=== PATIENT | female | born 1960 | race Caucasian/White ===

== ENCOUNTER 2016-07-22 06:50 | Day surgery (SDC) | payer OTHER ==
[2016-07-21 11:26] VITALS: BMI 29.2
[~2016-07-22 06:50] MED LIST: MOXIFLOXACIN HCL 0.5% DROPS 3 ML BTL OP ONE; TETRACAINE 0.5% OPHTH (PF) DROPS 4 ML BTL OP ONE; TIMOLOL 0.5% OPHTH SOLN (PF) 0.2 ML DROPERETTE OP ONE
[2016-07-22 07:31] VITALS: TEMP 97
[2016-07-22] MEDS: CYCLOPENTOLATE 1% OPHTH SOLN 2 ML BTL OP ONE ×3 (07:31→07:49)
[2016-07-22] MEDS: PHENYLEPHRINE 2.5% OPHTH DRP 2ML OP NR ×3 (07:35→07:52)
[2016-07-22] MEDS ORDERED: LACTATED RINGERS 1,000 ML IV ONE (07:46)
[2016-07-22] MEDS ORDERED: DUOVISC KIT (GREEN BOX) INTRAOCULA ONE (08:24)
[2016-07-22] MEDS ORDERED: BALANCED SALT IRRIG SOLN COMB2 15 ML IRRIG.SOLN IRRIGATION ONE (08:24)
[2016-07-22] MEDS ORDERED: LIDOCAINE 1% (PF) 10MG/ML VIAL MISCELLANE ONE (08:25)
[2016-07-22] MEDS ORDERED: MIDAZOLAM 2 MG/2 ML VIAL ONE (08:29)
[2016-07-22] MEDS ORDERED: fentaNYL (PF) 50 MCG/ML 2 ML AMP ONE (08:29)
[2016-07-22] MEDS ORDERED: TRYPAN BLUE 0.06% SYRINGE 0.5 ML SYRINGE INTRAOCULA ONE (08:44)
[2016-07-22] MEDS ORDERED: EPINEPHrine (PF) 0.3 ML in BALANCED SALT IRRIG SOLN COMB2 500 ML IRRIGATION ONE (08:45)
--- NOTE | 2016-07-22 09:00 | P.OP ---
Date of Procedure: 07/22/16 Preoperative Diagnosis: NS & CS & PSC Postoperative Diagnosis: same Procedure(s) Performed: PIOL, OS Implants: PCB00 19.50 Anesthesia: MAC Surgeon: Olman Acosta Estimated Blood Loss (ml): 0 Pathology: none sent Condition: stable Disposition: same day Indications for Procedure: poor vision Operative Findings: No complications Description of Procedure:
[2016-07-22 09:07] VITALS: RESP 16
[2016-07-22 09:32] VITALS: BP 164/79; PULSE 62
--- NOTE | 2016-07-23 07:11 | OP ---
DATE OF SERVICE: 07/22/2016 SURGEON: PETER IVEY MD TRAFFIC ADMINISTRATOR: PREOPERATIVE DIAGNOSIS: Nuclear sclerosis, cortical sclerosis and posterior subcapsular cataract. POSTOPERATIVE DIAGNOSIS: Nuclear sclerosis, cortical sclerosis and posterior subcapsular cataract. OPERATION: Phacoemulsification of cataract and intraocular lens implant to the left eye. ANESTHESIA: Topical. ESTIMATED BLOOD LOSS: None. SPECIMENS TAKEN: None. COMPLICATIONS: OPERATIVE FINDINGS: NARRATIVE: After obtaining the appropriate consent, the patient was brought to the operating room. There she was placed under cardiac monitoring, prepped and draped in the usual sterile manner. She was approached from her left temporal side and at the 5 o'clock position a 1.1 mm stab blade was used to create a paracentesis port. Through this opening, 1% Xylocaine MPF 50-50 mix with balanced salt solution was injected into the anterior chamber. A small air bubble was then placed into the anterior chamber and trypan blue was instilled over the tissues of the anterior chamber and left in place for approximately one minute. This was then irrigated away with balanced salt solution. The anterior chamber was then stabilized using Amvisc. At the 3 o'clock position a 2.5 mm keratome was used to create a self-sealing corneal flap incision in a Langerman fashion. A cystotome was then introduced to begin a continuous tear capsulorrhexis, which was completed using the Utrata forceps. Hydrodissection and hydrodelineation of the lens was accomplished with balanced salt solution. Phacoemulsification of the lens utilizing phaco chop was accomplished in 4.95 seconds at 10% power. Additional Xylocaine MPF was instilled into the anterior chamber. This was followed by removal of the remaining cortex under irrigation and aspiration as well as careful polishing of the posterior capsule in capsule vacuum mode. Additional Amvisc was then used to stabilize the anterior chamber and the capsular bag and an [employer] PCB00 16.5 diopter posterior chamber intraocular lens was then inserted into the capsular bag without difficulty. Viscoelastic was removed from in and around the intraocular lens as well as the anterior chamber. The eye was then brought to normal intraocular pressure through the paracentesis port with balanced salt solution. Incisions were confirmed watertight. The patient then received 2 drops of 0.5% timolol followed by 2 drops of Vigamox, was then lightly patched and shielded in the usual manner. There were no complications from the procedure. She tolerated the procedure well and was returned to outpatient recovery in good condition.
== END 2016-07-22 09:58 | disposition home or self-care (01) ==
LOC: OR 06:50
PROVIDERS: ATTEND Ophthalmology
DX: H25.13 Age-related nuclear cataract, bilateral (principal); H25.043 Posterior subcapsular polar age-related cataract, bilateral; H26.8 Other specified cataract; H52.223 Regular astigmatism, bilateral; H40.012 Open angle with borderline findings, low risk, left eye; H52.4 Presbyopia; I10 Essential (primary) hypertension; E11.9 Type 2 diabetes mellitus without complications; E07.9 Disorder of thyroid, unspecified; K21.9 Gastro-esophageal reflux disease without esophagitis; Z79.899 Other long term (current) drug therapy; Z88.8 Allergy status to other drugs, medicaments and biological substances
CPT/HCPCS: 66984; C1780; J2250; J0171; J3010; J2001

== ENCOUNTER 2016-07-28 16:25 | Emergency (ER) | payer OTHER ==
[2016-07-28] MEDS ORDERED: SODIUM CHLORIDE 0.9% 1,000 ML IV STA (17:01)
[2016-07-28 17:41] LABS: Anisocytosis Slight; Basophils % (A) 1 %; CH 29.2; CHCM 34.4; Eosinophils % (A) 1 %; HCT 39.4 % (34.0-46.0); HDW 4.25; HGB 13.1 gm/dL (11.4-16.0); Luc # (Auto) 0.08; Luc % (Auto) 2; Lymphocytes # (A) 0.5 k/uL (1.0-4.8); Lymphocytes % (A) 14 %; MCH 28.4 pg (25.0-35.0); MCHC 33.3 g/dL (31.0-37.0); MCV 85.5 fL (80.0-100.0); Mean Platelet Volume 7.5; Monocytes # (A) 0.2 k/uL (0-1.0); Monocytes % (A) 5 %; Neutrophils # (A) 2.9 k/uL (1.3-7.7); Neutrophils % (A) 77 %; Poikilocytosis Moderate; WBC 3.7 k/uL (3.8-10.6); WBC (Perox) 3.64
[2016-07-28 17:42] LABS: Appearance,Urine Clear (Clear); Bilirubin,Urine Negative (Negative); Glucose,Urine (UA) Negative (Negative); INR 1.1 (<1.1); Ketones,Urine Negative (Negative); Leukocyte Esterase,Urine Negative (Negative); Nitrite,Urine Negative (Negative); Protein,Urine Negative (Negative); Prothrombin Time 11.3 sec (9.0-12.0); Specific Gravity,Urine 1.003 (1.001-1.035); UA Billing (MACRO vs. MICRO) CHEM; Urobilinogen,Urine <2.0 mg/dL (<2.0)
--- NOTE | 2016-07-28 17:47 | ED ---
General Adult HPI - General Chief complaint: Recheck/Abnormal Lab/Rx Stated complaint: Weakness Time Seen by Provider: 07/28/16 16:43 Source: patient, RN notes reviewed Mode of arrival: wheelchair Limitations: physical limitation - History of Present Illness Initial comments: Patient is a 56-year-old female presents emergency room for evaluation of low body temperature. Patient states been having low body temperature for the past 2 months. Patient states she'll have episodes where her temperature goes down 94F and she will feel very cold but will sweat profusely. Patient states that she has gone to [facility] ER for this issue and they did not find anything significant and sent her home. Patient states she's been having continuing issues with this. Patient states she called Dr. Gill yesterday and today. Patient states her primary care provider about certain blood work done that she faxed over to us. Patient states that she does have a history of thyroid issues. Patient states she's not sure if this is related to thyroid. Patient states that she went through menopause many years ago. Patient denies any abnormal vaginal bleeding or vaginal discharge. Patient denies headache, dizziness, chest pain, shortness of breath, abdominal pain, nausea, vomiting, diarrhea, constipation. Patient denies pain or burning during urination, trouble urinating or blood in urine. Patient states she is just not feeling herself. Patient states she like to find the cause of her low body temperature. 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 Patient does state she follows up with neurologist. Patient states she has an MRI ordered but has not scheduled the appointment yet. Patient denies any changes in vision, dizziness, headache, ringing in ears. - Related Data Home Medications Medication Instructions Recorded Confirmed Ascorbic Acid [Vitamin C] 500 mg PO DAILY 07/21/16 07/28/16 Atenolol [Tenormin] 100 mg PO HS 07/21/16 07/28/16 Levothyroxine Sodium [Tirosint] 112 mcg PO DAILY 07/21/16 07/28/16 Magnesium Oxide [Mag-Ox] 250 mg PO DAILY 07/21/16 07/28/16 Montelukast [Singulair] 10 mg PO HS 07/21/16 07/28/16 Potassium Bicarbonate/Cit AC 50 meq PO TID 07/21/16 07/28/16 [Klor-Con 25 (Effer. Tab)] SUMAtriptan SUCCINATE [Imitrex] 50 mg PO DAILY PRN 07/21/16 07/28/16 Zolpidem Tartrate [Ambien] 5 mg PO HS 07/21/16 07/28/16 amLODIPine [Norvasc] 5 mg PO DAILY 07/21/16 07/28/16 Albuterol Nebulized [Ventolin 2.5 mg INHALATION RT-DAILY PRN 07/28/16 07/28/16 Nebulized] LORazepam [Ativan] 3 mg PO HS 07/28/16 07/28/16 Potassium Chloride [Klor-Con 20] 20 meq PO BID 07/28/16 07/28/16 Allergies Allergy/AdvReac Type Severity Reaction Status Date / Time hydrocortisone Allergy Nausea & Verified 07/28/16 16:56 Vomiting Iodine and Iodide Containing Allergy "KIDNEY Verified 07/28/16 16:56 Produc PROBLEM" quinine Allergy Nausea & Verified 07/28/16 16:56 Vomiting iodine AdvReac Unknown "KIDNEY Verified 07/28/16 16:56 PROBLEM" Review of Systems ROS Statement: Those systems with pertinent positive or pertinent negative responses have been documented in the HPI. ROS Other: All systems not noted in ROS Statement are negative. 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, TUBULAR RENAL ACIDOSIS,NEUROMUSCULAR DISEASE-MULTI FOCAL MOTOR NEUROPATHY , QUADRIPLEGIC History of Any Multi-Drug Resistant Organisms: None Reported Past Surgical History: Uterine Ablation Additional Past Surgical History / Comment(s): MUSCLE BIOPSY , D&C Past Anesthesia/Blood Transfusion Reactions: Postoperative Nausea & Vomiting ( PONV) Past Psychological History: No Psychological Hx Reported Smoking Status: Never smoker Past Alcohol Use History: None Reported Past Drug Use History: None Reported - Past Family History Mother Family Medical History: No Reported History General Exam - General Exam Comments Initial Comments: Sitting in exam room, no acute distress. Limitations: physical limitation General appearance: alert, in no apparent distress Head exam: Present: atraumatic, normocephalic, normal inspection Eye exam: Present: normal appearance Pupils: Present: normal accommodation ENT exam: Present: normal exam Neck exam: Present: normal inspection, full ROM. Absent: tenderness, lymphadenopathy Respiratory exam: Present: normal lung sounds bilaterally. Absent: respiratory distress Cardiovascular Exam: Present: regular rate, normal rhythm, normal heart sounds Extremities exam: Present: normal inspection Back exam: Present: normal inspection Neurological exam: Present: alert, oriented X3, CN II-XII intact Psychiatric exam: Present: normal affect, normal mood Skin exam: Present: warm, dry, intact Course Vital Signs 07/28/16 07/28/16 16:28 19:21 Temperature 97.8 F 97.3 F L Pulse Rate 63 60 Respiratory 20 17 Rate Blood Pressure 141/71 151/67 O2 Sat by Pulse 98 100 Oximetry EKG Findings - EKG Comments: EKG Findings:: Sinus bradycardia, ventricular rate 54 bpm, NC interval 154 ms, QRS duration 86 seconds, QT/QTc 430/407 ms Medical Decision Making - Medical Decision Making Patient is a 56-year-old female presents emergency room for evaluation of on and off low body temperature. Patient temperature within normal limits here. There was a form faxed from Dr. Gill to order a free T3, free T4, TSH, estradiol, FSH, LH. Labs were taken. Gen. labs were also ordered which were within normal limits. Patient was offered brain CT. Patient refused CT. Patient advised to follow-up with either Dr. Gill or primary care provider. Other labs pending at the moment. Patient states she understands everything that was discussed with her. Return parameters discussed. Case discussed with Dr. Romero. - Lab Data Result diagrams: 07/28/16 17:29 07/28/16 17:29 Lab Results 07/28/16 07/28/16 07/28/16 Range/Units 17:29 17:29 17:29 WBC 3.7 L (3.8-10.6) k/uL RBC 4.60 (3.80-5.40) m/uL Hgb 13.1 (11.4-16.0) gm/dL Hct 39.4 (34.0-46.0) % MCV 85.5 (80.0-100.0) fL MCH 28.4 (25.0-35.0) pg MCHC 33.3 (31.0-37.0) g/dL RDW 19.0 H (11.5-15.5) % Plt Count 142 L (150-450) k/uL Neutrophils % 77 % Lymphocytes % 14 % Monocytes % 5 % Eosinophils % 1 % Basophils % 1 % Neutrophils # 2.9 (1.3-7.7) k/uL Lymphocytes # 0.5 L (1.0-4.8) k/uL Monocytes # 0.2 (0-1.0) k/uL Eosinophils # 0.0 (0-0.7) k/uL Basophils # 0.0 (0-0.2) k/uL Poikilocytosis Moderate Anisocytosis Slight PT (9.0-12.0) sec INR (<1.1) Sodium 139 (137-145) mmol/L Potassium 5.0 (3.5-5.1) mmol/L Chloride 102 (98-107) mmol/L Carbon Dioxide 27 (22-30) mmol/L Anion Gap 10 mmol/L BUN 11 (7-17) mg/dL Creatinine 0.20 L (0.52-1.04) mg/dL Est GFR (MDRD) Af Amer >60 (>60 ml/min/1.73 sqM) Est GFR (MDRD) Non-Af >60 (>60 ml/min/1.73 sqM) Glucose 127 H (74-99) mg/dL POC Glucose (mg/dL) (75-99) mg/dL POC Glu Science Instructor ID Plasma Lactic Acid Kuldeep (0.7-2.0) mmol/L Calcium 9.5 (8.4-10.2) mg/dL Magnesium 1.9 (1.6-2.3) mg/dL Total Bilirubin 0.4 (0.2-1.3) mg/dL AST 41 H (14-36) U/L ALT 51 (9-52) U/L Alkaline Phosphatase 115 (38-126) U/L Troponin I (0.000-0.034) ng/mL Total Protein 8.5 H (6.3-8.2) g/dL Albumin 4.5 (3.5-5.0) g/dL TSH 0.276 L (0.465-4.680) mIU/L Free T4 2.15 (0.78-2.19) ng/dL Free T3 pg/mL 4.0 (2.8-5.3) pg/ml FSH 66.3 mIU/mL Luteinizing Hormone 39.8 mIU/mL Urine Color Light Yellow Urine Appearance Clear (Clear) Urine pH 8.0 (5.0-8.0) Ur Specific [place] 1.003 (1.001-1.035) Urine Protein Negative (Negative) Urine Glucose (UA) Negative (Negative) Urine Ketones Negative (Negative) Urine Blood Negative (Negative) Urine Nitrite Negative (Negative) Urine Bilirubin Negative (Negative) Urine Urobilinogen <2.0 (<2.0) mg/dL Ur Leukocyte Esterase Negative (Negative) Urine Opiates Screen Not Detected (NotDetected) Ur Oxycodone Screen Not Detected (NotDetected) Urine Methadone Screen Not Detected (NotDetected) Ur Propoxyphene Screen Not Detected (NotDetected) Ur Barbiturates Screen Not Detected (NotDetected) U Tricyclic Antidepress Not Detected (NotDetected) Ur Phencyclidine Scrn Not Detected (NotDetected) Ur Amphetamines Screen Not Detected (NotDetected) U Methamphetamines Scrn Not Detected (NotDetected) U Benzodiazepines Scrn Detected H (NotDetected) Urine Cocaine Screen Not Detected (NotDetected) U Marijuana (THC) Screen Not Detected (NotDetected) 07/28/16 07/28/16 07/28/16 Range/Units 17:29 17:29 17:29 WBC (3.8-10.6) k/uL RBC (3.80-5.40) m/uL Hgb (11.4-16.0) gm/dL Hct (34.0-46.0) % MCV (80.0-100.0) fL MCH (25.0-35.0) pg MCHC (31.0-37.0) g/dL RDW (11.5-15.5) % Plt Count (150-450) k/uL Neutrophils % % Lymphocytes % % Monocytes % % Eosinophils % % Basophils % % Neutrophils # (1.3-7.7) k/uL Lymphocytes # (1.0-4.8) k/uL Monocytes # (0-1.0) k/uL Eosinophils # (0-0.7) k/uL Basophils # (0-0.2) k/uL Poikilocytosis Anisocytosis PT 11.3 (9.0-12.0) sec INR 1.1 (<1.1) Sodium (137-145) mmol/L Potassium (3.5-5.1) mmol/L Chloride (98-107) mmol/L Carbon Dioxide (22-30) mmol/L Anion Gap mmol/L BUN (7-17) mg/dL Creatinine (0.52-1.04) mg/dL Est GFR (MDRD) Af Amer (>60 ml/min/1.73 sqM) Est GFR (MDRD) Non-Af (>60 ml/min/1.73 sqM) Glucose (74-99) mg/dL POC Glucose (mg/dL) (75-99) mg/dL POC Glu Science Instructor ID Plasma Lactic Acid Kuldeep 1.3 (0.7-2.0) mmol/L Calcium (8.4-10.2) mg/dL Magnesium (1.6-2.3) mg/dL Total Bilirubin (0.2-1.3) mg/dL AST (14-36) U/L ALT (9-52) U/L Alkaline Phosphatase (38-126) U/L Troponin I <0.012 (0.000-0.034) ng/mL Total Protein (6.3-8.2) g/dL Albumin (3.5-5.0) g/dL TSH (0.465-4.680) mIU/L Free T4 (0.78-2.19) ng/dL Free T3 pg/mL (2.8-5.3) pg/ml FSH mIU/mL Luteinizing Hormone mIU/mL Urine Color Urine Appearance (Clear) Urine pH (5.0-8.0) Ur Specific [place] (1.001-1.035) Urine Protein (Negative) Urine Glucose (UA) (Negative) Urine Ketones (Negative) Urine Blood (Negative) Urine Nitrite (Negative) Urine Bilirubin (Negative) Urine Urobilinogen (<2.0) mg/dL Ur Leukocyte Esterase (Negative) Urine Opiates Screen (NotDetected) Ur Oxycodone Screen (NotDetected) Urine Methadone Screen (NotDetected) Ur Propoxyphene Screen (NotDetected) Ur Barbiturates Screen (NotDetected) U Tricyclic Antidepress (NotDetected) Ur Phencyclidine Scrn (NotDetected) Ur Amphetamines Screen (NotDetected) U Methamphetamines Scrn (NotDetected) U Benzodiazepines Scrn (NotDetected) Urine Cocaine Screen (NotDetected) U Marijuana (THC) Screen (NotDetected) 07/28/16 Range/Units 17:58 WBC (3.8-10.6) k/uL RBC (3.80-5.40) m/uL Hgb (11.4-16.0) gm/dL Hct (34.0-46.0) % MCV (80.0-100.0) fL MCH (25.0-35.0) pg MCHC (31.0-37.0) g/dL RDW (11.5-15.5) % Plt Count (150-450) k/uL Neutrophils % % Lymphocytes % % Monocytes % % Eosinophils % % Basophils % % Neutrophils # (1.3-7.7) k/uL Lymphocytes # (1.0-4.8) k/uL Monocytes # (0-1.0) k/uL Eosinophils # (0-0.7) k/uL Basophils # (0-0.2) k/uL Poikilocytosis Anisocytosis PT (9.0-12.0) sec INR (<1.1) Sodium (137-145) mmol/L Potassium (3.5-5.1) mmol/L Chloride (98-107) mmol/L Carbon Dioxide (22-30) mmol/L Anion Gap mmol/L BUN (7-17) mg/dL Creatinine (0.52-1.04) mg/dL Est GFR (MDRD) Af Amer (>60 ml/min/1.73 sqM) Est GFR (MDRD) Non-Af (>60 ml/min/1.73 sqM) Glucose (74-99) mg/dL POC Glucose (mg/dL) 124 H (75-99) mg/dL POC Glu Science Instructor ID Kevin Edwards Plasma Lactic Acid Kuldeep (0.7-2.0) mmol/L Calcium (8.4-10.2) mg/dL Magnesium (1.6-2.3) mg/dL Total Bilirubin (0.2-1.3) mg/dL AST (14-36) U/L ALT (9-52) U/L Alkaline Phosphatase (38-126) U/L Troponin I (0.000-0.034) ng/mL Total Protein (6.3-8.2) g/dL Albumin (3.5-5.0) g/dL TSH (0.465-4.680) mIU/L Free T4 (0.78-2.19) ng/dL Free T3 pg/mL (2.8-5.3) pg/ml FSH mIU/mL Luteinizing Hormone mIU/mL Urine Color Urine Appearance (Clear) Urine pH (5.0-8.0) Ur Specific [place] (1.001-1.035) Urine Protein (Negative) Urine Glucose (UA) (Negative) Urine Ketones (Negative) Urine Blood (Negative) Urine Nitrite (Negative) Urine Bilirubin (Negative) Urine Urobilinogen (<2.0) mg/dL Ur Leukocyte Esterase (Negative) Urine Opiates Screen (NotDetected) Ur Oxycodone Screen (NotDetected) Urine Methadone Screen (NotDetected) Ur Propoxyphene Screen (NotDetected) Ur Barbiturates Screen (NotDetected) U Tricyclic Antidepress (NotDetected) Ur Phencyclidine Scrn (NotDetected) Ur Amphetamines Screen (NotDetected) U Methamphetamines Scrn (NotDetected) U Benzodiazepines Scrn (NotDetected) Urine Cocaine Screen (NotDetected) U Marijuana (THC) Screen (NotDetected) Disposition Clinical Impression: Malaise, Chills Disposition: HOME SELF-CARE Condition: Good Additional Instructions: Please follow-up with primary care provider and neurologist for further evaluation. If any new symptom arises or symptoms worsen, return to ER as soon as possible. Referrals: Christiano Dooley MD [Primary Care Provider] - 1-2 days Sydni Gill MD [STAFF PHYSICIAN] - 1-2 days Time of Disposition: 19:04
[2016-07-28 17:54] LABS: ALT 51 U/L (9-52); AST 41 U/L (14-36); Alkaline Phosphatase 115 U/L (38-126); Anion Gap 10 mmol/L; Blood Urea Nitrogen 11 mg/dL (7-17); Calcium 9.5 mg/dL (8.4-10.2); Carbon Dioxide 27 mmol/L (22-30); Chloride 102 mmol/L (98-107); Glucose 127 mg/dL (74-99); Magnesium 1.9 mg/dL (1.6-2.3); Non-African American GFR(MDRD) >60 (>60 ml/min/1.73 sqM); Sodium 139 mmol/L (137-145); Total Bilirubin 0.4 mg/dL (0.2-1.3); Total Protein 8.5 g/dL (6.3-8.2)
[2016-07-28 18:07] LABS: Glucose,Whole Blood 124 mg/dL (75-99)
[2016-07-28 18:10] LABS: Follicle Stimulating Hormone 66.3 mIU/mL
[2016-07-28 19:22] VITALS: BP 151/67; PULSE 60; RESP 17; TEMP 97.3
[2016-07-31 13:48] LABS: Estradiol 22 pg/mL
== END 2016-07-28 19:21 | disposition home or self-care (01) ==
LOC: EC 16:25
DX: R53.81 Other malaise (principal); R68.83 Chills (without fever); I10 Essential (primary) hypertension; E07.9 Disorder of thyroid, unspecified; Z79.899 Other long term (current) drug therapy; Z88.8 Allergy status to other drugs, medicaments and biological substances; Z91.048 Other nonmedicinal substance allergy status
CPT/HCPCS: 36415; 80053; 80306; 81003; 82670; 83001; 83002; 83605; 83735; 84439; 84443; 84481; 84484; 85025; 85610; 93005; 96360; 96361; 99285

== ENCOUNTER → 2016-10-19 | Outpatient (CLI) | payer OTHER ==
--- NOTE | 2016-10-19 15:18 | CT ---
EXAMINATION TYPE: CT abdomen pelvis wo con DATE OF EXAM: 10/19/2016 COMPARISON: 01/08/2009 HISTORY: Alternating diarrhea and constipation. CT DLP: 1036.70 mGycm Automated exposure control for dose reduction was used. TECHNIQUE: Helical acquisition of images was performed from the lung bases through the pelvis. FINDINGS: LUNG BASES: No significant abnormality is appreciated. LIVER/GB: No significant abnormality is appreciated. PANCREAS: No significant abnormality is seen. SPLEEN: No significant abnormality is seen. ADRENALS: No significant abnormality is seen. URINARY BLADDER: No significant abnormality is seen. ADENOPATHY: None visualized. OSSEOUS STRUCTURES: Hypertrophic and degenerative change of the spine noted with slight curvature. F acet arthropathy. Arthropathy of the hips noted. BOWEL: No significant abnormality is seen. OTHER: Diffuse muscular atrophy noted. Mediport catheter noted. Soft tissue calcification noted. Athe rosclerotic change of the aorta. No aneurysm. There are multiple tiny calcifications within the mes[place] ka[place] of doubtful significance. IMPRESSION: 1. Multiple nonobstructing renal calculi bilaterally. 2. Nonspecific gas pattern. 3. Gastric wall is thickened but likely related to incomplete distention correlate clinically. 4. Diffuse muscular atrophy.
== END | disposition home or self-care (01) ==
LOC: RADCTMAIN 14:07
PROVIDERS: ATTEND Internal Medicine
DX: N20.0 Calculus of kidney (principal); K31.89 Other diseases of stomach and duodenum
CPT/HCPCS: 74176

== ENCOUNTER 2018-01-04 13:45 | Emergency (ER) | payer OTHER ==
[2018-01-04 13:59] VITALS: TEMP 97.4
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
[2018-01-04 16:44] VITALS: BP 135/74; PULSE 60; RESP 17
== END 2018-01-04 16:44 | disposition home or self-care (01) ==
LOC: EC 13:45
DX: S09.90XA Unspecified injury of head, initial encounter (principal); G12.20 Motor neuron disease, unspecified; I10 Essential (primary) hypertension; Z79.899 Other long term (current) drug therapy; Z88.5 Allergy status to narcotic agent; Z88.8 Allergy status to other drugs, medicaments and biological substances; Z91.048 Other nonmedicinal substance allergy status; W22.8XXA Striking against or struck by other objects, initial encounter; Y92.129 Unspecified place in nursing home as the place of occurrence of the external cause
CPT/HCPCS: 70450; 72125; 99283

== ENCOUNTER 2020-07-04 12:37 | Inpatient (IN) | payer MEDICARE, OTHER ==
--- NOTE | 2020-07-04 13:15 | ED ---
General Adult HPI - General Chief complaint: Skin/Abscess/Foreign Body Stated complaint: R Leg red Time Seen by Provider: 07/04/20 12:53 Source: patient, RN notes reviewed Mode of arrival: ambulatory Limitations: no limitations - History of Present Illness Initial comments: Patient is a pleasant 60-year-old female presenting to the emergency Department with complaints of right leg erythema. Patient was in the hospital last week for it. Patient states symptoms were getting better and was discharged on Keflex. Patient was changed to Levaquin yesterday. Patient has had worsening symptoms over the past 3 days. Redness extends mostly from the ankle to the knee but somewhat above the knee as well. Patient feels somewhat swollen as well. No chest pain or dyspnea. No fevers. - Related Data Home Medications Medication Instructions Recorded Confirmed Ascorbic Acid [Vitamin C] 500 mg PO DAILY 07/21/16 01/12/18 Atenolol [Tenormin] 100 mg PO HS 07/21/16 01/12/18 Magnesium Oxide [Mag-Ox] 250 mg PO DAILY 07/21/16 01/12/18 Montelukast [Singulair] 10 mg PO HS 07/21/16 01/12/18 Potassium Bicarbonate/Cit AC 50 meq PO TID 07/21/16 01/12/18 [Klor-Con 25 (Effer. Tab)] SUMAtriptan SUCCINATE [Imitrex] 50 mg PO DAILY PRN 07/21/16 01/12/18 Zolpidem Tartrate [Ambien] 5 mg PO HS PRN 07/21/16 01/12/18 amLODIPine [Norvasc] 5 mg PO DAILY 07/21/16 01/12/18 Albuterol Nebulized [Ventolin 2.5 mg INHALATION RT-DAILY PRN 07/28/16 01/12/18 Nebulized] LORazepam [Ativan] 3 mg PO HS 07/28/16 01/12/18 Potassium Chloride [Klor-Con 20] 20 meq PO BID 07/28/16 01/12/18 Ferrous Sulfate [Feosol] 325 mg PO DAILY 01/04/18 01/12/18 Levothyroxine Sodium [Tirosint] 100 mcg PO DAILY 01/04/18 01/12/18 Sodium Bicarbonate 325 mg PO BID 01/12/18 01/12/18 Allergies Allergy/AdvReac Type Severity Reaction Status Date / Time hydrocortisone Allergy Nausea & Verified 07/04/20 12:49 Vomiting Iodine and Iodide Containing Allergy "KIDNEY Verified 07/04/20 12:49 Produc PROBLEM" quinine Allergy Nausea & Verified 07/04/20 12:49 Vomiting iodine AdvReac Unknown "KIDNEY Verified 07/04/20 12:49 PROBLEM" Review of Systems ROS Statement: Those systems with pertinent positive or pertinent negative responses have been documented in the HPI. ROS Other: All systems not noted in ROS Statement are negative. 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, TUBULAR RENAL ACIDOSIS,NEUROMUSCULAR DISEASE-MULTI FOCAL MOTOR NEUROPATHY , QUADRIPLEGIC History of Any Multi-Drug Resistant Organisms: None Reported Past Surgical History: Uterine Ablation Additional Past Surgical History / Comment(s): MUSCLE BIOPSY , D&C Past Anesthesia/Blood Transfusion Reactions: Postoperative Nausea & Vomiting (PONV) Past Psychological History: No Psychological Hx Reported Smoking Status: Never smoker Past Alcohol Use History: None Reported Past Drug Use History: None Reported - Past Family History Mother Family Medical History: No Reported History General Exam Limitations: no limitations General appearance: alert, in no apparent distress Head exam: Present: normocephalic Eye exam: Present: normal appearance Neck exam: Present: normal inspection Respiratory exam: Present: normal lung sounds bilaterally Cardiovascular Exam: Present: regular rate, normal rhythm Expanded Peripheral pulses: 2+: Dorsalis Pedis (R) GI/Abdominal exam: Present: soft. Absent: tenderness Extremities exam: Present: other (No significant edema. Erythema right lower leg.) Neurological exam: Present: motor sensory deficit (Quadriplegic, in wheelchair) Psychiatric exam: Present: normal affect, normal mood Skin exam: Present: erythema (Right lower leg from the knee to the ankle. There is some mild erythema above the knee as well to the mid thigh.) Course Vital Signs 07/04/20 12:44 Temperature 96 F L Pulse Rate 65 Respiratory 18 Rate Blood Pressure 123/62 O2 Sat by Pulse 99 Oximetry Medical Decision Making - Medical Decision Making Patient reevaluated and updated. Case was discussed with Dr. Lopez who does recommend admission with IV cefazolin. Patient requests not Dr. Foreman and states she will be looking for new primary care doctor. Case was discussed with Dr. Brownlee, who will admit covering hospital call. - Lab Data Result diagrams: 07/04/20 13:48 07/04/20 13:48 Lab Results 07/04/20 07/04/20 07/04/20 Range/Units 13:48 13:48 13:48 WBC 5.8 (3.8-10.6) k/uL RBC 4.37 (3.80-5.40) m/uL Hgb 13.5 (11.4-16.0) gm/dL Hct 39.4 (34.0-46.0) % MCV 90.1 (80.0-100.0) fL MCH 30.8 (25.0-35.0) pg MCHC 34.2 (31.0-37.0) g/dL RDW 16.5 H (11.5-15.5) % Plt Count 255 (150-450) k/uL MPV 7.3 Neutrophils % 81 % Lymphocytes % 12 % Monocytes % 5 % Eosinophils % 1 % Basophils % 1 % Neutrophils # 4.7 (1.3-7.7) k/uL Lymphocytes # 0.7 L (1.0-4.8) k/uL Monocytes # 0.3 (0-1.0) k/uL Eosinophils # 0.1 (0-0.7) k/uL Basophils # 0.1 (0-0.2) k/uL Poikilocytosis Moderate Anisocytosis Slight Sodium 136 L (137-145) mmol/L Potassium 5.0 (3.5-5.1) mmol/L Chloride 101 (98-107) mmol/L Carbon Dioxide 25 (22-30) mmol/L Anion Gap 10 mmol/L BUN 6 L (7-17) mg/dL Creatinine <0.15 L (0.52-1.04) mg/dL Est GFR (CKD-EPI)AfAm >90 (>60 ml/min/1.73 sqM) Est GFR (CKD-EPI)NonAf >90 (>60 ml/min/1.73 sqM) Glucose 136 H (74-99) mg/dL Plasma Lactic Acid Kuldeep 1.0 (0.7-2.0) mmol/L Calcium 9.8 (8.4-10.2) mg/dL Total Bilirubin 0.6 (0.2-1.3) mg/dL AST 52 H (14-36) U/L ALT 56 H (4-34) U/L Alkaline Phosphatase 180 H (38-126) U/L Total Protein 7.9 (6.3-8.2) g/dL Albumin 4.2 (3.5-5.0) g/dL - Radiology Data Radiology results: report reviewed (Ultrasound negative for DVT. Suboptimal study.), image reviewed Disposition Clinical Impression: Cellulitis of right leg Disposition: ADMITTED IP TO THIS HOSP Is patient prescribed a controlled substance at d/c from ED?: No Referrals: Christiano Dooley MD [Primary Care Provider] - 1-2 days Decision Time: 14:57
[2020-07-04 14:01] LABS: Anisocytosis Slight; Basophils # (A) 0.1 k/uL (0-0.2); Basophils % (A) 1 %; Eosinophils # (A) 0.1 k/uL (0-0.7); Eosinophils % (A) 1 %; HCT 39.4 % (34.0-46.0); HGB 13.5 gm/dL (11.4-16.0); Lymphocytes # (A) 0.7 k/uL (1.0-4.8); Lymphocytes % (A) 12 %; MCH 30.8 pg (25.0-35.0); MCHC 34.2 g/dL (31.0-37.0); MCV 90.1 fL (80.0-100.0); Mean Platelet Volume 7.3; Monocytes # (A) 0.3 k/uL (0-1.0); Monocytes % (A) 5 %; Neutrophils # (A) 4.7 k/uL (1.3-7.7); Neutrophils % (A) 81 %; Platelet Count 255 k/uL (150-450); Poikilocytosis Moderate; RBC 4.37 m/uL (3.80-5.40); RDW 16.5 % (11.5-15.5); WBC 5.8 k/uL (3.8-10.6)
[2020-07-04 14:10] LABS: ALT 56 U/L (4-34); AST 52 U/L (14-36); Albumin 4.2 g/dL (3.5-5.0); Alkaline Phosphatase 180 U/L (38-126); Anion Gap 10 mmol/L; Blood Urea Nitrogen 6 mg/dL (7-17); Calcium 9.8 mg/dL (8.4-10.2); Carbon Dioxide 25 mmol/L (22-30); Chloride 101 mmol/L (98-107); Glucose 136 mg/dL (74-99); Sodium 136 mmol/L (137-145); Total Bilirubin 0.6 mg/dL (0.2-1.3); Total Protein 7.9 g/dL (6.3-8.2)
[2020-07-04 14:18] LABS: African American GFR (CKD) >90 (>60 ml/min/1.73 sqM); Non-African American GFR(CKD) >90 (>60 ml/min/1.73 sqM)
--- NOTE | 2020-07-04 14:26 | US ---
EXAMINATION TYPE: US venous doppler duplex LE RT DATE OF EXAM: 07/04/2020 2:12 PM COMPARISON: NONE CLINICAL HISTORY: erythemia. Lower right leg/calf redness. Patient in motorized wheel chair. SIDE PERFORMED: Right TECHNIQUE: The lower extremity deep venous system is examined utilizing real time linear array sonog shawn with graded compression, doppler sonography and color-flow sonography. VESSELS IMAGED: Common Femoral Vein Deep Femoral Vein Greater Saphenous Vein * Femoral Vein Popliteal Vein Small Saphenous Vein * Proximal Calf Veins (* superficial vessels) CFV, DFV and GSV not visualized due to patient position Right Leg: Negative for DVT in portions seen Grayscale, color doppler, spectral doppler imaging performed of the deep veins of the right lower ext remity. There is normal flow, compressibility, vascular waveforms in the visualized portions. IMPRESSION: Suboptimal study, No ultrasound evidence for acute DVT in the right lower extremity in v essels sampled, portions suboptimally evaluated.
--- NOTE | 2020-07-04 14:56 | XR ---
EXAMINATION TYPE: XR tibia fibula RT DATE OF EXAM: 07/04/2020 CLINICAL HISTORY: Erythema TECHNIQUE: Two views of the right tibia and fibula are obtained. COMPARISON: None. FINDINGS: There is no acute fracture or dislocation seen in the right tibia or fibula. Diffusely dec reased osseous mineralization. No evidence of osseous erosion or periosteal reaction of the tibia or fibula. There is subcutaneous edema diffusely. Scattered soft tissue calcifications. There is irregul arity of the midfoot seen on lateral image #1. IMPRESSION: 1. No acute osseous abnormality of the right tibia or fibula. 2. Irregularity of the midfoot seen on single image may represent degenerative change versus chronic appearing fracture fragment. Recommend correlation with point tenderness of the superior aspect of th e midfoot and follow-up radiographs as clinically indicated.
[2020-07-04] MEDS ORDERED: ACETAMINOPHEN TAB 325 MG TAB PO PRN (14:59)
[2020-07-04] MEDS ORDERED: NALOXONE 0.4 MG/ML 1 ML VIAL IV PRN (14:59)
[2020-07-04] MEDS: SODIUM CHLORIDE 0.9% 1,000 ML IV SCH (17:04)
[2020-07-04] MEDS ORDERED: CLOTRIMAZOLE 1% CREAM 30 GM TUBE TOPICAL PRN (21:22)
[2020-07-04] MEDS ORDERED: HYDROCORTISONE 1% OINT 28.35 GM TUBE TOPICAL PRN (21:22)
[2020-07-04] MEDS ORDERED: GAMUNEX C IV SCH (21:30)
[2020-07-04] MEDS ORDERED: NON FORMULARY DRUG (Vitamin B Complex [Vitamin B Complex] 1 EACH Capsule) PO SCH (22:00)
[2020-07-04] MEDS ORDERED: [UNRECOGNIZED DRUG - OTHER] PO SCH (22:00)
--- NOTE | 2020-07-04 22:49 | P.HPIM ---
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 Currently uses electric scooter presents to ER due to worsening left lower extremity redness and swelling. Patient was recently admitted to the hospital at [facility] and was discharged with oral antibiotic course of Keflex. Patient was changed to Levaquin yesterday. Due to worsening redness and swelling and pain patient presents to ER. Redness extends mainly from the ankle to the below-knee. Otherwise patient denies any fever or chills. No chest pain or shortness of breath. No headache or dizziness or lightheadedness. No cough or sputum production. Laboratory data showed WBC 5.8 hemoglobin 13.5 and platelets 255 lymphocytes 0.7 Sodium 136 potassium 5.0 chloride 101 BUN 16 creatinine 0.15 and lactic acid 1.0 AST 52 ALT is 56 alk phos 180 Coronavirus PCR nondetected Review of Systems Constitutional: Patient denies any fever or chills . No generalized weakness or weight loss. Abdomen: Patient denied nausea vomiting and diarrhea and abdominal pain. Cardiovascular: Patient denies any chest pain or short of breath no palpita tions. Respiratory: patient denied any cough or sputum production. No shortness of breath Neurologic: Patient denied any numbness or tingling headache. Musculoskeletal: Patient denies any complaints of joint swelling or deformity. Right leg redness and swelling. Skin: as above Psychiatric: Negative Endocrine: No heat or cold intolerance. No recent weight gain. Genitourinary: No dysuria or hematuria. 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, TUBULAR RENAL ACIDOSIS,NEUROMUSCULAR DISEASE-MULTI FOCAL MOTOR NEUROPATHY , QUADRIPLEGIC History of Any Multi-Drug Resistant Organisms: None Reported Past Surgical History: Uterine Ablation Additional Past Surgical History / Comment(s): MUSCLE BIOPSY , D&C Past Anesthesia/Blood Transfusion Reactions: Postoperative Nausea & Vomiting (PONV) Past Psychological History: No Psychological Hx Reported Smoking Status: Never smoker Past Alcohol Use History: None Reported Past Drug Use History: None Reported - Past Family History Mother Family Medical History: No Reported History Medications and Allergies Home Medications Medication Instructions Recorded Confirmed Type Atenolol [Tenormin] 100 mg PO DAILY 07/21/16 07/04/20 History Montelukast [Singulair] 10 mg PO HS 07/21/16 07/04/20 History Potassium Bicarbonate/Cit AC 50 meq PO TID 07/21/16 07/04/20 History [Klor-Con 25 (Effer. Tab)] amLODIPine [Norvasc] 5 mg PO DAILY 07/21/16 07/04/20 History LORazepam [Ativan] 2 mg PO TID 07/28/16 07/04/20 History Potassium Chloride [Klor-Con 20] 20 meq PO BID 07/28/16 07/04/20 History Ferrous Sulfate [Feosol] 325 mg PO DAILY 01/04/18 07/04/20 History Levothyroxine Sodium [Tirosint] 100 mcg PO SUMOTUWETHFR 01/04/18 07/04/20 History Cephalexin [Keflex] 500 mg PO Q6H 07/04/20 07/04/20 History Cranberry 25,000mg 25,000 mg PO DAILY 07/04/20 07/04/20 History Ergocalciferol [Vitamin D2 (1250 1,250 mcg PO FR 07/04/20 07/04/20 History Mcg = 50143 Iu)] Gamunex-C(Unknown Dose) 1 dose IV Q30D 07/04/20 07/04/20 History Hydrocortisone Oint 1 applic TOPICAL BID PRN 07/04/20 07/04/20 History [Hydrocortisone 2.5% Oint] Ketoconazole 2% Cream [Nizoral 2%] 1 applic TOPICAL BID PRN 07/04/20 07/04/20 History Levothyroxine Sodium [Tirosint] 112 mcg PO SA 07/04/20 07/04/20 History SILVER sulfADIAZINE Cream 1 applic TOPICAL DAILY 07/04/20 07/04/20 History [Silvadene 1% Cream] Sodium Bicarbonate Tab 650 mg PO BID 07/04/20 07/04/20 History Vitamin A Acetate [Vitamin A] 10,000 unit SL DAILY 07/04/20 07/04/20 History Vitamin B Complex 1 cap PO TID 07/04/20 07/04/20 History Zinc 50 mg PO DAILY 07/04/20 07/04/20 History calcitrioL [Calcitriol] 0.25 mcg PO MO 07/04/20 07/04/20 History Allergies Allergy/AdvReac Type Severity Reaction Status Date / Time hydrocortisone Allergy Nausea & Verified 07/04/20 15:18 Vomiting Iodine and Iodide Containing Allergy "KIDNEY Verified 07/04/20 15:18 Produc PROBLEM" quinine Allergy Nausea & Verified 07/04/20 15:18 Vomiting iodine AdvReac Unknown "KIDNEY Verified 07/04/20 15:18 PROBLEM" Physical Exam Vitals: Vital Signs Temp Pulse Pulse Resp BP BP Pulse Ox 07/04/20 20:32 97.5 F L 65 14 151/63 100 07/04/20 18:51 55 L 18 140/50 100 07/04/20 16:18 58 L 18 132/72 100 07/04/20 12:44 96 F L 65 18 123/62 99 Intake and Output 07/04/20 07/04/20 07/04/20 06:59 14:59 22:59 Other: Weight 77.111 kg 77.111 kg PHYSICAL EXAMINATION: Patient is lying in the bed comfortably, no acute distress, awake alert and oriented.. HEENT: Normocephalic. Neck is supple. Pupils reactive. Nostrils clear. Oral cavity is moist. Ears reveal no drainage. Neck reveals no JVD, carotid bruits, or thyromegaly. CHEST EXAMINATION: Trachea is central. Symmetrical expansion. Lung brooks clear to auscultation and percussion. CARDIAC: Normal S1, S2 with no gallops. No murmurs ABDOMEN: Soft. Bowel sounds normal. No organomegaly. No abdominal bruits. Extremities: Right lower extremity redness extending from ankle up to the knee with swelling and redness and mild tenderness.. No clubbing or cyanosis Neurologically awake, alert, oriented x3 . Patient is quadriplegic. Skin: No rash or skin lesions. Psychiatric: Coperative. Nonsuicidal Musculoskeletal: No joint swelling or deformity. Normal range of motion. Results CBC & Chem 7: 07/04/20 13:48 07/04/20 13:48 Labs: Abnormal Lab Results - Last 24 Hours (Table) 07/04/20 07/04/20 Range/Units 13:48 13:48 RDW 16.5 H (11.5-15.5) % Lymphocytes # 0.7 L (1.0-4.8) k/uL Sodium 136 L (137-145) mmol/L BUN 6 L (7-17) mg/dL Creatinine <0.15 L (0.52-1.04) mg/dL Glucose 136 H (74-99) mg/dL AST 52 H (14-36) U/L ALT 56 H (4-34) U/L Alkaline Phosphatase 180 H (38-126) U/L Thrombosis Risk Factor Assmnt - DVT/VTE Prophylaxis DVT/VTE Prophylaxis: Pharmacologic Prophylaxis ordered - Choose All That Apply Any of the Below Risk Factors Present?: Yes Each Factor Represents 1 point: Medical pt on bed rest Other Risk Factors: Yes Each Risk Factor Represents 2 Points: Age 61-74 years, Patient confined to bed Other congenital or acquired thrombophilia - If yes, enter type in comment: No Thrombosis Risk Factor Assessment Total Risk Factor Score: 5 Thrombosis Risk Factor Assessment Level: High Risk Assessment and Plan Assessment: Right lower extremity cellulitis failed outpatient antibiotic therapy. 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 DVT prophylaxis with heparin subcu Plan: Patient will be continued antibiotics in the form of cefazolin and follow-up blood cultures. Continue with home medications. ID will be consulted and further recommendations based on the clinical course. Continue with pain management.
[2020-07-04] MEDS: LORazepam 1 MG TAB PO SCH (23:22)
[2020-07-05] MEDS: HEPARIN SODIUM,PORCINE/PF 5,000 UNIT/0.5 ML SYRINGE SQ SCH ×3 (01:19→15:23)
[2020-07-05] MEDS ORDERED: LEVOTHYROXINE 100 MCG TAB PO SCH (06:30)
[2020-07-05] MEDS: LORazepam 1 MG TAB PO SCH ×2 (08:17→15:23)
[2020-07-05 08:48] VITALS: BP 156/82; PULSE 80; RESP 18; TEMP 98.3
[2020-07-05] MEDS ORDERED: CRANBERRY 25000 MG PO SCH (09:00)
[2020-07-05] MEDS ORDERED: FERROUS SULFATE 325 MG TAB PO SCH (09:00)
[2020-07-05] MEDS ORDERED: atenoloL 50 MG TAB PO SCH (09:00)
[2020-07-05] MEDS ORDERED: ZINC SULFATE 220 MG CAP PO SCH (09:00)
[2020-07-05] MEDS ORDERED: POTASSIUM CHLORIDE ER 20 MEQ TAB.ER PO SCH (09:00)
[2020-07-05] MEDS ORDERED: SODIUM BICARBONATE TAB 650 MG TAB PO SCH (09:00)
[2020-07-05] MEDS ORDERED: VITAMIN A 10,000 UNIT CAPSULE PO SCH (09:00)
[2020-07-05] MEDS ORDERED: ERGOCALCIFEROL 1,250 MCG (50,000 IU) CAPSULE PO SCH (09:00)
[2020-07-05] MEDS ORDERED: amLODIPine 5 MG TAB PO SCH (09:00)
[2020-07-05] MEDS: SODIUM CHLORIDE 0.9% 1,000 ML IV SCH (14:47)
--- NOTE | 2020-07-05 16:25 | P.CONS ---
History of Present Illness - Reason for Consult Consult date: 07/05/20 Right lower extremity cellulitis Requesting physician: Ottoniel Brownlee - Chief Complaint Right leg swelling and redness 1 day - History of Present Illness Patient is a 60-year-old female who was recently admitted at [facility] with right lower extremity cellulitis patient was treated with IV cefazolin and clindamycin after improvement the patient was discharged home on oral Keflex, patient seemed to have some gastric upset with oral Keflex and may not have been taking it regularly patient mention her right leg becoming more swollen and tense and more red for the patient presented to [facility] ER yesterday, patient on presentation hospital was afebrile patient did have a normal white count, case was discussed with me by the ER physician, patient was started on cefazolin 2 g every 8 hours a lucien has been placed around the area of the redness of right leg, infectious disease was consulted for further management of antibiotic therapy, patient currently denies having any fever or any chills, the patient right leg swelling and redness has decreased compared to Yesterday with the no progression, patient currently do not have any blisters or any open wound and no drainage patient is already feeling better and was stable home on IV antibiotic, patient denies having any chest pain shortness of breath or cough no nausea no vomiting no abdominal pain and no diarrhea 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, TUBULAR RENAL ACIDOSIS,NEUROMUSCULAR DISEASE-MULTI FOCAL MOTOR NEUROPATHY , QUADRIPLEGIC History of Any Multi-Drug Resistant Organisms: None Reported Past Surgical History: Uterine Ablation Additional Past Surgical History / Comment(s): MUSCLE BIOPSY , D&C Past Anesthesia/Blood Transfusion Reactions: Postoperative Nausea & Vomiting (PONV) Past Psychological History: No Psychological Hx Reported Smoking Status: Never smoker Past Alcohol Use History: None Reported Past Drug Use History: None Reported - Past Family History Mother Family Medical History: No Reported History Medications and Allergies Home Medications Medication Instructions Recorded Confirmed Type Atenolol [Tenormin] 100 mg PO DAILY 07/21/16 07/04/20 History Montelukast [Singulair] 10 mg PO HS 07/21/16 07/04/20 History Potassium Bicarbonate/Cit AC 50 meq PO TID 07/21/16 07/04/20 History [Klor-Con 25 (Effer. Tab)] amLODIPine [Norvasc] 5 mg PO DAILY 07/21/16 07/04/20 History LORazepam [Ativan] 2 mg PO TID 07/28/16 07/04/20 History Potassium Chloride [Klor-Con 20] 20 meq PO BID 07/28/16 07/04/20 History Ferrous Sulfate [Iron (65 MG 325 mg PO DAILY 01/04/18 07/04/20 History Elemental)] Levothyroxine Sodium [Tirosint] 100 mcg PO SUMOTUWETHFR 01/04/18 07/04/20 History Cephalexin [Keflex] 500 mg PO Q6H 07/04/20 07/04/20 History Cranberry 25,000mg 25,000 mg PO DAILY 07/04/20 07/04/20 History Ergocalciferol [Vitamin D2 (1250 1,250 mcg PO FR 07/04/20 07/04/20 History Mcg = 17537 Iu)] Gamunex-C(Unknown Dose) 1 dose IV Q30D 07/04/20 07/04/20 History Hydrocortisone Oint 1 applic TOPICAL BID PRN 07/04/20 07/04/20 History [Hydrocortisone 2.5% Oint] Ketoconazole 2% Cream [Nizoral 2%] 1 applic TOPICAL BID PRN 07/04/20 07/04/20 History Levothyroxine Sodium [Tirosint] 112 mcg PO SA 07/04/20 07/04/20 History SILVER sulfADIAZINE Cream 1 applic TOPICAL DAILY 07/04/20 07/04/20 History [Silvadene 1% Cream] Sodium Bicarbonate Tab 650 mg PO BID 07/04/20 07/04/20 History Vitamin A Acetate [Vitamin A] 10,000 unit SL DAILY 07/04/20 07/04/20 History Vitamin B Complex 1 cap PO TID 07/04/20 07/04/20 History Zinc 50 mg PO DAILY 07/04/20 07/04/20 History calcitrioL [Calcitriol] 0.25 mcg PO MO 07/04/20 07/04/20 History Allergies Allergy/AdvReac Type Severity Reaction Status Date / Time hydrocortisone Allergy Nausea & Verified 07/04/20 15:18 Vomiting Iodine and Iodide Containing Allergy "KIDNEY Verified 07/04/20 15:18 Produc PROBLEM" quinine Allergy Nausea & Verified 07/04/20 15:18 Vomiting iodine AdvReac Unknown "KIDNEY Verified 07/04/20 15:18 PROBLEM" Physical Exam Vitals: Vital Signs Temp Pulse Pulse Resp BP BP Pulse Ox 07/05/20 08:49 80 07/05/20 08:48 98.3 F 80 18 156/82 99 07/05/20 02:00 64 14 160/82 99 07/04/20 20:32 97.5 F L 65 14 151/63 100 07/04/20 20:00 65 14 07/04/20 18:51 55 L 18 140/50 100 07/04/20 16:18 58 L 18 132/72 100 Intake and Output 07/04/20 07/05/20 07/05/20 22:59 06:59 14:59 Output Total 1900 Balance -1900 Output: Urine 1900 Straight 1900 Other: Weight 77.111 kg GENERAL DESCRIPTION: Middle-aged male lying in bed, no distress. No tachypnea or accessory muscle of respiration use. HEENT: Shows Pallor , no scleral icterus. Oral mucous membrane is dry. No pharyngeal erythema or thrush NECK: Trachea central, no thyromegaly. LUNGS: Unlabored breathing. Clear to auscultation anteriorly. No wheeze or crackle. HEART: S1, S2, regular rate and rhythm. No loud murmur ABDOMEN: Soft, no tenderness , guarding or rigidity, no organomegaly EXTREMITIES: Right lower extremity with minimal swelling and redness however the redness has receded no blister no drainage SKIN: No rash, no masses palpable. NEUROLOGICAL: The patient is awake, alert, oriented x3, mood and affect normal. Results CBC & Chem 7: 07/04/20 13:48 07/04/20 13:48 Labs: Abnormal Lab Results - Last 24 Hours (Table) 07/04/20 07/04/20 Range/Units 13:48 13:48 RDW 16.5 H (11.5-15.5) % Lymphocytes # 0.7 L (1.0-4.8) k/uL Sodium 136 L (137-145) mmol/L BUN 6 L (7-17) mg/dL Creatinine <0.15 L (0.52-1.04) mg/dL Glucose 136 H (74-99) mg/dL AST 52 H (14-36) U/L ALT 56 H (4-34) U/L Alkaline Phosphatase 180 H (38-126) U/L Assessment and Plan Assessment: Patient with acute right lower extremity cellulitis at this patient did have diffuse swelling and redness likely streptococcal disease clinically improving on cefazolin in this patient cannot tolerate oral Keflex at home and is refusing oral antibiotic on discharge patient already have a port will work on arranging a short course of IV cefazolin on discharge (1) Cellulitis of right leg Current Visit: Yes Status: Acute Code(s): L03.115 - CELLULITIS OF RIGHT LOWER LIMB SNOMED Code(s): 840733119 Plan: 1-cefazolin 2 g every 8 hours for the next 7-10 days depending upon clinical response personal lines account manager is working on arrangement of outpatient IV cefazolin was arranged she should be able to go home from ID standpoint We will follow on clinical condition and cultures to further adjust medication if needed Thank you for this consultation will follow this patient with you
[2020-07-05] MEDS ORDERED: MONTELUKAST 10 MG TAB PO SCH (21:00)
[2020-07-06] MEDS ORDERED: LEVOTHYROXINE 112 MCG TAB PO SCH (06:30)
--- NOTE | 2020-07-24 23:49 | P.DS ---
Providers Date of admission: 07/04/20 14:59 Expected date of discharge: 07/05/20 Attending physician: Ottoniel Brownlee Consults: 07/04/20 15:00 Consult Physician Urgent Consulting Provider: Ann Tran Consult Reason/Comments: cellulitis Do you want consulting provider notified?: Already Contacted Primary care physician: Christiano Dooley Hospital Course: Discharge diagnosis Right lower extremity cellulitis failed outpatient antibiotic therapy. 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 Currently uses electric scooter presents to ER due to worsening left lower extremity redness and swelling. Patient was recently admitted to the hospital at [facility] and was discharged with oral antibiotic course of Keflex. Patient was changed to Levaquin yesterday. Due to worsening redness and swelling and pain patient presents to ER. Redness extends mainly from the ankle to the below-knee. Otherwise patient denies any fever or chills. No chest pain or shortness of breath. No headache or dizziness or lightheadedness. No cough or sputum production. Laboratory data showed WBC 5.8 hemoglobin 13.5 and platelets 255 lymphocytes 0.7 Sodium 136 potassium 5.0 chloride 101 BUN 16 creatinine 0.15 and lactic acid 1.0 AST 52 ALT is 56 alk phos 180 Coronavirus PCR nondetected Patient was continued on antibiotics in the form of cefazolin. Blood cultures negative. Right lower extremity swelling or redness is much improved today. ID recommends continue with IV antibiotic course and follow-up in the clinic. Patient is being discharged home today. IV antibiotics are being arranged and supportive employment case manager is seen the patient. PHYSICAL EXAMINATION: Patient is lying in the bed comfortably, no acute distress, awake alert and oriented.. HEENT: Normocephalic. Neck is supple. Pupils reactive. Nostrils clear. Oral cavity is moist. Ears reveal no drainage. Neck reveals no JVD, carotid bruits, or thyromegaly. CHEST EXAMINATION: Trachea is central. Symmetrical expansion. Lung brooks clear to auscultation and percussion. CARDIAC: Normal S1, S2 with no gallops. No murmurs ABDOMEN: Soft. Bowel sounds normal. No organomegaly. No abdominal bruits. Extremities: Right lower extremity redness , swelling imroved. mild tenderness.. No clubbing or cyanosis Neurologically awake, alert, oriented x3 . Patient is quadriplegic. Skin: No rash or skin lesions. Psychiatric: Coperative. Nonsuicidal Musculoskeletal: No joint swelling or deformity. Normal range of motion. Vital Signs Temp Pulse Pulse Resp BP BP Pulse Ox 07/05/20 08:49 80 07/05/20 08:48 98.3 F 80 18 156/82 99 07/05/20 02:00 64 14 160/82 99 07/04/20 20:32 97.5 F L 65 14 151/63 100 07/04/20 20:00 65 14 07/04/20 18:51 55 L 18 140/50 100 07/04/20 16:18 58 L 18 132/72 100 Intake and Output 07/04/20 07/05/20 07/05/20 22:59 06:59 14:59 Output Total 1900 Balance -1900 Output: Urine 1900 Straight 1900 Other: Weight 77.111 kg Patient Condition at Discharge: Stable Plan - Discharge Summary Discharge Rx Participant: No New Discharge Prescriptions: Continue Montelukast [Singulair] 10 mg PO HS Potassium Bicarbonate/Cit AC [Klor-Con 25 (Effer. Tab)] 50 meq PO TID Atenolol [Tenormin] 100 mg PO DAILY amLODIPine [Norvasc] 5 mg PO DAILY LORazepam [Ativan] 2 mg PO TID Potassium Chloride [Klor-Con 20] 20 meq PO BID Levothyroxine Sodium [Tirosint] 100 mcg PO SUMOTUWETHFR Ferrous Sulfate [Iron (65 MG Elemental)] 325 mg PO DAILY Ergocalciferol [Vitamin D2 (1250 Mcg = 74554 Iu)] 1,250 mcg PO FR Hydrocortisone Oint [Hydrocortisone 2.5% Oint] 1 applic TOPICAL BID PRN PRN Reason: buttocks Vitamin B Complex 1 cap PO TID Gamunex-C(Unknown Dose) 1 dose IV Q30D calcitrioL [Calcitriol] 0.25 mcg PO MO SILVER sulfADIAZINE Cream [Silvadene 1% Cream] 1 applic TOPICAL DAILY Levothyroxine Sodium [Tirosint] 112 mcg PO SA Sodium Bicarbonate Tab 650 mg PO BID Ketoconazole 2% Cream [Nizoral 2%] 1 applic TOPICAL BID PRN PRN Reason: Rash Vitamin A Acetate [Vitamin A] 10,000 unit SL DAILY Zinc 50 mg PO DAILY Cranberry 25,000mg 25,000 mg PO DAILY No Action Cephalexin [Keflex] 500 mg PO Q6H Discharge Medication List Atenolol [Tenormin] 100 mg PO DAILY 07/21/16 [History] Montelukast [Singulair] 10 mg PO HS 07/21/16 [History] Potassium Bicarbonate/Cit AC [Klor-Con 25 (Effer. Tab)] 50 meq PO TID 07/21/16 [History] amLODIPine [Norvasc] 5 mg PO DAILY 07/21/16 [History] LORazepam [Ativan] 2 mg PO TID 07/28/16 [History] Potassium Chloride [Klor-Con 20] 20 meq PO BID 07/28/16 [History] Ferrous Sulfate [Iron (65 MG Elemental)] 325 mg PO DAILY 01/04/18 [History] Levothyroxine Sodium [Tirosint] 100 mcg PO SUMOTUWETHFR 01/04/18 [History] Cephalexin [Keflex] 500 mg PO Q6H 07/04/20 [History] Cranberry 25,000mg 25,000 mg PO DAILY 07/04/20 [History] Ergocalciferol [Vitamin D2 (1250 Mcg = 20716 Iu)] 1,250 mcg PO FR 07/04/20 [History] Gamunex-C(Unknown Dose) 1 dose IV Q30D 07/04/20 [History] Hydrocortisone Oint [Hydrocortisone 2.5% Oint] 1 applic TOPICAL BID PRN 07/04/20 [History] Ketoconazole 2% Cream [Nizoral 2%] 1 applic TOPICAL BID PRN 07/04/20 [History] Levothyroxine Sodium [Tirosint] 112 mcg PO SA 07/04/20 [History] SILVER sulfADIAZINE Cream [Silvadene 1% Cream] 1 applic TOPICAL DAILY 07/04/20 [History] Sodium Bicarbonate Tab 650 mg PO BID 07/04/20 [History] Vitamin A Acetate [Vitamin A] 10,000 unit SL DAILY 07/04/20 [History] Vitamin B Complex 1 cap PO TID 07/04/20 [History] Zinc 50 mg PO DAILY 07/04/20 [History] calcitrioL [Calcitriol] 0.25 mcg PO MO 07/04/20 [History] Follow up Appointment(s)/Referral(s): [facility], [NON-STAFF] - ([facility] will call you to set up your first visit for 07/06/20. They will begin the outpatient IV antibiotic teaching and infusion with you. ) [facility],Infusion [NON-STAFF] - ([facility] will deliver outpatient IV antibiotic supplies to your house this evening on 07/05/20. They will call your house prior to delivery. ) Christiano Dooley MD [Primary Care Provider] - 1-2 days Patient Instructions/Handouts: Cellulitis (DC) Discharge Disposition: HOME WITH HOME HEALTH SERVICES
== END 2020-07-05 17:11 | disposition home health service (06) | DRG 602 ==
LOC: EC 12:37 → 4SSUR 14:59
PROVIDERS: ADMIT Internal Medicine; ATTEND Internal Medicine
DX: L03.115 Cellulitis of right lower limb (principal); G82.50 Quadriplegia, unspecified; G61.82 Multifocal motor neuropathy; N25.89 Other disorders resulting from impaired renal tubular function; I10 Essential (primary) hypertension; Z20.822 Contact with and (suspected) exposure to COVID-19; Z88.8 Allergy status to other drugs, medicaments and biological substances; Z79.899 Other long term (current) drug therapy; Z79.890 Hormone replacement therapy; Z86.73 Personal history of transient ischemic attack (TIA), and cerebral infarction without residual deficits; E03.9 Hypothyroidism, unspecified; Z99.3 Dependence on wheelchair
CPT/HCPCS: 36415; 80053; 83605; 85025; 87040; 87635; 99285

== ENCOUNTER 2020-09-19 17:00 | Inpatient (IN) | payer MEDICARE, OTHER ==
[2020-09-19] MEDS ORDERED: SODIUM CHLORIDE 0.9% 500 ML 500 ML IV ONE (17:42)
--- NOTE | 2020-09-19 17:48 | ED ---
General Adult HPI - General Chief complaint: Fall Stated complaint: Fall, altered mental status Time Seen by Provider: 09/19/20 17:18 Source: patient, EMS Mode of arrival: EMS Limitations: physical limitation - History of Present Illness Initial comments: 60-year-old female with a past medical history of hypertension, thyroid disorder, quadriplegic presents to the emergency room for a chief complaint of fall. Patient was in her wheelchair and it apparently hit a bump and she fell forward hitting her head on the ground. No loss of consciousness. Patient does not take blood thinners. Patient has also been confused for about a week. According to the senior care patient lives in she hired someone to come to her house last week for treatment for muscle weakness. They're unsure what treatment this was. Patient is unsure as well. The report that ever since that time she has been confused. She's been seeing people are out to get her. In the emergency room patient is anxious stating that there are growth after her for her money. She cannot give any more details.Patient has no other complaints at this time including shortness of breath, chest pain, abdominal pain, nausea or vomiting, headache, or visual changes. - Related Data Home Medications Medication Instructions Recorded Confirmed Atenolol [Tenormin] 100 mg PO DAILY 07/21/16 09/05/20 Montelukast [Singulair] 10 mg PO HS 07/21/16 09/05/20 Potassium Bicarbonate/Cit AC 50 meq PO TID 07/21/16 09/05/20 [Klor-Con 25 (Effer. Tab)] amLODIPine [Norvasc] 5 mg PO DAILY 07/21/16 09/05/20 LORazepam [Ativan] 2 mg PO TID 07/28/16 09/05/20 Potassium Chloride [Klor-Con 20] 20 meq PO BID 07/28/16 09/05/20 Ferrous Sulfate [Iron (65 MG 325 mg PO DAILY 01/04/18 09/05/20 Elemental)] Levothyroxine Sodium [Tirosint] 100 mcg PO SUMOTUWETHFR 01/04/18 09/05/20 Cranberry 25,000mg 25,000 mg PO DAILY 07/04/20 09/05/20 Ergocalciferol [Vitamin D2 (1250 1,250 mcg PO FR 07/04/20 09/05/20 Mcg = 93859 Iu)] Gamunex-C(Unknown Dose) 1 dose IV Q30D 07/04/20 09/05/20 Hydrocortisone Oint 1 applic TOPICAL BID PRN 07/04/20 09/05/20 [Hydrocortisone 2.5% Oint] Ketoconazole 2% Cream [Nizoral 2%] 1 applic TOPICAL BID PRN 07/04/20 09/05/20 Levothyroxine Sodium [Tirosint] 112 mcg PO SA 07/04/20 09/05/20 SILVER sulfADIAZINE Cream 1 applic TOPICAL DAILY 07/04/20 09/05/20 [Silvadene 1% Cream] Sodium Bicarbonate Tab 650 mg PO BID 07/04/20 09/05/20 Vitamin A Acetate [Vitamin A] 10,000 unit SL DAILY 07/04/20 09/05/20 Vitamin B Complex 1 cap PO TID 07/04/20 09/05/20 Zinc 50 mg PO DAILY 07/04/20 09/05/20 calcitrioL [Calcitriol] 0.25 mcg PO MO 07/04/20 09/05/20 Allergies Allergy/AdvReac Type Severity Reaction Status Date / Time hydrocortisone Allergy Nausea & Verified 09/05/20 09:52 Vomiting Iodine and Iodide Containing Allergy "KIDNEY Verified 09/05/20 09:52 Produc PROBLEM" quinine Allergy Nausea & Verified 09/05/20 09:52 Vomiting iodine AdvReac Unknown "KIDNEY Verified 09/05/20 09:52 PROBLEM" Review of Systems ROS Statement: Those systems with pertinent positive or pertinent negative responses have been documented in the HPI. ROS Other: All systems not noted in ROS Statement are negative. 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, TUBULAR RENAL ACIDOSIS,NEUROMUSCULAR DISEASE-MULTI FOCAL MOTOR NEUROPATHY , QUADRIPLEGIC History of Any Multi-Drug Resistant Organisms: None Reported Past Surgical History: Uterine Ablation Additional Past Surgical History / Comment(s): MUSCLE BIOPSY , D&C Past Anesthesia/Blood Transfusion Reactions: Postoperative Nausea & Vomiting (PONV) Past Psychological History: No Psychological Hx Reported Smoking Status: Never smoker Past Alcohol Use History: None Reported Past Drug Use History: None Reported - Past Family History Mother Family Medical History: No Reported History General Exam Limitations: physical limitation General appearance: alert, in no apparent distress Head exam: Absent: atraumatic (Abrasion noted to frontal scalp) Eye exam: Present: normal appearance, PERRL, EOMI. Absent: scleral icterus, conjunctival injection, periorbital swelling ENT exam: Present: normal exam, mucous membranes moist Neck exam: Present: normal inspection, full ROM. Absent: tenderness, meningismus, lymphadenopathy Respiratory exam: Present: normal lung sounds bilaterally. Absent: respiratory distress, wheezes, rales, rhonchi, stridor Cardiovascular Exam: Present: regular rate, normal rhythm, normal heart sounds. Absent: systolic murmur, diastolic murmur, rubs, gallop, clicks GI/Abdominal exam: Present: soft, normal bowel sounds. Absent: distended, tenderness, guarding, rebound, rigid Neurological exam: Present: alert Course Vital Signs 09/19/20 17:04 Temperature 98.0 F Pulse Rate 50 L Respiratory 18 Rate Blood Pressure 123/75 O2 Sat by Pulse 98 Oximetry EKG Findings - EKG Comments: EKG Findings:: Sinus bradycardia, ventricular rate 51, NM interval 174, QTC 396 Medical Decision Making - Medical Decision Making Vitals are stable. Patient is well-appearing. CBC did does show thrombocytopenia of 20. CMP reveals hyperkalemia. No changes on EKG consistent with hyperkalemia. Glucose 171, history of diabetes. Magnesium 2.7. Urinalysis is negative. CT brain shows no acute cranial hemorrhage. CT cervical spine shows no acute fracture or dislocation. Patient continues to be confused and delusional. Seems paranoid. Acute strain people are out to get her but is alert and oriented 3. Patient will be admitted for delirium. We will also consult hematology given thrombocytopenia aggie - Lab Data Result diagrams: 09/19/20 18:44 09/19/20 18:44 Lab Results 09/19/20 09/19/20 09/19/20 Range/Units 18:44 18:44 18:44 WBC 4.7 (3.8-10.6) k/uL RBC 4.57 (3.80-5.40) m/uL Hgb 14.6 (11.4-16.0) gm/dL Hct 42.6 (34.0-46.0) % MCV 93.2 (80.0-100.0) fL MCH 31.8 (25.0-35.0) pg MCHC 34.2 (31.0-37.0) g/dL RDW 16.9 H (11.5-15.5) % Plt Count 20 L D (150-450) k/uL MPV 11.2 Neutrophils % 86 % Lymphocytes % 7 % Monocytes % 5 % Eosinophils % 1 % Basophils % 0 % Neutrophils # 4.1 (1.3-7.7) k/uL Lymphocytes # 0.3 L (1.0-4.8) k/uL Monocytes # 0.2 (0-1.0) k/uL Eosinophils # 0.0 (0-0.7) k/uL Basophils # 0.0 (0-0.2) k/uL Manual Slide Review Performed Hyperchromasia Slight Poikilocytosis Slight Anisocytosis Slight PT 10.5 (9.0-12.0) sec INR 1.0 (<1.2) APTT 39.2 H (22.0-30.0) sec Sodium (137-145) mmol/L Potassium (3.5-5.1) mmol/L Chloride (98-107) mmol/L Carbon Dioxide (22-30) mmol/L Anion Gap mmol/L BUN (7-17) mg/dL Creatinine (0.52-1.04) mg/dL Est GFR (CKD-EPI)AfAm (>60 ml/min/1.73 sqM) Est GFR (CKD-EPI)NonAf (>60 ml/min/1.73 sqM) Glucose (74-99) mg/dL Calcium (8.4-10.2) mg/dL Magnesium (1.6-2.3) mg/dL Total Bilirubin (0.2-1.3) mg/dL AST (14-36) U/L ALT (4-34) U/L Alkaline Phosphatase (38-126) U/L Total Protein (6.3-8.2) g/dL Albumin (3.5-5.0) g/dL Urine Color Yellow Urine Appearance Cloudy H (Clear) Urine pH 8.5 H (5.0-8.0) Ur Specific [place] 1.009 (1.001-1.035) Urine Protein 1+ H (Negative) Urine Glucose (UA) Negative (Negative) Urine Ketones Negative (Negative) Urine Blood Negative (Negative) Urine Nitrite Negative (Negative) Urine Bilirubin Negative (Negative) Urine Urobilinogen <2.0 (<2.0) mg/dL Ur Leukocyte Esterase Negative (Negative) Urine RBC 2 (0-5) /hpf Urine WBC 3 (0-5) /hpf Ur Squamous Epith Cells <1 (0-4) /hpf Amorphous Sediment Rare H (None) /hpf Urine Opiates Screen Not Detected (NotDetected) Ur Oxycodone Screen Not Detected (NotDetected) Urine Methadone Screen Not Detected (NotDetected) Ur Propoxyphene Screen Not Detected (NotDetected) Ur Barbiturates Screen Not Detected (NotDetected) U Tricyclic Antidepress Not Detected (NotDetected) Ur Phencyclidine Scrn Not Detected (NotDetected) Ur Amphetamines Screen Not Detected (NotDetected) U Methamphetamines Scrn Not Detected (NotDetected) U Benzodiazepines Scrn Detected H (NotDetected) Urine Cocaine Screen Not Detected (NotDetected) U Marijuana (THC) Screen Not Detected (NotDetected) Serum Alcohol mg/dL 09/19/20 Range/Units 18:44 WBC (3.8-10.6) k/uL RBC (3.80-5.40) m/uL Hgb (11.4-16.0) gm/dL Hct (34.0-46.0) % MCV (80.0-100.0) fL MCH (25.0-35.0) pg MCHC (31.0-37.0) g/dL RDW (11.5-15.5) % Plt Count (150-450) k/uL MPV Neutrophils % % Lymphocytes % % Monocytes % % Eosinophils % % Basophils % % Neutrophils # (1.3-7.7) k/uL Lymphocytes # (1.0-4.8) k/uL Monocytes # (0-1.0) k/uL Eosinophils # (0-0.7) k/uL Basophils # (0-0.2) k/uL Manual Slide Review Hyperchromasia Poikilocytosis Anisocytosis PT (9.0-12.0) sec INR (<1.2) APTT (22.0-30.0) sec Sodium 137 (137-145) mmol/L Potassium 6.2 H* (3.5-5.1) mmol/L Chloride 98 (98-107) mmol/L Carbon Dioxide 27 (22-30) mmol/L Anion Gap 12 mmol/L BUN 25 H (7-17) mg/dL Creatinine 0.23 L (0.52-1.04) mg/dL Est GFR (CKD-EPI)AfAm >90 (>60 ml/min/1.73 sqM) Est GFR (CKD-EPI)NonAf >90 (>60 ml/min/1.73 sqM) Glucose 171 H (74-99) mg/dL Calcium 10.9 H (8.4-10.2) mg/dL Magnesium 2.7 H (1.6-2.3) mg/dL Total Bilirubin 0.6 (0.2-1.3) mg/dL AST 97 H (14-36) U/L ALT 154 H (4-34) U/L Alkaline Phosphatase 124 (38-126) U/L Total Protein 7.3 (6.3-8.2) g/dL Albumin 4.3 (3.5-5.0) g/dL Urine Color Urine Appearance (Clear) Urine pH (5.0-8.0) Ur Specific [place] (1.001-1.035) Urine Protein (Negative) Urine Glucose (UA) (Negative) Urine Ketones (Negative) Urine Blood (Negative) Urine Nitrite (Negative) Urine Bilirubin (Negative) Urine Urobilinogen (<2.0) mg/dL Ur Leukocyte Esterase (Negative) Urine RBC (0-5) /hpf Urine WBC (0-5) /hpf Ur Squamous Epith Cells (0-4) /hpf Amorphous Sediment (None) /hpf Urine Opiates Screen (NotDetected) Ur Oxycodone Screen (NotDetected) Urine Methadone Screen (NotDetected) Ur Propoxyphene Screen (NotDetected) Ur Barbiturates Screen (NotDetected) U Tricyclic Antidepress (NotDetected) Ur Phencyclidine Scrn (NotDetected) Ur Amphetamines Screen (NotDetected) U Methamphetamines Scrn (NotDetected) U Benzodiazepines Scrn (NotDetected) Urine Cocaine Screen (NotDetected) U Marijuana (THC) Screen (NotDetected) Serum Alcohol <10 mg/dL Disposition Clinical Impression: Altered mental status, Hypermagnesemia, Hyperglycemia, Thrombocytopenia Disposition: ADMITTED IP TO THIS HOSP Is patient prescribed a controlled substance at d/c from ED?: No Referrals: None,Stated [Primary Care Provider] - 1-2 days Time of Disposition: 20:59
--- NOTE | 2020-09-19 18:23 | CT ---
EXAMINATION TYPE: CT brain man pak con DATE OF EXAM: 09/19/2020 COMPARISON: 01/04/2018 HISTORY: Fall, frontal injury, pain, confusion x [address] DLP: 1457.4 mGycm Automated exposure control for dose reduction was used. TECHNIQUE: CT scan of the head and cervical spine are performed without contrast. FINDINGS: There is no acute intracranial hemorrhage, mass effect, or midline shift identified. The ve ntricles and sulci are within normal limits in size. The globes are intact and the visualized sinuses are clear. Cervical spine is visualized in its entirety from C1 through upper thoracic levels and demonstrates s atisfactory alignment without evidence of acute fracture or dislocation. Prevertebral soft tissue ap pears within normal limits. Moderate multilevel cervical spondylosis changes noted. The C1-C2 articul ation is unremarkable. IMPRESSION: 1. There is no acute fracture or dislocation evident in the cervical spine. 2. No acute intracranial hemorrhage, mass effect, or midline shift is seen.
--- NOTE | 2020-09-19 18:25 | XR ---
EXAMINATION: XR chest 2V DATE AND TIME: 09/19/2020 6:17 PM CLINICAL INDICATION: PHH; altered mental status TECHNIQUE: PA and lateral views COMPARISON: None FINDINGS: Right IJ has its tip superimposed over the distal SVC. The lungs are clear. The pleural spaces are negative. The cardiac silhouette is not enlarged. The remainder of the mediastinal silhouette is unremarkable. The skeletal structures and soft tissues are negative for acute findings. Prominent overlying soft ti ssues noted. IMPRESSION: No acute radiographic process.
[2020-09-19 19:16] LABS: Amorphous Sediment,Urine Rare /hpf; Appearance,Urine Cloudy (Clear); Bilirubin,Urine Negative (Negative); Blood,Urine Negative (Negative); Color,Urine Yellow; Glucose,Urine (UA) Negative (Negative); Ketones,Urine Negative (Negative); Leukocyte Esterase,Urine Negative (Negative); Nitrite,Urine Negative (Negative); PH, Urine 8.5 (5.0-8.0); Protein,Urine 1+ (Negative); RBC,Urine 2 /hpf (0-5); Specific Gravity,Urine 1.009 (1.001-1.035); Squamous Epithelial Cell,Urine <1 /hpf (0-4); Urobilinogen,Urine <2.0 mg/dL (<2.0); WBC,Urine 3 /hpf (0-5)
[2020-09-19 19:32] LABS: Partial Thromboplastin Time 39.2 sec (22.0-30.0); Prothrombin Time 10.5 sec (9.0-12.0)
[2020-09-19 19:33] LABS: Anisocytosis Slight; Basophils % (A) 0 %; Eosinophils % (A) 1 %; HCT 42.6 % (34.0-46.0); HGB 14.6 gm/dL (11.4-16.0); Hyperchromasia Slight; Lymphocytes # (A) 0.3 k/uL (1.0-4.8); Lymphocytes % (A) 7 %; MCH 31.8 pg (25.0-35.0); MCHC 34.2 g/dL (31.0-37.0); MCV 93.2 fL (80.0-100.0); Mean Platelet Volume 11.2; Monocytes # (A) 0.2 k/uL (0-1.0); Monocytes % (A) 5 %; Neutrophils # (A) 4.1 k/uL (1.3-7.7); Neutrophils % (A) 86 %; Poikilocytosis Slight; RBC 4.57 m/uL (3.80-5.40); RDW 16.9 % (11.5-15.5); WBC 4.7 k/uL (3.8-10.6)
[2020-09-19 19:38] LABS: Amphetamine Screen,Urine Not Detected (NotDetected); Barbiturate Screen,Urine Not Detected (NotDetected); Benzodiazepines Screen,Urine Detected (NotDetected); Cocaine Screen,Urine Not Detected (NotDetected); Methadone Screen, Urine Not Detected (NotDetected); Opiate Screen,Urine Not Detected (NotDetected); Oxycodone Screen, Urine Not Detected (NotDetected); Phencyclidine Screen,Urine Not Detected (NotDetected); Tricyclic Antidepressant,Urine Not Detected (NotDetected); Urn Cannabinoid Scrn Not Detected (NotDetected)
[2020-09-19 20:06] LABS: Platelet Count 20 k/uL (150-450)
[2020-09-19 20:09] LABS: ALT 154 U/L (4-34); AST 97 U/L (14-36); African American GFR (CKD) >90 (>60 ml/min/1.73 sqM); Albumin 4.3 g/dL (3.5-5.0); Alcohol <10 mg/dL; Alkaline Phosphatase 124 U/L (38-126); Anion Gap 12 mmol/L; Blood Urea Nitrogen 25 mg/dL (7-17); Calcium 10.9 mg/dL (8.4-10.2); Carbon Dioxide 27 mmol/L (22-30); Chloride 98 mmol/L (98-107); Glucose 171 mg/dL (74-99); Magnesium 2.7 mg/dL (1.6-2.3); Non-African American GFR(CKD) >90 (>60 ml/min/1.73 sqM); Sodium 137 mmol/L (137-145); Total Bilirubin 0.6 mg/dL (0.2-1.3); Total Protein 7.3 g/dL (6.3-8.2)
[2020-09-19 20:24] LABS: Potassium 6.2 mmol/L (3.5-5.1)
--- NOTE | 2020-09-19 20:34 | XR ---
PROCEDURE: XR elbow complete RT - 3V DATE AND TIME: 09/19/2020 7:15 PM CLINICAL INDICATION: Pain; fall TECHNIQUE: Department protocol COMPARISON: None FINDINGS: There is no fracture or malalignment. The soft tissues are unremarkable. IMPRESSION: NO ACUTE PROCESS.
--- NOTE | 2020-09-19 20:35 | XR ---
PROCEDURE: XR knee complete RT - 3V DATE AND TIME: 09/19/2020 7:15 PM CLINICAL INDICATION: Pain; fall TECHNIQUE: Department protocol COMPARISON: 07/04/2020 FINDINGS: There is no fracture or malalignment. The soft tissues are remarkable for moderate soft tis brian swelling anterior to the patella. IMPRESSION: Anterior soft tissue swelling.
--- NOTE | 2020-09-19 20:37 | XR ---
PROCEDURE: XR foot complete RT - 3V DATE AND TIME: 09/19/2020 7:15 PM CLINICAL INDICATION: Pain; fall TECHNIQUE: Department protocol COMPARISON: None FINDINGS: There is no fracture or malalignment. The soft tissues are unremarkable. IMPRESSION: NO ACUTE PROCESS.
--- NOTE | 2020-09-19 20:38 | XR ---
PROCEDURE: XR tibia fibula LT - 2V DATE AND TIME: 09/19/2020 7:15 PM CLINICAL INDICATION: Pain; fall TECHNIQUE: Department protocol COMPARISON: None FINDINGS: There is no fracture or malalignment. The soft tissues are unremarkable. IMPRESSION: NO ACUTE PROCESS.
[2020-09-19] MEDS ORDERED: NALOXONE 0.4 MG/ML 1 ML VIAL IV PRN (21:00)
[2020-09-19] MEDS: SODIUM CHLORIDE 0.9% 1,000 ML IV SCH (21:15)
[2020-09-19] MEDS ORDERED: SODIUM POLYSTYRENE SULFONATE 15 GM/60 ML BOTTLE PO ONE (21:33)
[2020-09-19] MEDS ORDERED: INSULIN REGULAR 100 UNIT/ML VIAL (IV) IV ONE (21:33)
[2020-09-19] MEDS ORDERED: DEXTROSE 50% SYRINGE 50 ML IVP ONE (21:33)
[2020-09-19] MEDS ORDERED: ALBUTEROL NEB (CONC) 2.5 MG/0.5 ML INHALATION ONE (21:33)
[2020-09-20] MEDS ORDERED: IMMUNE GLOBULIN (GAMMAGARD) 20 GM in EMPTY BAG 1 BAG IV ONE ×3 (06:00→15:15)
[2020-09-20] MEDS ORDERED: IMMUNE GLOBULIN (GAMMAGARD) 20 GM in EMPTY BAG 1 BAG IV NR ×2 (06:00→14:30)
[2020-09-20] MEDS: SODIUM CHLORIDE 0.9% 1,000 ML IV SCH ×2 (09:14→20:06)
[2020-09-20 09:19] LABS: Anisocytosis Slight; Basophils % (A) 0 %; Eosinophils % (A) 0 %; HCT 40.1 % (34.0-46.0); HGB 13.4 gm/dL (11.4-16.0); Lymphocytes # (A) 0.3 k/uL (1.0-4.8); Lymphocytes % (A) 6 %; MCH 31.4 pg (25.0-35.0); MCHC 33.3 g/dL (31.0-37.0); MCV 94.4 fL (80.0-100.0); Monocytes # (A) 0.2 k/uL (0-1.0); Monocytes % (A) 4 %; Neutrophils # (A) 4.5 k/uL (1.3-7.7); Neutrophils % (A) 88 %; Poikilocytosis Slight; RBC 4.25 m/uL (3.80-5.40); RDW 16.9 % (11.5-15.5); WBC 5.1 k/uL (3.8-10.6)
[2020-09-20 09:26] LABS: Platelet Count 16 k/uL (150-450)
[2020-09-20 09:34] LABS: ALT 136 U/L (4-34); AST 77 U/L (14-36); Albumin/Globulin Ratio 1.4; Alkaline Phosphatase 104 U/L (38-126); Anion Gap 9 mmol/L; Blood Urea Nitrogen 22 mg/dL (7-17); Calcium 10.3 mg/dL (8.4-10.2); Carbon Dioxide 27 mmol/L (22-30); Chloride 105 mmol/L (98-107); Globulin 2.8 g/dL; Glucose 169 mg/dL (74-99); LDH 574 U/L (313-618); Potassium 4.4 mmol/L (3.5-5.1); Sodium 141 mmol/L (137-145); Total Bilirubin 0.7 mg/dL (0.2-1.3); Total Protein 6.8 g/dL (6.3-8.2)
[2020-09-20 09:35] LABS: Partial Thromboplastin Time 29.3 sec (22.0-30.0)
[2020-09-20 09:49] LABS: African American GFR (CKD) >90 (>60 ml/min/1.73 sqM); Non-African American GFR(CKD) >90 (>60 ml/min/1.73 sqM)
[2020-09-20] MEDS ORDERED: methylPREDNISolone SOD SUCCI 125 MG/2 ML VIAL IV SCH (12:15)
--- NOTE | 2020-09-20 12:33 | P.CONS ---
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 She denied having any bleeding attributed to Thrombocytopenia. Reported lowest platelets count in single digits. Was found to have PLTs of 36 K in Dec 2015. She received IVIG on 03/05/16, PLT were 158 K. Rituxan with more movement. 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 At baseline Nicolette usually fluctuates her platelets between 100-150K, recently they did decrease to 50K and she did receive one dose of Rituxan through the [facility]. Rituxan infusion was orginally ordered months ago although patient was refusing to go to hospital for the infusion with [facility] she wanted to have this performed at home through infusion, however unable to get approved by insurance. She does receive ongoing IVIG monthly infusions through Home infusion. She now presents to the hospital with mental status changes after falling out of wheelchair after hitting a bump. Apparently did not lose consciousness however her mental status, response time, and processing is greatly different than her baseline. She is very sharp at baseline. The change in her mental status after this fall is concerning given her platelet count is 20K, today 16K. I am unable to obtain a clear history from the patient about the events leading to the fall, I have spoken to brother Alvaro. Who directed me to his sisters primary caregiver Sabas, I have left a voicemail on [employer]. Will need to inquire the true allergy risks with steroids. We do premedicate her with Solumedrol and benadryl prior to Rituxan (I will double check with [facility]). Because of the clincal concern of bleed and platelets less than 20K will transfuse Platelets. I will await Caregivers return call regarding last IVIG and interaction to steroids. Full infectious work-up should also be performed, Blood cultures have been ordered. Neurology is following, and b12 and folate levels ordered. To note she was recently admitted (June 2020) to [facility] with cellulitis of lower extremity treated with IV antibiotics. This is likely the provoking factor for her drop in platelets this past month. 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, TUBULAR RENAL ACIDOSIS,NEUROMUSCULAR DISEASE-MULTI FOCAL MOTOR NEUROPATHY , QUADRIPLEGIC History of Any Multi-Drug Resistant Organisms: None Reported Past Surgical History: Uterine Ablation Additional Past Surgical History / Comment(s): MUSCLE BIOPSY , D&C Past Anesthesia/Blood Transfusion Reactions: Postoperative Nausea & Vomiting (PONV) Past Psychological History: No Psychological Hx Reported Smoking Status: Never smoker Past Alcohol Use History: None Reported Past Drug Use History: None Reported - Past Family History Mother Family Medical History: No Reported History Medications and Allergies Home Medications Medication Instructions Recorded Confirmed Type Atenolol [Tenormin] 100 mg PO HS 07/21/16 09/19/20 History Montelukast [Singulair] 10 mg PO HS 07/21/16 09/19/20 History Potassium Bicarbonate/Cit AC 50 meq PO TID-W/MEALS 07/21/16 09/19/20 History [Klor-Con 25 (Effer. Tab)] amLODIPine [Norvasc] 5 mg PO W/BRKFST 07/21/16 09/19/20 History Potassium Chloride [Klor-Con 20] 20 meq PO BID-W/MEALS 07/28/16 09/19/20 History Ferrous Sulfate [Iron (65 MG 325 mg PO W/SUPPER 01/04/18 09/19/20 History Elemental)] Cranberry 25,000mg 25,000 mg PO W/BRKFST 07/04/20 09/19/20 History Ergocalciferol [Vitamin D2 (1250 1,250 mcg PO FR 07/04/20 09/19/20 History Mcg = 07648 Iu)] Levothyroxine Sodium [Tirosint] 112 mcg PO DAILY 07/04/20 09/19/20 History Sodium Bicarbonate Tab 650 mg PO BID-W/MEALS 07/04/20 09/19/20 History Vitamin A Acetate [Vitamin A] 10,000 unit SL W/BRKFST 07/04/20 09/19/20 History calcitrioL [Calcitriol] 0.25 mcg PO MO 07/04/20 09/19/20 History Ascorbic Acid [Vitamin C] 500 mg PO W/SUPPER 09/19/20 09/19/20 History Biotin 10,000 mcg PO W/BRKFST 09/19/20 09/19/20 History Calcium Carbonate [Calcium] 600 mg PO W/LUNCH 09/19/20 09/19/20 History Famotidine [Pepcid] 20 mg PO HS 09/19/20 09/19/20 History Efren 750mg 1 tab PO HS 09/19/20 09/19/20 History Gamunex-C 5gm/50ml 15 gm IV Q28D 09/19/20 09/19/20 History Magnesium Gluconate [Magonate] 500 mg PO W/LUNCH 09/19/20 09/19/20 History Melatonin 1 mg PO HS 09/19/20 09/19/20 History Thiamine [Vitamin B-1] 100 mg PO BID-W/MEALS 09/19/20 09/19/20 History Vitamin E Acetate [Vitamin E] 200 unit PO W/LUNCH 09/19/20 09/19/20 History Zolpidem Tartrate 3.5 mg SL HS 09/19/20 09/19/20 History Allergies Allergy/AdvReac Type Severity Reaction Status Date / Time hydrocortisone Allergy Nausea & Verified 09/05/20 09:52 Vomiting Iodine and Iodide Containing Allergy "KIDNEY Verified 09/05/20 09:52 Produc PROBLEM" quinine Allergy Nausea & Verified 09/05/20 09:52 Vomiting iodine AdvReac Unknown "KIDNEY Verified 09/05/20 09:52 PROBLEM" Physical Exam Vitals: Vital Signs Temp Pulse Pulse Resp BP BP Pulse Ox 09/20/20 04:20 98.6 F 51 L 16 124/81 99 09/19/20 23:26 98.2 F 55 L 16 131/66 100 09/19/20 22:43 56 L 09/19/20 22:19 54 L 16 155/77 100 09/19/20 22:15 56 L 09/19/20 21:00 97 F L 51 L 16 156/82 100 09/19/20 17:04 98.0 F 50 L 18 123/75 98 Intake and Output 09/19/20 09/20/20 09/20/20 22:59 06:59 14:59 Intake Total 375 Balance 375 Intake: Intake, IV Titration 375 Amount Sodium Chloride 0.9% 1, 375 000 ml @ 75 mls/hr IV . [id number] [facility] Rx#:[id number] Other: Voiding Method Diaper Weight 81.647 kg Gen: Unable to clearly express desires, she is slowly artiticulating words. 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 Heart AR 48 Abdomen soft, ND, NT RLE: Erythema, skin changes Quadraplegic Results CBC & Chem 7: 09/20/20 08:49 09/20/20 08:49 Labs: Abnormal Lab Results - Last 24 Hours (Table) 09/19/20 09/19/20 09/19/20 Range/Units 18:44 18:44 18:44 RDW 16.9 H (11.5-15.5) % Plt Count 20 L D (150-450) k/uL Lymphocytes # 0.3 L (1.0-4.8) k/uL APTT 39.2 H (22.0-30.0) sec Potassium (3.5-5.1) mmol/L BUN (7-17) mg/dL Creatinine (0.52-1.04) mg/dL Glucose (74-99) mg/dL Calcium (8.4-10.2) mg/dL Magnesium (1.6-2.3) mg/dL AST (14-36) U/L ALT (4-34) U/L Urine Appearance Cloudy H (Clear) Urine pH 8.5 H (5.0-8.0) Urine Protein 1+ H (Negative) Amorphous Sediment Rare H (None) /hpf U Benzodiazepines Scrn Detected H (NotDetected) 09/19/20 09/19/20 Range/Units 18:44 20:42 RDW (11.5-15.5) % Plt Count (150-450) k/uL Lymphocytes # (1.0-4.8) k/uL APTT (22.0-30.0) sec Potassium 6.2 H* 5.9 H (3.5-5.1) mmol/L BUN 25 H (7-17) mg/dL Creatinine 0.23 L (0.52-1.04) mg/dL Glucose 171 H (74-99) mg/dL Calcium 10.9 H (8.4-10.2) mg/dL Magnesium 2.7 H (1.6-2.3) mg/dL AST 97 H (14-36) U/L ALT 154 H (4-34) U/L Urine Appearance (Clear) Urine pH (5.0-8.0) Urine Protein (Negative) Amorphous Sediment (None) /hpf U Benzodiazepines Scrn (NotDetected) Chest x-ray: report reviewed CT Scan - head: report reviewed Assessment and Plan (1) Hypercalcemia Current Visit: Yes Status: Acute Code(s): E83.52 - HYPERCALCEMIA SNOMED Code(s): 18684947 (2) Altered mental status Current Visit: Yes Status: Acute Code(s): R41.82 - ALTERED MENTAL STATUS, UNSPECIFIED SNOMED Code(s): 035565450 (3) Hypermagnesemia Current Visit: Yes Status: Acute Code(s): E83.41 - HYPERMAGNESEMIA SNOMED Code(s): 88710490 (4) Thrombocytopenia Current Visit: Yes Status: Acute Code(s): D69.6 - THROMBOCYTOPENIA, UNSPECIFIED SNOMED Code(s): 859493951 (5) Autoimmune autonomic neuropathy Current Visit: Yes Status: Acute Code(s): G90.8 - OTHER DISORDERS OF AUTONOMIC NERVOUS SYSTEM SNOMED Code(s): 93496701 Plan: Assessment and Recommendations: Acute Mental Status Changes: - Concern this is related to fall and hitting head with platelets less than 20K, however could be multifactorial with hypercalcemia(although mild), recent cellulitis (possible recurrent infection), known automimmune polyneuropathy. Thrombocytopenia: - Likely provoked with recent antibiotics and lower extremity cellulitis - Patient has "allergy" to steroids, however I am unable to obtain clarification on this given her current mental status. Spoke to brother Alvaro who does not know and directed me to caregiver Sabas. I have left sabas a voicemail and when she returns call hoping to find out more about the steroid on allergy list as well as when her last IVIG was given - She receives monthly IVIG through her Neurologist at of for her autoimmune neuropathy. Unknown last date given - She is status post one treatment of Rituxan on 09/05/20, platelets 50K at that time. - Ideally Cortico steroids would be initiated first in this situation, although without understanding complete adverse reactions will hold off and move forward with IVIG and transfusion, will transfuse one unit of platelets given the concern of head injury, mental status change since fall, and thrombocytopenia I did end up speaking with Sabas, caregiver. She confirmed IVIG was missed and due on 09.09.20 and patient cancelled appointment. I have spoken to pharmacist and 40 grams daily x2 days has been ordered. Await MRI of brain to reasccess bleeding (late bleed or other cause of AMS) - Neuro - FUll rangel cultures as wll Recent LE Cellulitis requiring prolonged antibiotics and three hospital visits, picc line placement and IV abx at home (completed 2-3 weeks ago) - likely main source of ITP Physician Attest: I have completed the full history and physical and developed the above impression and plan, agree with dictation. Dictated as a scribe.
--- NOTE | 2020-09-20 14:06 | P.HPIM ---
History of Present Illness 60-year-old female came to the hospital after fall and patient was quite a bit confused and was paranoid apparently yesterday. Patient is alert oriented 2 when I valid the patient and patient the temperature was around 80 because of which there multiple heart attacks and the nursing staff was planning on beta brenda although patient was complaining of excessive heat and sweating because of which we removed all of those and we will recheck the temperature again. Apart from that there is no clear evidence of sepsis at this time. UA is not significant for urinary tract infection. In spite of her confusion patient was able to provide me good history. Patient denied any cough patient or dysuria chest x-ray did not show any significant abnormality. Etiology of her son onset of confusion is not clear at this time CT of the head did not show any intracranial hemorrhage MRI is being obtained. 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 Patient missed her IVIG, patient is severely thrombocytopenia With platelet count of around 16,000. Patient has multiple bruises and multiple hematomas secondary to low platelet count after fall. Patient denied any headache patient was recently treated for cellulitis. Suspicion is low for meningitis and unfortunately we cannot the get an LP considering her very low platelet count because of which we are not obtaining CSF analysis at this time. Her thrombus rapini is believed to be secondary to diuretic she received for cellulitis recently. Patient has mildly elevated liver enzymes. MRI was ordered by oncology. Patient blood screen is only for positive for benzodiazepines for which patient doesn't appear to have a prescription for but patient does take Ambien 3.5 mg at bedtime. There is no clear metabolic toxic causes that can explain her confusion or delirium. Psychiatry was consulted as well. REVIEW OF SYSTEMS: CONSTITUTIONAL: No fever, no malaise, no fatigue. HEENT: No recent visual problems or hearing problems. Denied any sore throat. CARDIOVASCULAR: No chest pain, orthopnea, PND, no palpitations, no syncope. PULMONARY: No shortness of breath, no cough, no hemoptysis. GASTROINTESTINAL: No diarrhea, no nausea, no vomiting, no abdominal pain. NEUROLOGICAL: No headaches, no weakness, no numbness. HEMATOLOGICAL: Denies any bleeding or petechiae. GENITOURINARY: Denies any burning micturition, frequency, or urgency. MUSCULOSKELETAL/RHEUMATOLOGICAL: Denies any joint pain, swelling, or any muscle pain. ENDOCRINE: Denies any polyuria or polydipsia. The rest of the 14-point review of systems is negative. PHYSICAL EXAMINATION: GENERAL: The patient is alert and oriented x2, not in any acute distress. Well developed, well nourished. HEENT: Pupils are round and equally reacting to light. EOMI. No scleral icterus. No conjunctival pallor. Normocephalic, atraumatic. No pharyngeal erythema. No thyromegaly. CARDIOVASCULAR: S1 and S2 present. No murmurs, rubs, or gallops. PULMONARY: Chest is clear to auscultation, no wheezing or crackles. ABDOMEN: Soft, nontender, nondistended, normoactive bowel sounds. No palpable organomegaly. MUSCULOSKELETAL: No joint swelling or deformity. EXTREMITIES: No cyanosis, clubbing, or pedal edema. NEUROLOGICAL: Gross neurological examination did not reveal any focal deficits. SKIN: Multiple bruises and hematoma secondary to thrombocytopenia and fall Assessment and plan -Altered mental status etiology is not clear no clear evidence of infection or metabolic causes that can explain her confusion a be related to medications that is Ambien along with the melatonin and EFREN combined may have contributed to her some of her symptoms. We will continue to monitor for any symptoms and signs of sepsis. Patient had multiple imaging studies including tibiofibular x-ray foot x-ray knee x-ray elbow x-ray chest x-ray head and cervical spine CT I'll of which are negative -Severe some thrombocytopenia which is believed to be secondary to recent antibiotics which she was on for cellulitis. Patient doesn't really doesn't have any diarrhea. Patient is receiving IV immunoglobulin at this time -Hypertension: Because of low normal blood pressures and hold off on amlodipine. 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, TUBULAR RENAL ACIDOSIS,NEUROMUSCULAR DISEASE-MULTI FOCAL MOTOR NEUROPATHY , QUADRIPLEGIC History of Any Multi-Drug Resistant Organisms: None Reported Past Surgical History: Uterine Ablation Additional Past Surgical History / Comment(s): MUSCLE BIOPSY , D&C Past Anesthesia/Blood Transfusion Reactions: Postoperative Nausea & Vomiting (PONV) Past Psychological History: No Psychological Hx Reported Smoking Status: Never smoker Past Alcohol Use History: None Reported Past Drug Use History: None Reported - Past Family History Mother Family Medical History: No Reported History Medications and Allergies Home Medications Medication Instructions Recorded Confirmed Type Atenolol [Tenormin] 100 mg PO HS 07/21/16 09/19/20 History Montelukast [Singulair] 10 mg PO HS 07/21/16 09/19/20 History Potassium Bicarbonate/Cit AC 50 meq PO TID-W/MEALS 07/21/16 09/19/20 History [Klor-Con 25 (Effer. Tab)] amLODIPine [Norvasc] 5 mg PO W/BRKFST 07/21/16 09/19/20 History Potassium Chloride [Klor-Con 20] 20 meq PO BID-W/MEALS 07/28/16 09/19/20 History Ferrous Sulfate [Iron (65 MG 325 mg PO W/SUPPER 01/04/18 09/19/20 History Elemental)] Cranberry 25,000mg 25,000 mg PO W/BRKFST 07/04/20 09/19/20 History Ergocalciferol [Vitamin D2 (1250 1,250 mcg PO FR 07/04/20 09/19/20 History Mcg = 32881 Iu)] Levothyroxine Sodium [Tirosint] 112 mcg PO DAILY 07/04/20 09/19/20 History Sodium Bicarbonate Tab 650 mg PO BID-W/MEALS 07/04/20 09/19/20 History Vitamin A Acetate [Vitamin A] 10,000 unit SL W/BRKFST 07/04/20 09/19/20 History calcitrioL [Calcitriol] 0.25 mcg PO MO 07/04/20 09/19/20 History Ascorbic Acid [Vitamin C] 500 mg PO W/SUPPER 09/19/20 09/19/20 History Biotin 10,000 mcg PO W/BRKFST 09/19/20 09/19/20 History Calcium Carbonate [Calcium] 600 mg PO W/LUNCH 09/19/20 09/19/20 History Famotidine [Pepcid] 20 mg PO HS 09/19/20 09/19/20 History Efren 750mg 1 tab PO HS 09/19/20 09/19/20 History Gamunex-C 5gm/50ml 15 gm IV Q28D 09/19/20 09/19/20 History Magnesium Gluconate [Magonate] 500 mg PO W/LUNCH 09/19/20 09/19/20 History Melatonin 1 mg PO HS 09/19/20 09/19/20 History Thiamine [Vitamin B-1] 100 mg PO BID-W/MEALS 09/19/20 09/19/20 History Vitamin E Acetate [Vitamin E] 200 unit PO W/LUNCH 09/19/20 09/19/20 History Zolpidem Tartrate 3.5 mg SL HS 09/19/20 09/19/20 History Allergies Allergy/AdvReac Type Severity Reaction Status Date / Time hydrocortisone Allergy Nausea & Verified 09/05/20 09:52 Vomiting Iodine and Iodide Containing Allergy "KIDNEY Verified 09/05/20 09:52 Produc PROBLEM" quinine Allergy Nausea & Verified 09/05/20 09:52 Vomiting iodine AdvReac Unknown "KIDNEY Verified 09/05/20 09:52 PROBLEM" Physical Exam Vitals: Vital Signs Temp Pulse Pulse Resp BP BP Pulse Ox 09/20/20 12:57 88.9 F L 09/20/20 12:40 54 L 16 140/91 100 09/20/20 08:00 51 L 09/20/20 04:20 98.6 F 51 L 16 124/81 99 09/19/20 23:26 98.2 F 55 L 16 131/66 100 09/19/20 22:43 56 L 09/19/20 22:19 54 L 16 155/77 100 09/19/20 22:15 56 L 09/19/20 21:00 97 F L 51 L 16 156/82 100 09/19/20 17:04 98.0 F 50 L 18 123/75 98 Intake and Output 09/19/20 09/20/20 09/20/20 22:59 06:59 14:59 Intake Total 375 Balance 375 Intake: Intake, IV Titration 375 Amount Sodium Chloride 0.9% 1, 375 000 ml @ 75 mls/hr IV . [id number] [facility] Rx#:[id number] Other: Voiding Method Diaper Diaper Weight 81.647 kg Results CBC & Chem 7: 09/20/20 08:49 09/20/20 08:49 Labs: Abnormal Lab Results - Last 24 Hours (Table) 09/19/20 09/19/20 09/19/20 Range/Units 18:44 18:44 18:44 RDW 16.9 H (11.5-15.5) % Plt Count 20 L D (150-450) k/uL Lymphocytes # 0.3 L (1.0-4.8) k/uL APTT 39.2 H (22.0-30.0) sec Potassium (3.5-5.1) mmol/L BUN (7-17) mg/dL Creatinine (0.52-1.04) mg/dL Glucose (74-99) mg/dL Calcium (8.4-10.2) mg/dL Magnesium (1.6-2.3) mg/dL AST (14-36) U/L ALT (4-34) U/L Urine Appearance Cloudy H (Clear) Urine pH 8.5 H (5.0-8.0) Urine Protein 1+ H (Negative) Amorphous Sediment Rare H (None) /hpf U Benzodiazepines Scrn Detected H (NotDetected) 09/19/20 09/19/20 09/20/20 Range/Units 18:44 20:42 08:49 RDW 16.9 H (11.5-15.5) % Plt Count 16 L* (150-450) k/uL Lymphocytes # 0.3 L (1.0-4.8) k/uL APTT (22.0-30.0) sec Potassium 6.2 H* 5.9 H (3.5-5.1) mmol/L BUN 25 H (7-17) mg/dL Creatinine 0.23 L (0.52-1.04) mg/dL Glucose 171 H (74-99) mg/dL Calcium 10.9 H (8.4-10.2) mg/dL Magnesium 2.7 H (1.6-2.3) mg/dL AST 97 H (14-36) U/L ALT 154 H (4-34) U/L Urine Appearance (Clear) Urine pH (5.0-8.0) Urine Protein (Negative) Amorphous Sediment (None) /hpf U Benzodiazepines Scrn (NotDetected) 09/20/20 Range/Units 08:49 RDW (11.5-15.5) % Plt Count (150-450) k/uL Lymphocytes # (1.0-4.8) k/uL APTT (22.0-30.0) sec Potassium (3.5-5.1) mmol/L BUN 22 H (7-17) mg/dL Creatinine 0.17 L (0.52-1.04) mg/dL Glucose 169 H (74-99) mg/dL Calcium 10.3 H (8.4-10.2) mg/dL Magnesium (1.6-2.3) mg/dL AST 77 H (14-36) U/L ALT 136 H (4-34) U/L Urine Appearance (Clear) Urine pH (5.0-8.0) Urine Protein (Negative) Amorphous Sediment (None) /hpf U Benzodiazepines Scrn (NotDetected)
[2020-09-20] MEDS: SODIUM BICARBONATE TAB 650 MG TAB PO SCH (15:04)
[2020-09-20] MEDS: amLODIPine 5 MG TAB PO SCH (15:04)
[2020-09-20] MEDS: THIAMINE 100 MG TAB PO SCH (15:04)
[2020-09-20] MEDS: ERGOCALCIFEROL 1,250 MCG (50,000 IU) CAPSULE PO SCH (18:28)
[2020-09-20] MEDS: FERROUS SULFATE 325 MG TAB PO SCH (20:06)
[2020-09-20] MEDS: FAMOTIDINE 20 MG TAB PO SCH (20:06)
[2020-09-20] MEDS: atenoloL 50 MG TAB PO SCH (20:06)
[2020-09-20] MEDS: MONTELUKAST 10 MG TAB PO SCH (20:06)
[2020-09-20 23:08] LABS: Prothrombin Time 10.6 sec (9.0-12.0)
[2020-09-21] MEDS ORDERED: IMMUNE GLOBULIN (GAMMAGARD) 5 GM in EMPTY BAG 1 BAG IV NR (06:00)
[2020-09-21] MEDS ORDERED: IMMUNE GLOBULIN (GAMMAGARD) 10 GM in EMPTY BAG 1 BAG IV ONE ×3 (06:00→10:00)
[2020-09-21] MEDS ORDERED: IMMUNE GLOBULIN (GAMMAGARD) 10 GM in EMPTY BAG 1 BAG IV NR ×3 (06:00)
[2020-09-21 06:42] LABS: Anisocytosis Slight; Basophils % (A) 0 %; Eosinophils % (A) 0 %; Lymphocytes # (A) 0.2 k/uL (1.0-4.8); Lymphocytes % (A) 2 %; MCH 32.2 pg (25.0-35.0); MCV 94.8 fL (80.0-100.0); Mean Platelet Volume 8.9; Monocytes # (A) 0.3 k/uL (0-1.0); Monocytes % (A) 4 %; Neutrophils # (A) 6.4 k/uL (1.3-7.7); Neutrophils % (A) 92 %; Poikilocytosis Moderate; RBC 3.17 m/uL (3.80-5.40); RDW 17.5 % (11.5-15.5)
[2020-09-21 06:44] LABS: HGB 10.2 gm/dL (11.4-16.0)
[2020-09-21 06:45] LABS: Platelet Count 30 k/uL (150-450)
[2020-09-21] MEDS ORDERED: NON FORMULARY DRUG (Biotin [Biotin] 10,000 MCG Capsule) PO SCH (07:30)
[2020-09-21] MEDS ORDERED: CRANBERRY 25000 MG PO SCH (07:30)
[2020-09-21] MEDS: amLODIPine 5 MG TAB PO SCH (08:03)
[2020-09-21] MEDS: THIAMINE 100 MG TAB PO SCH ×2 (08:03→11:43)
[2020-09-21] MEDS: LEVOTHYROXINE 112 MCG TAB PO SCH (08:03)
[2020-09-21] MEDS: SODIUM BICARBONATE TAB 650 MG TAB PO SCH ×2 (08:03→11:43)
[2020-09-21] MEDS: PANTOPRAZOLE 40 MG/10 ML VIAL IVP SCH (08:04)
[2020-09-21] MEDS: VITAMIN A 10,000 UNIT (3000 MCG) CAPSULE PO SCH (08:04)
[2020-09-21] MEDS: CALCIUM CARBONATE 500 MG CHEWABLE PO SCH (11:43)
[2020-09-21] MEDS: VITAMIN E (DL,TOCOPHERYL ACET) 400 UNIT (180 MG) CAP PO SCH (11:43)
[2020-09-21] MEDS ORDERED: IMMUNE GLOBULIN (GAMMAGARD) 5 GM in EMPTY BAG 1 BAG IV ONE ×2 (12:00→13:00)
[2020-09-21] MEDS ORDERED: LORazepam 2 MG/ML INJ IV STA (14:24)
--- NOTE | 2020-09-21 15:31 | P.CNNES ---
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 History is predominantly obtained from the patient's sister (Nichelle), niece (Odilia) and some from medical records. According to her family members they stated that the patient is quadriplegic but only has function over the disc the right finger predominantly the index where she can use a powered wheelchair. They stated that the patient the altered mental status started about 2 weeks ago and the patient has been not behaving herself. Patient has been saying people are coming after her, asking for help, speaking inappropriately. Patient lives in a residential and the has someone come to her house to take care of her. They stated that the baseline she is alert oriented 3 has a normal conversation. Upon further questioning they stated they think that started about 3 weeks ago after she got IVIG at [facility]. They stated that she gets IVIG at home once a month for her neurological problem but has been progressively getting worse over the last 2 weeks. As a result the patient stated that the patient the this past Wednesday was found on the ground and was she fell out of her wheelchair which they felt was on even though she has a sitter and she was found by a neighbor. It's unsure what transpired. They deny that the patient has any history of seizures. Patient did bite her tongue as a result of that event but again unsure of the the details of the event. She did hit her head and it was mostly in the frontal region. They denied that the patient did complain of any fever, headaches, any nausea or vomiting or had any complaints. Family is not sure why she got IVIG infusion about 3 weeks ago at [facility]. They are trying to obtain records. Per medical records she was recently treated for cellulitis recenty She has a neurological problems since age 17-years in which she was in college and start having falls then has progressively been weak throughout all extremities. She sees Dr. Addison Espinal (Neurologist over at [facility]). Family is unsure of the workup she had or what medication she is on. They stated that the patient handles his own appointments. She has a normal conversation she is alert and 3. As stated earlier she's able to operate her powered wheelchair using some function over the right hand. She does have bila teral blurry vision that is chronic as well as 5-6 month history of urinary bowel incontinence. Per the medical record the patient on medication or zolpidem, melatonin, vitamin E 200 units, calcium, thiamine, magnesium, vitamin C, biotin, vitamin a 10,000 units breakfast, potassium, amlodipine, vitamin D 1250, cranberry, atenolol, appears sulfate and her IVIG infusion once a month. Some other workup in our facility consisted of: Initial vital signs is a blood pressure of 123/75, heart rate of 50, respiratory of 18, temperature of 98.0 Fahrenheit, pulse ox of 98% room air. During the hospital stay it is recorded that the patient temperature was 88.9 not sure if the that's an accurate read but she did have temper temperature as low as 92.2 Fahrenheit and the last one the today is 97.2 and is on warm blankets. CBC with differential as the white blood cell has been normal initial one is 4.7 and the latest is 7.0. Platelet is the initially 20,000 which is low and the repeated is 16 and the latest is 30,000. Potassium of presentation 6.2 which is a significantly elevated. Most recent one is 4.4. Magnesium is 2.7 which is elevated AST of 97 and ALT of 154 which are elevated Calcium is 10.9 and the repeated 7.3 which are elevated. Glucose is 171 which is slightly elevated Urinalysis is negative for urinary tract infection Urine drug screen is positive for benzos and the serum alcohol was less than 10. CT of the head is reported as there is no acute intracranial hemorrhage, mass effect or midline shift is seen. CT cervicals reported as there is no acute fracture or dislocation evident in the cervical spine. EKG is reported as sinus bradycardia. A moderate voltage criteria for left ventricular hypertrophy, may be normal variant. Borderline EKG. Review of Systems Review of system is limited but the parent positive and negative as per HPI. 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, TUBULAR RENAL ACIDOSIS,NEUROMUSCULAR DISEASE-MULTI FOCAL MOTOR NEUROPATHY , QUADRIPLEGIC History of Any Multi-Drug Resistant Organisms: None Reported Past Surgical History: Uterine Ablation Additional Past Surgical History / Comment(s): MUSCLE BIOPSY , D&C Past Anesthesia/Blood Transfusion Reactions: Postoperative Nausea & Vomiting (PONV) Past Psychological History: No Psychological Hx Reported Smoking Status: Never smoker Past Alcohol Use History: None Reported Past Drug Use History: None Reported - Past Family History Mother Family Medical History: No Reported History Medications and Allergies Home Medications Medication Instructions Recorded Confirmed Type Atenolol [Tenormin] 100 mg PO HS 07/21/16 09/19/20 History Montelukast [Singulair] 10 mg PO HS 07/21/16 09/19/20 History Potassium Bicarbonate/Cit AC 50 meq PO TID-W/MEALS 07/21/16 09/19/20 History [Klor-Con 25 (Effer. Tab)] amLODIPine [Norvasc] 5 mg PO W/BRKFST 07/21/16 09/19/20 History Potassium Chloride [Klor-Con 20] 20 meq PO BID-W/MEALS 07/28/16 09/19/20 History Ferrous Sulfate [Iron (65 MG 325 mg PO W/SUPPER 01/04/18 09/19/20 History Elemental)] Cranberry 25,000mg 25,000 mg PO W/BRKFST 07/04/20 09/19/20 History Ergocalciferol [Vitamin D2 (1250 1,250 mcg PO FR 07/04/20 09/19/20 History Mcg = 59925 Iu)] Levothyroxine Sodium [Tirosint] 112 mcg PO DAILY 07/04/20 09/19/20 History Sodium Bicarbonate Tab 650 mg PO BID-W/MEALS 07/04/20 09/19/20 History Vitamin A Acetate [Vitamin A] 10,000 unit SL W/BRKFST 07/04/20 09/19/20 History calcitrioL [Calcitriol] 0.25 mcg PO MO 07/04/20 09/19/20 History Ascorbic Acid [Vitamin C] 500 mg PO W/SUPPER 09/19/20 09/19/20 History Biotin 10,000 mcg PO W/BRKFST 09/19/20 09/19/20 History Calcium Carbonate [Calcium] 600 mg PO W/LUNCH 09/19/20 09/19/20 History Famotidine [Pepcid] 20 mg PO HS 09/19/20 09/19/20 History Efren 750mg 1 tab PO HS 09/19/20 09/19/20 History Gamunex-C 5gm/50ml 15 gm IV Q28D 09/19/20 09/19/20 History Magnesium Gluconate [Magonate] 500 mg PO W/LUNCH 09/19/20 09/19/20 History Melatonin 1 mg PO HS 09/19/20 09/19/20 History Thiamine [Vitamin B-1] 100 mg PO BID-W/MEALS 09/19/20 09/19/20 History Vitamin E Acetate [Vitamin E] 200 unit PO W/LUNCH 09/19/20 09/19/20 History Zolpidem Tartrate 3.5 mg SL HS 09/19/20 09/19/20 History Allergies Allergy/AdvReac Type Severity Reaction Status Date / Time hydrocortisone Allergy Nausea & Verified 09/05/20 09:52 Vomiting Iodine and Iodide Containing Allergy "KIDNEY Verified 09/05/20 09:52 Produc PROBLEM" quinine Allergy Nausea & Verified 09/05/20 09:52 Vomiting iodine AdvReac Unknown "KIDNEY Verified 09/05/20 09:52 PROBLEM" Physical Examination - Vital Signs Vital Signs: Vital Signs Temp Pulse Pulse Resp BP BP BP 09/21/20 13:00 97.2 F L 84 20 116/63 09/21/20 11:23 94.9 F L 76 18 126/67 09/21/20 08:00 81 20 09/21/20 04:30 94.6 F L 81 20 124/56 09/20/20 20:40 93.7 F L 76 16 121/77 09/20/20 20:00 16 09/20/20 19:55 93.7 F L 73 18 147/81 09/20/20 19:45 95.9 F L 67 18 150/67 09/20/20 19:30 79 20 155/86 09/20/20 18:25 92.2 F L Pulse Ox 09/21/20 13:00 98 09/21/20 11:23 09/21/20 08:00 09/21/20 04:30 98 09/20/20 20:40 96 09/20/20 20:00 09/20/20 19:55 98 09/20/20 19:45 09/20/20 19:30 96 09/20/20 18:25 Intake and Output 09/20/20 09/21/20 09/21/20 22:59 06:59 14:59 Intake Total 1308.000 50 Output Total 1000 300 Balance 308.000 -250 Intake: IV 450 Sodium Chloride 0.9% 1, 450 000 ml @ 75 mls/hr IV . [id number] [facility] Rx#:[id number] Intake, IV Titration 400.000 Amount Immune Globulin ( 200.000 Gammagard) 20 gm In Empty Bag 1 bag @ Titrate IV . Q0M NR Rx#:[id number] Immune Globulin ( 200 Gammagard) 5 gm In Empty Bag 1 bag @ Titrate IV . Q0M NR Rx#:[id number] Oral 100 50 Blood Product 358 Platelet Pheresis Pas 358 Psoralen Unit [id number] Output: Urine 1000 300 Other: Voiding Method Indwelling Catheter Indwelling Catheter GENERAL: The patient is lying in and seems in distress.. HENT: Has gauze with tape over the bilateral forehead (mosly midline) where she had fall. Hard to assess neck movement because of cooperation. CHEST: The heart rate is regular rate rhythm. No murmurs to auscultation. LUNG: Clear to auscultation bilaterally no wheezing noted throughout. Not labored breathing. ABDOMEN/GI: Bowel sounds present in all 4 quadrants. No tenderness to palpation throughout. NEUROLOGICAL: Limited because of her condition Higher mental function: The patient is awake, alert, oriented to self only. She could not tell me year or place. She is able to name objects correctly (pen and spoon). She keep on saying "Alban helped many, Alban helped many. They are coming after me". Patient is following few commands. No neglect. Cranial nerves: The pupils are round, equal and reactive to light. Could not assess visual field. Extraocular movement is tracking on the right and left. No facial weakness. Had tongue bite over the right but hard to accurately assess because cooperation but there is residual blood on the top tooth. No dysarthria is noted.Could not assess because of her cooperation. Motor: Is wheel chair bound (baseline) so gait cannot be assessed. The strength is able to have movement over the right hand (had weak 3 of hand fingers), while left minimal flicker over 2-4 digits. Otherwise no strength/movement (baseline). Decrease tone throughout. Has bilateral foot drop bilaterally (baseline). Cerebellum: Could not be assessed. Sensation: Could not be assessed. Reflexes (right/left): Brachioradialis 1+ bilateralis bilaterally. Otherwise 0 throughout. Plantars are mute bilaterally. Results - Laboratory Findings CBC and BMP: 09/21/20 06:07 09/20/20 08:49 Abnormal Lab Findings: Abnormal Labs 09/19/20 09/19/20 09/19/20 18:44 18:44 18:44 RBC Hgb Hct RDW 16.9 H Plt Count 20 L D Lymphocytes # 0.3 L APTT 39.2 H Potassium BUN Creatinine Glucose Calcium Magnesium AST ALT Urine Appearance Cloudy H Urine pH 8.5 H Urine Protein 1+ H Amorphous Sediment Rare H U Benzodiazepines Scrn Detected H 09/19/20 09/19/20 09/20/20 18:44 20:42 08:49 RBC Hgb Hct RDW 16.9 H Plt Count 16 L* Lymphocytes # 0.3 L APTT Potassium 6.2 H* 5.9 H BUN 25 H Creatinine 0.23 L Glucose 171 H Calcium 10.9 H Magnesium 2.7 H AST 97 H ALT 154 H Urine Appearance Urine pH Urine Protein Amorphous Sediment U Benzodiazepines Scrn 09/20/20 09/21/20 08:49 06:07 RBC 3.17 L Hgb 10.2 L D Hct 30.0 L RDW 17.5 H Plt Count 30 L D Lymphocytes # 0.2 L APTT Potassium BUN 22 H Creatinine 0.17 L Glucose 169 H Calcium 10.3 H Magnesium AST 77 H ALT 136 H Urine Appearance Urine pH Urine Protein Amorphous Sediment U Benzodiazepines Scrn Assessment and Plan Assessment: * Encephalopathy for the past 2-3 weeks of unknown etiology. There is some component of toxic-metabolic encephalopathy (elevated AST/ALT, magnesium) but I don't think that is likely the sole cause of her AMS. Per family no history of seizure. * Hypothermia of unknown etiology * Acute hyperkalemia resolved * Per family ALS-like since age of 17 (per medical records has history of multifocal motor neuropathy) (per family quadraplegia and is powered wheel chair bound. On examination is hemiplegia of bilateral lower and has plegia over the left upper and significant hemiparesis over the right upper extremity with only hand function) patient is on IVIG once a month * Recently treat for cellulitis * Chronic thrombocytopenia due to ITP Plan: * MRI of the brain is ordered by oncology team is pending * I ordered a stat EEG. I prophylactically started the patient on Vimpat 50 mg 1 tablet twice a day for seizure. And I gave 1 dose of 1 mg of the Ativan. Patient does not have history of seizures and clinically improved down the line will taper Vimpat until discontinued. * I ordered TSH, vitamin B-12, folate, ammonia level, ionized calcium, vitamin E level. Will defer any electrolyte abnormality or if any eleved ammonia managment to the primary team. * Patient does not have any leukocytosis or fever suggestive of meningeal encephalitis and will be difficult to do lumbar puncture for CSF study especially with significant thrombocytopenia. * Q4 hour neuro checks. * Infection disease team is on board. The plan is discussed with the patient family members who are bedside (Nichelle: Sister and her Niece: Odilia). The family will attempt to get records from [facility]. The plan is also discussed with her nurse. Tee Summers MD Neuro-Hospitalist Time with Patient: Greater than 30
[2020-09-21] MEDS: SODIUM CHLORIDE 0.9% 1,000 ML IV SCH ×2 (15:38→21:42)
[2020-09-21] MEDS: FERROUS SULFATE 325 MG TAB PO SCH (16:06)
[2020-09-21 16:21] LABS: Appearance,Urine Cloudy (Clear); Bacteria,Urine Rare /hpf; Bilirubin,Urine Negative (Negative); Blood,Urine Large (Negative); Budding Yeast,Urine Occasional /hpf; Color,Urine Yellow; Glucose,Urine (UA) Negative (Negative); Ketones,Urine 2+ (Negative); Leukocyte Esterase,Urine Large (Negative); Mucus,Urine Rare /hpf; Nitrite,Urine Positive (Negative); PH, Urine 5.5 (5.0-8.0); Protein,Urine 1+ (Negative); RBC,Urine >182 /hpf (0-5); Specific Gravity,Urine 1.014 (1.001-1.035); Urobilinogen,Urine <2.0 mg/dL (<2.0); WBC,Urine 138 /hpf (0-5)
--- NOTE | 2020-09-21 17:38 | P.PN ---
Subjective 60-year-old female came to the hospital after fall and patient was quite a bit confused and was paranoid apparently yesterday. Patient is alert oriented 2 when I valid the patient and patient the temperature was around 80 because of which there multiple heart attacks and the nursing staff was planning on beta brenda although patient was complaining of excessive heat and sweating because of which we removed all of those and we will recheck the temperature again. Apart from that there is no clear evidence of sepsis at this time. UA is not significant for urinary tract infection. In spite of her confusion patient was able to provide me good history. Patient denied any cough patient or dysuria chest x-ray did not show any significant abnormality. Etiology of her son onset of confusion is not clear at this time CT of the head did not show any intracranial hemorrhage MRI is being obtained. 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 Patient missed her IVIG, patient is severely thrombocytopenia With platelet count of around 16,000. Patient has multiple bruises and multiple hematomas secondary to low platelet count after fall. Patient denied any headache patient was recently treated for cellulitis. Suspicion is low for meningitis and unfortunately we cannot the get an LP considering her very low platelet count because of which we are not obtaining CSF analysis at this time. Her thrombus rapini is believed to be secondary to diuretic she received for cellulitis recently. Patient has mildly elevated liver enzymes. MRI was ord ered by oncology. Patient blood screen is only for positive for benzodiazepines for which patient doesn't appear to have a prescription for but patient does take Ambien 3.5 mg at bedtime. There is no clear metabolic toxic causes that can explain her confusion or delirium. Psychiatry was consulted as well. 09/21/2020 Patient remains unclear whether patient remains hypothermic remains confused and paranoid psychiatry at evaluate the patient. I consulted neurology as there is no real rheumatological factor for her confusion neurology evaluated the patient and they believe patient may have bilateral lower extremity plegia and left upper extremity hemiparesis. Patient received IVIG for ITP. There is no clear evidence of infection at this time because of continued hyperlipidemia and con sult infectious disease as well. Review of systems: Unable to obtain due to her clinical condition patient is alert oriented 0 at this time and is quite a bit paranoid All inpatient medications were reviewed and appropriate changes in these medications as dictated in the interval history and assessment and plan. PHYSICAL EXAMINATION: GENERAL: The patient is alert and oriented x0, not in any acute distress. Well developed, well nourished. HEENT: Pupils are round and equally reacting to light. EOMI. No scleral icterus. No conjunctival pallor. Normocephalic, atraumatic. No pharyngeal erythema. No thyromegaly. CARDIOVASCULAR: S1 and S2 present. No murmurs, rubs, or gallops. PULMONARY: Chest is clear to auscultation, no wheezing or crackles. ABDOMEN: Soft, nontender, nondistended, normoactive bowel sounds. No palpable organomegaly. MUSCULOSKELETAL: No joint swelling or deformity. EXTREMITIES: No cyanosis, clubbing, or pedal edema. NEUROLOGICAL: Neurological findings as mentioned above SKIN: Multiple bruises and hematoma secondary to thrombocytopenia and fall Assessment and plan -Altered mental status etiology is not clear no clear evidence of infection or metabolic causes that can explain her confusion a be related to medications that is Ambien along with the melatonin and SIMRAN combined may have contributed to her some of her symptoms. We will continue to monitor for any symptoms and signs of sepsis. Patient had multiple imaging studies including tibiofibular x-ray foot x-ray knee x-ray elbow x-ray chest x-ray head and cervical spine CT I'll of which are negative. MRI was ordered. Neurology evaluated the patient and ordered an EEG. And they're recommending tapering Vimpat. B12 folate and ammonia levels are being obtained. -Severe some thrombocytopenia which is believed to be secondary to recent antibiotics which she was on for cellulitis. Patient doesn't really doesn't have any diarrhea. Patient is receiving IV immunoglobulin at this time and carlie ent has history of ITP -Hypertension: Because of low normal blood pressures and hold off on amlodipine. -Hyperkalemia improved now -Hypothyroidism DVT prophylaxis: Probably due to prophylaxis is contraindicated because of her low platelet count Objective - Vital Signs Vital signs: Vital Signs Temp 97.2 F L 09/21/20 13:00 Pulse 84 09/21/20 13:00 Resp 20 09/21/20 13:00 BP 116/63 09/21/20 13:00 Pulse Ox 98 09/21/20 13:00 Intake & Output 09/20/20 09/21/20 09/21/20 18:59 06:59 18:59 Intake Total 950.000 408 460 Output Total 1000 300 200 Balance -50.000 108 260 Intake: IV 450 Sodium Chloride 0.9% 1, 450 000 ml @ 75 mls/hr IV . [id number] [facility] Rx#:[id number] Intake, IV Titration 400.000 Amount Immune Globulin ( 200.000 Gammagard) 20 gm In Empty Bag 1 bag @ Titrate IV . Q0M NR Rx#:[id number] Immune Globulin ( 200 Gammagard) 5 gm In Empty Bag 1 bag @ Titrate IV . Q0M NR Rx#:[id number] Oral 100 50 460 Blood Product 358 Platelet Pheresis Pas 358 Psoralen Unit [id number] Output: Urine 1000 300 200 Other: Voiding Method Diaper Indwelling Catheter Indwelling Catheter - Labs CBC & Chem 7: 09/21/20 06:07 09/20/20 08:49 Labs: Abnormal Lab Results - Last 24 Hours (Table) 09/21/20 09/21/20 09/21/20 Range/Units 06:07 06:07 15:30 RBC 3.17 L (3.80-5.40) m/uL Hgb 10.2 L D (11.4-16.0) gm/dL Hct 30.0 L (34.0-46.0) % RDW 17.5 H (11.5-15.5) % Plt Count 30 L D (150-450) k/uL Lymphocytes # 0.2 L (1.0-4.8) k/uL C-Reactive Protein 5.9 H (<1.0) mg/dL Urine Appearance Cloudy H (Clear) Urine Protein 1+ H (Negative) Urine Ketones 2+ H (Negative) Urine Blood Large H (Negative) Urine Nitrite Positive H (Negative) Ur Leukocyte Esterase Large H (Negative) Urine RBC >182 H (0-5) /hpf Urine WBC 138 H (0-5) /hpf Urine WBC Clumps Many H (None) /hpf Urine Bacteria Rare H (None) /hpf Urine Mucus Rare H (None) /hpf Urine Yeast (Budding) Occasional H (None) /hpf Microbiology - Last 24 Hours (Table) 09/20/20 13:06 Blood Culture - Preliminary Blood No Growth after 24 hours
[2020-09-21 18:08] LABS: Ionized Calcium 5.7 mg/dL (4.5-5.3)
[2020-09-21] MEDS: LACOSAMIDE IV 50 MG in SODIUM CHLORIDE 0.9% 50 ML IVPB SCH (21:42)
[2020-09-21] MEDS: MONTELUKAST 10 MG TAB PO SCH (21:48)
[2020-09-21] MEDS: FAMOTIDINE 20 MG TAB PO SCH (21:48)
[2020-09-21] MEDS: atenoloL 50 MG TAB PO SCH (21:48)
--- NOTE | 2020-09-21 21:50 | P.CONS ---
History of Present Illness - Reason for Consult Consult date: 09/21/20 Hypothermia and AMS Requesting physician: Karen Villela - Chief Complaint FALL X 1 DAY - History of Present Illness Patient is a 60-year female with past medical history significant for ALS in this patient who did have functional quadriplegia wheelchair-bound patient has been brought to the hospital 2 days ago after apparently the patient did have a fall from her wheelchair hitting her forehead for the patient was brought to the hospital patient did have a bruise on the forehead and did have a tongue bite with some discoloration patient was noticed to have some mental status changes and apparently patient seem to have some mental status change that has been going on for last 1 or 2 weeks per the family members there is no clear history of any fever and patient was afebrile on presentation to the hospital subsequently he did have hypothermia with temperature down to 88 degree for height is up to 94.5 F patient did have a normal white count with no left shift did have some thrombocytopenia kidney function was normal urine was negative chest x-ray was negative for any pneumonia patient did have a CT of the brain that was negative for any bleed x-rays of the cervical spine elbow knee foot tibia-fibula were negative for any fracture infectious was consulted today because of her mental status changes and need for antibiotic therapy. 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, TUBULAR RENAL ACIDOSIS,NEUROMUSCULAR DISEASE-MULTI FOCAL MOTOR NEUROPATHY , QUADRIPLEGIC History of Any Multi-Drug Resistant Organisms: None Reported Past Surgical History: Uterine Ablation Additional Past Surgical History / Comment(s): MUSCLE BIOPSY , D&C Past Anesthesia/Blood Transfusion Reactions: Postoperative Nausea & Vomiting (PONV) Past Psychological History: No Psychological Hx Reported Smoking Status: Never smoker Past Alcohol Use History: None Reported Past Drug Use History: None Reported - Past Family History Mother Family Medical History: No Reported History Medications and Allergies Home Medications Medication Instructions Recorded Confirmed Type Atenolol [Tenormin] 100 mg PO HS 07/21/16 09/19/20 History Montelukast [Singulair] 10 mg PO HS 07/21/16 09/19/20 History Potassium Bicarbonate/Cit AC 50 meq PO TID-W/MEALS 07/21/16 09/19/20 History [Klor-Con 25 (Effer. Tab)] amLODIPine [Norvasc] 5 mg PO W/BRKFST 07/21/16 09/19/20 History Potassium Chloride [Klor-Con 20] 20 meq PO BID-W/MEALS 07/28/16 09/19/20 History Ferrous Sulfate [Iron (65 MG 325 mg PO W/SUPPER 01/04/18 09/19/20 History Elemental)] Cranberry 25,000mg 25,000 mg PO W/BRKFST 07/04/20 09/19/20 History Ergocalciferol [Vitamin D2 (1250 1,250 mcg PO FR 07/04/20 09/19/20 History Mcg = 64277 Iu)] Levothyroxine Sodium [Tirosint] 112 mcg PO DAILY 07/04/20 09/19/20 History Sodium Bicarbonate Tab 650 mg PO BID-W/MEALS 07/04/20 09/19/20 History Vitamin A Acetate [Vitamin A] 10,000 unit SL W/BRKFST 07/04/20 09/19/20 History calcitrioL [Calcitriol] 0.25 mcg PO MO 07/04/20 09/19/20 History Ascorbic Acid [Vitamin C] 500 mg PO W/SUPPER 09/19/20 09/19/20 History Biotin 10,000 mcg PO W/BRKFST 09/19/20 09/19/20 History Calcium Carbonate [Calcium] 600 mg PO W/LUNCH 09/19/20 09/19/20 History Famotidine [Pepcid] 20 mg PO HS 09/19/20 09/19/20 History Efren 750mg 1 tab PO HS 09/19/20 09/19/20 History Gamunex-C 5gm/50ml 15 gm IV Q28D 09/19/20 09/19/20 History Magnesium Gluconate [Magonate] 500 mg PO W/LUNCH 09/19/20 09/19/20 History Melatonin 1 mg PO HS 09/19/20 09/19/20 History Thiamine [Vitamin B-1] 100 mg PO BID-W/MEALS 09/19/20 09/19/20 History Vitamin E Acetate [Vitamin E] 200 unit PO W/LUNCH 09/19/20 09/19/20 History Zolpidem Tartrate 3.5 mg SL HS 09/19/20 09/19/20 History Allergies Allergy/AdvReac Type Severity Reaction Status Date / Time hydrocortisone Allergy Nausea & Verified 09/05/20 09:52 Vomiting Iodine and Iodide Containing Allergy "KIDNEY Verified 09/05/20 09:52 Produc PROBLEM" quinine Allergy Nausea & Verified 09/05/20 09:52 Vomiting iodine AdvReac Unknown "KIDNEY Verified 09/05/20 09:52 PROBLEM" Physical Exam Vitals: Vital Signs Temp Pulse Pulse Resp BP BP BP 09/21/20 11:23 94.9 F L 76 18 126/67 09/21/20 08:00 81 20 09/21/20 04:30 94.6 F L 81 20 124/56 09/20/20 20:40 93.7 F L 76 16 121/77 09/20/20 20:00 16 09/20/20 19:55 93.7 F L 73 18 147/81 09/20/20 19:45 95.9 F L 67 18 150/67 09/20/20 19:30 79 20 155/86 09/20/20 18:25 92.2 F L 09/20/20 12:57 88.9 F L Pulse Ox 09/21/20 11:23 09/21/20 08:00 09/21/20 04:30 98 09/20/20 20:40 96 09/20/20 20:00 09/20/20 19:55 98 09/20/20 19:45 09/20/20 19:30 96 09/20/20 18:25 09/20/20 12:57 Intake and Output 09/20/20 09/21/20 09/21/20 22:59 06:59 14:59 Intake Total 1308.000 50 Output Total 1000 300 Balance 308.000 -250 Intake: IV 450 Sodium Chloride 0.9% 1, 450 000 ml @ 75 mls/hr IV . [id number] [facility] Rx#:[id number] Intake, IV Titration 400.000 Amount Immune Globulin ( 200.000 Gammagard) 20 gm In Empty Bag 1 bag @ Titrate IV . Q0M NR Rx#:[id number] Immune Globulin ( 200 Gammagard) 5 gm In Empty Bag 1 bag @ Titrate IV . Q0M NR Rx#:[id number] Oral 100 50 Blood Product 358 Platelet Pheresis Pas 358 Psoralen Unit [id number] Output: Urine 1000 300 Other: Voiding Method Indwelling Catheter Indwelling Catheter GENERAL DESCRIPTION: Middle-aged Female lying in bed, no distress. No tachypnea or accessory muscle of respiration use. HEENT: Shows Pallor , no scleral icterus. Oral mucous membrane is dry. No pharyngeal erythema or thrush NECK: Trachea central, no thyromegaly. LUNGS: Unlabored breathing. Clear to auscultation anteriorly. No wheeze or crackle. HEART: S1, S2, regular rate and rhythm. No loud murmur ABDOMEN: Soft, no tenderness , guarding or rigidity, no organomegaly EXTREMITIES: No edema of feet. SKIN: No rash, no masses palpable. NEUROLOGICAL: The patient is pleasently confused , orientation couldnt be determined Results CBC & Chem 7: 09/21/20 06:07 09/20/20 08:49 Labs: Abnormal Lab Results - Last 24 Hours (Table) 09/21/20 Range/Units 06:07 RBC 3.17 L (3.80-5.40) m/uL Hgb 10.2 L D (11.4-16.0) gm/dL Hct 30.0 L (34.0-46.0) % RDW 17.5 H (11.5-15.5) % Plt Count 30 L D (150-450) k/uL Lymphocytes # 0.2 L (1.0-4.8) k/uL Assessment and Plan Assessment: patient with acute mental status changes in this patient who do have a history of ALS quadriplegia admitted to hospital with a fall and now with evidence of hypothermia patient did have extensive work-up done so far with no evidence of any pneumonia initial UA was negative patient abdominal soft on clinical examination and no evidence of any cellulitis with concern for possible UTI repeat UA has been ordered which is currently pending Plan: 1-we will empirically start the patient on cefepime 2 g every 8 hour 2-gentle IV fluid We will follow on clinical condition and cultures to further adjust medication if needed Thank you for this consultation we will follow the patient along with you
[2020-09-22 00:12] LABS: Vitamin B12 >4000.0 pg/mL (211-911)
[2020-09-22] MEDS: LEVOTHYROXINE 112 MCG TAB PO SCH (05:52)
[2020-09-22 06:32] LABS: Anisocytosis Slight; HCT 25.4 % (34.0-46.0); HGB 9.1 gm/dL (11.4-16.0); MCH 33.8 pg (25.0-35.0); MCHC 35.8 g/dL (31.0-37.0); MCV 94.4 fL (80.0-100.0); Mean Platelet Volume 10.7; Poikilocytosis Moderate; RBC 2.69 m/uL (3.80-5.40); RDW 17.8 % (11.5-15.5); WBC 3.4 k/uL (3.8-10.6)
[2020-09-22 06:36] LABS: Platelet Count 18 k/uL (150-450)
[2020-09-22] MEDS: THIAMINE 100 MG TAB PO SCH ×2 (07:40→12:06)
[2020-09-22] MEDS: VITAMIN A 10,000 UNIT (3000 MCG) CAPSULE PO SCH (07:41)
[2020-09-22] MEDS: amLODIPine 5 MG TAB PO SCH (08:09)
[2020-09-22] MEDS: SODIUM BICARBONATE TAB 650 MG TAB PO SCH ×2 (08:09→12:06)
[2020-09-22] MEDS: PANTOPRAZOLE 40 MG/10 ML VIAL IVP SCH (08:10)
--- NOTE | 2020-09-22 09:21 | P.PN ---
Subjective Progress Note Date: 09/22/20 Patient seen at bedside and per the nurse he mentation is somewhat better today compared to yesterday. No jerking of any extremities, or any visible clinical seizures per the nurse. Objective - Vital Signs Vital signs: Vital Signs Temp 97.4 F L 09/22/20 04:35 Pulse 86 09/22/20 04:35 Resp 20 09/22/20 04:35 BP 137/78 09/22/20 04:35 Pulse Ox 98 09/22/20 04:35 Intake & Output 09/21/20 09/22/20 09/22/20 18:59 06:59 18:59 Intake Total 460 400 Output Total 200 400 Balance 260 0 Intake: Oral 460 400 Output: Urine 200 400 Other: Voiding Method Indwelling Catheter Indwelling Catheter - Exam GENERAL: The patient is lying in and seems in distress.. HENT: Has gauze with tape over the bilateral forehead (mosly midline) where she had fall. Hard to assess neck movement because of cooperation. NEUROLOGICAL: Limited because of her condition Higher mental function: The patient is awake, alert, oriented to self, correctly states the month. States the year is 1920. She said she is at her sister's house. She is able to name objects correctly (pen, watch and glasses). She is following commands (sticking tongue out and raising her eyebrows). She keeps on saying that "I am going to ". No neglect. Cranial nerves: There is erythema of the surrounding of both eyes (seems from fall). The pupils are round, equal and reactive to light. Could not assess visual field. Extraocular movement is tracking on the right and left and no nystagmus appreciated. There is No facial weakness. Had tongue bite over the right (right side of tongue is black discoloration) and was able to stick tongue out. No dysarthria is noted.Could not assess because of her cooperation. Motor: Is wheel chair bound (baseline) so gait cannot be assessed. The strength is able to have movement over the right hand (had weak 3 of hand fingers), while left minimal flicker over 2-4 digits. Otherwise no strength/movement (baseline). Decrease tone throughout. Has bilateral foot drop bilaterally (baseline). Cerebellum: Could not be assessed because of her baseline weakness Sensation: Could not be assessed. Reflexes (right/left): Brachioradialis 1+ bilateralis bilaterally. Otherwise 0 throughout. Plantars are mute bilaterally. WORK-UP: AST of 97 and ALT of 154 which are elevated. Ammonia level is 11 which is considered within normal limits Calcium is 10.9 and the repeated 7.3 which are elevated. Glucose is 171 which is slightly elevated Urinalysis is negative for urinary tract infection Urine drug screen is positive for benzos and the serum alcohol was less than 10. Vitamin B12 is more than 4000 which is unremarkable. Folate level the serum is 22 which is normal. TSH is 1.0 which is considered within normal limits. CRP is 5.9 which is considered elevated. Serum calcium is 10.9 and the repeat IS 10.3. Ionized Calcium is 5.7 which is concerned elevated CT of the head is reported as there is no acute intracranial hemorrhage, mass effect or midline shift is seen. CT cervicals reported as there is no acute fracture or dislocation evident in the cervical spine. - Labs CBC & Chem 7: 09/22/20 06:01 09/22/20 06:01 Labs: Abnormal Lab Results - Last 24 Hours (Table) 09/21/20 09/21/20 09/21/20 Range/Units 06:07 06:07 15:30 WBC (3.8-10.6) k/uL RBC (3.80-5.40) m/uL Hgb (11.4-16.0) gm/dL Hct (34.0-46.0) % RDW (11.5-15.5) % Plt Count (150-450) k/uL Ionized Calcium Kristen (4.5-5.3) mg/dL C-Reactive Protein 5.9 H (<1.0) mg/dL Vitamin B12 (211-911) pg/mL Procalcitonin 0.11 H (0.02-0.09) ng/mL Urine Appearance Cloudy H (Clear) Urine Protein 1+ H (Negative) Urine Ketones 2+ H (Negative) Urine Blood Large H (Negative) Urine Nitrite Positive H (Negative) Ur Leukocyte Esterase Large H (Negative) Urine RBC >182 H (0-5) /hpf Urine WBC 138 H (0-5) /hpf Urine WBC Clumps Many H (None) /hpf Urine Bacteria Rare H (None) /hpf Urine Mucus Rare H (None) /hpf Urine Yeast (Budding) Occasional H (None) /hpf 09/21/20 09/22/20 Range/Units 17:25 06:01 WBC 3.4 L (3.8-10.6) k/uL RBC 2.69 L (3.80-5.40) m/uL Hgb 9.1 L (11.4-16.0) gm/dL Hct 25.4 L (34.0-46.0) % RDW 17.8 H (11.5-15.5) % Plt Count 18 L* (150-450) k/uL Ionized Calcium Kristen 5.7 H (4.5-5.3) mg/dL C-Reactive Protein (<1.0) mg/dL Vitamin B12 >4000.0 H (211-911) pg/mL Procalcitonin (0.02-0.09) ng/mL Urine Appearance (Clear) Urine Protein (Negative) Urine Ketones (Negative) Urine Blood (Negative) Urine Nitrite (Negative) Ur Leukocyte Esterase (Negative) Urine RBC (0-5) /hpf Urine WBC (0-5) /hpf Urine WBC Clumps (None) /hpf Urine Bacteria (None) /hpf Urine Mucus (None) /hpf Urine Yeast (Budding) (None) /hpf Microbiology - Last 24 Hours (Table) 09/21/20 15:30 Urine Culture - Preliminary Urine,Clean Catch 09/20/20 13:06 Blood Culture - Preliminary Blood No Growth after 24 hours Assessment and Plan Assessment: * Encephalopathy for the past 2-3 weeks of unknown etiology. There is component of toxic-metabolic encephalopathy (elevated AST/ALT, elevated magnesium, and elevated calcium) but feel not only component. Per family no history of seizure. Does not seem meningoencephalits. Her mentation seems to be mildly improved today compared to yesterday. * Hypothermia of unknown etiology * Acute hyperkalemia resolved * Per family ALS-like since age of 17 (per medical records has history of multifocal motor neuropathy) (per family quadraplegia and is powered wheel chair bound. 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 * I will get repeat CT head in the meantime. * I ordered a stat EEG. Continue prophylactic seizure medication of Vimpat 50 mg IV twice a day for seizure. Patient does not have history of seizures and if clinically improved down the line will taper Vimpat until discontinued. * Pending vitamin E level. Will defer any electrolyte abnormality correction to the primary team. * Patient does not have any leukocytosis or fever suggestive of meningeal encephalitis and will be difficult to do lumbar puncture for CSF study especially with significant thrombocytopenia. * Q4 hour neuro checks. * Infection disease team is on board. The plan is discussed with the patient family members (Nichelle: Sister and her Niece: Odilia) on 09/21. The family will attempt to get records from [facility]. The plan is also discussed with her nurse. UPDATE: EEG ON 09/22/2020: Is an abnormal EEG. The background slowing is suggestive of moderate to severe encephalopathy. There are no focal slowing, epileptiform discharges or seizures on the EEG. Dr. Mackenzie will take over neurology service starting tomorrow AM. Tee Summers MD Neuro-Hospitalist Time with Patient: Less than 30
[2020-09-22] MEDS ORDERED: POTASSIUM CHLORIDE ER 20 MEQ TAB.ER PO STA ×3 (09:38→13:37)
--- NOTE | 2020-09-22 09:55 | P.PN ---
Subjective Progress Note Date: 09/22/20 1-year-old female came to the hospital after fall and patient was quite a bit confused and was paranoid apparently yesterday. Patient is alert oriented 2 when I valid the patient and patient the temperature was around 80 because of which there multiple heart attacks and the nursing staff was planning on beta brenda although patient was complaining of excessive heat and sweating because of which we removed all of those and we will recheck the temperature again. Apart from that there is no clear evidence of sepsis at this time. UA is not significant for urinary tract infection. In spite of her confusion patient was able to provide me good history. Patient denied any cough patient or dysuria c hest x-ray did not show any significant abnormality. Etiology of her son onset of confusion is not clear at this time CT of the head did not show any intracranial hemorrhage MRI is being obtained. 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 Patient missed her IVIG, patient is severely thrombocytopenia With platelet count of around 16,000. Patient has multiple bruises and multiple hematomas secondary to low platelet count after fall. Patient denied any headache patient was recently treated for cellulitis. Suspicion is low for meningitis and unfortunately we cannot the get an LP considering her very low platelet count because of which we are not obtaining CSF analysis at this time. Her thrombus rapini is believed to be secondary to diuretic she received for cellulitis recently. Patient has mildly elevated liver enzymes. MRI was ordered by oncology. Patient blood screen is only for positive for benzodiazepines for which patient doesn't appear to have a prescription for but patient does take Ambien 3.5 mg at bedtime. There is no clear metabolic toxic causes that can explain her confusion or delirium. Psychiatry was consulted as well. 09/21/2020 Patient remains unclear whether patient remains hypothermic remains confused and paranoid psychiatry at evaluate the patient. I consulted neurology as there is no real rheumatological factor for her confusion neurology evaluated the patient and they believe patient may have bilateral lower extremity plegia and left upper extremity hemiparesis. Patient received IVIG for ITP. There is no clear evidence of infection at this time because of continued hyperlipidemia and consult infectious disease as well. 09/22/2020 Patient is seen on follow-up, she is resting in bed, a bit agitated and delirious, unable to answer questions. She is repetitively stating that she is "over the fire". Her temperature this morning 97.4 axillary. Hemodynamically stable. Receiving IV Vimpat.. Vitamin B12, folate and TSH normal. Her platelet count low at 14, today's labs are pending. She is maintained and IV hydration with normal saline. Multiple imaging studies are pending including CT of the brain and MRI of the brain, there is also an EEG ordered by neurology. No growth on preliminary blood and urine cultures at this time. Review of systems: Unable to obtain patient is confused All inpatient medications were reviewed and appropriate changes in these medications as dictated in the interval history and assessment and plan. PHYSICAL EXAMINATION: GENERAL: The patient is alert and oriented x0, not in any acute distress. Well developed, well nourished. HEENT: Pupils are round and equally reacting to light. EOMI. No scleral icterus. No conjunctival pallor. Normocephalic, atraumatic. Tongue thickened appearance. CARDIOVASCULAR: S1 and S2 present. No murmurs, rubs, or gallops. PULMONARY: Chest is clear to auscultation, no wheezing or crackles. ABDOMEN: Soft, nontender, nondistended, normoactive bowel sounds. No palpable organomegaly. MUSCULOSKELETAL: No joint swelling or deformity. EXTREMITIES: No cyanosis, clubbing, or pedal edema. NEUROLOGICAL: Neurological findings as mentioned above SKIN: Multiple bruises and hematoma secondary to thrombocytopenia and fall Assessment and plan -Altered mental statu: etiology is not clear no clear evidence of infection or metabolic causes that can explain her confusion, no plan for LP there is no evidence of systemic infection at this time. possible component of polypharmacy related to Ambien, SIMRAN, and melatonin use, these medications are on hold. Multiple imaging studies have been negative including tibiofibular x-ray foot x- ray knee x-ray elbow x-ray chest x-ray head and cervical spine CT. TSH, B12, ammonia and folate levels are normal. MRI of the brain, repeat CT and EEG have been ordered. She is receiving IV Vimpat. Neurology is following. -Severe some thrombocytopenia which is believed to be secondary to recent antibiotics which she was on for cellulitis. Patient doesn't have any diarrhea. Patient is receiving IV immunoglobulin at this time and patient has history of ITP -Hypertension:Blood pressure stable, Norvasc is being held at this time. -Hyperkalemia: repleted -Hypothyroidism - DVT prophylaxis: Probably due to prophylaxis is contraindicated because of her low platelet count Objective - Vital Signs Vital signs: Vital Signs Temp 97.4 F L 09/22/20 04:35 Pulse 86 09/22/20 04:35 Resp 20 09/22/20 04:35 BP 137/78 09/22/20 04:35 Pulse Ox 98 09/22/20 04:35 Intake & Output 09/21/20 09/22/20 09/22/20 18:59 06:59 18:59 Intake Total 460 400 Output Total 200 400 Balance 260 0 Intake: Oral 460 400 Output: Urine 200 400 Other: Voiding Method Indwelling Catheter Indwelling Catheter - Labs CBC & Chem 7: 09/22/20 06:01 09/20/20 08:49 Labs: Abnormal Lab Results - Last 24 Hours (Table) 09/21/20 09/21/20 09/21/20 Range/Units 06:07 06:07 15:30 WBC (3.8-10.6) k/uL RBC (3.80-5.40) m/uL Hgb (11.4-16.0) gm/dL Hct (34.0-46.0) % RDW (11.5-15.5) % Plt Count (150-450) k/uL Ionized Calcium Kristen (4.5-5.3) mg/dL C-Reactive Protein 5.9 H (<1.0) mg/dL Vitamin B12 (211-911) pg/mL Procalcitonin 0.11 H (0.02-0.09) ng/mL Urine Appearance Cloudy H (Clear) Urine Protein 1+ H (Negative) Urine Ketones 2+ H (Negative) Urine Blood Large H (Negative) Urine Nitrite Positive H (Negative) Ur Leukocyte Esterase Large H (Negative) Urine RBC >182 H (0-5) /hpf Urine WBC 138 H (0-5) /hpf Urine WBC Clumps Many H (None) /hpf Urine Bacteria Rare H (None) /hpf Urine Mucus Rare H (None) /hpf Urine Yeast (Budding) Occasional H (None) /hpf 09/21/20 09/22/20 Range/Units 17:25 06:01 WBC 3.4 L (3.8-10.6) k/uL RBC 2.69 L (3.80-5.40) m/uL Hgb 9.1 L (11.4-16.0) gm/dL Hct 25.4 L (34.0-46.0) % RDW 17.8 H (11.5-15.5) % Plt Count 18 L* (150-450) k/uL Ionized Calcium Kristen 5.7 H (4.5-5.3) mg/dL C-Reactive Protein (<1.0) mg/dL Vitamin B12 >4000.0 H (211-911) pg/mL Procalcitonin (0.02-0.09) ng/mL Urine Appearance (Clear) Urine Protein (Negative) Urine Ketones (Negative) Urine Blood (Negative) Urine Nitrite (Negative) Ur Leukocyte Esterase (Negative) Urine RBC (0-5) /hpf Urine WBC (0-5) /hpf Urine WBC Clumps (None) /hpf Urine Bacteria (None) /hpf Urine Mucus (None) /hpf Urine Yeast (Budding) (None) /hpf Microbiology - Last 24 Hours (Table) 09/21/20 15:30 Urine Culture - Preliminary Urine,Clean Catch 09/20/20 13:06 Blood Culture - Preliminary Blood No Growth after 24 hours
[2020-09-22 10:49] LABS: Carbon Dioxide 23.8 mmol/L (21.6-31.8); Chloride 118 mmol/L (96-109); Glucose 98 mg/dL (70-110); Potassium 2.1 mmol/L (3.5-5.5); Sodium 147 mmol/L (135-145)
[2020-09-22] MEDS: CALCIUM CARBONATE 500 MG CHEWABLE PO SCH (12:06)
[2020-09-22] MEDS: VITAMIN E (DL,TOCOPHERYL ACET) 400 UNIT (180 MG) CAP PO SCH (12:07)
[2020-09-22] MEDS: LACOSAMIDE IV 50 MG in SODIUM CHLORIDE 0.9% 50 ML IVPB SCH ×2 (12:36→21:24)
--- NOTE | 2020-09-22 14:08 | EEG ---
ELECTROENCEPHALOGRAM REPORT DATE OF SERVICE: 09/22/2020 CLINICAL HISTORY: This is a 60-year-old woman that presents to the hospital for altered mental status. The video EEG is obtained to evaluate for seizure and epileptiform activity. RELEVANT MEDICATION: Vimpat. EEG TYPE: A routine 21 channel EEG is performed with video using the 10/20 electrode placement system. DESCRIPTION: Wakefulness is only obtained. During wakefulness, there is a [id number] voltage of 5-6 hertz theta activity intermixed with delta activity, and at times the background consists of delta activity. There is no sleep architecture seen. There is no focal slowing appreciated. There is moderate to significant myogenic artifact over bilateral hemisphere but mostly over the right hemisphere. Interictal and ictal are none. ACTIVATION PROCEDURES: Photic stimulation did not evoke a posterior driving response. Hyperventilation is not performed. CLINICAL INTERPRETATION: This is an abnormal routine EEG. The background slowing is suggestive of moderate to severe encephalopathy. There are no focal slowings, epileptiform discharges or seizure on the EEG. Clinical correlation is recommended. MMMICKEY / VINCENT: [id number] / MTDD
[2020-09-22] MEDS ORDERED: POTASSIUM CHLORIDE ER 20 MEQ TAB.ER PO ONE (14:30)
--- NOTE | 2020-09-22 15:04 | CT ---
EXAMINATION TYPE: CT brain wo con DATE OF EXAM: 09/22/2020 COMPARISON: 09/19/2020 HISTORY: Mental status change CT DLP: 2672.3 mGycm Automated exposure control for dose reduction was used. Ventricles have normal size. There is no mass effect nor midline shift. There is no sign of intracran ial hemorrhage. There is frontal and parietal scalp soft tissue swelling. The calvarium is intact. Sk ull base appears intact. IMPRESSION: Scalp soft tissue swelling increased compared to old exam. No acute intracranial abnormality.
[2020-09-22] MEDS: SODIUM CHLORIDE 0.9% 1,000 ML IV SCH (16:14)
[2020-09-22] MEDS: FERROUS SULFATE 325 MG TAB PO SCH (16:38)
[2020-09-22] MEDS ORDERED: Potassium Replacement Protocol 1 EACH MISC MISCELLANE PRN (18:53)
[2020-09-22] MEDS: POTASSIUM CHLORIDE 20 MEQ in WATER FOR INJECTION 1 100ML.BAG IVPB SCH ×2 (19:29→21:25)
[2020-09-22] MEDS: MONTELUKAST 10 MG TAB PO SCH (19:38)
[2020-09-22] MEDS: FAMOTIDINE 20 MG TAB PO SCH (19:38)
[2020-09-22] MEDS: atenoloL 50 MG TAB PO SCH (19:38)
--- NOTE | 2020-09-22 21:58 | PN ---
PROGRESS NOTE DATE OF SERVICE: 09/22/2020 REASON FOR FOLLOWUP: Possible UTI infection. INTERVAL HISTORY: Patient is afebrile. The patient temperature is not hypothermic anymore. The patient is hemodynamically stable on pressor support. The patient remains to be pleasantly confused, but no agitation has been noticed. No vomiting, diarrhea. She has significantly cloudy urine, though. PHYSICAL EXAMINATION: Blood pressure 155/70, pulse of 83, temperature 98.4. She is 100% on room air. GENERAL DESCRIPTION: The patient is a middle-aged female lying in bed in no distress. RESPIRATORY SYSTEM: Unlabored breathing, clear to auscultation anteriorly. HEART: S1, S2. Regular rate and rhythm. ABDOMEN: Soft, no tenderness. EXTREMITIES: Normal feet. LABS: Hemoglobin 9.8, white count 3.4, BUN of 14 and creatinine 0.2. Urine culture is currently pending. DIAGNOSTIC IMPRESSION AND PLAN: Aspiration patient with ( ), multifactorial possible component of UTI. The patient is a covered with Rocephin, to continue while waiting for the culture to finalize and monitor clinical course closely. MMODL / IJN: [id number] /
[2020-09-23] MEDS: LEVOTHYROXINE 112 MCG TAB PO SCH (05:50)
[2020-09-23] MEDS: SODIUM CHLORIDE 0.9% 1,000 ML IV SCH ×2 (05:50→11:07)
[2020-09-23 05:57] LABS: Anisocytosis Slight; Basophils % (A) 0 %; Eosinophils % (A) 0 %; HGB 8.8 gm/dL (11.4-16.0); Lymphocytes # (A) 0.2 k/uL (1.0-4.8); Lymphocytes % (A) 6 %; MCH 32.5 pg (25.0-35.0); MCHC 33.7 g/dL (31.0-37.0); MCV 96.6 fL (80.0-100.0); Macrocytosis Slight; Mean Platelet Volume 9.2; Monocytes # (A) 0.2 k/uL (0-1.0); Monocytes % (A) 5 %; Neutrophils # (A) 3.7 k/uL (1.3-7.7); Neutrophils % (A) 87 %; Poikilocytosis Moderate; RBC 2.69 m/uL (3.80-5.40); RDW 17.7 % (11.5-15.5); WBC 4.2 k/uL (3.8-10.6)
[2020-09-23 05:58] LABS: Platelet Count 13 k/uL (150-450)
[2020-09-23 06:16] LABS: African American GFR (CKD) >90 (>60 ml/min/1.73 sqM); Anion Gap 4 mmol/L; Blood Urea Nitrogen 10 mg/dL (7-17); Calcium 9.3 mg/dL (8.4-10.2); Carbon Dioxide 25 mmol/L (22-30); Chloride 113 mmol/L (98-107); Glucose 80 mg/dL (74-99); Non-African American GFR(CKD) >90 (>60 ml/min/1.73 sqM); Potassium 4.1 mmol/L (3.5-5.1); Sodium 142 mmol/L (137-145)
[2020-09-23] MEDS: PANTOPRAZOLE 40 MG/10 ML VIAL IVP SCH (10:07)
[2020-09-23] MEDS: THIAMINE 100 MG TAB PO SCH ×2 (10:07→13:43)
[2020-09-23] MEDS: SODIUM BICARBONATE TAB 650 MG TAB PO SCH ×2 (10:07→13:43)
[2020-09-23] MEDS: VITAMIN A 10,000 UNIT (3000 MCG) CAPSULE PO SCH (10:08)
[2020-09-23] MEDS: amLODIPine 5 MG TAB PO SCH (10:08)
[2020-09-23 10:10] LABS: Glucose,Whole Blood 104 mg/dL (75-99)
--- NOTE | 2020-09-23 11:03 | P.PN ---
Subjective Progress Note Date: 09/23/20 Patient was seen for a follow-up. Patient initially seen by Dr. Tee Summers. Please refer to his note for details. 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 He can follows up with Dr. Addison Espinal. Patient was admitted to the hospital for altered mental status. 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 She is wheelchair bound. She has some function with the right hand. Patient also has ITP. Patient suffered from a fall 2 we eks ago. Patient came with altered mental status with hypothermia and platelets were low 19,000. She was very paranoid, delusional. EEG was performed, which showed some artifactual changes, but no epileptiform activity. It also showed moderate to severe encephalopathy. Patient was empirically started on Vimpat 50 mg twice a day. Neurology was reconsulted today because of acute mental status change, muteness. Per nursing staff, patient on 09/20/2020 was confused but talking. She was obsessed about her shirt to be fixed, "fix my shirt". Subsequently on Wednesday morning and Wednesday morning, which is yesterday, she was very groggy, not waking up or speaking in the morning. However in the afternoon she was speaking better. Her speech was back to normal. She continued to be very paranoid, as stating "sister is going to set fire". "Brother is going to set on fire". Also saying "they are going to kill us". However this morning patient is fully awake, but will not speak. She makes eye contact, follows directions, but will not speak. WORK-UP: Patient's most recent platelet count is 13,000, hemoglobin 8.8 and WBC 4.2. AST of 97 and ALT of 154 which are elevated. Ammonia level is 11 which is considered within normal limits Calcium is 10.9 and the repeated 7.3 which are elevated. Glucose is 171 which is slightly elevated Urinalysis is negative for urinary tract infection Urine drug screen is positive for benzos and the serum alcohol was less than 10. Vitamin B12 is more than 4000 which is unremarkable. Folate level the serum is 22 which is normal. TSH is 1.0 which is considered within normal limits. CRP is 5.9 which is considered elevated. Serum calcium is 10.9 and the repeat IS 10.3. Ionized Calcium is 5.7 which is concerned elevated CT of the head is reported as there is no acute intracranial hemorrhage, mass effect or midline shift is seen. CT cervicals reported as there is no acute fracture or dislocation evident in the cervical spine. Objective - Vital Signs Vital signs: Vital Signs Temp 97.5 F L 09/23/20 05:00 Pulse 90 09/23/20 09:25 Resp 16 09/23/20 05:00 BP 146/84 09/23/20 09:25 Pulse Ox 97 09/23/20 09:25 Intake & Output 09/22/20 09/23/20 09/23/20 18:59 06:59 18:59 Intake Total 60 1390 Output Total 600 450 Balance -540 940 Intake: Intake, IV Titration 1150 Amount Lacosamide IV 50 mg In 50 Sodium Chloride 0.9% 50 ml @ 100 mls/hr IVPB BID HAY Rx#:[id number] Potassium Chloride 20 meq 200 In Water For Injection 1 100ml.bag @ 50 mls/hr IVPB Q2H HAY Rx#: [id number] Sodium Chloride 0.9% 1, 900 000 ml @ 75 mls/hr IV . [id number] HAY Rx#:[id number] Oral 60 240 Output: Urine 600 450 Other: Voiding Method Indwelling Catheter Indwelling Catheter - Exam On examination patient is alert and awake, eyes are open, makes eye contact, follows the gaze appropriately, mumbles little bit, but does not speak. Patient does follow directions. Patient has a flat affect. Sometimes appears as if she is going to cry. On cranial examination pupils are round and reacting, visual brooks could not be tested. Extraocular muscles are intact. She has some periorbital ecchymosis. Face appears symmetric. She has some myofascial twitching of her facial region. Hearing appears normal. She did protrude her tongue, which was completely blue in the right half from tongue bite. Patient subsequently would keep her tongue out, and would not put back. She has some myofascial twitching noted. Muscle strength shows some flicker of movement of the fingers, like typing movements of the fingers but otherwise she is quadriplegic. Patient's reflexes are absent. Sensations appears intact although was not reliable. Tone is decreased. Bulk of muscles decreased. No obvious fasciculations. Patient cannot walk. Cerebellar functions could not be tested. - Labs CBC & Chem 7: 09/23/20 05:03 09/23/20 05:03 Labs: Abnormal Lab Results - Last 24 Hours (Table) 09/22/20 09/22/20 09/23/20 Range/Units 06:01 17:53 05:03 RBC 2.69 L (3.80-5.40) m/uL Hgb 8.8 L (11.4-16.0) gm/dL Hct 26.0 L (34.0-46.0) % RDW 17.7 H (11.5-15.5) % Plt Count 13 L* (150-450) k/uL Lymphocytes # 0.2 L (1.0-4.8) k/uL Sodium 147 H (135-145) mmol/L Potassium 2.1 L* 3.4 L (3.5-5.5) mmol/L Chloride 118 H (96-109) mmol/L Creatinine <0.2 L (0.6-1.5) mg/dL POC Glucose (mg/dL) (75-99) mg/dL 09/23/20 09/23/20 Range/Units 05:03 09:29 RBC (3.80-5.40) m/uL Hgb (11.4-16.0) gm/dL Hct (34.0-46.0) % RDW (11.5-15.5) % Plt Count (150-450) k/uL Lymphocytes # (1.0-4.8) k/uL Sodium (135-145) mmol/L Potassium (3.5-5.5) mmol/L Chloride 113 H (96-109) mmol/L Creatinine 0.17 L (0.6-1.5) mg/dL POC Glucose (mg/dL) 104 H (75-99) mg/dL Microbiology - Last 24 Hours (Table) 09/20/20 13:06 Blood Culture - Preliminary Blood No Growth after 48 hours Assessment and Plan Assessment: * Encephalopathy for the past 2-3 weeks of unknown etiology. There is component of toxic-metabolic encephalopathy (elevated AST/ALT, elevated magnesium, and elevated calcium). Per family no history of seizure. Does not seem meningoencephalits. Patient is more alert, but now has developed mut eness. 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 * Repeat CT head 09/22/2020 showed scalp soft tissue swelling increase compared to old exam. No acute intracranial process. * EEG on 09/22/2020: Is an abnormal EEG. The background slowing is suggestive of moderate to severe encephalopathy. There are no focal slowing, epileptiform discharges or seizures on the EEG. Continue Vimpat 50 mg IV twice a day for seizure. Patient does not have history of seizures and if clinically improved down the line will taper Vimpat until discontinued. * Pending vitamin E level. Will defer any electrolyte abnormality correction to the primary team. * Patient does not have any leukocytosis or fever suggestive of meningeal encephalitis.. Autoimmune encephalitis also in the differential, however lumbar puncture cannot be performed because of severe thrombocytopenia. ID on board. * Psychiatry consultation, as patient has been severely paranoid for last few days, and now mute, rule out worsening psychosis.
[2020-09-23] MEDS: LACOSAMIDE IV 50 MG in SODIUM CHLORIDE 0.9% 50 ML IVPB SCH ×2 (11:06→22:13)
--- NOTE | 2020-09-23 13:36 | P.PN ---
Subjective Progress Note Date: 09/23/20 Principal diagnosis: ITP In follow-up today patient is no longer able to produce speech. From reports have received from others, this patient is typically able to talk. Patient is able to understand questions as she answers appropriately and does look you clearly in the face. She denied any pain, difficulty breathing, difficulty swallowing. She was able to nod her head yes that she typically can speak without difficulty Objective - Vital Signs Vital signs: Vital Signs Temp 97.7 F 09/23/20 12:40 Pulse 88 09/23/20 12:40 Resp 16 09/23/20 12:40 BP 152/67 09/23/20 12:40 Pulse Ox 95 09/23/20 12:40 Intake & Output 09/22/20 09/23/20 09/23/20 18:59 06:59 18:59 Intake Total 60 1390 Output Total 600 450 Balance -540 940 Intake: Intake, IV Titration 1150 Amount Lacosamide IV 50 mg In 50 Sodium Chloride 0.9% 50 ml @ 100 mls/hr IVPB BID HAY Rx#:[id number] Potassium Chloride 20 meq 200 In Water For Injection 1 100ml.bag @ 50 mls/hr IVPB Q2H HAY Rx#: [id number] Sodium Chloride 0.9% 1, 900 000 ml @ 75 mls/hr IV . [id number] HAY Rx#:[id number] Oral 60 240 Output: Urine 600 450 Other: Voiding Method Indwelling Catheter Indwelling Catheter Indwelling Catheter - Constitutional General appearance: Present: cooperative, no acute distress, obese - EENT EENT Comment(s): Corneal swelling, whitish drainage from the eyes, she does have bruising Eyes: Present: anicteric sclerae, EOMI - Respiratory Respiratory: bilateral: CTA - Cardiovascular Rhythm: regular Heart sounds: normal: S1, S2 Abnormal Heart Sounds: Absent: systolic murmur, diastolic murmur, rub, S3 Gallop, S4 Gallop, click, other - Peripheral edema leg Peripheral Edema: bilateral: Trace - Gastrointestinal General gastrointestinal: Present: distended, normal bowel sounds, soft - Integumentary Integumentary Comment(s): Multiple bruises - Neurologic Neurologic Comment(s): She is able to move several fingers of her right hand on command, only 1-2 fingers on her left hand - Psychiatric Psychiatric Comment(s): Patient may not be able to verbalize but she makes good eye contact, she answers questions appropriately - Labs CBC & Chem 7: 09/23/20 05:03 09/23/20 05:03 Labs: Abnormal Lab Results - Last 24 Hours (Table) 09/22/20 09/23/20 09/23/20 Range/Units 17:53 05:03 05:03 RBC 2.69 L (3.80-5.40) m/uL Hgb 8.8 L (11.4-16.0) gm/dL Hct 26.0 L (34.0-46.0) % RDW 17.7 H (11.5-15.5) % Plt Count 13 L* (150-450) k/uL Lymphocytes # 0.2 L (1.0-4.8) k/uL Potassium 3.4 L (3.5-5.1) mmol/L Chloride 113 H (98-107) mmol/L Creatinine 0.17 L (0.52-1.04) mg/dL POC Glucose (mg/dL) (75-99) mg/dL 09/23/20 Range/Units 09:29 RBC (3.80-5.40) m/uL Hgb (11.4-16.0) gm/dL Hct (34.0-46.0) % RDW (11.5-15.5) % Plt Count (150-450) k/uL Lymphocytes # (1.0-4.8) k/uL Potassium (3.5-5.1) mmol/L Chloride (98-107) mmol/L Creatinine (0.52-1.04) mg/dL POC Glucose (mg/dL) 104 H (75-99) mg/dL Microbiology - Last 24 Hours (Table) 09/20/20 13:06 Blood Culture - Preliminary Blood No Growth after 48 hours - Imaging and Cardiology CT Scan - head: report reviewed Assessment and Plan (1) Chronic ITP (idiopathic thrombocytopenic purpura) Narrative/Plan: Patient has a history of chronic ITP with a baseline running from 100-140,000. On this admission her platelets are consistently been below 20,000. Suspect l ower count is secondary to recent severe cellulitis infection and antibiotic treatment. Continues on antibiotics. IVIG was given as she missed her dose that was due 09/09/20 Ordered unit of single donor platelets for platelet of 13,000 today. Patient has persistent bruising, noted wet purpura. CBC in the a.m. Case revealed in detail with nursing. Discussed patient's case from a Hematology standpoint with brother that was visiting. Current Visit: Yes Status: Chronic Priority: High Code(s): D69.3 - IMMUNE THROMBOCYTOPENIC PURPURA SNOMED Code(s): 17933026 Time with Patient: Greater than 30
[2020-09-23] MEDS: VITAMIN E (DL,TOCOPHERYL ACET) 400 UNIT (180 MG) CAP PO SCH ×2 (13:43→13:49)
[2020-09-23] MEDS: CALCIUM CARBONATE 500 MG CHEWABLE PO SCH ×2 (13:43→13:49)
--- NOTE | 2020-09-23 16:05 | P.CN ---
Psychiatric Consult - . Consult date: 09/23/20 Consult:: 09/23/20 13:28 IDENTIFYING DATA: This patient is a 60-year-old female REASON FOR REFERRAL: Psychiatry was consulted for "paranoia, nonverbal, possible psychosis" HISTORY OF PRESENT ILLNESS: The patient presented to the hospital initially on 09/19 with a chief complaint of a fall however did not lose consciousness. Patient apparently was confused for the past one week. Patient apparently was also paranoid claiming that there are people out to get her and were after her money. Computed tomography scan initially was negative and follow-up computed tomography scan was also negative for any acute changes. MRI has been ordered however not been done due to patient's pacemaker. Patient had a negative UA and UDS was positive for benzodiazepines. Patient had potassium of 6.2 on admission and elevated AST. Neuro has been following along and performed EEG which showed suggestive of generalized slowing and suggestive of encephalopathy. Nurse taking care of patient states that she has not verbal today no behavioral d isturbances. Patient was seen at the bedside and was not responsive to abstract writer. She had her eyes open looking at the television which was off. She was not able to track abstract writer in the room with her eyes. She only followed one minimal command to give a thumbs up with her right hand. She did not respond to pain or sensory. PAST PSYCHIATRIC HISTORY: Patient has an unknown psychiatric history. Is not on any psychotropic medications or antidepressants. No documented mental health admissions to this hospital. 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 CHEMICAL DEPENDENCY HISTORY: Unable to obtain FAMILY PSYCHIATRIC/SUBSTANCE USE HISTORY: Unable to obtain SOCIAL HISTORY: Unable to obtain MENTAL STATUS EXAM: General Appearance: Patient appears to be obese, stated age is alert, staring at the television, not responsive. Patient appears to have fair hygiene and grooming wearing hospital gown with poor eye contact. Behavior: Patient is calmly lying in bed without any agitated behavior. Not able to move Speech: Nonverbal Mood/Affect: Unable to obtain Suicidality/Homicidality: Unable to obtain Perceptions: Unable to obtain Though content/process: None. Memory and concentration: Unable to assess Judgment and insight: Unable to assess IMPRESSIONS: Delirium/encephalopathy, likely due to general medical condition versus infection vs. autoimmune? PLAN: -At this time patient DOES NOT meet criteria for inpatient psychiatric admission. -Delirium precautions recommended with patient including - avoiding use of narcotics and CARD BRUSHER sedatives, limit anticholinergic medications when possible, frequent re-orientation, minimize use of restraints, open window shades during the day and close them at night -Would recommend the following medication changes/additions: No medication recommendations at this time. -Solution Spec spoke with neurologist Dr. Ayoub about patient's case and findings thus far. Suggested that patient needs further workup of her cerebral spinal fluid and a lumbar puncture and possibly an MRI however the MRI was not possible and LP will be difficult due to patient's very low platelet platelets. Dr. Ayoub will attempt to reach out to acreage reporter to see if patient's platelets can be improved in order to obtain CSF for further analysis to identify the cause of the encephalopathy. -Communicated plan to patient's nurse -Psychiatry will sign off at this time as this is not a primary psychiatric condition and further investigation needs to be done to find and treat the etiology of the encephalopathy. Please contact with any questions.
[2020-09-23] MEDS ORDERED: PROPARACAINE 0.5% OPHTH DROPS 15 ML BTL BOTH EYES STA (17:27)
[2020-09-23] MEDS ORDERED: TROPICAMIDE 1% OPHTH DROPS 2 ML BTL BOTH EYES ONE (17:43)
[2020-09-23] MEDS: FERROUS SULFATE 325 MG TAB PO SCH (17:53)
[2020-09-23] MEDS: PHENYLEPHRINE 2.5% OPHTH DRP 2ML BOTH EYES SCH (18:19)
--- NOTE | 2020-09-23 18:37 | P.CON ---
Consult Note - . Consult date: 09/23/20 Assessment/Plan:: Called to see patient today for possible eye infection in nonverbal patient who recently had fallen. There is a concern about discharge around the eyes. The patient is not able to confirm or deny the underlying problem. She is however, awake, and can feebly indicate some affirmations to questions posed. 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 and has apparently continued to see the retina specialist since that time. She has continued to undergo regular intravitreal injections of some form of anti-VEG-F medication. It is unknown as to how long the eye discharge has been going on. She has a history of lens implant surgery. There is no known history of macular degeneration or glaucoma in either eye. Va attempted: unable External: bruising of the upper eyelids with mild swelling, and mild mucoid dis charge and tearing appreciated OU. No appreciable infectious discharge. No preauricular or submental nodes. There is a mild excoriation of the lateral canthus skin of the left eye. EOM: mild ET and vertical deviation of the left eye. Cannot follow light, but eyes do not seem to be well-coordinated when spontaneously looking side to side. IOP: Tonopen @ 1800 14 mm Hg OD. 19 mm Hg OS Conjunctiva: white, mild chemosis OU Cornea: clear OU without any staining AC: deep and quiet Iris: without pathology Lens: pseudophakia A: eye discharge is most likely related to drying and poor control of eyelids and improper closure at times. No appreciable infection is noted. No scratches/abrasions noted. P: Will begin topical ointment to eyes, continue to clean eyes with warm moist washcloth to reduce the local buildup. The ointment will cover for dryness and cover for possible conjunctival infection. May need to switch to artificial tear ointment, terminal system operator. Appreciate this consultation and will return as needed.
--- NOTE | 2020-09-23 20:29 | PN ---
PROGRESS NOTE DATE OF SERVICE: 09/23/2020 REASON FOR FOLLOWUP: Urinary tract infection. INTERVAL HISTORY: The patient remains to be afebrile. The patient is hemodynamically stable. The patient's mentation remains to be an issue. She did not provide any history. No vomiting, diarrhea or other changes reported by nursing staff. PHYSICAL EXAMINATION: Blood pressure 152/67, pulse of 88, temp 97.7. She is 95% on room air. General description is a middle-aged female lying in bed in no distress. Respiratory system: Unlabored breathing, decreased breath sounds at the base. Heart S1, S2. Regular rate and rhythm, Abdomen soft, no tenderness. LABS: Hemoglobin 8.8, white count 4.2, BUN of 10, creatinine 0.17. Urine culture so far negative. DIAGNOSTIC IMPRESSION AND PLAN: Patient admitted to the hospital with a fall in this patient who did have a hypothermia initially that has resolved. She did have a positive UA, significantly cloudy urine and is covered with Rocephin, though culture has been negative. No other obvious focus of infection and we will monitor closely. Continue supportive care. MMODL / IJN: [id number] /
[2020-09-23] MEDS: ERYTHROMYCIN 5 MG/GM OPHTH OINT 3.5 GM TUBE BOTH EYES SCH (22:14)
[2020-09-23] MEDS: MONTELUKAST 10 MG TAB PO SCH (22:44)
[2020-09-23] MEDS: FAMOTIDINE 20 MG TAB PO SCH (22:44)
[2020-09-23] MEDS: atenoloL 50 MG TAB PO SCH (22:44)
[2020-09-24] MEDS: ERYTHROMYCIN 5 MG/GM OPHTH OINT 3.5 GM TUBE BOTH EYES SCH ×7 (00:10→22:05)
[2020-09-24] MEDS: LEVOTHYROXINE 112 MCG TAB PO SCH (07:55)
[2020-09-24] MEDS: SODIUM BICARBONATE TAB 650 MG TAB PO SCH ×2 (07:58→11:51)
[2020-09-24] MEDS: VITAMIN A 10,000 UNIT (3000 MCG) CAPSULE PO SCH (07:58)
[2020-09-24] MEDS: THIAMINE 100 MG TAB PO SCH ×2 (07:58→11:51)
[2020-09-24] MEDS: amLODIPine 5 MG TAB PO SCH (07:58)
[2020-09-24] MEDS: SODIUM CHLORIDE 0.9% 1,000 ML IV SCH ×2 (07:59→20:44)
[2020-09-24] MEDS: PANTOPRAZOLE 40 MG/10 ML VIAL IVP SCH (09:02)
[2020-09-24] MEDS: LACOSAMIDE IV 50 MG in SODIUM CHLORIDE 0.9% 50 ML IVPB SCH ×2 (09:29→22:04)
[2020-09-24 09:44] LABS: ALT 65 U/L (4-34); AST 55 U/L (14-36); African American GFR (CKD) >90 (>60 ml/min/1.73 sqM); Albumin 3.3 g/dL (3.5-5.0); Alkaline Phosphatase 105 U/L (38-126); Anion Gap 11 mmol/L; Blood Urea Nitrogen 13 mg/dL (7-17); Calcium 9.4 mg/dL (8.4-10.2); Carbon Dioxide 23 mmol/L (22-30); Chloride 115 mmol/L (98-107); Glucose 85 mg/dL (74-99); Non-African American GFR(CKD) >90 (>60 ml/min/1.73 sqM); Potassium 2.8 mmol/L (3.5-5.1); Sodium 149 mmol/L (137-145); Total Protein 7.1 g/dL (6.3-8.2)
[2020-09-24 09:53] LABS: Anisocytosis Slight; Basophils % (A) 0 %; Eosinophils % (A) 0 %; HGB 8.5 gm/dL (11.4-16.0); Lymphocytes # (A) 0.2 k/uL (1.0-4.8); Lymphocytes % (A) 5 %; MCH 32.6 pg (25.0-35.0); MCHC 33.8 g/dL (31.0-37.0); MCV 96.5 fL (80.0-100.0); Macrocytosis Slight; Mean Platelet Volume 8.5; Monocytes # (A) 0.1 k/uL (0-1.0); Monocytes % (A) 3 %; Neutrophils # (A) 4.1 k/uL (1.3-7.7); Neutrophils % (A) 90 %; Poikilocytosis Moderate; RBC 2.59 m/uL (3.80-5.40); RDW 17.8 % (11.5-15.5); WBC 4.5 k/uL (3.8-10.6)
[2020-09-24 10:05] LABS: Platelet Count 42 k/uL (150-450)
--- NOTE | 2020-09-24 10:26 | P.PN ---
Subjective Progress Note Date: 09/24/20 09/24/2020: Patient could not have MRI completed because she was not able to lay flat by herself because of risk of aspiration. I had spoken to hematology about need for platelets related to lumbar puncture. She recommended for patient to have platelets transfused while lumbar puncture is being conducted. Anesthesia was consulted, but they apparently declined lumbar puncture because of severe thrombocytopenia. Subsequently, it was recommended for patient to be transferred to a higher level of care. I spoke to Dr. Oseguera, who agree for patient to be transferred to [facility], however beds are not available. Family has made patient DO NOT RESUSCITATE. Patient continues to be severely encephalopathic. Patient is not able to take any medications by mouth. No obvious seizures have been reported. Spoke to Cynthia lincoln NP, who gave additional piece of information, the patient received a dose of Rituxan on 09/05/2020. Patient has received this medication the past, and after one of those infusion, patient had developed some confusional episode but nothing like this. Apparently Rituxan was provided for ITP as a less for immune mediated polyneuropathy. Rituxan can produce progressive multifocal leukoencephalopathy syndrome. 09/23/2020: Patient was seen for a follow-up. Patient initially seen by Dr. Tee Summers. Please refer to his note for details. 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 He can follows up with Dr. Addison Espinal. Patient was admitted to the hospital for altered mental status. 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 She is wheelchair bound. She has some function with the right hand. Patient also has ITP. Patient suffered from a fall 2 weeks ago. Patient came with altered mental status with hypothermia and platelets were low 19,000. She was very paranoid, delusional. EEG was performed, which showed some artifactual changes, but no epileptiform activity. It also showed moderate to severe encephalopathy. Patient was empirically started on Vimpat 50 mg twice a day. Neurology was reconsulted today because of acute mental status change, muteness. Per nursing staff, patient on 09/20/2020 was confused but talking. She was obsessed about her shirt to be fixed, "fix my shirt". Subsequently on Wednesday morning and Wednesday morning, which is yesterday, she was very groggy, not waking up or speaking in the morning. However in the afternoon she was speaking better. Her speech was back to normal. She continued to be very paranoid, as stating "sister is going to set fire". "Brother is going to set on fire". Also saying "they are going to kill us". However this morning patient is fully awake, but will not speak. She makes eye contact, follows directions, but will not speak. WORK-UP: Patient's most recent platelet count is 13,000, hemoglobin 8.8 and WBC 4.2. AST of 97 and ALT of 154 which are elevated. Ammonia level is 11 which is considered within normal limits Calcium is 10.9 and the repeated 7.3 which are elevated. Glucose is 171 which is slightly elevated Urinalysis is negative for urinary tract infection Urine drug screen is positive for benzos and the serum alcohol was less than 10. Vitamin B12 is more than 4000 which is unremarkable. Folate level the serum is 22 which is normal. TSH is 1.0 which is considered within normal limits. CRP is 5.9 which is considered elevated. Serum calcium is 10.9 and the repeat IS 10.3. Ionized Calcium is 5.7 which is concerned elevated CT of the head is reported as there is no acute intracranial hemorrhage, mass effect or midline shift is seen. CT cervicals reported as there is no acute fracture or dislocation evident in the cervical spine. Objective - Vital Signs Vital signs: Vital Signs Temp 97.8 F 09/24/20 08:00 Pulse 72 09/24/20 08:00 Resp 18 09/24/20 08:00 BP 151/72 09/24/20 08:00 Pulse Ox 92 L 09/24/20 08:00 Intake & Output 09/23/20 09/24/20 09/24/20 18:59 06:59 18:59 Intake Total 346 Output Total 700 Balance 346 -700 Weight 79.5 kg Intake: Blood Product 346 Platelet Pheresis Pas 346 Psoralen Unit [id number] Output: Urine 700 Other: Voiding Method Indwelling Catheter Indwelling Catheter Indwelling Catheter - Exam On examination patient is severely encephalopathic. Patient's eyes are closed. On cranial examination, patient is keeping her eyes closed. On manually opening her eyes, her gaze was noted to be to the left, but that it will rove to the right, some nystagmus noted to the right. Then the gaze comes back to the left. Her pupils are round and reacting, visual brooks could not be tested. Extraocular muscles are intact. She has some periorbital ecchymosis bilaterally for which ophthalmology has seen the patient, no signs of infection. Face appears symmetric. No myofascial twitching. Patient has significant gurgling noted probably from retained secretions. Patient not able to take anything by mouth. Muscle strength cannot be checked, but patient has baseline quadriplegia. Patient's reflexes are absent. Patient grimaces equally to painful stimuli applied in either hands. Sensations appears intact although was not reliable. Tone is decreased. Bulk of muscles decreased. No obvious fasciculations. Patient cannot walk. Cerebellar functions could not be tested. - Labs CBC & Chem 7: 09/25/20 05:33 09/24/20 08:43 Labs: Abnormal Lab Results - Last 24 Hours (Table) 09/21/20 09/23/20 09/24/20 Range/Units 17:25 09:29 08:43 Sodium 149 H (137-145) mmol/L Potassium 2.8 L (3.5-5.1) mmol/L Chloride 115 H (98-107) mmol/L Creatinine 0.15 L (0.52-1.04) mg/dL POC Glucose (mg/dL) 104 H (75-99) mg/dL AST 55 H (14-36) U/L ALT 65 H (4-34) U/L Albumin 3.3 L (3.5-5.0) g/dL RBC Folate >1,938 H (280 - 791) ng/mL Microbiology - Last 24 Hours (Table) 09/21/20 15:30 Urine Culture - Final Urine,Clean Catch 09/20/20 13:06 Blood Culture - Preliminary Blood No Growth after 72 hours Assessment and Plan Assessment: * Encephalopathy for the past 2-3 weeks of unknown etiology, now progressively getting worse. There is component of toxic-metabolic encephalopathy (elevated AST/ALT, elevated magnesium, and elevated calcium). Per family no history of seizure. Does not seem meningoencephalits. Patient is more alert, but now has developed muteness. Patient has received dose of Rituxan on 09/05/2020, which may be related to progressive encephalopathy. 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 We will reattempt today. Otherwise patient may have to be transferred to [place] in [place] to have MRI of the brain performed under sedation. If the patient cannot have MRI, then repeat computed tomography scan of head today. * Last CT head 09/22/2020 showed scalp soft tissue swelling increase compared to old exam. No acute intracranial process. * EEG on 09/22/2020: Is an abnormal EEG. The background slowing is suggestive of moderate to severe encephalopathy. There are no focal slowing, epileptiform discharges or seizures on the EEG. Continue Vimpat 50 mg IV twice a day for seizure. Patient does not have history of seizures and if clinically improved down the line will taper Vimpat until discontinued. * Pending vitamin E level. Will defer any electrolyte abnormality correction to the primary team. * Patient does not have any leukocytosis or fever suggestive of meningeal encephalitis.. Autoimmune encephalitis also in the differential, however lumbar puncture cannot be performed because of severe thrombocytopenia. ID on board. Typically autoimmune encephalitis is treated with IVIG, which she has been receiving. * Psychiatry consultation appreciated. Patient possibly has organic cause of her severe encephalopathy rather than psychogenic at this time. * Discussed with hematology in detail.
[2020-09-24] MEDS: CALCIUM CARBONATE 500 MG CHEWABLE PO SCH (11:51)
[2020-09-24] MEDS: VITAMIN E (DL,TOCOPHERYL ACET) 400 UNIT (180 MG) CAP PO SCH (11:52)
--- NOTE | 2020-09-24 13:49 | P.PN ---
Subjective Progress Note Date: 09/24/20 Principal diagnosis: ITP In follow-up today patient not opening eyes to voice or touch, visibly she does exhibit any s/s of distress. Objective - Vital Signs Vital signs: Vital Signs Temp 97.8 F 09/24/20 08:00 Pulse 72 09/24/20 08:00 Resp 18 09/24/20 08:00 BP 151/72 09/24/20 08:00 Pulse Ox 92 L 09/24/20 08:00 Intake & Output 09/23/20 09/24/20 09/24/20 18:59 06:59 18:59 Intake Total 346 Output Total 700 Balance 346 -700 Weight 79.5 kg Intake: Blood Product 346 Platelet Pheresis Pas 346 Psoralen Unit [id number] Output: Urine 700 Other: Voiding Method Indwelling Catheter Indwelling Catheter Indwelling Catheter - Constitutional General appearance: Present: morbidly obese, no acute distress - EENT Eyes: Present: anicteric sclerae - Respiratory Details: patient not following commands, bilateral breath sounds are clear to auscultation on inspiration, rhonchi with expiration auscultated at the sternal notch - Cardiovascular Rhythm: regular Heart sounds: normal: S1, S2 Abnormal Heart Sounds: Absent: systolic murmur, diastolic murmur, rub, S3 Gallop, S4 Gallop, click, other - Peripheral edema leg Peripheral Edema: bilateral: 1+ - Gastrointestinal General gastrointestinal: Present: normal bowel sounds, soft - Integumentary Integumentary Comment(s): large forehead bruise, bruising around both eyes - Neurologic Neurologic Comment(s): quadriplegic - Psychiatric Psychiatric: Absent: A&O x's 3, appropriate affect, intact judgment & insight - Labs CBC & Chem 7: 09/24/20 08:43 09/24/20 08:43 Labs: Abnormal Lab Results - Last 24 Hours (Table) 09/21/20 09/24/20 09/24/20 Range/Units 17:25 08:43 08:43 RBC 2.59 L (3.80-5.40) m/uL Hgb 8.5 L (11.4-16.0) gm/dL Hct 25.0 L (34.0-46.0) % RDW 17.8 H (11.5-15.5) % Plt Count 42 L D (150-450) k/uL Lymphocytes # 0.2 L (1.0-4.8) k/uL Sodium 149 H (137-145) mmol/L Potassium 2.8 L (3.5-5.1) mmol/L Chloride 115 H (98-107) mmol/L Creatinine 0.15 L (0.52-1.04) mg/dL AST 55 H (14-36) U/L ALT 65 H (4-34) U/L Albumin 3.3 L (3.5-5.0) g/dL RBC Folate >1,938 H (280 - 791) ng/mL Microbiology - Last 24 Hours (Table) 09/21/20 15:30 Urine Culture - Final Urine,Clean Catch 09/20/20 13:06 Blood Culture - Preliminary Blood No Growth after 72 hours - Imaging and Cardiology CT Scan - head: report reviewed Assessment and Plan (1) Chronic ITP (idiopathic thrombocytopenic purpura) Narrative/Plan: Patient has a history of chronic ITP with a baseline running from 100-140,000. IVIG was given as she missed her dose that was due 09/09/20 Last received Rituxan on 09/04/20 S/P SDP transfusion yesterday, plt 42,000 today. CBC daily. Current Visit: Yes Status: Chronic Priority: High Code(s): D69.3 - IMMUNE THROMBOCYTOPENIC PURPURA SNOMED Code(s): 22330584 (2) Autoimmune autonomic neuropathy Current Visit: Yes Status: Chronic Priority: High Code(s): G90.8 - OTHER D ISORDERS OF AUTONOMIC NERVOUS SYSTEM SNOMED Code(s): 73238834 Plan: Review the case at length with Dr. Hudson. Based on patient's persistent declined concern for PML is in the differential. Unfortunately, patient was not able to tolerate MRI brain. Recommendation is for MRI under sedation as this is the only diagnostic imaging to diagnose. MRI under sedation cannot be performed at this facility. Case discussed with Neurologist who agrees that transfer is appropriate for this patient. Spoke with Hem/Oncology at [facility] and they have accepted transfer. Spoke with Case Management and gave them number to call for transfer. Case management will contact the family and update them. Transfer as soon as able Time with Patient: Greater than 30 (>45min spent counseling and coordinating care)
[2020-09-24] MEDS: FERROUS SULFATE 325 MG TAB PO SCH (17:09)
[2020-09-24] MEDS: PHENYLEPHRINE 2.5% OPHTH DRP 2ML BOTH EYES SCH (17:57)
[2020-09-24] MEDS: atenoloL 50 MG TAB PO SCH (20:42)
[2020-09-24] MEDS: MONTELUKAST 10 MG TAB PO SCH (20:43)
[2020-09-24] MEDS: FAMOTIDINE 20 MG TAB PO SCH (20:43)
--- NOTE | 2020-09-25 05:04 | PN ---
PROGRESS NOTE DATE OF SERVICE: 09/24/2020. REASON FOR FOLLOWUP: Urinary tract infection. INTERVAL HISTORY: Patient is afebrile. The patient is hemodynamically stable. The patient's mentation remains to be an issue. No vomiting, diarrhea or any other changes reported by the nursing staff. PHYSICAL EXAMINATION: Blood pressure is 110/66, pulse of 83, temperature 97.6. She is 93% on 2 L nasal cannula. General description is a middle-aged female lying in bed in no distress. HEENT: Examination does show a bruise on the forehead. No redness. Lungs unlabored breathing, decreased breath sounds in the bases. No wheeze. Heart S1, S2. Regular rate and rhythm. Abdomen: Soft, no tenderness. LABS: Hemoglobin 8.5, white count 4.5. BUN of 13. Creatinine 0.15. DIAGNOSTIC IMPRESSION AND PLAN: Patient admitted to the hospital with positive hypothermia and there was concern for possible urinary tract infection. The patient has significantly cloudy urine. Urine culture has been negative so far. However, overall improvement on Rocephin to continue and monitor clinical course closely. MMODL / IJN: [id number] /
[2020-09-25] MEDS: ERYTHROMYCIN 5 MG/GM OPHTH OINT 3.5 GM TUBE BOTH EYES SCH ×6 (06:46→23:05)
[2020-09-25] MEDS: VITAMIN A 10,000 UNIT (3000 MCG) CAPSULE PO SCH (06:58)
[2020-09-25] MEDS: THIAMINE 100 MG TAB PO SCH ×2 (06:59→11:47)
[2020-09-25] MEDS: SODIUM BICARBONATE TAB 650 MG TAB PO SCH ×2 (06:59→11:47)
[2020-09-25] MEDS: LEVOTHYROXINE 112 MCG TAB PO SCH (06:59)
[2020-09-25] MEDS: amLODIPine 5 MG TAB PO SCH (06:59)
[2020-09-25 08:11] LABS: Anisocytosis Slight; Basophils % (A) 0 %; Eosinophils % (A) 0 %; HCT 24.7 % (34.0-46.0); HGB 8.7 gm/dL (11.4-16.0); Hyperchromasia Slight; Lymphocytes # (A) 0.2 k/uL (1.0-4.8); Lymphocytes % (A) 5 %; MCH 33.3 pg (25.0-35.0); Mean Platelet Volume 8.4; Monocytes # (A) 0.1 k/uL (0-1.0); Monocytes % (A) 3 %; Neutrophils # (A) 4.4 k/uL (1.3-7.7); Neutrophils % (A) 91 %; Poikilocytosis Moderate; RDW 17.9 % (11.5-15.5); WBC 4.8 k/uL (3.8-10.6)
[2020-09-25 08:14] LABS: Platelet Count 54 k/uL (150-450)
--- NOTE | 2020-09-25 08:21 | EEG ---
ELECTROENCEPHALOGRAM REPORT DATE OF SERVICE: 09/24/2020. PREAMBLE: This is a 60-year-old female with altered mental status. This is a followup EEG. EEG FINDINGS: This is a 21 channel portable EEG recorded in a patient utilizing 10/20 international system with referential and bipolar montages. The recording starts and continues with presence of diffuse slowing in mixed 4-6 hertz theta, with 1-2 hertz generalized delta activity. Background does not seem to be reactive to eye opening or closing. Driving response was not seen. Hyperventilation could not be performed. No focal or generalized epileptiform activity was seen. IMPRESSION: This is an abnormal EEG due to background slowing of moderate to severe degree. This is suggestive of generalized cerebral dysfunction as can be seen with toxic metabolic encephalopathy or due to diffuse structural brain abnormality. No epileptiform activity was seen. When compared to the EEG from 09/22/2020 there is not significant change. MMODL / IJN: [id number] /
[2020-09-25] MEDS: PANTOPRAZOLE 40 MG/10 ML VIAL IVP SCH (08:44)
[2020-09-25] MEDS: LACOSAMIDE IV 50 MG in SODIUM CHLORIDE 0.9% 50 ML IVPB SCH ×2 (11:47→21:45)
[2020-09-25] MEDS: VITAMIN E (DL,TOCOPHERYL ACET) 400 UNIT (180 MG) CAP PO SCH (11:47)
[2020-09-25] MEDS: CALCIUM CARBONATE 500 MG CHEWABLE PO SCH (11:47)
[2020-09-25] MEDS ORDERED: POTASSIUM CHLORIDE ER 20 MEQ TAB.ER PO STA (12:19)
[2020-09-25 12:47] LABS: African American GFR (CKD) >90 (>60 ml/min/1.73 sqM); Anion Gap 11 mmol/L; Blood Urea Nitrogen 14 mg/dL (7-17); Calcium 9.3 mg/dL (8.4-10.2); Carbon Dioxide 20 mmol/L (22-30); Chloride 113 mmol/L (98-107); Glucose 79 mg/dL (74-99); Non-African American GFR(CKD) >90 (>60 ml/min/1.73 sqM); Sodium 144 mmol/L (137-145)
[2020-09-25 13:01] LABS: Potassium 2.5 mmol/L (3.5-5.1)
[2020-09-25] MEDS ORDERED: Potassium Replacement Protocol 1 EACH MISC MISCELLANE PRN ×2 (13:08→13:44)
[2020-09-25] MEDS ORDERED: Magnesium Replacement Protocol 1 EACH MISC MISCELLANE PRN ×2 (13:08→13:44)
--- NOTE | 2020-09-25 13:17 | P.PN ---
Subjective Progress Note Date: 09/25/20 09/25/2020: Patient was seen for a follow-up. Patient is remarkably improved. She is fully alert and awake. She is complaining "I have not been fed". She states that she she is here for over a week. She thinks her brain has shrunk. Patient admits that she gets confused. Patient states that she has not been able to move her hands and feet for long time. Patient denies headache. 09/24/2020: Patient could not have MRI completed because she was not able to lay flat by herself because of risk of aspiration. I had spoken to hematology about need for platelets related to lumbar puncture. She recommended for patient to have platelets transfused while lumbar puncture is being conducted. Anesthesia was consulted, but they apparently declined lumbar puncture because of severe thrombocytopenia. Subsequently, it was recommended for patient to be transferred to a higher level of care. I spoke to Dr. Oseguera, who agree for patient to be transferred to [facility], however beds are not available. Family has made patient DO NOT RESUSCITATE. Patient continues to be severely encephalopathic. Patient is not able to take any medications by mouth. No obvious seizures have been reported. Spoke to Cynthia lincoln NP, who gave additional piece of information, the patient received a dose of Rituxan on 09/05/2020. Patient has received this medication the past, and after one of those infusion, patient had developed some confusional episode but nothing like this. Apparently Rituxan was provided for ITP as a less for immune mediated polyneuropathy. Rituxan can produce progressive multifocal leukoencephalopathy syndrome. 09/23/2020: Patient was seen for a follow-up. Patient initially seen by Dr. Tee Summers. Please refer to his note for details. 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 He can follows up with Dr. Addison Espinal. Patient was admitted to the hospital for altered mental status. 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 She is wheelchair bound. She has some function with the right hand. Patient also has ITP. Patient suffered from a fall 2 weeks ago. Patient came with altered mental status with hypothermia and platelets were low 19,000. She was very paranoid, delusional. EEG was performed, which showed some artifactual changes, but no epileptiform activity. It also showed moderate to severe encephalopathy. Patient was empirically started on Vimpat 50 mg twice a day. Neurology was reconsulted today because of acute mental status change, muteness. Per nursing staff, patient on 09/20/2020 was confused but talking. She was obsessed about her shirt to be fixed, "fix my shirt". Subsequently on Wednesday morning and Wednesday morning, which is yesterday, she was very groggy, not waking up or speaking in the morning. However in the afternoon she was speaking better. Her speech was back to normal. She continued to be very paranoid, as stating "sister is going to set fire". "Brother is going to set on fire". Also saying "they are going to kill us". However this morning patient is fully awake, but will not speak. She makes eye contact, follows directions, but will not speak. WORK-UP: Patient's most recent platelet count is 13,000, hemoglobin 8.8 and WBC 4.2. AST of 97 and ALT of 154 which are elevated. Ammonia level is 11 which is considered within normal limits Calcium is 10.9 and the repeated 7.3 which are elevated. Glucose is 171 which is slightly elevated Urinalysis is negative for urinary tract infection Urine drug screen is positive for benzos and the serum alcohol was less than 10. Vitamin B12 is more than 4000 which is unremarkable. Folate level the serum is 22 which is normal. TSH is 1.0 which is considered within normal limits. CRP is 5.9 which is considered elevated. Serum calcium is 10.9 and the repeat IS 10.3. Ionized Calcium is 5.7 which is concerned elevated CT of the head is reported as there is no acute intracranial hemorrhage, mass ef fect or midline shift is seen. CT cervicals reported as there is no acute fracture or dislocation evident in the cervical spine. Objective - Vital Signs Vital signs: Vital Signs Temp 98.6 F 09/25/20 08:40 Pulse 61 09/25/20 08:40 Resp 18 09/25/20 08:40 BP 163/91 09/25/20 08:40 Pulse Ox 90 L 09/25/20 08:40 Intake & Output 09/24/20 09/25/20 09/25/20 18:59 06:59 18:59 Intake Total 150 240 Output Total 600 Balance 150 -600 240 Weight 93 kg Intake: IV 150 Sodium Chloride 0.9% 1, 150 000 ml @ 75 mls/hr IV . [id number] [facility] Rx#:[id number] Oral 0 240 Output: Urine 600 Other: Voiding Method Indwelling Catheter Indwelling Catheter Indwelling Catheter - Exam On examination patient is fully alert and awake. She knows it is August and the year is 2020 and that she is in [facility]. She is probably back to baseline. She is complaining as mentioned above. She denies headache. Pupils are round and reacting. Extraocular muscles are intact. Face is symmetric. Tongue protrudes the midline. Patient does have quadriplegia. She can move and wiggle her fingers slightly. No movement in the lower extremities. Patient's reflexes are absent. No obvious fasciculations. Patient cannot walk. Cerebellar functions could not be tested. - Labs CBC & Chem 7: 09/25/20 05:33 09/25/20 05:33 Labs: Abnormal Lab Results - Last 24 Hours (Table) 09/25/20 09/25/20 Range/Units 05:33 05:33 RBC 2.60 L (3.80-5.40) m/uL Hgb 8.7 L (11.4-16.0) gm/dL Hct 24.7 L (34.0-46.0) % RDW 17.9 H (11.5-15.5) % Plt Count 54 L (150-450) k/uL Lymphocytes # 0.2 L (1.0-4.8) k/uL Potassium 2.5 L* (3.5-5.1) mmol/L Chloride 113 H (98-107) mmol/L Carbon Dioxide 20 L (22-30) mmol/L Creatinine 0.19 L (0.52-1.04) mg/dL Microbiology - Last 24 Hours (Table) 09/20/20 13:06 Blood Culture - Preliminary Blood No Growth after 96 hours Assessment and Plan Assessment: * Acute Encephalopathy, likely toxic metabolic, now seems to have resolved. Patient has acute UTI, elevated liver functions, and electrolyte imbalance, likely the causes. Her encephalopathy today has resolved. She is back to baseline. Patient has received dose of Rituxan on 09/05/2020, which may be related to progressive encephalopathy. * Hypothermia of unknown etiology * Electrolyte imbalances. 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 * Cancel lumbar puncture, as mentation is back to normal. Patient denies headache. * Her platelets also has improved. * Last CT head 09/22/2020 showed scalp soft tissue swelling increase compared to old exam. No acute intracranial process. * EEG on 09/22/2020: Is an abnormal EEG. The background slowing is suggestive of moderate to severe encephalopathy. There are no focal slowing, epileptiform discharges or seizures on the EEG. Continue Vimpat 50 mg IV twice a day for seizure. Patient does not have history of seizures and if clinically improved down the line will taper Vimpat until discontinued. * Vitamin E level 1317, which is within normal range. * Will defer any electrolyte abnormality correction to the primary team. * Psychiatry consultation appreciated. Patient possibly has organic cause of her severe encephalopathy rather than psychogenic at this time. * No indication to transfer at this time. Discussed with patient's knees Dariana who is her power of contract attorney. Also spoke to Dr Brownlee and nursing staff.
[2020-09-25] MEDS: POTASSIUM CHLORIDE ER 20 MEQ TAB.ER PO SCH ×3 (16:35→21:04)
[2020-09-25] MEDS: MAGNESIUM SULFATE-D5W PMX 1 GM in DEXTROSE/WATER 1 100ML.BAG IVPB SCH ×2 (16:35→18:35)
[2020-09-25] MEDS: FERROUS SULFATE 325 MG TAB PO SCH (16:35)
[2020-09-25] MEDS: PHENYLEPHRINE 2.5% OPHTH DRP 2ML BOTH EYES SCH (18:08)
--- NOTE | 2020-09-25 18:17 | PN ---
PROGRESS NOTE DATE OF SERVICE: 09/25/2020 REASON FOR FOLLOWUP: Urinary tract infection. INTERVAL HISTORY: Patient is afebrile. The patient is more awake and alert today. The patient is breathing comfortably. Denies having any chest pain. No abdominal pain. Has been complaining of hungry and wants to eat. No vomiting, diarrhea has been reported. PHYSICAL EXAMINATION: Blood pressure 117/75, pulse 81, temperature 97. She is 93% on 2 L nasal cannula. General description is a middle-aged female lying in bed in no distress. Respiratory system: Unlabored breathing. Coarse breath sounds bilaterally. Heart S1, S2. Regular rate and rhythm. Abdomen: Soft, no tenderness. DIAGNOSTIC IMPRESSION AND PLAN: Patient admitted to the hospital after a fall in this patient who did have a bruise to the forehead. Did have significant cloudy urine, concern for a urinary tract infection. She clinically responded to Rocephin however culture has been negative. We will repeat blood work and x-ray tomorrow. Continue with Rocephin and continue supportive care. MMODL / IJN: [id number] /
--- NOTE | 2020-09-25 19:07 | MR ---
EXAMINATION TYPE: MR brain wo/w con DATE OF EXAM: 09/25/2020 COMPARISON: None HISTORY: maB, please eval for multifocal encephalopathy CONTRAST: Standard multiplanar, multisequence MRI departmental protocol utilizing 9 mL intravenous Gadavist missy olinium contrast. Ventricles have normal size. There is no mass effect nor midline shift. Diffusion images show no evid ence of an acute infarct. There is no evidence of intracranial hemorrhage. On the T2 and FLAIR images there is very mild increased signal in the parietal lobe white matter. This is a somewhat diffuse pa ttern and no discrete focus. The sella turcica appears normal. Corpus callosum is intact. The brainstem is intact. There is no jeffy dence of orbital mass. The contrast images show no pathologic enhancement. There is normal enhancement of the venous sinuses . IMPRESSION: There is some mild diffuse white matter increased signal in the parietal lobes that could relate to s ome encephalomalacia. No cortical infarct.
[2020-09-25] MEDS: SODIUM CHLORIDE 0.9% 1,000 ML IV SCH ×2 (20:44→22:55)
[2020-09-25] MEDS: atenoloL 50 MG TAB PO SCH (21:05)
[2020-09-25] MEDS: FAMOTIDINE 20 MG TAB PO SCH (21:05)
[2020-09-25] MEDS: MONTELUKAST 10 MG TAB PO SCH (21:05)
[2020-09-26] MEDS: ERYTHROMYCIN 5 MG/GM OPHTH OINT 3.5 GM TUBE BOTH EYES SCH ×5 (03:08→21:35)
[2020-09-26 03:46] LABS: Glucose,Whole Blood 86 mg/dL (75-99)
[2020-09-26 04:09] LABS: African American GFR (CKD) >90 (>60 ml/min/1.73 sqM); Anion Gap 8 mmol/L; Blood Urea Nitrogen 19 mg/dL (7-17); Calcium 9.3 mg/dL (8.4-10.2); Carbon Dioxide 20 mmol/L (22-30); Chloride 112 mmol/L (98-107); Glucose 84 mg/dL (74-99); Non-African American GFR(CKD) >90 (>60 ml/min/1.73 sqM); Potassium 3.9 mmol/L (3.5-5.1); Sodium 140 mmol/L (137-145)
[2020-09-26 04:51] LABS: C Reactive Protein 26.4 mg/dL (<1.0)
[2020-09-26] MEDS: amLODIPine 5 MG TAB PO SCH (06:33)
[2020-09-26] MEDS: SODIUM BICARBONATE TAB 650 MG TAB PO SCH ×2 (06:33→13:11)
[2020-09-26] MEDS: PANTOPRAZOLE 40 MG TABLET PO SCH (06:33)
[2020-09-26] MEDS: THIAMINE 100 MG TAB PO SCH ×2 (06:33→13:11)
[2020-09-26] MEDS: LEVOTHYROXINE 112 MCG TAB PO SCH (06:33)
[2020-09-26] MEDS: VITAMIN A 10,000 UNIT (3000 MCG) CAPSULE PO SCH (06:50)
--- NOTE | 2020-09-26 10:30 | P.PN ---
Subjective Progress Note Date: 09/23/20 Principal diagnosis: Altered mental status possible metabolic and toxic encephalopathy Severe thrombocytopenia 60-year-old female came to the hospital after fall and patient was quite a bit confused and was paranoid apparently yesterday. Patient is alert oriented 2 when I valid the patient and patient the temperature was around 80 because of which there multiple heart attacks and the nursing staff was planning on beta brenda although patient was complaining of excessive heat and sweating because of which we removed all of those and we will recheck the temperature again. Apart from that there is no clear evidence of sepsis at this time. UA is not significant for urinary tract infection. In spite of her confusion patient was able to provide me good history. Patient denied any cough patient or dysuria chest x-ray did not show any significant abnormality. Etiology of her son onset of confusion is not clear at this time CT of the head did not show any intracran ial hemorrhage MRI is being obtained. 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 Patient missed her IVIG, patient is severely thrombocytopenia With platelet count of around 16,000. Patient has multiple bruises and multiple hematomas secondary to low platelet count after fall. Patient denied any headache patient was recently treated for cellulitis. Suspicion is low for meningitis and unfortunately we cannot the get an LP considering her very low platelet count because of which we are not obtaining CSF analysis at this time. Her thrombus rapini is believed to be secondary to diuretic she received for cellulitis recently. Patient has mildly elevated liver enzymes. MRI was ordered by oncology. Patient blood screen is only for positive for benzodiazepines for which patient doesn't appear to have a prescription for but patient does take Ambien 3.5 mg at bedtime. There is no clear metabolic toxic causes that can explain her confusion or delirium. Psychiatry was consulted as well. 09/21/2020 Patient remains unclear whether patient remains hypothermic remains confused and paranoid psychiatry at evaluate the patient. I consulted neurology as there is no real rheumatological factor for her confusion neurology evaluated the patient and they believe patient may have bilateral lower extremity plegia and left upper extremity hemiparesis. Patient received IVIG for ITP. There is no clear evidence of infection at this time because of continued hyperlipidemia and consult infectious disease as well. 09/22/2020 Patient is seen on follow-up, she is resting in bed, a bit agitated and deliri ous, unable to answer questions. She is repetitively stating that she is "over the fire". Her temperature this morning 97.4 axillary. Hemodynamically stable. Receiving IV Vimpat.. Vitamin B12, folate and TSH normal. Her platelet count low at 14, today's labs are pending. She is maintained and IV hydration with normal saline. Multiple imaging studies are pending including CT of the brain and MRI of the brain, there is also an EEG ordered by neurology. No growth on preliminary blood and urine cultures at this time. 09/23/2020 Patient is lying in the bed but has been unresponsive since morning. Patient did have also mental status and also muted. Patient was paranoid day before yesterday and has been groggy since then. Patient is able to open her eyes but will not speak. Patient has been afebrile. Laboratory data showed the Nelia 4.2 hemoglobin 8.8 and platelets 13,000 Sodium 142 potassium 4.1 chloride 113 bicarb is 25 BUN 10 and creatinine 0.17 and blood sugar is 104. cultures have been negative and TSH level is 1.0 Review of systems: Unable to obtain patient is confused Objective - Vital Signs Vital signs: Vital Signs Temp 97.7 F 09/23/20 12:40 Pulse 88 09/23/20 12:40 Resp 16 09/23/20 12:40 BP 152/67 09/23/20 12:40 Pulse Ox 95 09/23/20 12:40 Intake & Output 09/22/20 09/23/20 09/23/20 18:59 06:59 18:59 Intake Total 60 1390 0 Output Total 600 450 Balance -540 940 0 Intake: Intake, IV Titration 1150 Amount Lacosamide IV 50 mg In 50 Sodium Chloride 0.9% 50 ml @ 100 mls/hr IVPB BID [facility] Rx#:[id number] Potassium Chloride 20 meq 200 In Water For Injection 1 100ml.bag @ 50 mls/hr IVPB Q2H [facility] Rx#: [id number] Sodium Chloride 0.9% 1, 900 000 ml @ 75 mls/hr IV . [id number] [facility] Rx#:[id number] Oral 60 240 Blood Product 0 Platelet Pheresis Pas 0 Psoralen Unit [id number] Output: Urine 600 450 Other: Voiding Method Indwelling Catheter Indwelling Catheter Indwelling Catheter - Exam PHYSICAL EXAMINATION: GENERAL: The patient is alert and oriented x0, not in any acute distress. Well developed, well nourished. HEENT: Pupils are round and equally reacting to light. EOMI. No scleral icterus. No conjunctival pallor. Normocephalic, atraumatic. Tongue thickened appearance. CARDIOVASCULAR: S1 and S2 present. No murmurs, rubs, or gallops. PULMONARY: Chest is clear to auscultation, no wheezing or crackles. ABDOMEN: Soft, nontender, nondistended, normoactive bowel sounds. No palpable organomegaly. MUSCULOSKELETAL: No joint swelling or deformity. EXTREMITIES: No cyanosis, clubbing, or pedal edema. NEUROLOGICAL: Neurological findings as mentioned above SKIN: Multiple bruises and hematoma secondary to thrombocytopenia and fall - Labs CBC & Chem 7: 09/25/20 05:33 09/26/20 03:29 Labs: Abnormal Lab Results - Last 24 Hours (Table) 09/21/20 09/22/20 09/23/20 Range/Units 17:25 17:53 05:03 RBC 2.69 L (3.80-5.40) m/uL Hgb 8.8 L (11.4-16.0) gm/dL Hct 26.0 L (34.0-46.0) % RDW 17.7 H (11.5-15.5) % Plt Count 13 L* (150-450) k/uL Lymphocytes # 0.2 L (1.0-4.8) k/uL Potassium 3.4 L (3.5-5.1) mmol/L Chloride (98-107) mmol/L Creatinine (0.52-1.04) mg/dL POC Glucose (mg/dL) (75-99) mg/dL RBC Folate >1,938 H (280 - 791) ng/mL 09/23/20 09/23/20 Range/Units 05:03 09:29 RBC (3.80-5.40) m/uL Hgb (11.4-16.0) gm/dL Hct (34.0-46.0) % RDW (11.5-15.5) % Plt Count (150-450) k/uL Lymphocytes # (1.0-4.8) k/uL Potassium (3.5-5.1) mmol/L Chloride 113 H (98-107) mmol/L Creatinine 0.17 L (0.52-1.04) mg/dL POC Glucose (mg/dL) 104 H (75-99) mg/dL RBC Folate (280 - 791) ng/mL Microbiology - Last 24 Hours (Table) 09/21/20 15:30 Urine Culture - Final Urine,Clean Catch 09/20/20 13:06 Blood Culture - Preliminary Blood No Growth after 72 hours Assessment and Plan Assessment: Assessment and plan -Altered mental statu: Possible metabolic and toxic encephalopathy., Unlikely meningoencephalitis.. possible component of polypharmacy related to Ambien, SIMRAN, and melatonin use, these medications are on hold. Multiple imaging studies have been negative including tibiofibular x-ray foot x-ray knee x-ray elbow x-ray chest x-ray head and cervical spine CT. TSH, B12, ammonia and folate levels are normal. MRI of the brain, repeat CT and EEG have been ordered. She is receiving IV Vimpat empirically. Neurology is following. MRI of the brain was ordered. Repeat CT on 09/22/2020 showed scalp soft tissue swelling increased in size compared to old exam. No acute process. Lumbar puncture could not be performed due to severe thrombocytopenia. Due to worsening mental status and MRI are LP could not be done. Contacted [facility] transfer team for possible transfer to tertiary care facility for further management. psychiatric has seen the patient. neurology is following. 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 -Chronic thrombocytopenia Patient is receiving IV immunoglobulin at this time and patient has history of ITP -Recent treatment for cellulitis. -Hypertension:Blood pressure stable, Norvasc is being held at this time. -Hyperkalemia: repleted -Hypothyroidism - DVT prophylaxis: Probably due to prophylaxis is contraindicated because of her low platelet count Time with Patient: Greater than 30
--- NOTE | 2020-09-26 10:37 | P.PN ---
Subjective Progress Note Date: 09/24/20 Principal diagnosis: Altered mental status possible metabolic and toxic encephalopathy Severe thrombocytopenia 60-year-old female came to the hospital after fall and patient was quite a bit confused and was paranoid apparently yesterday. Patient is alert oriented 2 when I valid the patient and patient the temperature was around 80 because of which there multiple heart attacks and the nursing staff was planning on beta brenda although patient was complaining of excessive heat and sweating because of which we removed all of those and we will recheck the temperature again. Apart from that there is no clear evidence of sepsis at this time. UA is not significant for urinary tract infection. In spite of her confusion patient was able to provide me good history. Patient denied any cough patient or dysuria chest x-ray did not show any significant abnormality. Etiology of her son onset of confusion is not clear at this time CT of the head did not show any intracran ial hemorrhage MRI is being obtained. 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 Patient missed her IVIG, patient is severely thrombocytopenia With platelet count of around 16,000. Patient has multiple bruises and multiple hematomas secondary to low platelet count after fall. Patient denied any headache patient was recently treated for cellulitis. Suspicion is low for meningitis and unfortunately we cannot the get an LP considering her very low platelet count because of which we are not obtaining CSF analysis at this time. Her thrombus rapini is believed to be secondary to diuretic she received for cellulitis recently. Patient has mildly elevated liver enzymes. MRI was ordered by oncology. Patient blood screen is only for positive for benzodiazepines for which patient doesn't appear to have a prescription for but patient does take Ambien 3.5 mg at bedtime. There is no clear metabolic toxic causes that can explain her confusion or delirium. Psychiatry was consulted as well. 09/21/2020 Patient remains unclear whether patient remains hypothermic remains confused and paranoid psychiatry at evaluate the patient. I consulted neurology as there is no real rheumatological factor for her confusion neurology evaluated the patient and they believe patient may have bilateral lower extremity plegia and left upper extremity hemiparesis. Patient received IVIG for ITP. There is no clear evidence of infection at this time because of continued hyperlipidemia and consult infectious disease as well. 09/22/2020 Patient is seen on follow-up, she is resting in bed, a bit agitated and deliri ous, unable to answer questions. She is repetitively stating that she is "over the fire". Her temperature this morning 97.4 axillary. Hemodynamically stable. Receiving IV Vimpat.. Vitamin B12, folate and TSH normal. Her platelet count low at 14, today's labs are pending. She is maintained and IV hydration with normal saline. Multiple imaging studies are pending including CT of the brain and MRI of the brain, there is also an EEG ordered by neurology. No growth on preliminary blood and urine cultures at this time. 09/23/2020 Patient is lying in the bed but has been unresponsive since morning. Patient did have also mental status and also muted. Patient was paranoid day before yesterday and has been groggy since then. Patient is able to open her eyes but will not speak. Patient has been afebrile. Laboratory data showed the Nelia 4.2 hemoglobin 8.8 and platelets 13,000 Sodium 142 potassium 4.1 chloride 113 bicarb is 25 BUN 10 and creatinine 0.17 and blood sugar is 104. cultures have been negative and TSH level is 1.0 09/24/2020 Patient was transferred to telemetry unit. Able to wake up and open her eyes with verbal commands. Trying to communicate. Patient is more awake and alert compared to yesterday. MRI could not be done due to risk of aspiration and patient could not lie flat. Lumbar puncture could not be done by anesthesia due to severe thrombocytopenia. Otherwise mental status is better today. Patient has been afebrile. Laboratory data showed WBC 4.5, hemoglobin 8.5 and platelets 42 Sodium 149 potassium 2.8 and chloride 115 BUN 13 and creatinine 0.15 Patient is being continued on gentle IV hydration and follow-up electrolytes. Patient was seen by ophthalmology due to IV discharge likely related to dryness and poor control of eyelids and improper closely at times. No evidence of infection. Continue with topical ointment for dryness. Review of systems: Unable to obtain patient is confused Objective - Vital Signs Vital signs: Vital Signs Temp 97.6 F 09/24/20 16:00 Pulse 83 09/24/20 16:00 Resp 18 09/24/20 16:00 BP 110/66 09/24/20 16:00 Pulse Ox 93 L 09/24/20 16:00 Intake & Output 09/24/20 09/24/20 09/25/20 06:59 18:59 06:59 Intake Total 150 Output Total 700 Balance -700 150 Weight 79.5 kg Intake: IV 150 Sodium Chloride 0.9% 1, 150 000 ml @ 75 mls/hr IV . [id number] [facility] Rx#:[id number] Oral 0 Output: Urine 700 Other: Voiding Method Indwelling Catheter Indwelling Catheter - Exam PHYSICAL EXAMINATION: GENERAL: The patient is alert and oriented x1-2, not in any acute distress. Well developed, well nourished. HEENT: Pupils are round and equally reacting to light. EOMI. No scleral icterus. No conjunctival pallor. Normocephalic, atraumatic. CARDIOVASCULAR: S1 and S2 present. No murmurs, rubs, or gallops. PULMONARY: Chest is clear to auscultation, no wheezing or crackles. ABDOMEN: Soft, nontender, nondistended, normoactive bowel sounds. No palpable organomegaly. MUSCULOSKELETAL: No joint swelling or deformity. EXTREMITIES: No cyanosis, clubbing, or pedal edema. NEUROLOGICAL: Patient is awake alert and able to open her eyes with verbal commands. Quadriplegic. SKIN: Multiple bruises and hematoma secondary to thrombocytopenia and fall - Labs CBC & Chem 7: 09/25/20 05:33 09/26/20 03:29 Labs: Abnormal Lab Results - Last 24 Hours (Table) 09/24/20 09/24/20 Range/Units 08:43 08:43 RBC 2.59 L (3.80-5.40) m/uL Hgb 8.5 L (11.4-16.0) gm/dL Hct 25.0 L (34.0-46.0) % RDW 17.8 H (11.5-15.5) % Plt Count 42 L D (150-450) k/uL Lymphocytes # 0.2 L (1.0-4.8) k/uL Sodium 149 H (137-145) mmol/L Potassium 2.8 L (3.5-5.1) mmol/L Chloride 115 H (98-107) mmol/L Creatinine 0.15 L (0.52-1.04) mg/dL AST 55 H (14-36) U/L ALT 65 H (4-34) U/L Albumin 3.3 L (3.5-5.0) g/dL Microbiology - Last 24 Hours (Table) 09/20/20 13:06 Blood Culture - Preliminary Blood No Growth after 96 hours Assessment and Plan Assessment: Assessment and plan -Altered mental statu: Possible metabolic and toxic encephalopathy., Improving. Unlikely meningoencephalitis.. possible component of polypharmacy related to Ambien, SIMRAN, and melatonin use, these medications are on hold. Multiple imaging studies have been negative including tibiofibular x-ray foot x-ray knee x-ray elbow x-ray chest x-ray head and cervical spine CT. TSH, B12, ammonia and folate levels are normal. MRI of the brain, repeat CT and EEG have been ordered. She is receiving IV Vimpat empirically. Neurology is following. MRI of the brain was ordered. Repeat CT on 09/22/2020 showed scalp soft tissue swelling increased in size compared to old exam. No acute process. Lumbar puncture could not be performed due to severe thrombocytopenia. Due to worsening mental status and MRI are LP could not be done. Contacted [facility] transfer team for possible transfer to tertiary care facility for further management. psychiatric has seen the patient. neurology is following. 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 -Chronic thrombocytopenia Patient is receiving IV immunoglobulin at this time and patient has history of ITP -Recent treatment for cellulitis. -Hypertension:Blood pressure stable, Norvasc is being held at this time. -Hyperkalemia: repleted -Hypothyroidism -Hypokalemia. Replaced. -Hypernatremia due to volume depletion. DVT prophylaxis: Probably due to prophylaxis is contraindicated because of her low platelet count Time with Patient: Greater than 30
--- NOTE | 2020-09-26 10:41 | P.PN ---
Subjective Progress Note Date: 09/25/20 Principal diagnosis: Altered mental status possible metabolic and toxic encephalopathy Severe thrombocytopenia 60-year-old female came to the hospital after fall and patient was quite a bit confused and was paranoid apparently yesterday. Patient is alert oriented 2 when I valid the patient and patient the temperature was around 80 because of which there multiple heart attacks and the nursing staff was planning on beta brenda although patient was complaining of excessive heat and sweating because of which we removed all of those and we will recheck the temperature again. Apart from that there is no clear evidence of sepsis at this time. UA is not significant for urinary tract infection. In spite of her confusion patient was able to provide me good history. Patient denied any cough patient or dysuria chest x-ray did not show any significant abnormality. Etiology of her son onset of confusion is not clear at this time CT of the head did not show any intracran ial hemorrhage MRI is being obtained. 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 Patient missed her IVIG, patient is severely thrombocytopenia With platelet count of around 16,000. Patient has multiple bruises and multiple hematomas secondary to low platelet count after fall. Patient denied any headache patient was recently treated for cellulitis. Suspicion is low for meningitis and unfortunately we cannot the get an LP considering her very low platelet count because of which we are not obtaining CSF analysis at this time. Her thrombus rapini is believed to be secondary to diuretic she received for cellulitis recently. Patient has mildly elevated liver enzymes. MRI was ordered by oncology. Patient blood screen is only for positive for benzodiazepines for which patient doesn't appear to have a prescription for but patient does take Ambien 3.5 mg at bedtime. There is no clear metabolic toxic causes that can explain her confusion or delirium. Psychiatry was consulted as well. 09/21/2020 Patient remains unclear whether patient remains hypothermic remains confused and paranoid psychiatry at evaluate the patient. I consulted neurology as there is no real rheumatological factor for her confusion neurology evaluated the patient and they believe patient may have bilateral lower extremity plegia and left upper extremity hemiparesis. Patient received IVIG for ITP. There is no clear evidence of infection at this time because of continued hyperlipidemia and consult infectious disease as well. 09/22/2020 Patient is seen on follow-up, she is resting in bed, a bit agitated and deliri ous, unable to answer questions. She is repetitively stating that she is "over the fire". Her temperature this morning 97.4 axillary. Hemodynamically stable. Receiving IV Vimpat.. Vitamin B12, folate and TSH normal. Her platelet count low at 14, today's labs are pending. She is maintained and IV hydration with normal saline. Multiple imaging studies are pending including CT of the brain and MRI of the brain, there is also an EEG ordered by neurology. No growth on preliminary blood and urine cultures at this time. 09/23/2020 Patient is lying in the bed but has been unresponsive since morning. Patient did have also mental status and also muted. Patient was paranoid day before yesterday and has been groggy since then. Patient is able to open her eyes but will not speak. Patient has been afebrile. Laboratory data showed the Nelia 4.2 hemoglobin 8.8 and platelets 13,000 Sodium 142 potassium 4.1 chloride 113 bicarb is 25 BUN 10 and creatinine 0.17 and blood sugar is 104. cultures have been negative and TSH level is 1.0 09/24/2020 Patient was transferred to telemetry unit. Able to wake up and open her eyes with verbal commands. Trying to communicate. Patient is more awake and alert compared to yesterday. MRI could not be done due to risk of aspiration and patient could not lie flat. Lumbar puncture could not be done by anesthesia due to severe thrombocytopenia. Otherwise mental status is better today. Patient has been afebrile. Laboratory data showed WBC 4.5, hemoglobin 8.5 and platelets 42 Sodium 149 potassium 2.8 and chloride 115 BUN 13 and creatinine 0.15 Patient is being continued on gentle IV hydration and follow-up electrolytes. Patient was seen by ophthalmology due to IV discharge likely related to dryness and poor control of eyelids and improper closely at times. No evidence of infection. Continue with topical ointment for dryness. 09/25/2020 Patient is awake alert and oriented and is able to communicate slowly. Wants to eat. Patient has been afebrile. No compressive chest pain or shortness of breath. Potassium is being replaced. Denies any headache. Patient knows that she has not been monitoring her hands and feet for a long time. Laboratory data showed sodium 144 potassium 2.5 chloride 113 bicarb is 20 BUN 14 and creatinine 0.19 WBC 4.8 hemoglobin 8.7 platelets 54,000. Review of systems: Unable to obtain patient is confused Objective - Vital Signs Vital signs: Vital Signs Temp 94.3 F L 09/25/20 16:40 Pulse 61 09/25/20 16:40 Resp 18 09/25/20 16:40 BP 117/55 09/25/20 16:40 Pulse Ox 93 L 09/25/20 16:40 Intake & Output 09/25/20 09/25/20 09/26/20 06:59 18:59 06:59 Intake Total 960 Output Total 600 200 Balance -600 760 Weight 93 kg 93 kg Intake: Oral 960 Output: Urine 600 200 Other: Voiding Method Indwelling Catheter Indwelling Catheter # Voids 2 - Exam PHYSICAL EXAMINATION: GENERAL: The patient is alert and oriented x1-2, not in any acute distress. Well developed, well nourished. HEENT: Pupils are round and equally reacting to light. EOMI. No scleral icterus. No conjunctival pallor. Normocephalic, atraumatic. CARDIOVASCULAR: S1 and S2 present. No murmurs, rubs, or gallops. PULMONARY: Chest is clear to auscultation, no wheezing or crackles. ABDOMEN: Soft, nontender, nondistended, normoactive bowel sounds. No palpable organomegaly. MUSCULOSKELETAL: No joint swelling or deformity. EXTREMITIES: No cyanosis, clubbing, or pedal edema. NEUROLOGICAL: Patient is awake alert and able to open her eyes with verbal commands. Quadriplegic. SKIN: Multiple bruises and hematoma secondary to thrombocytopenia and fall - Labs CBC & Chem 7: 09/25/20 05:33 09/26/20 03:29 Labs: Abnormal Lab Results - Last 24 Hours (Table) 09/25/20 09/25/20 Range/Units 05:33 05:33 RBC 2.60 L (3.80-5.40) m/uL Hgb 8.7 L (11.4-16.0) gm/dL Hct 24.7 L (34.0-46.0) % RDW 17.9 H (11.5-15.5) % Plt Count 54 L (150-450) k/uL Lymphocytes # 0.2 L (1.0-4.8) k/uL Potassium 2.5 L* (3.5-5.1) mmol/L Chloride 113 H (98-107) mmol/L Carbon Dioxide 20 L (22-30) mmol/L Creatinine 0.19 L (0.52-1.04) mg/dL Microbiology - Last 24 Hours (Table) 09/20/20 13:06 Blood Culture - Preliminary Blood No Growth after 120 hours Assessment and Plan Assessment: Assessment and plan -Altered mental statu: Possible metabolic and toxic encephalopathy., Improving. Back to baseline. Unlikely meningoencephalitis.. possible component of polypharmacy related to Ambien, SIMRAN, and melatonin use, these medications are on hold. Multiple imaging studies have been negative including tibiofibular x-ray foot x-ray knee x-ray elbow x-ray chest x-ray head and cervical spine CT. TSH, B12, ammonia and folate levels are normal. MRI of the brain, repeat CT and EEG have been ordered. She is receiving IV Vimpat empirically. Neurology is following. MRI of the brain was ordered. Repeat CT on 09/22/2020 showed scalp soft tissue swelling increased in size compared to old exam. No acute process. Lumbar puncture could not be performed due to severe thrombocytopenia. Due to worsening mental status and MRI are LP could not be done. Contacted [facility] transfer team for possible transfer to tertiary care facility for further management. psychiatric has seen the patient. neurology is following. Patient received a dose of with tubes and on 09/05/2020 patient will be related to progress encephalopathy. Cancel MRI and lumbar puncture and also transfer to tertiary care facility is on hold. 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 -Chronic thrombocytopenia Patient is receiving IV immunoglobulin at this time and patient has history of ITP -Recent treatment for cellulitis. -Hypertension:Blood pressure stable, Norvasc is being held at this time. -Hyperkalemia: repleted -Hypothyroidism -Hypokalemia. Replaced. -Hypernatremia due to volume depletion. DVT prophylaxis: Probably due to prophylaxis is contraindicated because of her low platelet count Time with Patient: Greater than 30
[2020-09-26] MEDS: LACOSAMIDE IV 50 MG in SODIUM CHLORIDE 0.9% 50 ML IVPB SCH (10:46)
[2020-09-26] MEDS: CALCIUM CARBONATE 500 MG CHEWABLE PO SCH (13:11)
[2020-09-26] MEDS: VITAMIN E (DL,TOCOPHERYL ACET) 400 UNIT (180 MG) CAP PO SCH (13:11)
--- NOTE | 2020-09-26 14:57 | XR ---
EXAMINATION TYPE: XR chest 2V DATE OF EXAM: 09/26/2020 COMPARISON: 09/19/2020 HISTORY: 60-year-old female cough, pneumonia. TECHNIQUE: AP and lateral views FINDINGS: Heart borderline enlarged. Right anterior chest wall injection port with catheter tip at the cavoatri al junction region. Multifocal bilateral patchy opacities especially right midlung and left base. Lar ge patient body habitus limiting assessment for pleural effusion. Possible small effusion on the left . IMPRESSION: New bilateral airspace disease suggests multifocal pneumonia. Possible small left effusion.
--- NOTE | 2020-09-26 16:40 | P.PN ---
Subjective Progress Note Date: 09/26/20 Principal diagnosis: ITP In follow-up today patient responding to questions, trying to talk Objective - Vital Signs Vital signs: Vital Signs Temp 98.6 F 09/26/20 09:50 Pulse 66 09/26/20 09:50 Resp 18 09/26/20 09:50 BP 128/68 09/26/20 09:50 Pulse Ox 95 09/26/20 09:50 Intake & Output 09/25/20 09/26/20 09/26/20 18:59 06:59 18:59 Intake Total 960 0 Output Total 200 400 Balance 760 -400 0 Weight 93 kg 101 kg Intake: Oral 960 0 Output: Urine 200 400 Other: Voiding Method Indwelling Catheter Indwelling Catheter Indwelling Catheter # Voids 2 - Constitutional General appearance: Present: cooperative, mild distress, obese - EENT EENT Comment(s): tongue is bruised on the right side, few wet purpura noted, not opening eyes-her choice ENT: Present: hearing grossly normal - Respiratory Respiratory: bilateral: CTA - Cardiovascular Rhythm: regular Heart sounds: normal: S1, S2 Abnormal Heart Sounds: Absent: systolic murmur, diastolic murmur, rub, S3 Gallop, S4 Gallop, click, other - Peripheral edema leg Peripheral Edema: bilateral: Trace - Gastrointestinal General gastrointestinal: Present: normal bowel sounds, soft - Musculoskeletal Musculoskeletal: Present: generalized weakness - Labs CBC & Chem 7: 09/25/20 05:33 09/26/20 03:29 Labs: Abnormal Lab Results - Last 24 Hours (Table) 09/25/20 09/26/20 Range/Units 05:33 03:29 Potassium 2.5 L* (3.5-5.1) mmol/L Chloride 113 H 112 H (98-107) mmol/L Carbon Dioxide 20 L 20 L (22-30) mmol/L BUN 19 H (7-17) mg/dL Creatinine 0.19 L 0.29 L (0.52-1.04) mg/dL C-Reactive Protein 26.4 H (<1.0) mg/dL Microbiology - Last 24 Hours (Table) 09/20/20 13:06 Blood Culture - Preliminary Blood No Growth after 120 hours - Imaging and Cardiology Chest x-ray: report reviewed MRI - head: report reviewed Assessment and Plan (1) Chronic ITP (idiopathic thrombocytopenic purpura) Narrative/Plan: Patient has a history of chronic ITP with a baseline running from 100-140,000. IVIG was given as she missed her dose that was due 09/09/20 Last received Rituxan on 09/04/20 Her platelets were starting to recover spontaneously. Suspect progressive decline in counts related to inflammation and infection CBC in a.m. Current Visit: Yes Status: Chronic Priority: High Code(s): D69.3 - IMMUNE THROMBOCYTOPENIC PURPURA SNOMED Code(s): 33779077 (2) Autoimmune autonomic neuropathy Current Visit: Yes Status: Chronic Priority: High Code(s): G90.8 - OTHER DISORDERS OF AUTONOMIC NERVOUS SYSTEM SNOMED Code(s): 13583040 Plan: Case was discussed yesterday with Neurology. Patient's mental status seemed to improve rather spontaneously. MRI of the brain was performed to evaluate if there was any signs that multifocal encephalopathy or posterior encephalopathy was present. MRI report documents some diffuse increased white matter signal, possible encephalomalacia. It is not exactly clear what caused the patient to become completely unresponsive for several days. Patient's family states that she had some altered mental status the last time she received Rituxan several months ago, much milder this time per the family. Patient received Rituxan on most 3 weeks prior to this episode so cannot be absolutely certain if this was a PRES presentation are not. She did recently receive IVIG, PRES is a very rare side effect of this drug as well, although there has been no changes in the patient per family reports after receiving these infusions. information will be provided to ITP treating oncologist as well as the patient's Neurologist treating her autonomic neuropathy with IVIG.
[2020-09-26] MEDS: PHENYLEPHRINE 2.5% OPHTH DRP 2ML BOTH EYES SCH (16:44)
[2020-09-26] MEDS: FERROUS SULFATE 325 MG TAB PO SCH (16:44)
[2020-09-26] MEDS: SODIUM CHLORIDE 0.9% 1,000 ML IV SCH (16:54)
--- NOTE | 2020-09-26 18:06 | P.PN ---
Subjective Progress Note Date: 09/26/20 09/26/2020: Nurse called me last night at 3:34 AM stating that "patient was alert and oriented 3 at beginning of the shift and speaking clearly. As the night progressed, her speech became less clear and her head and eyes were twitching. Speech was garbled and she is rolling her tongue back towards her throat almost like she has "marbles in her mouth". She will briefly stick her tongue out for us. Pupils are reactive. Patient is alert and oriented 2, but hallucinating and talking to herself. At present patient appears to be back to her baseline. Slightly obsessed about her wheelchair. She is smiling, present. Her caregiver also present. 09/25/2020: Patient was seen for a follow-up. Patient is remarkably improved. She is fully alert and awake. She is complaining "I have not been fed". She states that she she is here for over a week. She thinks her brain has shrunk. Patient admits that she gets confused. Patient states that she has not been able to move her hands and feet for long time. Patient denies headache. 09/24/2020: Patient could not have MRI completed because she was not able to lay flat by herself because of risk of aspiration. I had spoken to hematology about need for platelets related to lumbar puncture. She recommended for patient to have platelets transfused while lumbar puncture is being conducted. Anesthesia was consulted, but they apparently declined lumbar puncture because of severe thrombocytopenia. Subsequently, it was recommended for patient to be transferred to a higher level of care. I spoke to Dr. Oseguera, who agree for patient to be transferred to [facility], however beds are not available. Family has made patient DO NOT RESUSCITATE. Patient continues to be severely encephalopathic. Patient is not able to take any medications by mouth. No obvious seizures have been reported. Spoke to Cynthia lincoln NP, who gave additional piece of information, the patient received a dose of Rituxan on 09/05/2020. Patient has received this medication the past, and after one of th ose infusion, patient had developed some confusional episode but nothing like this. Apparently Rituxan was provided for ITP as a less for immune mediated polyneuropathy. Rituxan can produce progressive multifocal leukoencephalopathy syndrome. 09/23/2020: Patient was seen for a follow-up. Patient initially seen by Dr. Tee Summers. Please refer to his note for details. 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 He can follows up with Dr. Addison Espinal. Patient was admitted to the hospital for altered mental status. 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 She is wheelchair bound. She has some function with the right hand. Patient also has ITP. Patient suffered from a fall 2 weeks ago. Patient came with altered mental status with hypothermia and platelets were low 19,000. She was very paranoid, delusional. EEG was performed, which showed some artifactual changes, but no epileptiform activity. It also showed moderate to severe encephalopathy. Patient was empirically started on Vimpat 50 mg twice a day. Neurology was reconsulted today because of acute mental status change, muteness. Per nursing staff, patient on 09/20/2020 was confused but talking. She was obsessed about her shirt to be fixed, "fix my shirt". Subsequently on Wednesday morning and Wednesday morning, which is yesterday, she was very groggy, not waking up or speaking in the morning. However in the afternoon she was speaking better. Her speech was back to normal. She continued to be very paranoid, as stating "sister is going to set fire". "Brother is going to set on fire". Also saying "they are going to kill us". However this morning patient is fully awake, but will not speak. She makes eye contact, follows directions, but will not speak. WORK-UP: Patient's most recent platelet count is 13,000, hemoglobin 8.8 and WBC 4.2. AST of 97 and ALT of 154 which are elevated. Ammonia level is 11 which is considered within normal limits Calcium is 10.9 and the repeated 7.3 which are elevated. Glucose is 171 which is slightly elevated Urinalysis is negative for urinary tract infection Urine drug screen is positive for benzos and the serum alcohol was less than 10. Vitamin B12 is more than 4000 which is unremarkable. Folate level the serum is 22 which is normal. TSH is 1.0 which is considered within normal limits. CRP is 5.9 which is considered elevated. Serum calcium is 10.9 and the repeat IS 10.3. Ionized Calcium is 5.7 which is concerned elevated CT of the head is reported as there is no acute intracranial hemorrhage, mass effect or midline shift is seen. CT cervicals reported as there is no acute fracture or dislocation evident in the cervical spine. Objective - Vital Signs Vital signs: Vital Signs Temp 98.4 F 09/26/20 16:00 Pulse 66 09/26/20 16:00 Resp 18 09/26/20 16:00 BP 130/75 09/26/20 16:00 Pulse Ox 97 09/26/20 16:00 Intake & Output 09/25/20 09/26/20 09/26/20 18:59 06:59 18:59 Intake Total 960 180 Output Total 200 400 Balance 760 -400 180 Weight 93 kg 101 kg Intake: Oral 960 180 Output: Urine 200 400 Other: Voiding Method Indwelling Catheter Indwelling Catheter Indwelling Catheter # Voids 2 - Exam On examination patient is fully alert and awake. She knows it is August and the year is 2020 and that she is in [facility]. She is probably back to baseline. She is concerned about her wheelchair. Patient tongue is very bruised and appears she had bitten her tongue on the lateral side, which is more fresh. The nurse did not notice any fresh blood last night when she was rolling her tongue. Patient denies headache. Her extraocular muscles are intact, face symmetric. Patient does have quadriplegia. She can move and wiggle her fingers slightly. No movement in the lower extremities. Patient's reflexes are absent. No obvious fasciculations. Patient cannot walk. Cerebellar functions could not be tested. - Labs CBC & Chem 7: 09/25/20 05:33 09/26/20 03:29 Labs: Abnormal Lab Results - Last 24 Hours (Table) 09/26/20 09/26/20 Range/Units 03:29 03:29 Chloride 112 H (98-107) mmol/L Carbon Dioxide 20 L (22-30) mmol/L BUN 19 H (7-17) mg/dL Creatinine 0.29 L (0.52-1.04) mg/dL C-Reactive Protein 26.4 H (<1.0) mg/dL Procalcitonin 2.30 H (0.02-0.09) ng/mL Microbiology - Last 24 Hours (Table) 09/20/20 13:06 Blood Culture - Final Blood No Growth after 144 hours Assessment and Plan Assessment: * Recurrent episodes of altered mental status, with tongue biting. Rule out complex partial seizures. * Acute Encephalopathy, likely toxic metabolic, now seems to have resolved. Patient has acute UTI, elevated liver functions, and electrolyte imbalance, likely the causes. Her encephalopathy today has resolved. She is back to baseline. Patient has received dose of Rituxan on 09/05/2020, which may be related to progressive encephalopathy. * Hypothermia of unknown etiology * Electrolyte imbalances. 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 Patient is on IVIG once a month * Recently treat for cellulitis * Chronic thrombocytopenia due to ITP Plan: * MRI of the brain was performed yesterday, which revealed some mild diffuse white matter increased signal in the parietal lobes that could relate to some encephalomalacia. No cortical infarct. * EEG was abnormal due to background slowing of moderate to severe degree. This is suggestive of generalized cerebral dysfunction as can be seen with toxic metabolic encephalopathy or due to diffuse structural brain abnormality. No epileptiform activity was seen. When compared to EEG from 09/22/2020, there is no significant change. * Patient is currently on Vimpat 50 twice a day. I was considering Lamictal, which is a broad-spectrum and also mood stabilizer. However this medication can produce hematologic side effects. Therefore I will just increase Vimpat to 100 mg twice a day. * Her platelets also has improved 54,000. * Will defer any electrolyte abnormality correction to the primary team. * Recommend psychiatry follow-up. * Dr. Tee Summers will follow-up in the morning.
--- NOTE | 2020-09-26 18:15 | PN ---
PROGRESS NOTE DATE OF SERVICE: 09/26/2020 REASON FOR FOLLOWUP: UTI and question of pneumonia. INTERVAL HISTORY: The patient is afebrile. The patient is more awake and alert today. She is breathing comfortably. Denies any chest pain, cough. No abdominal pain. No diarrhea. PHYSICAL EXAMINATION: Blood pressure 130/75, pulse of 66, temperature 98.4. She is 97% on 3 L nasal cannula. General description is a middle-aged female lying in bed in no distress. Respiratory system: Unlabored breathing with decreased BS, no wheeze. Heart S1, S2. Regular rate and rhythm. Abdomen: Soft, no tenderness. LAB: Chest x-ray, bilateral basilar infiltrate. MRI of the brain with some encephalomalacia and no cortical infarct. DIAGNOSTIC IMPRESSION AND PLAN: Patient with hypothermia, initial concern for UTI with confusion, positive UA, also component of pneumonia in this patient. Same overall improvement on Rocephin, to continue. Try to obtain a sputum and antibiotics and monitor clinical course closely. MMODL / IJN: [id number] /
[2020-09-26] MEDS ORDERED: lamoTRIgine 25 MG TAB PO SCH (21:00)
[2020-09-26] MEDS: atenoloL 50 MG TAB PO SCH (21:33)
[2020-09-26] MEDS: MONTELUKAST 10 MG TAB PO SCH (21:33)
[2020-09-26] MEDS: LACOSAMIDE 50 MG TABLET PO SCH (21:34)
[2020-09-26] MEDS: FAMOTIDINE 20 MG TAB PO SCH (21:34)
[2020-09-27] MEDS: ERYTHROMYCIN 5 MG/GM OPHTH OINT 3.5 GM TUBE BOTH EYES SCH ×7 (01:00→23:02)
[2020-09-27] MEDS: SODIUM CHLORIDE 0.9% 1,000 ML IV SCH ×2 (01:26→16:33)
[2020-09-27] MEDS: VITAMIN A 10,000 UNIT (3000 MCG) CAPSULE PO SCH (06:10)
[2020-09-27] MEDS: LEVOTHYROXINE 112 MCG TAB PO SCH (06:10)
[2020-09-27] MEDS: SODIUM BICARBONATE TAB 650 MG TAB PO SCH ×2 (06:10→12:27)
[2020-09-27] MEDS: THIAMINE 100 MG TAB PO SCH ×2 (06:11→12:27)
[2020-09-27] MEDS: amLODIPine 5 MG TAB PO SCH (06:11)
[2020-09-27] MEDS: PANTOPRAZOLE 40 MG TABLET PO SCH (06:11)
[2020-09-27 07:38] LABS: Anisocytosis Slight; Basophils % (A) 0 %; Eosinophils % (A) 0 %; HCT 21.1 % (34.0-46.0); HGB 7.3 gm/dL (11.4-16.0); Lymphocytes # (A) 0.3 k/uL (1.0-4.8); Lymphocytes % (A) 6 %; MCH 32.8 pg (25.0-35.0); MCHC 34.6 g/dL (31.0-37.0); MCV 94.5 fL (80.0-100.0); Mean Platelet Volume 9.2; Monocytes # (A) 0.2 k/uL (0-1.0); Monocytes % (A) 4 %; Neutrophils % (A) 88 %; Poikilocytosis Moderate; RBC 2.24 m/uL (3.80-5.40); RDW 17.8 % (11.5-15.5); WBC 5.7 k/uL (3.8-10.6)
[2020-09-27 08:02] LABS: Platelet Count 66 k/uL (150-450)
[2020-09-27 09:05] LABS: ALT 42 U/L (4-34); AST 39 U/L (14-36); African American GFR (CKD) >90 (>60 ml/min/1.73 sqM); Albumin 2.5 g/dL (3.5-5.0); Alkaline Phosphatase 89 U/L (38-126); Anion Gap 7 mmol/L; Blood Urea Nitrogen 13 mg/dL (7-17); Calcium 8.3 mg/dL (8.4-10.2); Carbon Dioxide 22 mmol/L (22-30); Chloride 114 mmol/L (98-107); Glucose 75 mg/dL (74-99); Magnesium 1.5 mg/dL (1.6-2.3); Non-African American GFR(CKD) >90 (>60 ml/min/1.73 sqM); Sodium 143 mmol/L (137-145); Total Bilirubin 0.8 mg/dL (0.2-1.3); Total Protein 5.6 g/dL (6.3-8.2)
[2020-09-27 09:16] LABS: Potassium 2.6 mmol/L (3.5-5.1)
[2020-09-27] MEDS: POTASSIUM CHLORIDE ER 20 MEQ TAB.ER PO SCH ×6 (09:35→22:59)
[2020-09-27] MEDS: LACOSAMIDE 50 MG TABLET PO SCH ×2 (09:39→21:10)
--- NOTE | 2020-09-27 10:51 | P.PN ---
Subjective Progress Note Date: 09/26/20 Principal diagnosis: Altered mental status possible metabolic and toxic encephalopathy Severe thrombocytopenia 60-year-old female came to the hospital after fall and patient was quite a bit confused and was paranoid apparently yesterday. Patient is alert oriented 2 when I valid the patient and patient the temperature was around 80 because of which there multiple heart attacks and the nursing staff was planning on beta brenda although patient was complaining of excessive heat and sweating because of which we removed all of those and we will recheck the temperature again. Apart from that there is no clear evidence of sepsis at this time. UA is not significant for urinary tract infection. In spite of her confusion patient was able to provide me good history. Patient denied any cough patient or dysuria chest x-ray did not show any significant abnormality. Etiology of her son onset of confusion is not clear at this time CT of the head did not show any intracran ial hemorrhage MRI is being obtained. 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 Patient missed her IVIG, patient is severely thrombocytopenia With platelet count of around 16,000. Patient has multiple bruises and multiple hematomas secondary to low platelet count after fall. Patient denied any headache patient was recently treated for cellulitis. Suspicion is low for meningitis and unfortunately we cannot the get an LP considering her very low platelet count because of which we are not obtaining CSF analysis at this time. Her thrombus rapini is believed to be secondary to diuretic she received for cellulitis recently. Patient has mildly elevated liver enzymes. MRI was ordered by oncology. Patient blood screen is only for positive for benzodiazepines for which patient doesn't appear to have a prescription for but patient does take Ambien 3.5 mg at bedtime. There is no clear metabolic toxic causes that can explain her confusion or delirium. Psychiatry was consulted as well. 09/21/2020 Patient remains unclear whether patient remains hypothermic remains confused and paranoid psychiatry at evaluate the patient. I consulted neurology as there is no real rheumatological factor for her confusion neurology evaluated the patient and they believe patient may have bilateral lower extremity plegia and left upper extremity hemiparesis. Patient received IVIG for ITP. There is no clear evidence of infection at this time because of continued hyperlipidemia and consult infectious disease as well. 09/22/2020 Patient is seen on follow-up, she is resting in bed, a bit agitated and deliri ous, unable to answer questions. She is repetitively stating that she is "over the fire". Her temperature this morning 97.4 axillary. Hemodynamically stable. Receiving IV Vimpat.. Vitamin B12, folate and TSH normal. Her platelet count low at 14, today's labs are pending. She is maintained and IV hydration with normal saline. Multiple imaging studies are pending including CT of the brain and MRI of the brain, there is also an EEG ordered by neurology. No growth on preliminary blood and urine cultures at this time. 09/23/2020 Patient is lying in the bed but has been unresponsive since morning. Patient did have also mental status and also muted. Patient was paranoid day before yesterday and has been groggy since then. Patient is able to open her eyes but will not speak. Patient has been afebrile. Laboratory data showed the Nelia 4.2 hemoglobin 8.8 and platelets 13,000 Sodium 142 potassium 4.1 chloride 113 bicarb is 25 BUN 10 and creatinine 0.17 and blood sugar is 104. cultures have been negative and TSH level is 1.0 09/24/2020 Patient was transferred to telemetry unit. Able to wake up and open her eyes with verbal commands. Trying to communicate. Patient is more awake and alert compared to yesterday. MRI could not be done due to risk of aspiration and patient could not lie flat. Lumbar puncture could not be done by anesthesia due to severe thrombocytopenia. Otherwise mental status is better today. Patient has been afebrile. Laboratory data showed WBC 4.5, hemoglobin 8.5 and platelets 42 Sodium 149 potassium 2.8 and chloride 115 BUN 13 and creatinine 0.15 Patient is being continued on gentle IV hydration and follow-up electrolytes. Patient was seen by ophthalmology due to IV discharge likely related to dryness and poor control of eyelids and improper closely at times. No evidence of infection. Continue with topical ointment for dryness. 09/25/2020 Patient is awake alert and oriented and is able to communicate slowly. Wants to eat. Patient has been afebrile. No compressive chest pain or shortness of breath. Potassium is being replaced. Denies any headache. Patient knows that she has not been monitoring her hands and feet for a long time. Laboratory data showed sodium 144 potassium 2.5 chloride 113 bicarb is 20 BUN 14 and creatinine 0.19 WBC 4.8 hemoglobin 8.7 platelets 54,000. 09/26/2020 Patient is currently lying in the bed comfortably. Awake and alert and follows eye contact. Patient was oriented 3 last night. As night progressed her speech became less clear and head and eyes were twitching. Speech was garbled and rolling her tongue back. Patient seems to be hallucinating and talking to herself.. Currently patient is awake alert but could not talk. Patient wants to eat something. Patient has been afebrile. No complaints of headache. No diarrhea or abdominal pain. Laboratory data showed improved sodium level and potassium level. Neurology is on board. MRI was done yesterday. Review of systems: Unable to obtain patient is confused Objective - Vital Signs Vital signs: Vital Signs Temp 98.4 F 09/26/20 16:00 Pulse 66 09/26/20 16:00 Resp 18 09/26/20 16:00 BP 130/75 09/26/20 16:00 Pulse Ox 97 09/26/20 16:00 Intake & Output 09/26/20 09/26/20 09/27/20 06:59 18:59 06:59 Intake Total 180 Output Total 400 Balance -400 180 Weight 101 kg Intake: Oral 180 Output: Urine 400 Other: Voiding Method Indwelling Catheter Indwelling Catheter - Exam PHYSICAL EXAMINATION: GENERAL: The patient is alert and oriented x1-2, not in any acute distress. Well developed, well nourished. HEENT: Pupils are round and equally reacting to light. EOMI. No scleral icterus. No conjunctival pallor. Normocephalic, atraumatic. CARDIOVASCULAR: S1 and S2 present. No murmurs, rubs, or gallops. PULMONARY: Chest is clear to auscultation, no wheezing or crackles. ABDOMEN: Soft, nontender, nondistended, normoactive bowel sounds. No palpable organomegaly. MUSCULOSKELETAL: No joint swelling or deformity. EXTREMITIES: No cyanosis, clubbing, or pedal edema. NEUROLOGICAL: Patient is awake alert and able to open her eyes with verbal commands. Quadriplegic. SKIN: Multiple bruises and hematoma secondary to thrombocytopenia and fall - Labs CBC & Chem 7: 09/27/20 06:57 09/27/20 06:57 Labs: Abnormal Lab Results - Last 24 Hours (Table) 09/26/20 09/26/20 Range/Units 03:29 03:29 Chloride 112 H (98-107) mmol/L Carbon Dioxide 20 L (22-30) mmol/L BUN 19 H (7-17) mg/dL Creatinine 0.29 L (0.52-1.04) mg/dL C-Reactive Protein 26.4 H (<1.0) mg/dL Procalcitonin 2.30 H (0.02-0.09) ng/mL Microbiology - Last 24 Hours (Table) 09/20/20 13:06 Blood Culture - Final Blood No Growth after 144 hours Assessment and Plan Assessment: Assessment and plan -Recurrent episodes of altered mental status with tongue biting. Possible complex partial seizures. Patient is on Vimpat 50 mg twice daily currently. -Altered mental statu: Possible metabolic and toxic encephalopathy., Improving. Back to baseline. Unlikely meningoencephalitis.. possible component of polypharmacy related to Ambien, SIMRAN, and melatonin use, these medications are on hold. Multiple imaging studies have been negative including tibiofibular x-ray foot x-ray knee x-ray elbow x-ray chest x-ray head and cervical spine CT. TSH, B12, ammonia and folate levels are normal. MRI of the brain, repeat CT and EEG have been ordered. She is receiving IV Vimpat . Neurology is following. MRI of the brain was ordered. Repeat CT on 09/22/2020 showed scalp soft tissue swelling increased in size compared to old exam. No acute process. Lumbar puncture could not be performed due to severe thrombocytopenia. Due to worsening mental status and MRI are LP could not be done. Contacted [facility] transfer team for possible transfer to [facility] care facility for further management. psychiatric has seen the patient. neurology is following. Patient received a dose of with tubes and on 09/05/2020 patient will be related to progress encephalopathy. Cancel lumbar puncture and also transfer to [place] is on hold. Was able to do MRI on 09/25/2020 which revealed mild diffuse white matter increased signal in the peritoneal lobes that could be related to some encephalomalacia. No cortical infarct. Neurology is following. 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 -Chronic thrombocytopenia Patient is receiving IV immunoglobulin at this time and patient has history of ITP -Recent treatment for cellulitis. -Hypertension:Blood pressure stable, Norvasc is being held at this time. -Hyperkalemia: repleted -Hypothyroidism -Hypokalemia. Replaced. -Hypernatremia due to volume depletion. DVT prophylaxis: Probably due to prophylaxis is contraindicated because of her low platelet count Time with Patient: Greater than 30
--- NOTE | 2020-09-27 11:49 | P.PN ---
Subjective Progress Note Date: 09/27/20 I am following-up with this patient since last seen on 09/22/2020 by me. Please refer to Dr. Mackenzie's note for further neurological work-up and his Assessment and plan. But her Vimpat was increased to 100mg [address] Mackenzie. Per the patient's nurse, the patient more alert and awake today. Per nurse she is awake, alert, oriented to self and place. Overnight she had some confusion but currently better. Upon seeing the patient she stated she feels somewhat better today and had no complaints. Objective - Vital Signs Vital signs: Vital Signs Temp 97.8 F 09/27/20 09:05 Pulse 56 L 09/27/20 09:05 Resp 16 09/27/20 09:05 BP 138/63 09/27/20 09:05 Pulse Ox 96 09/27/20 09:05 Intake & Output 09/26/20 09/27/20 09/27/20 18:59 06:59 18:59 Intake Total 180 0 Output Total 800 Balance 180 -800 0 Intake: Oral 180 0 Output: Urine 800 Other: Voiding Method Indwelling Catheter Indwelling Catheter Indwelling Catheter - Exam GENERAL: The patient is lying in and is not in acute distress.. HENT: Has gauze with tape over the bilateral forehead (mosly midline) where she had fall. Hard to assess neck movement because of cooperation. NEUROLOGICAL: Higher mental function: The patient is awake, alert, oriented to self and stated the month is August but the year was 1949. She stated she was at home and the state is [place]. She is able to name objects correctly (pen, watch and glasses). She is following commands (sticking tongue out and showing a thumbs up). No neglect. Cranial nerves: There is erythema of the surrounding of both eye. The pupils are round, equal and reactive to light. Visual field seems full to confrontation throughout. Extraocular movement is pursue is slowing but otherwise no nystagmus noted and seems intact otherwise. There is No facial weakness. Had tongue bite over the right (right side of tongue is black discoloration) and was able to stick tongue out. No dysarthria is noted. Motor: Is wheel chair bound (baseline) so gait cannot be assessed. The strength is able to have movement over the right hand (had weak 3 of hand fingers), while left minimal flicker over 2-4 digits. Otherwise no strength/movement (baseline). Decrease tone throughout. Has bilateral foot drop bilaterally (baseline). Cerebellum: Could not be assessed because of her baseline weakness Reflexes (right/left): Brachioradilis is 0-1. Otherwise 0+ throughout. Plantars are mute bilaterally. WORK-UP: AST of 97 and ALT of 154 which are elevated. Ammonia level is 11 which is considered within normal limits Calcium is 10.9 and the repeated 7.3 which are elevated. Glucose is 171 which is slightly elevated Urinalysis is negative for urinary tract infection Urine drug screen is positive for benzos and the serum alcohol was less than 10. Vitamin B12 is more than 4000 which is unremarkable. Folate level the serum is 22 which is normal. TSH is 1.0 which is considered within normal limits. CRP is 5.9 which is considered elevated. Serum calcium is 10.9 and the repeat IS 10.3. Ionized Calcium is 5.7 which is concerned elevated CT of the head is reported as there is no acute intracranial hemorrhage, mass effect or midline shift is seen. CT cervicals reported as there is no acute fracture or dislocation evident in the cervical spine. EEG on 09/24/2020 was reported as abnormal due to background slowing of moderate to severe degree. This is suggestive of generalized cerebral dysfunction as can be seen with toxic metabolic encephalopathy or due to diffuse structural brain abnormality. No epileptiform activity was seen. When compared to EEG from 09/22/2020, there is no significant change. MRI of the brain on 09/17/2020 is reported as there is some mild diffuse white matter increased signal in the parietal lobes that could relate to some encephalomalacia. No cortical infarct. I reviewed the MRI did not see any increased signal in the parietal lobes not sure if it's artifact or it it better seen at Radiology. - Labs CBC & Chem 7: 09/27/20 06:57 09/27/20 06:57 Labs: Abnormal Lab Results - Last 24 Hours (Table) 09/26/20 09/27/20 09/27/20 Range/Units 03:29 06:57 06:57 RBC 2.24 L (3.80-5.40) m/uL Hgb 7.3 L (11.4-16.0) gm/dL Hct 21.1 L (34.0-46.0) % RDW 17.8 H (11.5-15.5) % Plt Count 66 L (150-450) k/uL Lymphocytes # 0.3 L (1.0-4.8) k/uL Potassium 2.6 L* (3.5-5.1) mmol/L Chloride 114 H (98-107) mmol/L Creatinine 0.19 L (0.52-1.04) mg/dL Calcium 8.3 L (8.4-10.2) mg/dL Magnesium 1.5 L (1.6-2.3) mg/dL AST 39 H (14-36) U/L ALT 42 H (4-34) U/L Total Protein 5.6 L (6.3-8.2) g/dL Albumin 2.5 L (3.5-5.0) g/dL Procalcitonin 2.30 H (0.02-0.09) ng/mL Microbiology - Last 24 Hours (Table) 09/20/20 13:06 Blood Culture - Final Blood No Growth after 144 hours Assessment and Plan Assessment: * Recurrent episodes of altered mental status, with tongue biting. Unknown exact cause. Rule out seizures (two routine EEG did not show any seizure or epilleptiform discharges). * Acute Encephalopathy, likely toxic metabolic, now seems to have resolved. Patient has acute UTI, elevated liver functions, and electrolyte imbalance, likely the causes. Her encephalopathy today has resolved. She is back to baseline. Patient has received dose of Rituxan on 09/05/2020, which may be related to progressive encephalopathy. * Hypothermia of unknown etiology--resolved * Electrolyte imbalances. 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 Patient is on IVIG once a month * Recently treat for cellulitis * Chronic thrombocytopenia due to ITP ---improving (more recent is 66K. It was as low as 13 during this hospital stay) Plan: * MRI of the brain on 09/17/2020 is reported as there is some mild diffuse white matter increased signal in the parietal lobes that could relate to some encephalomalacia. No cortical infarct. I reviewed the MRI did not see any increased signal in the parietal lobes not sure if it's artifact or it it better seen at Radiology. I spoke with reading radiologist and they did not appreciate any encephalomalacia over the parietal and felt the patient has mild white matter disease. No acute or subacute stroke. * Continue Vimpat 100mg bid. * Q4 hour neuro checks. * Infection disease team is on board. * Will defer any electrolyte abnormality correction to the primary team. * Recommend psychiatry follow-up. * Will defer the rest medical management to the primary team. The plan is discussed with her nurse. Dr. Mackenzie will provide neurology coverage tomorrow in the AM. Tee Summers MD Neuro-Hospitalist Time with Patient: Less than 30
[2020-09-27] MEDS: VITAMIN E (DL,TOCOPHERYL ACET) 400 UNIT (180 MG) CAP PO SCH (12:27)
[2020-09-27] MEDS: CALCIUM CARBONATE 500 MG CHEWABLE PO SCH (12:27)
[2020-09-27] MEDS: ERGOCALCIFEROL 1,250 MCG (50,000 IU) CAPSULE PO SCH (12:27)
[2020-09-27] MEDS: PHENYLEPHRINE 2.5% OPHTH DRP 2ML BOTH EYES SCH (16:33)
[2020-09-27] MEDS: FERROUS SULFATE 325 MG TAB PO SCH (16:33)
[2020-09-27] MEDS ORDERED: SENNOSIDES 8.6 MG TAB PO PRN (16:37)
--- NOTE | 2020-09-27 16:49 | PN ---
PROGRESS NOTE DATE OF SERVICE: 09/27/2020 REASON FOR FOLLOWUP: UTI and a question of pneumonia. INTERVAL HISTORY: The patient is afebrile. The patient is more awake and alert today. She is breathing comfortably. Denies any chest pain. Did have a cough, not bringing up any sputum. No abdominal pain. No diarrhea. PHYSICAL EXAMINATION: Blood pressure 131/65, pulse of 86, temperature is 97.8. She is 97% on 3 L nasal cannula. Patient is a middle-aged female lying in bed in no distress. HEENT: Shows a big bruise on the forehead. No redness. Lungs unlabored breathing, decreased breath sounds in the base, with no wheeze. Heart S1, S2. Regular rate and rhythm. Abdomen soft, nontender. LABS: Hemoglobin is 10.5, white count 4.7, BUN of 13, creatinine 0.19. His urine is negative. DIAGNOSTIC IMPRESSION AND PLAN: Patient with mental status changes, multifactorial and hypothermia, concern for a UTI. Urine culture has been negative. Possible component pneumonia. The patient is currently on Rocephin. Overall clinical improvement, to continue with p.o. antibiotic on discharge. Continue supportive care. MMODL / IJN: [id number] /
[2020-09-27] MEDS ORDERED: MAGNESIUM SULFATE-D5W PMX 1 GM in DEXTROSE/WATER 1 100ML.BAG IVPB ONE ×2 (19:45→22:04)
--- NOTE | 2020-09-27 21:08 | P.PN ---
Subjective Progress Note Date: 09/27/20 Principal diagnosis: encephalopathy and thrombocytopenia Patient still not at baseline, however improved mentality today Objective - Vital Signs Vital signs: Vital Signs Temp 97.6 F 09/27/20 03:40 Pulse 60 09/27/20 03:40 Resp 16 09/27/20 03:40 BP 137/62 09/27/20 03:40 Pulse Ox 95 09/27/20 03:40 Intake & Output 09/26/20 09/27/20 09/27/20 18:59 06:59 18:59 Intake Total 180 Output Total 800 Balance 180 -800 Intake: Oral 180 Output: Urine 800 Other: Voiding Method Indwelling Catheter Indwelling Catheter - Exam - Constitutional General appearance: Present: cooperative, mild distress, obese - EENT EENT Comment(s): tongue is bruised on the right side, few wet purpura noted, not opening eyes-her choice ENT: Present: hearing grossly normal - Respiratory Respiratory: bilateral: CTA - Cardiovascular Rhythm: regular Heart sounds: normal: S1, S2 Abnormal Heart Sounds: Absent: systolic murmur, diastolic murmur, rub, S3 Gallop, S4 Gallop, click, other - Peripheral edema leg Peripheral Edema: bilateral: Trace - Gastrointestinal General gastrointestinal: Present: normal bowel sounds, soft - Musculoskeletal Musculoskeletal: Present: generalized weakness - Labs CBC & Chem 7: 09/27/20 06:57 09/27/20 17:00 Labs: Abnormal Lab Results - Last 24 Hours (Table) 09/26/20 09/27/20 Range/Units 03:29 06:57 RBC 2.24 L (3.80-5.40) m/uL Hgb 7.3 L (11.4-16.0) gm/dL Hct 21.1 L (34.0-46.0) % RDW 17.8 H (11.5-15.5) % Plt Count 66 L (150-450) k/uL Lymphocytes # 0.3 L (1.0-4.8) k/uL Procalcitonin 2.30 H (0.02-0.09) ng/mL Microbiology - Last 24 Hours (Table) 09/20/20 13:06 Blood Culture - Final Blood No Growth after 144 hours Assessment and Plan (1) Hypercalcemia Current Visit: Yes Status: Acute Code(s): E83.52 - HYPERCALCEMIA SNOMED Code(s): 46674488 (2) Altered mental status Current Visit: Yes Status: Acute Code(s): R41.82 - ALTERED MENTAL STATUS, UN SPECIFIED SNOMED Code(s): 140238858 (3) Hypermagnesemia Current Visit: Yes Status: Acute Code(s): E83.41 - HYPERMAGNESEMIA SNOMED Code(s): 69232493 (4) Thrombocytopenia Current Visit: Yes Status: Acute Code(s): D69.6 - THROMBOCYTOPENIA, UNSPECIFIED SNOMED Code(s): 247302477 (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 Thrombocytopenia: - Recovering and within safe range at 66K today Reviewed MRI: - Assessing for APL with recent treatment Rituxan - Neuro FOllowing Recent LE Cellulitis requiring prolonged antibiotics and three hospital visits, picc line placement and IV abx at home (completed 2-3 weeks ago) - likely main source of worsening ITP Status Post IVIG on 09/20/20 and 09/21/20 Physician Attest: I have completed the full history and physical and developed the above impression and plan, agree with dictation. Dictated as a scribe.
[2020-09-27] MEDS: atenoloL 50 MG TAB PO SCH (21:10)
[2020-09-27] MEDS: FAMOTIDINE 20 MG TAB PO SCH (21:10)
[2020-09-27] MEDS: DOCUSATE 100 MG CAP PO SCH (21:10)
[2020-09-27] MEDS: MONTELUKAST 10 MG TAB PO SCH (21:10)
[2020-09-28] MEDS: ERYTHROMYCIN 5 MG/GM OPHTH OINT 3.5 GM TUBE BOTH EYES SCH ×5 (04:30→20:37)
[2020-09-28] MEDS: SODIUM CHLORIDE 0.9% 1,000 ML IV SCH ×2 (06:24→20:38)
[2020-09-28] MEDS: LEVOTHYROXINE 112 MCG TAB PO SCH (06:25)
[2020-09-28] MEDS: SODIUM BICARBONATE TAB 650 MG TAB PO SCH ×2 (06:25→12:20)
[2020-09-28] MEDS: amLODIPine 5 MG TAB PO SCH (06:25)
[2020-09-28] MEDS: VITAMIN A 10,000 UNIT (3000 MCG) CAPSULE PO SCH (06:25)
[2020-09-28] MEDS: PANTOPRAZOLE 40 MG TABLET PO SCH (06:25)
[2020-09-28] MEDS: THIAMINE 100 MG TAB PO SCH ×2 (06:25→12:20)
[2020-09-28] MEDS: DOCUSATE 100 MG CAP PO SCH ×2 (09:27→20:37)
[2020-09-28] MEDS: LACOSAMIDE 50 MG TABLET PO SCH ×2 (09:27→20:37)
[2020-09-28] MEDS: CALCIUM CARBONATE 500 MG CHEWABLE PO SCH (12:20)
[2020-09-28] MEDS: FERROUS SULFATE 325 MG TAB PO SCH (12:20)
[2020-09-28] MEDS: VITAMIN E (DL,TOCOPHERYL ACET) 400 UNIT (180 MG) CAP PO SCH (12:26)
[2020-09-28] MEDS: PHENYLEPHRINE 2.5% OPHTH DRP 2ML BOTH EYES SCH (17:00)
--- NOTE | 2020-09-28 18:51 | PN ---
PROGRESS NOTE DATE OF SERVICE: 09/28/2020 REASON FOR FOLLOWUP: Pneumonia. INTERVAL HISTORY: The patient is afebrile. The patient is more awake, alert. The patient denies any chest pain, shortness of breath. Occasional cough. No abdominal pain or diarrhea. PHYSICAL EXAMINATION: Blood pressure 131/54, pulse of 61, temp is 97.9% on 2 L nasal cannula. General description is a middle-aged female lying in bed in no distress. Respiratory system unlabored breathing, decreased breath sounds in the base, with no wheeze. Heart S1, S2. Regular rhythm. Abdomen soft, no tenderness. LAB: White count 5.6, BUN of 13, creatinine 0.19. DIAGNOSTIC IMPRESSION AND PLAN: Patient with a component of pneumonia. Overall improvement with Rocephin, transition course of oral Ceftin on discharge and continue supportive care. MMODL / IJN: [id number] /
[2020-09-28] MEDS: MONTELUKAST 10 MG TAB PO SCH (20:37)
[2020-09-28] MEDS: FAMOTIDINE 20 MG TAB PO SCH (20:37)
[2020-09-28] MEDS: atenoloL 50 MG TAB PO SCH (20:37)
[2020-09-28] MEDS: POTASSIUM CHLORIDE ER 20 MEQ TAB.ER PO SCH (23:25)
[2020-09-29] MEDS: POTASSIUM CHLORIDE ER 20 MEQ TAB.ER PO SCH ×2 (01:01→01:41)
[2020-09-29] MEDS: THIAMINE 100 MG TAB PO SCH ×2 (05:59→12:28)
[2020-09-29] MEDS: LEVOTHYROXINE 112 MCG TAB PO SCH (05:59)
[2020-09-29] MEDS: amLODIPine 5 MG TAB PO SCH (06:00)
[2020-09-29] MEDS: SODIUM BICARBONATE TAB 650 MG TAB PO SCH ×2 (06:00→12:28)
[2020-09-29] MEDS: PANTOPRAZOLE 40 MG TABLET PO SCH (06:00)
[2020-09-29] MEDS: VITAMIN A 10,000 UNIT (3000 MCG) CAPSULE PO SCH (06:00)
[2020-09-29] MEDS: SODIUM CHLORIDE 0.9% 1,000 ML IV SCH ×2 (06:01→20:06)
[2020-09-29] MEDS: LACOSAMIDE 50 MG TABLET PO SCH ×2 (07:56→20:02)
[2020-09-29] MEDS: DOCUSATE 100 MG CAP PO SCH ×2 (07:57→20:07)
[2020-09-29 08:57] LABS: Anion Gap 10 mmol/L; Blood Urea Nitrogen 8 mg/dL (7-17); Calcium 7.6 mg/dL (8.4-10.2); Carbon Dioxide 18 mmol/L (22-30); Chloride 111 mmol/L (98-107); Glucose 106 mg/dL (74-99); Potassium 3.6 mmol/L (3.5-5.1); Sodium 139 mmol/L (137-145)
[2020-09-29 09:12] LABS: African American GFR (CKD) >90 (>60 ml/min/1.73 sqM); Non-African American GFR(CKD) >90 (>60 ml/min/1.73 sqM)
--- NOTE | 2020-09-29 10:51 | P.PN ---
Subjective Progress Note Date: 09/27/20 Principal diagnosis: Altered mental status possible metabolic and toxic encephalopathy Severe thrombocytopenia 60-year-old female came to the hospital after fall and patient was quite a bit confused and was paranoid apparently yesterday. Patient is alert oriented 2 when I valid the patient and patient the temperature was around 80 because of which there multiple heart attacks and the nursing staff was planning on beta brenda although patient was complaining of excessive heat and sweating because of which we removed all of those and we will recheck the temperature again. Apart from that there is no clear evidence of sepsis at this time. UA is not significant for urinary tract infection. In spite of her confusion patient was able to provide me good history. Patient denied any cough patient or dysuria chest x-ray did not show any significant abnormality. Etiology of her son onset of confusion is not clear at this time CT of the head did not show any intracran ial hemorrhage MRI is being obtained. 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 Patient missed her IVIG, patient is severely thrombocytopenia With platelet count of around 16,000. Patient has multiple bruises and multiple hematomas secondary to low platelet count after fall. Patient denied any headache patient was recently treated for cellulitis. Suspicion is low for meningitis and unfortunately we cannot the get an LP considering her very low platelet count because of which we are not obtaining CSF analysis at this time. Her thrombus rapini is believed to be secondary to diuretic she received for cellulitis recently. Patient has mildly elevated liver enzymes. MRI was ordered by oncology. Patient blood screen is only for positive for benzodiazepines for which patient doesn't appear to have a prescription for but patient does take Ambien 3.5 mg at bedtime. There is no clear metabolic toxic causes that can explain her confusion or delirium. Psychiatry was consulted as well. 09/21/2020 Patient remains unclear whether patient remains hypothermic remains confused and paranoid psychiatry at evaluate the patient. I consulted neurology as there is no real rheumatological factor for her confusion neurology evaluated the patient and they believe patient may have bilateral lower extremity plegia and left upper extremity hemiparesis. Patient received IVIG for ITP. There is no clear evidence of infection at this time because of continued hyperlipidemia and consult infectious disease as well. 09/22/2020 Patient is seen on follow-up, she is resting in bed, a bit agitated and deliri ous, unable to answer questions. She is repetitively stating that she is "over the fire". Her temperature this morning 97.4 axillary. Hemodynamically stable. Receiving IV Vimpat.. Vitamin B12, folate and TSH normal. Her platelet count low at 14, today's labs are pending. She is maintained and IV hydration with normal saline. Multiple imaging studies are pending including CT of the brain and MRI of the brain, there is also an EEG ordered by neurology. No growth on preliminary blood and urine cultures at this time. 09/23/2020 Patient is lying in the bed but has been unresponsive since morning. Patient did have also mental status and also muted. Patient was paranoid day before yesterday and has been groggy since then. Patient is able to open her eyes but will not speak. Patient has been afebrile. Laboratory data showed the Nelia 4.2 hemoglobin 8.8 and platelets 13,000 Sodium 142 potassium 4.1 chloride 113 bicarb is 25 BUN 10 and creatinine 0.17 and blood sugar is 104. cultures have been negative and TSH level is 1.0 09/24/2020 Patient was transferred to telemetry unit. Able to wake up and open her eyes with verbal commands. Trying to communicate. Patient is more awake and alert compared to yesterday. MRI could not be done due to risk of aspiration and patient could not lie flat. Lumbar puncture could not be done by anesthesia due to severe thrombocytopenia. Otherwise mental status is better today. Patient has been afebrile. Laboratory data showed WBC 4.5, hemoglobin 8.5 and platelets 42 Sodium 149 potassium 2.8 and chloride 115 BUN 13 and creatinine 0.15 Patient is being continued on gentle IV hydration and follow-up electrolytes. Patient was seen by ophthalmology due to IV discharge likely related to dryness and poor control of eyelids and improper closely at times. No evidence of infection. Continue with topical ointment for dryness. 09/25/2020 Patient is awake alert and oriented and is able to communicate slowly. Wants to eat. Patient has been afebrile. No compressive chest pain or shortness of breath. Potassium is being replaced. Denies any headache. Patient knows that she has not been monitoring her hands and feet for a long time. Laboratory data showed sodium 144 potassium 2.5 chloride 113 bicarb is 20 BUN 14 and creatinine 0.19 WBC 4.8 hemoglobin 8.7 platelets 54,000. 09/26/2020 Patient is currently lying in the bed comfortably. Awake and alert and follows eye contact. Patient was oriented 3 last night. As night progressed her speech became less clear and head and eyes were twitching. Speech was garbled and rolling her tongue back. Patient seems to be hallucinating and talking to herself.. Currently patient is awake alert but could not talk. Patient wants to eat something. Patient has been afebrile. No complaints of headache. No diarrhea or abdominal pain. Laboratory data showed improved sodium level and potassium level. Neurology is on board. MRI was done . 09/27/20 Patient is more awake and alert and oriented today. Able to tolerate oral diet with one-to-one feeding. Denied any bowel movement last couple days. No complaints of nausea or vomiting. Mentation is at baseline overnight. Patient has been afebrile. No complaint of chest pain or shortness of breath. MRI of the brain showed mild diffuse white matter increased signal in the parietal lobes that correlate to some encephalomalacia. Potassium level was 2.6 this morning and replace it with repeat level II.9. Magnesium 1.5 which is being replaced. Review of systems: Unable to obtain patient is confused Objective - Vital Signs Vital signs: Vital Signs Temp 97.7 F 09/27/20 16:32 Pulse 59 L 09/27/20 16:32 Resp 18 09/27/20 16:32 BP 150/63 09/27/20 16:32 Pulse Ox 94 L 09/27/20 16:32 Intake & Output 09/27/20 09/27/20 09/28/20 06:59 18:59 06:59 Intake Total 360 Output Total 800 650 Balance -800 -290 Weight 101 kg Intake: Oral 360 Output: Urine 800 650 Stool 0 Other: Voiding Method Indwelling Catheter Indwelling Catheter # Voids 0 # Bowel Movements 0 - Exam PHYSICAL EXAMINATION: GENERAL: The patient is alert and oriented x1-2, not in any acute distress. Well developed, well nourished. HEENT: Pupils are round and equally reacting to light. EOMI. No scleral icterus. No conjunctival pallor. Normocephalic, atraumatic. CARDIOVASCULAR: S1 and S2 present. No murmurs, rubs, or gallops. PULMONARY: Chest is clear to auscultation, no wheezing or crackles. ABDOMEN: Soft, nontender, nondistended, normoactive bowel sounds. No palpable or ganomegaly. MUSCULOSKELETAL: No joint swelling or deformity. EXTREMITIES: No cyanosis, clubbing, or pedal edema. NEUROLOGICAL: Patient is awake alert and able to open her eyes with verbal commands. Quadriplegic. SKIN: Multiple bruises and hematoma secondary to thrombocytopenia and fall - Labs CBC & Chem 7: 09/27/20 06:57 09/29/20 08:15 Labs: Abnormal Lab Results - Last 24 Hours (Table) 09/27/20 09/27/20 09/27/20 Range/Units 06:57 06:57 17:00 RBC 2.24 L (3.80-5.40) m/uL Hgb 7.3 L (11.4-16.0) gm/dL Hct 21.1 L (34.0-46.0) % RDW 17.8 H (11.5-15.5) % Plt Count 66 L (150-450) k/uL Lymphocytes # 0.3 L (1.0-4.8) k/uL Potassium 2.6 L* 2.9 L (3.5-5.1) mmol/L Chloride 114 H (98-107) mmol/L Creatinine 0.19 L (0.52-1.04) mg/dL Calcium 8.3 L (8.4-10.2) mg/dL Magnesium 1.5 L (1.6-2.3) mg/dL AST 39 H (14-36) U/L ALT 42 H (4-34) U/L Total Protein 5.6 L (6.3-8.2) g/dL Albumin 2.5 L (3.5-5.0) g/dL Assessment and Plan Assessment: Assessment and plan -Recurrent episodes of altered mental status with tongue biting. Possible complex partial seizures. Patient is on Vimpat 50 mg twice daily currently. -Altered mental statu: Possible metabolic and toxic encephalopathy., Improving. Back to baseline. Unlikely meningoencephalitis.. possible component of polypharmacy related to Ambien, SIMRAN, and melatonin use, these medications are on hold. Multiple imaging studies have been negative including tibiofibular x-ray foot x-ray knee x-ray elbow x-ray chest x-ray head and cervical spine CT. TSH, B12, ammonia and folate levels are normal. MRI of the brain, repeat CT and EEG have been ordered. She is receiving IV Vimpat . Neurology is following. MRI of the brain was ordered. Repeat CT on 09/22/2020 showed scalp soft tissue swelling increased in size compared to old exam. No acute process. Lumbar puncture could not be performed due to severe thrombocytopenia. Due to worsening mental status and MRI are LP could not be done. Contacted [facility] transfer team for possible transfer to replaced by [facility] for further management. psychiatric has seen the patient. neurology is following. Patient received a dose of with tubes and on 09/05/2020 patient will be related to progress encephalopathy. Cancel lumbar puncture and also transfer to [facility] is on hold. Was able to do MRI on 09/25/2020 which revealed mild diffuse white matter increased signal in the peritoneal lobes that could be related to some encephalomalacia. No cortical infarct. Neurology is following. 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 -Chronic thrombocytopenia Patient is receiving IV immunoglobulin at this time and patient has history of ITP -Recent treatment for cellulitis. -Hypertension:Blood pressure stable, Norvasc is being held at this time. -Hyperkalemia: repleted -Hypothyroidism -Hypokalemia. Replaced. -Hypernatremia due to volume depletion. DVT prophylaxis: Probably due to prophylaxis is contraindicated because of her low platelet count Time with Patient: Greater than 30
--- NOTE | 2020-09-29 10:53 | P.PN ---
Subjective Progress Note Date: 09/28/20 Principal diagnosis: Altered mental status possible metabolic and toxic encephalopathy Severe thrombocytopenia 60-year-old female came to the hospital after fall and patient was quite a bit confused and was paranoid apparently yesterday. Patient is alert oriented 2 when I valid the patient and patient the temperature was around 80 because of which there multiple heart attacks and the nursing staff was planning on beta brenda although patient was complaining of excessive heat and sweating because of which we removed all of those and we will recheck the temperature again. Apart from that there is no clear evidence of sepsis at this time. UA is not significant for urinary tract infection. In spite of her confusion patient was able to provide me good history. Patient denied any cough patient or dysuria chest x-ray did not show any significant abnormality. Etiology of her son onset of confusion is not clear at this time CT of the head did not show any intracran ial hemorrhage MRI is being obtained. 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 Patient missed her IVIG, patient is severely thrombocytopenia With platelet count of around 16,000. Patient has multiple bruises and multiple hematomas secondary to low platelet count after fall. Patient denied any headache patient was recently treated for cellulitis. Suspicion is low for meningitis and unfortunately we cannot the get an LP considering her very low platelet count because of which we are not obtaining CSF analysis at this time. Her thrombus rapini is believed to be secondary to diuretic she received for cellulitis recently. Patient has mildly elevated liver enzymes. MRI was ordered by oncology. Patient blood screen is only for positive for benzodiazepines for which patient doesn't appear to have a prescription for but patient does take Ambien 3.5 mg at bedtime. There is no clear metabolic toxic causes that can explain her confusion or delirium. Psychiatry was consulted as well. 09/21/2020 Patient remains unclear whether patient remains hypothermic remains confused and paranoid psychiatry at evaluate the patient. I consulted neurology as there is no real rheumatological factor for her confusion neurology evaluated the patient and they believe patient may have bilateral lower extremity plegia and left upper extremity hemiparesis. Patient received IVIG for ITP. There is no clear evidence of infection at this time because of continued hyperlipidemia and consult infectious disease as well. 09/22/2020 Patient is seen on follow-up, she is resting in bed, a bit agitated and deliri ous, unable to answer questions. She is repetitively stating that she is "over the fire". Her temperature this morning 97.4 axillary. Hemodynamically stable. Receiving IV Vimpat.. Vitamin B12, folate and TSH normal. Her platelet count low at 14, today's labs are pending. She is maintained and IV hydration with normal saline. Multiple imaging studies are pending including CT of the brain and MRI of the brain, there is also an EEG ordered by neurology. No growth on preliminary blood and urine cultures at this time. 09/23/2020 Patient is lying in the bed but has been unresponsive since morning. Patient did have also mental status and also muted. Patient was paranoid day before yesterday and has been groggy since then. Patient is able to open her eyes but will not speak. Patient has been afebrile. Laboratory data showed the Nelia 4.2 hemoglobin 8.8 and platelets 13,000 Sodium 142 potassium 4.1 chloride 113 bicarb is 25 BUN 10 and creatinine 0.17 and blood sugar is 104. cultures have been negative and TSH level is 1.0 09/24/2020 Patient was transferred to telemetry unit. Able to wake up and open her eyes with verbal commands. Trying to communicate. Patient is more awake and alert compared to yesterday. MRI could not be done due to risk of aspiration and patient could not lie flat. Lumbar puncture could not be done by anesthesia due to severe thrombocytopenia. Otherwise mental status is better today. Patient has been afebrile. Laboratory data showed WBC 4.5, hemoglobin 8.5 and platelets 42 Sodium 149 potassium 2.8 and chloride 115 BUN 13 and creatinine 0.15 Patient is being continued on gentle IV hydration and follow-up electrolytes. Patient was seen by ophthalmology due to IV discharge likely related to dryness and poor control of eyelids and improper closely at times. No evidence of infection. Continue with topical ointment for dryness. 09/25/2020 Patient is awake alert and oriented and is able to communicate slowly. Wants to eat. Patient has been afebrile. No compressive chest pain or shortness of breath. Potassium is being replaced. Denies any headache. Patient knows that she has not been monitoring her hands and feet for a long time. Laboratory data showed sodium 144 potassium 2.5 chloride 113 bicarb is 20 BUN 14 and creatinine 0.19 WBC 4.8 hemoglobin 8.7 platelets 54,000. 09/26/2020 Patient is currently lying in the bed comfortably. Awake and alert and follows eye contact. Patient was oriented 3 last night. As night progressed her speech became less clear and head and eyes were twitching. Speech was garbled and rolling her tongue back. Patient seems to be hallucinating and talking to herself.. Currently patient is awake alert but could not talk. Patient wants to eat something. Patient has been afebrile. No complaints of headache. No diarrhea or abdominal pain. Laboratory data showed improved sodium level and potassium level. Neurology is on board. MRI was done . 09/27/20 Patient is more awake and alert and oriented today. Able to tolerate oral diet with one-to-one feeding. Denied any bowel movement last couple days. No complaints of nausea or vomiting. Mentation is at baseline overnight. Patient has been afebrile. No complaint of chest pain or shortness of breath. MRI of the brain showed mild diffuse white matter increased signal in the parietal lobes that correlate to some encephalomalacia. Potassium level was 2.6 this morning and replace it with repeat level II.9. Magnesium 1.5 which is being replaced. 09/28/20 Patient is awake alert and oriented 2-3. Able to communicate. Mentation is at baseline. No complains of chest pain or shortness of breath. Potassium level is 3.6 to morning. Patient is being continued on Vimpat possible complex partial seizures. Afebrile. No nausea vomiting or abdominal pain. Patient did have a small bowel movement. Review of systems: Unable to obtain patient is confused Objective - Vital Signs Vital signs: Vital Signs Temp 97.9 F 09/28/20 16:56 Pulse 61 09/28/20 16:56 Resp 18 09/28/20 16:56 BP 131/54 09/28/20 16:56 Pulse Ox 96 09/28/20 16:56 Intake & Output 09/28/20 09/28/20 09/29/20 06:59 18:59 06:59 Intake Total 250 720 Output Total 1000 100 Balance 250 -280 -100 Weight 100 kg Intake: Oral 250 720 Output: Urine 1000 100 Other: Voiding Method Indwelling Catheter Indwelling Catheter # Voids 1 - Exam PHYSICAL EXAMINATION: GENERAL: The patient is alert and oriented x1-2, not in any acute distress. Well developed, well nourished. HEENT: Pupils are round and equally reacting to light. EOMI. No scleral icterus. No conjunctival pallor. Normocephalic, atraumatic. CARDIOVASCULAR: S1 and S2 present. No murmurs, rubs, or gallops. PULMONARY: Chest is clear to auscultation, no wheezing or crackles. ABDOMEN: Soft, nontender, nondistended, normoactive bowel sounds. No palpable organomegaly. MUSCULOSKELETAL: No joint swelling or deformity. EXTREMITIES: No cyanosis, clubbing, or pedal edema. NEUROLOGICAL: Patient is awake alert and able to open her eyes with verbal commands. Quadriplegic. SKIN: Multiple bruises and hematoma secondary to thrombocytopenia and fall - Labs CBC & Chem 7: 09/27/20 06:57 09/29/20 08:15 Assessment and Plan Assessment: Assessment and plan -Recurrent episodes of altered mental status with tongue biting. Possible complex partial seizures. Patient is on Vimpat 50 mg twice daily currently. -Altered mental statu: Possible metabolic and toxic encephalopathy., Improving. Back to baseline. Unlikely meningoencephalitis.. possible component of polypharmacy related to Ambien, SIMRAN, and melatonin use, these medications are on hold. Multiple imaging studies have been negative including tibiofibular x-ray foot x-ray knee x-ray elbow x-ray chest x-ray head and cervical spine CT. TSH, B12, ammonia and folate levels are normal. MRI of the brain, repeat CT and EEG have been ordered. She is receiving IV Vimpat . Neurology is following. MRI of the brain was ordered. Repeat CT on 09/22/2020 showed scalp soft tissue swelling increased in size compared to old exam. No acute process. Lumbar puncture could not be performed due to severe thrombocytopenia. Due to worsening mental status and MRI are LP could not be done. Contacted [facility] transfer team for possible transfer to tertiary care facility for further management. psychiatric has seen the patient. neurology is following. Patient received a dose of with tubes and on 09/05/2020 patient will be related to progress encephalopathy. Cancel lumbar puncture and also transfer to tertiary care facility is on hold. Was able to do MRI on 09/25/2020 which revealed mild diffuse white matter increased signal in the peritoneal lobes that could be related to some enc ephalomalacia. No cortical infarct. Neurology is following. 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 -Chronic thrombocytopenia Patient is receiving IV immunoglobulin at this time and patient has history of ITP -Recent treatment for cellulitis. -Hypertension:Blood pressure stable, Norvasc is being held at this time. -Hyperkalemia: repleted -Hypothyroidism -Hypokalemia. Replaced. -Hypernatremia due to volume depletion. DVT prophylaxis: Probably due to prophylaxis is contraindicated because of her low platelet count
[2020-09-29] MEDS: FERROUS SULFATE 325 MG TAB PO SCH (12:28)
[2020-09-29] MEDS: VITAMIN E (DL,TOCOPHERYL ACET) 400 UNIT (180 MG) CAP PO SCH (12:28)
[2020-09-29] MEDS: CALCIUM CARBONATE 500 MG CHEWABLE PO SCH (12:28)
[2020-09-29] MEDS: PHENYLEPHRINE 2.5% OPHTH DRP 2ML BOTH EYES SCH (18:05)
--- NOTE | 2020-09-29 18:26 | PN ---
PROGRESS NOTE DATE OF SERVICE: 09/29/2020 REASON FOR FOLLOWUP: Pneumonia. INTERVAL HISTORY: The patient is afebrile. The patient is breathing more comfortably. Denies having any chest pain, shortness of breath. Occasional cough. No abdominal pain. No diarrhea. EXAMINATION: Blood pressure 127/59, pulse 58, respiratory rate , 95% on room air. General description is a middle-aged female lying in no distress. Respiratory system: Unlabored breathing. Decreased breath sounds at the base. No wheeze. Heart: S1, S2. Regular rate and rhythm. Abdomen soft, no tenderness. Mildly distended. No guarding. No rigidity. LABS: BUN of 8, creatinine 0.15. Urine culture remains to be negative. DIAGNOSTIC IMPRESSION AND PLAN: Patient with for urinary tract infection. Did have positive cultures, negative. Subsequently, concern for possible pneumonia. Overall improvement on Rocephin. Antibiotic will be adjusted to [employer] for short course and close outpatient followup. MMODL / IJN: [id number] /
[2020-09-29] MEDS: atenoloL 50 MG TAB PO SCH (20:02)
[2020-09-29] MEDS: FAMOTIDINE 20 MG TAB PO SCH (20:02)
[2020-09-29] MEDS: MONTELUKAST 10 MG TAB PO SCH (20:02)
[2020-09-29] MEDS: CEFDINIR 300 MG CAP PO SCH (20:02)
--- NOTE | 2020-09-29 23:07 | P.PN ---
Subjective Progress Note Date: 09/29/20 Principal diagnosis: Altered mental status possible metabolic and toxic encephalopathy Severe thrombocytopenia 60-year-old female came to the hospital after fall and patient was quite a bit confused and was paranoid apparently yesterday. Patient is alert oriented 2 when I valid the patient and patient the temperature was around 80 because of which there multiple heart attacks and the nursing staff was planning on beta brenda although patient was complaining of excessive heat and sweating because of which we removed all of those and we will recheck the temperature again. Apart from that there is no clear evidence of sepsis at this time. UA is not significant for urinary tract infection. In spite of her confusion patient was able to provide me good history. Patient denied any cough patient or dysuria chest x-ray did not show any significant abnormality. Etiology of her son onset of confusion is not clear at this time CT of the head did not show any intracran ial hemorrhage MRI is being obtained. 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 Patient missed her IVIG, patient is severely thrombocytopenia With platelet count of around 16,000. Patient has multiple bruises and multiple hematomas secondary to low platelet count after fall. Patient denied any headache patient was recently treated for cellulitis. Suspicion is low for meningitis and unfortunately we cannot the get an LP considering her very low platelet count because of which we are not obtaining CSF analysis at this time. Her thrombus rapini is believed to be secondary to diuretic she received for cellulitis recently. Patient has mildly elevated liver enzymes. MRI was ordered by oncology. Patient blood screen is only for positive for benzodiazepines for which patient doesn't appear to have a prescription for but patient does take Ambien 3.5 mg at bedtime. There is no clear metabolic toxic causes that can explain her confusion or delirium. Psychiatry was consulted as well. 09/21/2020 Patient remains unclear whether patient remains hypothermic remains confused and paranoid psychiatry at evaluate the patient. I consulted neurology as there is no real rheumatological factor for her confusion neurology evaluated the patient and they believe patient may have bilateral lower extremity plegia and left upper extremity hemiparesis. Patient received IVIG for ITP. There is no clear evidence of infection at this time because of continued hyperlipidemia and consult infectious disease as well. 09/22/2020 Patient is seen on follow-up, she is resting in bed, a bit agitated and deliri ous, unable to answer questions. She is repetitively stating that she is "over the fire". Her temperature this morning 97.4 axillary. Hemodynamically stable. Receiving IV Vimpat.. Vitamin B12, folate and TSH normal. Her platelet count low at 14, today's labs are pending. She is maintained and IV hydration with normal saline. Multiple imaging studies are pending including CT of the brain and MRI of the brain, there is also an EEG ordered by neurology. No growth on preliminary blood and urine cultures at this time. 09/23/2020 Patient is lying in the bed but has been unresponsive since morning. Patient did have also mental status and also muted. Patient was paranoid day before yesterday and has been groggy since then. Patient is able to open her eyes but will not speak. Patient has been afebrile. Laboratory data showed the Nelia 4.2 hemoglobin 8.8 and platelets 13,000 Sodium 142 potassium 4.1 chloride 113 bicarb is 25 BUN 10 and creatinine 0.17 and blood sugar is 104. cultures have been negative and TSH level is 1.0 09/24/2020 Patient was transferred to telemetry unit. Able to wake up and open her eyes with verbal commands. Trying to communicate. Patient is more awake and alert compared to yesterday. MRI could not be done due to risk of aspiration and patient could not lie flat. Lumbar puncture could not be done by anesthesia due to severe thrombocytopenia. Otherwise mental status is better today. Patient has been afebrile. Laboratory data showed WBC 4.5, hemoglobin 8.5 and platelets 42 Sodium 149 potassium 2.8 and chloride 115 BUN 13 and creatinine 0.15 Patient is being continued on gentle IV hydration and follow-up electrolytes. Patient was seen by ophthalmology due to IV discharge likely related to dryness and poor control of eyelids and improper closely at times. No evidence of infection. Continue with topical ointment for dryness. 09/25/2020 Patient is awake alert and oriented and is able to communicate slowly. Wants to eat. Patient has been afebrile. No compressive chest pain or shortness of breath. Potassium is being replaced. Denies any headache. Patient knows that she has not been monitoring her hands and feet for a long time. Laboratory data showed sodium 144 potassium 2.5 chloride 113 bicarb is 20 BUN 14 and creatinine 0.19 WBC 4.8 hemoglobin 8.7 platelets 54,000. 09/26/2020 Patient is currently lying in the bed comfortably. Awake and alert and follows eye contact. Patient was oriented 3 last night. As night progressed her speech became less clear and head and eyes were twitching. Speech was garbled and rolling her tongue back. Patient seems to be hallucinating and talking to herself.. Currently patient is awake alert but could not talk. Patient wants to eat something. Patient has been afebrile. No complaints of headache. No diarrhea or abdominal pain. Laboratory data showed improved sodium level and potassium level. Neurology is on board. MRI was done . 09/27/20 Patient is more awake and alert and oriented today. Able to tolerate oral diet with one-to-one feeding. Denied any bowel movement last couple days. No complaints of nausea or vomiting. Mentation is at baseline overnight. Patient has been afebrile. No complaint of chest pain or shortness of breath. MRI of the brain showed mild diffuse white matter increased signal in the parietal lobes that correlate to some encephalomalacia. Potassium level was 2.6 this morning and replace it with repeat level II.9. Magnesium 1.5 which is being replaced. 09/28/20 Patient is awake alert and oriented 2-3. Able to communicate. Mentation is at baseline. No complains of chest pain or shortness of breath. Potassium level is 3.6 to morning. Patient is being continued on Vimpat possible complex partial seizures. Afebrile. No nausea vomiting or abdominal pain. Patient did have a small bowel movement. 09/29/2020 Patient is awake alert and oriented. Able to communicate slowly. Mentation is at baseline. Tolerating oral diet very well. No complaints of chest pain or shortness of. No nausea vomiting or abdominal pain or diarrhea. Patient has been afebrile. Urine culture is finalized. Polymicrobial specimen. Currently on antibiotics involve Omnicef. ID is following. Patient was also started Vimpat for possible partial complex seizures. Continue on PT OT and possible transfer to rehab.d Objective - Vital Signs Vital signs: Vital Signs Temp 98.3 F 09/29/20 20:00 Pulse 62 09/29/20 20:00 Resp 18 09/29/20 20:00 BP 124/58 09/29/20 20:00 Pulse Ox 99 09/29/20 20:00 Intake & Output 0809/29/20 09/30/20 06:59 18:59 06:59 Intake Total 590 250 Output Total 1000 300 Balance -1000 290 250 Weight 106 kg Intake: Intake, IV Titration 50 Amount cefTRIAXone 2 gm In 50 Sodium Chloride 0.9% 50 ml @ 100 mls/hr IVPB Q24HR [facility] Rx#:[id number] Oral 540 250 Output: Urine 1000 300 Other: Voiding Method Indwelling Catheter Indwelling Catheter Indwelling Catheter # Voids 1 - Exam PHYSICAL EXAMINATION: GENERAL: The patient is alert and oriented x1-2, not in any acute distress. Well developed, well nourished. HEENT: Pupils are round and equally reacting to light. EOMI. No scleral icterus. No conjunctival pallor. Normocephalic, atraumatic. CARDIOVASCULAR: S1 and S2 present. No murmurs, rubs, or gallops. PULMONARY: Chest is clear to auscultation, no wheezing or crackles. ABDOMEN: Soft, nontender, nondistended, normoactive bowel sounds. No palpable organomegaly. MUSCULOSKELETAL: No joint swelling or deformity. EXTREMITIES: No cyanosis, clubbing, or pedal edema. NEUROLOGICAL: Patient is awake alert and able to open her eyes with verbal commands. Quadriplegic. SKIN: Multiple bruises and hematoma secondary to thrombocytopenia and fall - Labs CBC & Chem 7: 09/27/20 06:57 09/29/20 08:15 Labs: Abnormal Lab Results - Last 24 Hours (Table) 09/28/20 09/29/20 Range/Units 22:26 08:15 Potassium 2.8 L (3.5-5.1) mmol/L Chloride 111 H (98-107) mmol/L Carbon Dioxide 18 L (22-30) mmol/L Creatinine <0.15 L (0.52-1.04) mg/dL Glucose 106 H (74-99) mg/dL Calcium 7.6 L (8.4-10.2) mg/dL Assessment and Plan Assessment: Assessment and plan -Recurrent episodes of altered mental status with tongue biting. Possible complex partial seizures. Patient is on Vimpat 50 mg twice daily currently. -Altered mental status: Possible metabolic and toxic encephalopathy., Improving. Back to baseline. Unlikely meningoencephalitis.. possible component of polypharmacy related to Ambien, SIMRAN, and melatonin use, these medications are on hold. Multiple imaging studies have been negative including tibiofibular x-ray foot x-ray knee x-ray elbow x-ray chest x-ray head and cervical spine CT. TSH, B12, ammonia and folate levels are normal. MRI of the brain, repeat CT and EEG have been ordered. She is receiving IV Vimpat . Neurology is following. MRI of the brain was ordered. Repeat CT on 09/22/2020 showed scalp soft tissue swelling increased in size compared to old exam. No acute process. Lumbar puncture could not be performed due to severe thrombocytopenia. Due to worsening mental status and MRI are LP could not be done. Contacted [facility] transfer team for possible transfer to tertiary care facility for further management. psychiatric has seen the patient. neurology is following. Patient received a dose of with tubes and on 09/05/2020 patient will be related to progress encephalopathy. Cancel lumbar puncture and also transfer to tertiary care facility is on hold. Was able to do MRI on 09/25/2020 which revealed mild diffuse white matter increased signal in the peritoneal lobes that could be related to some encephalomalacia. No cortical infarct. Neurology is following. - Acute UTI 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 -Chronic thrombocytopenia Patient is receiving IV immunoglobulin at this time and patient has history of ITP -Recent treatment for cellulitis. -Hypertension:Blood pressure stable, Norvasc is being held at this time. -Hyperkalemia: repleted -Hypothyroidism -Hypokalemia. Replaced. -Hypernatremia due to volume depletion. DVT prophylaxis: Probably due to prophylaxis is contraindicated because of her low platelet count Time with Patient: Greater than 30
--- NOTE | 2020-09-29 23:49 | P.PN ---
Subjective Progress Note Date: 09/28/20 09/28/2020: Patient was seen via Tele-neurology today on 09/28/2020. Patient is fully alert and awake, more pleasant. Patient states "my niece took over my house, as she thinks it is unsafe". Patient states that "she has everything I own". Patient has no children. Patient denies headache. Patient wants to go home although PT has recommended rehab. Patient has not had any further epis odes of seizure-like spells. 09/26/2020: Nurse called me last night at 3:34 AM stating that "patient was alert and oriented 3 at beginning of the shift and speaking clearly. As the night progressed, her speech became less clear and her head and eyes were twitching. Speech was garbled and she is rolling her tongue back towards her throat almost like she has "marbles in her mouth". She will briefly stick her tongue out for us. Pupils are reactive. Patient is alert and oriented 2, but hallucinating and talking to herself. At present patient appears to be back to her baseline. Slightly obsessed about her wheelchair. She is smiling, present. Her caregiver also present. 09/25/2020: Patient was seen for a follow-up. Patient is remarkably improved. She is fully alert and awake. She is complaining "I have not been fed". She states that she she is here for over a week. She thinks her brain has shrunk. Patient admits that she gets confused. Patient states that she has not been able to move her hands and feet for long time. Patient denies headache. 09/24/2020: Patient could not have MRI completed because she was not able to lay flat by herself because of risk of aspiration. I had spoken to hematology about need for platelets related to lumbar puncture. She recommended for patient to have platelets transfused while lumbar puncture is being conducted. Anesthesia was consulted, but they apparently declined lumbar puncture because of severe thrombocytopenia. Subsequently, it was recommended for patient to be transferred to a higher level of care. I spoke to Dr. Oseguera, who agree for patient to be transferred to [facility], however beds are not available. Family has made patient DO NOT RESUSCITATE. Patient continues to be severely encephalopathic. Patient is not able to take any medications by mouth. No obvious seizures have been reported. Spoke to Cynthia lincoln NP, who gave additi onal piece of information, the patient received a dose of Rituxan on 09/05/2020. Patient has received this medication the past, and after one of those infusion, patient had developed some confusional episode but nothing like this. Apparently Rituxan was provided for ITP as a less for immune mediated polyneuropathy. Rituxan can produce progressive multifocal leukoencephalopathy syndrome. 09/23/2020: Patient was seen for a follow-up. Patient initially seen by Dr. Tee Summers. Please refer to his note for details. 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 He can follows up with Dr. Addison Espinal. Patient was admitted to the hospital for altered mental status. 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 She is wheelchair bound. She has some function with the right hand. Patient also has ITP. Patient suffered from a fall 2 weeks ago. Patient came with altered mental status with hypothermia and platelets were low 19,000. She was very paranoid, delusional. EEG was performed, which showed some artifactual changes, but no epileptiform activity. It also showed moderate to severe encephalopathy. Patient was empirically started on Vimpat 50 mg twice a day. Neurology was reconsulted today because of acute mental status change, muteness. Per nursing staff, patient on 09/20/2020 was confused but talking. She was obsessed about her shirt to be fixed, "fix my shirt". Subsequently on Wednesday morning and Wednesday morning, which is yesterday, she was very groggy, not waking up or speaking in the morning. However in the afternoon she was speaking better. Her speech was back to normal. She continued to be very paranoid, as stating "sister is going to set fire". "Brother is going to set on fire". Also saying "they are going to kill us". However this morning patient is fully awake, but will not speak. She makes eye contact, follows directions, but will not speak. WORK-UP: Patient's most recent platelet count is 13,000, hemoglobin 8.8 and WBC 4.2. AST of 97 and ALT of 154 which are elevated. Ammonia level is 11 which is considered within normal limits Calcium is 10.9 and the repeated 7.3 which are elevated. Glucose is 171 which is slightly elevated Urinalysis is negative for urinary tract infection Urine drug screen is positive for benzos and the serum alcohol was less than 10. Vitamin B12 is more than 4000 which is unremarkable. Folate level the serum is 22 which is normal. TSH is 1.0 which is considered within normal limits. CRP is 5.9 which is considered elevated. Serum calcium is 10.9 and the repeat IS 10.3. Ionized Calcium is 5.7 which is concerned elevated CT of the head is reported as there is no acute intracranial hemorrhage, mass effect or midline shift is seen. CT cervicals reported as there is no acute fracture or dislocation evident in the cervical spine. Objective - Vital Signs Vital signs: Vital Signs Temp 98.3 F 09/29/20 20:00 Pulse 62 09/29/20 20:00 Resp 18 09/29/20 20:00 BP 124/58 09/29/20 20:00 Pulse Ox 99 09/29/20 20:00 Intake & Output 09/29/20 09/29/20 09/30/20 06:59 18:59 06:59 Intake Total 590 250 Output Total 1000 300 Balance -1000 290 250 Weight 106 kg Intake: Intake, IV Titration 50 Amount cefTRIAXone 2 gm In 50 Sodium Chloride 0.9% 50 ml @ 100 mls/hr IVPB Q24HR [facility] Rx#:[id number] Oral 540 250 Output: Urine 1000 300 Other: Voiding Method Indwelling Catheter Indwelling Catheter Indwelling Catheter # Voids 1 - Exam On examination patient is fully alert and awake. She knows it is August and the year is 2020 and that she is in [facility] in the [facility]. She knows name of the current president. She is probably back to baseline. Her tongue protrudes to the midline. Patient denies headache. Her extraocular muscles are intact, face symmetric. Patient does have quadriplegia. She can move and wiggle her fingers of right hand better than the left. No movement in the lower extremities. Patient's reflexes are absent. No obvious fasciculations. Patient cannot walk. Cerebellar functions could not be tested. - Labs CBC & Chem 7: 09/27/20 06:57 09/29/20 08:15 Labs: Abnormal Lab Results - Last 24 Hours (Table) 09/29/20 Range/Units 08:15 Chloride 111 H (98-107) mmol/L Carbon Dioxide 18 L (22-30) mmol/L Creatinine <0.15 L (0.52-1.04) mg/dL Glucose 106 H (74-99) mg/dL Calcium 7.6 L (8.4-10.2) mg/dL Assessment and Plan Assessment: * Recurrent episodes of altered mental status, with tongue biting. Possible complex partial seizures. Patient has not had any further episodes since on Vimpat 100 mg twice a day. * Acute Encephalopathy, likely toxic metabolic, now seems to have resolved. Patient has acute UTI, elevated liver functions, and electrolyte imbalance, likely the causes. Her encephalopathy today has resolved. She is back to baseline. Patient has received dose of Rituxan on 09/05/2020, which may be related to progressive encephalopathy. * Hypothermia of unknown etiology * Electrolyte imbalances. 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 No further episodes of altered mental status/tongue bite since being on Vimpat. Continue Vimpat 100 mg twice a day. * MRI of the brain was performed yesterday, which revealed some mild diffuse white matter increased signal in the parietal lobes that could relate to some encephalomalacia. No cortical infarct. * EEG was abnormal due to background slowing of moderate to severe degree. This is suggestive of generalized cerebral dysfunction as can be seen with toxic metabolic encephalopathy or due to diffuse structural brain abnormality. No epileptiform activity was seen. When compared to EEG from 09/22/2020, there is no significant change. * Her platelets also has improved 54,000. * Will defer any electrolyte abnormality correction to the primary team. * Recommend psychiatry follow-up.
--- NOTE | 2020-09-30 01:07 | P.PN ---
Subjective Progress Note Date: 09/29/20 09/29/2020: Patient was seen via Tele-neurology today on 09/29/2020 from 2:16 PM to 2:25 PM.. Patient is feeling much better. Offers no complaints. Denies headache. Patient is very pleasant female. Patient is back to baseline. 09/28/2020: Patient was seen via Tele-neurology today on 09/28/2020. Patient is fully alert and awake, more pleasant. Patient states "my niece took over my house, as she thinks it is unsafe". Patient states that "she has everything I own". Patient has no children. Patient denies headache. Patient wants to go home although PT has recommended rehab. Patient has not had any further episodes of seizure-like spells. 09/26/2020: Nurse called me last night at 3:34 AM stating that "patient was alert and oriented 3 at beginning of the shift and speaking clearly. As the night progressed, her speech became less clear and her head and eyes were twitching. Speech was garbled and she is rolling her tongue back towards her throat almost like she has "marbles in her mouth". She will briefly stick her tongue out for us. Pupils are reactive. Patient is alert and oriented 2, but hallucinating and talking to herself. At present patient appears to be back to her baseline. Slightly obsessed about her wheelchair. She is smiling, present. Her caregiver also present. 09/25/2020: Patient was seen for a follow-up. Patient is remarkably improved. She is fully alert and awake. She is complaining "I have not been fed". She states that she she is here for over a week. She thinks her brain has shrunk. Patient admits that she gets confused. Patient states that she has not been abl e to move her hands and feet for long time. Patient denies headache. 09/24/2020: Patient could not have MRI completed because she was not able to lay flat by herself because of risk of aspiration. I had spoken to hematology about need for platelets related to lumbar puncture. She recommended for patient to have platelets transfused while lumbar puncture is being conducted. Anesthesia was consulted, but they apparently declined lumbar puncture because of severe thrombocytopenia. Subsequently, it was recommended for patient to be transferred to a higher level of care. I spoke to Dr. Oseguera, who agree for patient to be transferred to [facility], however beds are not available. Family has made patient DO NOT RESUSCITATE. Patient continues to be severely encephalopathic. Patient is not able to take any medications by mouth. No obvious seizures have been reported. Spoke to Cynthia lincoln NP, who gave additional piece of information, the patient received a dose of Rituxan on 09/05/2020. Patient has received this medication the past, and after one of those infusion, patient had developed some confusional episode but nothing like this. Apparently Rituxan was provided for ITP as a less for immune mediated polyneuropathy. Rituxan can produce progressive multifocal leukoencephalopathy syndrome. 09/23/2020: Patient was seen for a follow-up. Patient initially seen by Dr. Tee Summers. Please refer to his note for details. 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 He can follows up with Dr. Addison Espinal. Patient was admitted to the hospital for altered mental status. 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 She is wheelchair bound. She has some function with the right hand. Patient also has ITP. Patient suffered from a fall 2 weeks ago. Patient came with altered mental status with hypothermia and platelets were low 19,000. She was very paranoid, delusional. EEG was performed, which showed some artifactual changes, but no epileptiform activity. It also showed moderate to severe encephalopathy. Patient was empirically start ed on Vimpat 50 mg twice a day. Neurology was reconsulted today because of acute mental status change, muteness. Per nursing staff, patient on 09/20/2020 was confused but talking. She was obsessed about her shirt to be fixed, "fix my shirt". Subsequently on Wednesday morning and Wednesday morning, which is yesterday, she was very groggy, not waking up or speaking in the morning. However in the afternoon she was speaking better. Her speech was back to normal. She continued to be very p aranoid, as stating "sister is going to set fire". "Brother is going to set on fire". Also saying "they are going to kill us". However this morning patient is fully awake, but will not speak. She makes eye contact, follows directions, but will not speak. WORK-UP: Patient's most recent platelet count is 13,000, hemoglobin 8.8 and WBC 4.2. AST of 97 and ALT of 154 which are elevated. Ammonia level is 11 which is considered within normal limits Calcium is 10.9 and the repeated 7.3 which are elevated. Glucose is 171 which is slightly elevated Urinalysis is negative for urinary tract infection Urine drug screen is positive for benzos and the serum alcohol was less than 10. Vitamin B12 is more than 4000 which is unremarkable. Folate level the serum is 22 which is normal. TSH is 1.0 which is considered within normal limits. CRP is 5.9 which is considered elevated. Serum calcium is 10.9 and the repeat IS 10.3. Ionized Calcium is 5.7 which is concerned elevated CT of the head is reported as there is no acute intracranial hemorrhage, mass effect or midline shift is seen. CT cervicals reported as there is no acute fracture or dislocation evident in the cervical spine. Objective - Vital Signs Vital signs: Vital Signs Temp 98.3 F 09/29/20 20:00 Pulse 62 09/29/20 20:00 Resp 18 09/29/20 20:00 BP 124/58 09/29/20 20:00 Pulse Ox 99 09/29/20 20:00 Intake & Output 09/29/20 09/29/20 09/30/20 06:59 18:59 06:59 Intake Total 590 250 Output Total 1000 300 525 Balance -1000 290 -275 Weight 106 kg Intake: Intake, IV Titration 50 Amount cefTRIAXone 2 gm In 50 Sodium Chloride 0.9% 50 ml @ 100 mls/hr IVPB Q24HR [facility] Rx#:[id number] Oral 540 250 Output: Urine 1000 300 525 Other: Voiding Method Indwelling Catheter Indwelling Catheter Indwelling Catheter # Voids 1 - Exam On examination patient is fully alert and awake. She knows it is August and the year is 2020 and that she is in [facility] in the [facility]. She is probably back to baseline. Her tongue protrudes to the midline. No more fresh tongue bite reid. The bruising has improved. Patient denies headache. Her extraocular muscles are intact, face symmetric. Patient does have quadriplegia. She can move and wiggle her fingers of right hand better than the left. No movement in the lower extremities. Patient's reflexes are absent. No obvious fasciculations. Patient cannot walk. Cerebellar functions could not be tested. - Labs CBC & Chem 7: 09/27/20 06:57 09/29/20 08:15 Labs: Abnormal Lab Results - Last 24 Hours (Table) 09/29/20 Range/Units 08:15 Chloride 111 H (98-107) mmol/L Carbon Dioxide 18 L (22-30) mmol/L Creatinine <0.15 L (0.52-1.04) mg/dL Glucose 106 H (74-99) mg/dL Calcium 7.6 L (8.4-10.2) mg/dL Assessment and Plan Assessment: * Recurrent episodes of altered mental status, with tongue biting. Possible complex partial seizures. Patient has not had any further episodes since on Vimpat 100 mg twice a day. * Acute Encephalopathy, likely toxic metabolic, now seems to have resolved. P tracey has acute UTI, elevated liver functions, and electrolyte imbalance, likely the causes. Her encephalopathy today has resolved. She is back to baseline. Patient has received dose of Rituxan on 09/05/2020, which may be related to progressive encephalopathy. * Hypothermia of unknown etiology * Electrolyte imbalances. 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 No further episodes of altered mental status/tongue bite since being on Vimpat. Continue Vimpat 100 mg twice a day. * MRI of the brain was performed yesterday, which revealed some mild diffuse white matter increased signal in the parietal lobes that could relate to some encephalomalacia. No cortical infarct. * EEG was abnormal due to background slowing of moderate to severe degree. This is suggestive of generalized cerebral dysfunction as can be seen with toxic metabolic encephalopathy or due to diffuse structural brain abnormality. No epileptiform activity was seen. When compared to EEG from 09/22/2020, there is no significant change. * Her platelets also has improved 66,000. * Await rehab consult. * Her neurological status is back to baseline. We will sign off. Please reconsult neurology if any other concerns.
--- NOTE | 2020-09-30 06:02 | P.CONS ---
History of Present Illness - Chief Complaint Quadriplegia - History of Present Illness I had the opportunity to see patient for inpatient rehab consultation with regard to quadriplegia. Patient to [facility] history of fall of wheelchair but without loss of consciousness. Confusion noted. Seen by Dr. Tran for possible infectious disease. Seen by Dr. Tee Summers who notes multifocal polyneuropathy, ALS like with "quadriplegia, diagnosed encephalopathy. Seen by Dr. Dallas who notes delirium encephalopathy. Seen by Dr. Acosta who notes dry eyes and blindness left eye. Chest x-ray notes pos sible pneumonia as well as mild left effusion. Head CT demonstrates scalp abrasion. Brain MRI demonstrates an encephalopathy. Previous functional history as elicited patient: 60-year-old right-handed white female single currently resides a retirement where she is cared for up. Note functional quadriplegia. Review of Systems Review of systems: Skin: Shiny, atrophic, bruises noted for head and face. ENT: Denies sneezes or discharge. Eyes: Denies discharge or photophobia. Cardiac: Denies chest pain or palpitation. Pulmonary: Denies cough or shortness of breath. Breast: Denies discharge or lumps. Gastrointestinal: Denies nausea, emesis, constipation, diarrhea. Genitourinary: Denies discharge or frequency. Musculoskeletal: Denies muscle or bone aches. Neurologic: Confusion and quadriplegia. Endocrine: Denies shakes or sweats. Oncology: Denies cancers. Dermatologic: Denies rash, itching, pruritus. ALLERGY/immunology: Denies sneezes, rashes. 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, TUBULAR RENAL ACIDOSIS,NEUROMUSCULAR DISEASE-MULTI FOCAL MOTOR NEUROPATHY , QUADRIPLEGIC History of Any Multi-Drug Resistant Organisms: None Reported Past Surgical History: Uterine Ablation Additional Past Surgical History / Comment(s): MUSCLE BIOPSY , D&C Past Anesthesia/Blood Transfusion Reactions: Postoperative Nausea & Vomiting (PONV) Past Psychological History: No Psychological Hx Reported Smoking Status: Never smoker Past Alcohol Use History: None Reported Past Drug Use History: None Reported - Past Family History Mother Family Medical History: No Reported History Medications and Allergies Home Medications Medication Instructions Recorded Confirmed Type Atenolol [Tenormin] 100 mg PO HS 07/21/16 09/19/20 History Montelukast [Singulair] 10 mg PO HS 07/21/16 09/19/20 History Potassium Bicarbonate/Cit AC 50 meq PO TID-W/MEALS 07/21/16 09/19/20 History [Klor-Con 25 (Effer. Tab)] amLODIPine [Norvasc] 5 mg PO W/BRKFST 07/21/16 09/19/20 History Potassium Chloride [Klor-Con 20] 20 meq PO BID-W/MEALS 07/28/16 09/19/20 History Ferrous Sulfate [Iron (65 MG 325 mg PO W/SUPPER 01/04/18 09/19/20 History Elemental)] Cranberry 25,000mg 25,000 mg PO W/BRKFST 07/04/20 09/19/20 History Ergocalciferol [Vitamin D2 (1250 1,250 mcg PO FR 07/04/20 09/19/20 History Mcg = 08896 Iu)] Levothyroxine Sodium [Tirosint] 112 mcg PO DAILY 07/04/20 09/19/20 History Sodium Bicarbonate Tab 650 mg PO BID-W/MEALS 07/04/20 09/19/20 History Vitamin A Acetate [Vitamin A] 10,000 unit SL W/BRKFST 07/04/20 09/19/20 History calcitrioL [Calcitriol] 0.25 mcg PO MO 07/04/20 09/19/20 History Ascorbic Acid [Vitamin C] 500 mg PO W/SUPPER 09/19/20 09/19/20 History Biotin 10,000 mcg PO W/BRKFST 09/19/20 09/19/20 History Calcium Carbonate [Calcium] 600 mg PO W/LUNCH 09/19/20 09/19/20 History Famotidine [Pepcid] 20 mg PO HS 09/19/20 09/19/20 History Efren 750mg 1 tab PO HS 09/19/20 09/19/20 History Gamunex-C 5gm/50ml 15 gm IV Q28D 09/19/20 09/19/20 History Magnesium Gluconate [Magonate] 500 mg PO W/LUNCH 09/19/20 09/19/20 History Melatonin 1 mg PO HS 09/19/20 09/19/20 History Thiamine [Vitamin B-1] 100 mg PO BID-W/MEALS 09/19/20 09/19/20 History Vitamin E Acetate [Vitamin E] 200 unit PO W/LUNCH 09/19/20 09/19/20 History Zolpidem Tartrate 3.5 mg SL HS 09/19/20 09/19/20 History Allergies Allergy/AdvReac Type Severity Reaction Status Date / Time hydrocortisone Allergy Nausea & Verified 09/05/20 09:52 Vomiting Iodine and Iodide Containing Allergy "KIDNEY Verified 09/05/20 09:52 Produc PROBLEM" quinine Allergy Nausea & Verified 09/05/20 09:52 Vomiting iodine AdvReac Unknown "KIDNEY Verified 09/05/20 09:52 PROBLEM" Physical Exam Vitals: Vital Signs Temp Pulse Resp BP Pulse Ox 09/30/20 04:00 97 18 128/50 97 09/30/20 00:00 61 18 124/58 97 09/29/20 20:00 98.3 F 62 18 124/58 99 09/29/20 18:03 98.3 F 72 16 143/65 91 L 09/29/20 12:27 68 18 127/59 95 09/29/20 07:55 98.3 F 63 16 129/74 93 L Intake and Output 09/29/20 09/29/20 09/30/20 14:59 22:59 06:59 Intake Total 590 250 Output Total 300 525 Balance 590 -50 -525 Intake: Intake, IV Titration 50 Amount cefTRIAXone 2 gm In 50 Sodium Chloride 0.9% 50 ml @ 100 mls/hr IVPB Q24HR [facility] Rx#:[id number] Oral 540 250 Output: Urine 300 525 Other: Voiding Method Indwelling Catheter Indwelling Catheter Indwelling Catheter Skin: Shiny, atrophic, bruises noted for head and face. General: Medium build and comfortable appearance. Head: Normocephalic, atraumatic. Eyes: Symmetric. Pupils equal round. Ears: Symmetric. Hearing within normal limits. Mouth: Clear. Neck: Supple. Carotid without bruit. Cardiac: Regular rate and rhythm. Lungs: Clear anteriorly and posteriorly. Abdomen: Soft active nontender. Extremities: Normal tone. Neurological: Mental status: Alert, cooperative, pleasant but confused. Cranial nerves: Symmetric facial tone and trapezius. Motor: Unable to move any parts of any limb. Sensation: Intact throughout. DTRs: Symmetric and equal throughout. Mobility: Requires total assistance for any mobility of limbs or body. 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 Continues to require 24-hour care multiple persons. Please advise if there are any specific questions and have with regard to patient care. During my visit, patient well on the fact that she was in her chair and did not seem to recognize that she was in a hospital bed.
[2020-09-30] MEDS: THIAMINE 100 MG TAB PO SCH ×2 (06:48→13:01)
[2020-09-30] MEDS: amLODIPine 5 MG TAB PO SCH (06:48)
[2020-09-30] MEDS: PANTOPRAZOLE 40 MG TABLET PO SCH (06:48)
[2020-09-30] MEDS: LEVOTHYROXINE 112 MCG TAB PO SCH (06:48)
[2020-09-30] MEDS: VITAMIN A 10,000 UNIT (3000 MCG) CAPSULE PO SCH (06:48)
[2020-09-30] MEDS: SODIUM BICARBONATE TAB 650 MG TAB PO SCH ×2 (06:48→13:01)
[2020-09-30 08:12] LABS: Anion Gap 4 mmol/L; Blood Urea Nitrogen 5 mg/dL (7-17); Carbon Dioxide 23 mmol/L (22-30); Chloride 112 mmol/L (98-107); Glucose 111 mg/dL (74-99); Potassium 3.2 mmol/L (3.5-5.1); Sodium 139 mmol/L (137-145)
[2020-09-30] MEDS: DOCUSATE 100 MG CAP PO SCH ×2 (08:21→20:01)
[2020-09-30] MEDS: LACOSAMIDE 50 MG TABLET PO SCH ×2 (08:21→20:01)
[2020-09-30] MEDS: CEFDINIR 300 MG CAP PO SCH ×2 (08:21→20:01)
[2020-09-30 08:23] LABS: African American GFR (CKD) >90 (>60 ml/min/1.73 sqM); Non-African American GFR(CKD) >90 (>60 ml/min/1.73 sqM)
[2020-09-30 08:43] LABS: Anisocytosis Slight; Basophils % (A) 0 %; Eosinophils % (A) 1 %; HCT 20.7 % (34.0-46.0); HGB 7.2 gm/dL (11.4-16.0); Hyperchromasia Slight; Hypochromasia Slight; Lymphocytes # (A) 0.6 k/uL (1.0-4.8); Lymphocytes % (A) 10 %; MCH 32.9 pg (25.0-35.0); MCHC 34.9 g/dL (31.0-37.0); MCV 94.2 fL (80.0-100.0); Macrocytosis Slight; Monocytes # (A) 0.3 k/uL (0-1.0); Monocytes % (A) 5 %; Neutrophils # (A) 4.6 k/uL (1.3-7.7); Neutrophils % (A) 83 %; Poikilocytosis Marked; RDW 19.5 % (11.5-15.5); WBC 5.5 k/uL (3.8-10.6)
[2020-09-30 08:44] LABS: Platelet Count 155 k/uL (150-450)
[2020-09-30] MEDS: SODIUM CHLORIDE 0.9% 1,000 ML IV SCH ×2 (09:04→20:01)
[2020-09-30] MEDS: POTASSIUM CHLORIDE ER 20 MEQ TAB.ER PO SCH ×2 (09:54→10:38)
--- NOTE | 2020-09-30 12:34 | P.PN ---
Subjective Progress Note Date: 09/30/20 Principal diagnosis: ITP Pt is alert today, carrying on very confused conversation. She was not able to tell me where she is, she was suspicious of staff, feeling she is being "w atched". Objective - Vital Signs Vital signs: Vital Signs Temp 98.6 F 09/30/20 08:00 Pulse 64 09/30/20 08:00 Resp 18 09/30/20 08:00 BP 130/59 09/30/20 08:00 Pulse Ox 97 09/30/20 08:00 Intake & Output 09/29/20 09/30/20 09/30/20 18:59 06:59 18:59 Intake Total 590 250 Output Total 300 825 Balance 290 -575 Weight 105.5 kg Intake: Intake, IV Titration 50 Amount cefTRIAXone 2 gm In 50 Sodium Chloride 0.9% 50 ml @ 100 mls/hr IVPB Q24HR [facility] Rx#:[id number] Oral 540 250 Output: Urine 300 825 Other: Voiding Method Indwelling Catheter Indwelling Catheter Indwelling Catheter - Constitutional General appearance: Present: cooperative, obese - EENT EENT Comment(s): large bruise of forehead, bilateral bruising around the eyes Eyes: Present: anicteric sclerae, EOMI ENT: Present: hearing grossly normal - Respiratory Respiratory: bilateral: CTA - Cardiovascular Heart sounds: normal: S1, S2 Abnormal Heart Sounds: Present: systolic murmur. Absent: diastolic murmur, rub, S3 Gallop, S4 Gallop, click, other - Gastrointestinal General gastrointestinal: Present: normal bowel sounds, soft - Psychiatric Psychiatric: Absent: appropriate affect, intact judgment & insight - Labs CBC & Chem 7: 09/30/20 07:12 09/30/20 07:12 Labs: Abnormal Lab Results - Last 24 Hours (Table) 09/30/20 09/30/20 Range/Units 07:12 07:12 RBC 2.20 L (3.80-5.40) m/uL Hgb 7.2 L (11.4-16.0) gm/dL Hct 20.7 L (34.0-46.0) % RDW 19.5 H (11.5-15.5) % Lymphocytes # 0.6 L (1.0-4.8) k/uL Potassium 3.2 L (3.5-5.1) mmol/L Chloride 112 H (98-107) mmol/L BUN 5 L (7-17) mg/dL Creatinine <0.15 L (0.52-1.04) mg/dL Glucose 111 H (74-99) mg/dL Calcium 8.0 L (8.4-10.2) mg/dL - Imaging and Cardiology MRI - head: report reviewed Assessment and Plan (1) Chronic ITP (idiopathic thrombocytopenic purpura) Narrative/Plan: Patient has a history of chronic ITP with a baseline running from 100-140,000. IVIG was given as she missed her dose that was due 09/09/20 Last received Rituxan on 09/04/20 Her platelets are recovered CBC in a.m. 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 Have left message with Radiologist to review MRI brain.
[2020-09-30] MEDS: VITAMIN E (DL,TOCOPHERYL ACET) 400 UNIT (180 MG) CAP PO SCH (13:01)
[2020-09-30] MEDS: CALCIUM CARBONATE 500 MG CHEWABLE PO SCH (13:01)
--- NOTE | 2020-09-30 15:24 | P.PN ---
Subjective Progress Note Date: 09/30/20 Altered mental status possible metabolic and toxic encephalopathy Severe thrombocytopenia 60-year-old female came to the hospital after fall and patient was quite a bit confused and was paranoid apparently yesterday. Patient is alert oriented 2 when I valid the patient and patient the temperature was around 80 because of which there multiple heart attacks and the nursing staff was planning on beta bl ocker although patient was complaining of excessive heat and sweating because of which we removed all of those and we will recheck the temperature again. Apart from that there is no clear evidence of sepsis at this time. UA is not significant for urinary tract infection. In spite of her confusion patient was able to provide me good history. Patient denied any cough patient or dysuria chest x-ray did not show any significant abnormality. Etiology of her son onset of confusion is not clear at this time CT of the head did not show any intracranial hemorrhage MRI is being obtained. 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 Patient missed her IVIG, patient is severely thrombocytopenia With platele t count of around 16,000. Patient has multiple bruises and multiple hematomas secondary to low platelet count after fall. Patient denied any headache patient was recently treated for cellulitis. Suspicion is low for meningitis and unfortunately we cannot the get an LP considering her very low platelet count because of which we are not obtaining CSF analysis at this time. Her thrombus rapini is believed to be secondary to diuretic she received for cellulitis recently. Patient has mildly elevated liver enzymes. MRI was ordered by oncology. Patient blood screen is only for positive for benzodiazepines for which patient doesn't appear to have a prescription for but patient does take Ambien 3.5 mg at bedtime. There is no clear metabolic toxic causes that can explain her confusion or delirium. Psychiatry was consulted as well. 09/21/2020 Patient remains unclear whether patient remains hypothermic remains confused and paranoid psychiatry at evaluate the patient. I consulted neurology as there is no real rheumatological factor for her confusion neurology evaluated the patient and they believe patient may have bilateral lower extremity plegia and left upper extremity hemiparesis. Patient received IVIG for ITP. There is no clear evidence of infection at this time because of continued hyperlipidemia and consult infectious disease as well. 09/22/2020 Patient is seen on follow-up, she is resting in bed, a bit agitated and delirious, unable to answer questions. She is repetitively stating that she is "over the fire". Her temperature this morning 97.4 axillary. Hemodynamically stable. Receiving IV Vimpat.. Vitamin B12, folate and TSH normal. Her platelet count low at 14, today's labs are pending. She is maintained and IV hydration with normal saline. Multiple imaging studies are pending including CT of the brain and MRI of the brain, there is also an EEG ordered by neurology. No growth on preliminary blood and urine cultures at this time. 09/23/2020 Patient is lying in the bed but has been unresponsive since morning. Patient did have also mental status and also muted. Patient was paranoid day before yesterday and has been groggy since then. Patient is able to open her eyes but will not speak. Patient has been afebrile. Laboratory data showed the Nelia 4.2 hemoglobin 8.8 and platelets 13,000 Sodium 142 potassium 4.1 chloride 113 bicarb is 25 BUN 10 and creatinine 0.17 and blood sugar is 104. cultures have been negative and TSH level is 1.0 09/24/2020 Patient was transferred to telemetry unit. Able to wake up and open her eyes with verbal commands. Trying to communicate. Patient is more awake and alert compared to yesterday. MRI could not be done due to risk of aspiration and patient could not lie flat. Lumbar puncture could not be done by anesthesia due to severe thrombocytopenia. Otherwise mental status is better today. Patient has been afebrile. Laboratory data showed WBC 4.5, hemoglobin 8.5 and platelets 42 Sodium 149 potassium 2.8 and chloride 115 BUN 13 and creatinine 0.15 Patient is being continued on gentle IV hydration and follow-up electrolytes. Patient was seen by ophthalmology due to IV discharge likely related to dryness and poor control of eyelids and improper closely at times. No evidence of infection. Continue with topical ointment for dryness. 09/25/2020 Patient is awake alert and oriented and is able to communicate slowly. Wants to eat. Patient has been afebrile. No compressive chest pain or shortness of breath. Potassium is being replaced. Denies any headache. Patient knows that she has not been monitoring her hands and feet for a long time. Laboratory data showed sodium 144 potassium 2.5 chloride 113 bicarb is 20 BUN 14 and creatinine 0.19 WBC 4.8 hemoglobin 8.7 platelets 54,000. 09/26/2020 Patient is currently lying in the bed comfortably. Awake and alert and follows eye contact. Patient was oriented 3 last night. As night progressed her speech became less clear and head and eyes were twitching. Speech was garbled and rolling her tongue back. Patient seems to be hallucinating and talking to herself.. Currently patient is awake alert but could not talk. Patient wants to eat something. Patient has been afebrile. No complaints of headache. No diarrhea or abdominal pain. Laboratory data showed improved sodium level and potassium level. Neurology is on board. MRI was done . 09/27/20 Patient is more awake and alert and oriented today. Able to tolerate oral diet with one-to-one feeding. Denied any bowel movement last couple days. No complaints of nausea or vomiting. Mentation is at baseline overnight. Patient has been afebrile. No complaint of chest pain or shortness of breath. MRI of the brain showed mild diffuse white matter increased signal in the parietal lobes that correlate to some encephalomalacia. Potassium level was 2.6 this morning and replace it with repeat level II.9. Magnesium 1.5 which is being replaced. 09/28/20 Patient is awake alert and oriented 2-3. Able to communicate. Mentation is at baseline. No complains of chest pain or shortness of breath. Potassium level is 3.6 to morning. Patient is being continued on Vimpat possible complex partial seizures. Afebrile. No nausea vomiting or abdominal pain. Patient did have a small bowel movement. 09/29/2020 Patient is awake alert and oriented. Able to communicate slowly. Mentation is at baseline. Tolerating oral diet very well. No complaints of chest pain or shortness of. No nausea vomiting or abdominal pain or diarrhea. Patient has been afebrile. Urine culture is finalized. Polymicrobial specimen. Currently on antibiotics involve Omnicef. ID is following. Patient was also started Vimpat for possible partial complex seizures. Continue on PT OT and possible transfer to rehab.d 09/30/2020 Patient evaluated at bedside today, she is awake alert and oriented times perso n. Patient is able to communicate effectively, however she states that she feels that she is trapped. Her mentation is apparently at baseline. She is tolerating an oral diet, however she does require assistance for feeding. Patient denies chest pain and shortness of breath. She denies nausea vomiting abdominal pain or diarrhea. Patient has been afebrile. Blood cultures and urine cultures are negative. Her potassium is 3.2 today, has been replaced per protocol. Repeat CBC and BMP in the morning. Hemoglobin today is 7.2 which has been trending down this admission. Patient is being followed by oncology, for this new onset anemia, in a patient who has a history of chronic ITP, patient is maintained on IVIG. EEG completed and was negative for any epileptiform activity. However patient has been started on Vimpat 100 mg twice a day for questionable episodes of altered mental status with tongue biting, rule out partial complex seizures. At this time after reviewing MRI, neurology has signed off. Patient will continue on oral Omnicef for possible pneumonia according to ID. ROS: Constitutional: Denied any fatigue denied any fever. Cardio vascular: denied any chest pain, palpitations Gastrointestinal denied any nausea vomiting Pulmonary: Denied any shortness of breath cough Neurologic: Reports feeling suspicious of staff, reports being unable to move her upper extremities, states she feels trapped. All inpatient medications were reviewed and appropriate changes in these medications as dictated in the interval history and assessment and plan. PHYSICAL EXAMINATION: GENERAL: The patient is alert and oriented to person, not in any acute distress. Well developed, well nourished. HEENT: Pupils are round and equally reacting to light. EOMI. Periorbital bruising present bilaterally. CARDIOVASCULAR: S1 and S2 present. No murmurs, rubs, or gallops. PULMONARY: Chest is clear to auscultation, no wheezing or crackles. ABDOMEN: Soft, nontender, nondistended, normoactive bowel sounds. No palpable organomegaly. MUSCULOSKELETAL: No joint swelling or deformity. EXTREMITIES: No cyanosis, clubbing, +3 pedel edema present NEUROLOGICAL: Gross neurological examination revealed quadriplegia, pt is able to open her eyes and respond to verbal commands. SKIN: Multiple bruises, hematoma r/t fall and thrombocytopenia. Assessment and plan -Recurrent episodes of altered mental status with tongue biting. Possible complex partial seizures. Patient is on Vimpat 50 mg twice daily currently. -Altered mental status: Possible metabolic and toxic encephalopathy., Improving. Back to baseline. Unlikely meningoencephalitis.. possible component of polypharmacy related to Ambien, SIMRAN, and melatonin use, these medications are on hold. Multiple imaging studies have been negative including tibiofibular x-ray foot x-ray knee x-ray elbow x-ray chest x-ray head and cervical spine CT. TSH, B12, ammonia and folate levels are normal. Repeat CT on 09/22/2020 showed scalp soft tissue swelling increased in size compared to old exam. No acute process. Lumbar puncture could not be performed due to severe thrombocytopenia. psychiatric has seen the patient. neurology at this time has signed off on the patient. Patient received a dose of with tubes and on 09/05/2020 patient will be related to progress encephalopathy. Cancel lumbar puncture and also transfer to tertiary care facility [facility] is on hold. Was able to do MRI on 09/25/2020 which revealed mild diffuse white matter increased signal in the peritoneal lobes that could be related to some encephalomalacia. No cortical infarct. EEG completed on 09/24/2020 which showed moderate to severe degree of background slowing. This is suggestive generalized cerebral dysfunction as can be seen with toxic metabolic encephalopathy, or diffuse structural brain abnormality. No epileptiform activity was seen. This is unchanged as compared to the EEG performed on 09/22/2020. At this time patient has been transitioned to oral Vimpat tolerating well. No further signs of altered mentation with tongue biting. Her neurology suspected partial complex seizures. Family is pursuing guardianship in the courts, at this time patient is not a candidate for inpatient rehab due to her long-standing status is a quadriplegic, and her altered mentation. - Acute UTI 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 -Chronic thrombocytopenia Patient is receiving IV immunoglobulin at this time and patient has history of ITP. -Recent treatment for cellulitis. -Hypertension:Blood pressure stable, Norvasc has been resumed. Monitor blood pressure -Hyperkalemia: repleted -Hypothyroidism -Hypokalemia. Replaced, follow-up of lab work in the morning. -Anemia. New-onset. Work-up with hematology. -Hypernatremia due to volume depletion. DVT prophylaxis: Probably due to prophylaxis is contraindicated because of her low platelet count. Objective - Vital Signs Vital signs: Vital Signs Temp 98.6 F 09/30/20 08:00 Pulse 68 09/30/20 12:00 Resp 18 09/30/20 14:00 BP 162/69 09/30/20 12:00 Pulse Ox 97 09/30/20 12:00 Intake & Output 09/29/20 09/30/20 09/30/20 18:59 06:59 18:59 Intake Total 590 250 Output Total 300 825 Balance 290 -575 Weight 105.5 kg Intake: Intake, IV Titration 50 Amount cefTRIAXone 2 gm In 50 Sodium Chloride 0.9% 50 ml @ 100 mls/hr [facility] Rx#:[id number] Oral 540 250 Output: Urine 300 825 Other: Voiding Method Indwelling Catheter Indwelling Catheter Indwelling Catheter - Labs CBC & Chem 7: 09/30/20 07:12 09/30/20 07:12 Labs: Abnormal Lab Results - Last 24 Hours (Table) 09/30/20 09/30/20 09/30/20 Range/Units 07:12 07:12 07:12 RBC 2.20 L (3.80-5.40) m/uL Hgb 7.2 L (11.4-16.0) gm/dL Hct 20.7 L (34.0-46.0) % RDW 19.5 H (11.5-15.5) % Lymphocytes # 0.6 L (1.0-4.8) k/uL Retic Count 6.0 H (0.5-2.0) % Potassium 3.2 L (3.5-5.1) mmol/L Chloride 112 H (98-107) mmol/L BUN 5 L (7-17) mg/dL Creatinine <0.15 L (0.52-1.04) mg/dL Glucose 111 H (74-99) mg/dL Calcium 8.0 L (8.4-10.2) mg/dL Lactate Dehydrogenase (313-618) U/L 09/30/20 Range/Units 07:12 RBC (3.80-5.40) m/uL Hgb (11.4-16.0) gm/dL Hct (34.0-46.0) % RDW (11.5-15.5) % Lymphocytes # (1.0-4.8) k/uL Retic Count (0.5-2.0) % Potassium (3.5-5.1) mmol/L Chloride (98-107) mmol/L BUN (7-17) mg/dL Creatinine (0.52-1.04) mg/dL Glucose (74-99) mg/dL Calcium (8.4-10.2) mg/dL Lactate Dehydrogenase 792 H (313-618) U/L Assessment and Plan Time with Patient: Greater than 30
[2020-09-30] MEDS: FERROUS SULFATE 325 MG TAB PO SCH (17:05)
[2020-09-30] MEDS: PHENYLEPHRINE 2.5% OPHTH DRP 2ML BOTH EYES SCH (17:09)
[2020-09-30] MEDS: FAMOTIDINE 20 MG TAB PO SCH (20:01)
[2020-09-30] MEDS: MONTELUKAST 10 MG TAB PO SCH (20:01)
[2020-09-30] MEDS: atenoloL 50 MG TAB PO SCH (20:01)
[2020-09-30 20:16] LABS: % Iron Saturation 16.67 (12.00-45.00)
[2020-09-30 21:19] LABS: Ferritin 646.9 ng/mL (10.0-291.0)
[2020-10-01] MEDS: SODIUM BICARBONATE TAB 650 MG TAB PO SCH ×2 (06:41→11:13)
[2020-10-01] MEDS: LEVOTHYROXINE 112 MCG TAB PO SCH (06:41)
[2020-10-01] MEDS: VITAMIN A 10,000 UNIT (3000 MCG) CAPSULE PO SCH (06:42)
[2020-10-01] MEDS: amLODIPine 5 MG TAB PO SCH (06:42)
[2020-10-01] MEDS: PANTOPRAZOLE 40 MG TABLET PO SCH (06:42)
[2020-10-01] MEDS: THIAMINE 100 MG TAB PO SCH ×2 (06:42→11:13)
[2020-10-01 07:57] LABS: Anisocytosis Slight; Hyperchromasia Slight; Hypochromasia Slight; MCHC 33.8 g/dL (31.0-37.0); MCV 94.6 fL (80.0-100.0); Macrocytosis Slight; Mean Platelet Volume 8.9; Platelet Count 151 k/uL (150-450); Poikilocytosis Marked; RBC 2.04 m/uL (3.80-5.40); RDW 19.5 % (11.5-15.5); WBC 4.8 k/uL (3.8-10.6)
[2020-10-01 08:19] LABS: Anion Gap 4 mmol/L; Blood Urea Nitrogen 3 mg/dL (7-17); Calcium 7.7 mg/dL (8.4-10.2); Carbon Dioxide 24 mmol/L (22-30); Chloride 111 mmol/L (98-107); Glucose 84 mg/dL (74-99); Potassium 3.1 mmol/L (3.5-5.1); Sodium 139 mmol/L (137-145)
[2020-10-01 08:26] LABS: HCT 19.3 % (34.0-46.0); HGB 6.5 gm/dL (11.4-16.0)
[2020-10-01] MEDS: CEFDINIR 300 MG CAP PO SCH ×2 (08:34→21:39)
[2020-10-01] MEDS: DOCUSATE 100 MG CAP PO SCH ×2 (08:34→21:39)
[2020-10-01] MEDS: LACOSAMIDE 50 MG TABLET PO SCH ×2 (08:34→21:39)
--- NOTE | 2020-10-01 08:55 | PN ---
PROGRESS NOTE DATE OF SERVICE: 09/30/2020 REASON FOR FOLLOWUP: Pneumonia. INTERVAL HISTORY: The patient is afebrile. The patient remains to be pleasantly confused but not agitated. She is breathing comfortably on room air. No vomiting, diarrhea or other changes reported by the nursing staff. PHYSICAL EXAMINATION: Blood pressure is 142/74, pulse of 73, temperature 98.3. She is 98% on 2 L nasal cannula. General description is a middle-aged female lying in bed in no distress. Respiratory system: Unlabored breathing, decreased breath sounds in the base, with no wheeze. Heart S1, S2. Regular rate and rhythm. Abdomen soft, no tenderness. LABS: Hemoglobin 7.1, white count of 5.5. BUN of 5, creatinine 0.15. DIAGNOSTIC IMPRESSION AND PLAN: Patient with changes, hypothermia. Initial concern for urinary tract infection, subsequent concern for pneumonia. Overall improvement on cefepime. She is currently on Omnicef to continue for about five days to finish a course of therapy and continue supportive care. MMODL / IJN: [id number] /
[2020-10-01 08:59] LABS: African American GFR (CKD) >90 (>60 ml/min/1.73 sqM); Non-African American GFR(CKD) >90 (>60 ml/min/1.73 sqM)
[2020-10-01] MEDS: MAGNESIUM SULFATE-D5W PMX 1 GM in DEXTROSE/WATER 1 100ML.BAG IVPB SCH ×3 (11:05→13:03)
[2020-10-01] MEDS: POTASSIUM CHLORIDE ER 20 MEQ TAB.ER PO SCH ×2 (11:13→12:06)
[2020-10-01] MEDS: VITAMIN E (DL,TOCOPHERYL ACET) 400 UNIT (180 MG) CAP PO SCH (11:13)
[2020-10-01] MEDS: CALCIUM CARBONATE 500 MG CHEWABLE PO SCH (11:13)
[2020-10-01] MEDS: SODIUM CHLORIDE 0.9% 1,000 ML IV SCH (11:22)
--- NOTE | 2020-10-01 12:58 | PN ---
PROGRESS NOTE DATE OF SERVICE: 10/01/2020 REASON FOR FOLLOWUP: Pneumonia. INTERVAL HISTORY: The patient is afebrile. The patient is breathing comfortably. Denies having any chest pain. Occasional cough. No abdominal pain. No diarrhea. PHYSICAL EXAMINATION: Blood pressure 114/53 with a pulse of 60, temperature 97.7, she is 100% on L nasal cannula. General description is a middle-aged female lying in bed in no distress. Respiratory system: Unlabored breathing. Clear to auscultation anteriorly. Heart S1, S2. Regular rate and rhythm. Abdomen: Soft. No tenderness. LABS: Hemoglobin , white count 4.8, BUN of 3, creatinine 0.15. DIAGNOSTIC IMPRESSION AND PLAN: Patient with and possible pneumonia, on oral Omnicef to continue for another few days to finish course of therapy and continue supportive care. MMODL / IJN: [id number] /
--- NOTE | 2020-10-01 14:49 | P.PN ---
Subjective Progress Note Date: 10/01/20 Altered mental status possible metabolic and toxic encephalopathy Severe thrombocytopenia 60-year-old female came to the hospital after fall and patient was quite a bit confused and was paranoid apparently yesterday. Patient is alert oriented 2 when I valid the patient and patient the temperature was around 80 because of which there multiple heart attacks and the nursing staff was planning on beta brenda although patient was complaining of excessive heat and sweating because of which we removed all of those and we will recheck the temperature again. Apart from that there is no clear evidence of sepsis at this time. UA is not significant for urinary tract infection. In spite of her confusion patient was able to provide me good history. Patient denied any cough patient or dysuria chest x-ray did not show any significant abnormality. Etiology of her son onset of confusion is not clear at this time CT of the head did not show any intracranial hemorrhage MRI is being obtained. 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 Patient missed her IVIG, patient is severely thrombocytopenia With platelet count of around 16,000. Patient has multiple bruises and multiple hematomas secondary to low platelet count after fall. Patient denied any headache patient was recently treated for cellulitis. Suspicion is low for meningitis and unfortunately we cannot the get an LP considering her very low platelet count because of which we are not obtaining CSF analysis at this time. Her thrombus rapini is believed to be secondary to diuretic she received for cellulitis recently. Patient has mildly elevated liver enzymes. MRI was ordered by oncology. Patient blood screen is only for positive for benzodiazepines for which patient doesn't appear to have a prescription for but patient does take Ambien 3.5 mg at bedtime. There is no clear metabolic toxic causes that can explain her confusion or delirium. Psychiatry was consulted as well. 09/21/2020 Patient remains unclear whether patient remains hypothermic remains confused and paranoid psychiatry at evaluate the patient. I consulted neurology as there is no real rheumatological factor for her confusion neurology evaluated the patient and they believe patient may have bilateral lower extremity plegia and left upper extremity hemiparesis. Patient received IVIG for ITP. There is no clear evidence of infection at this time because of continued hyperlipidemia and consult infectious disease as well. 09/22/2020 Patient is seen on follow-up, she is resting in bed, a bit agitated and delirious, unable to answer questions. She is repetitively stating that she is "over the fire". Her temperature this morning 97.4 axillary. Hemodynamically stable. Receiving IV Vimpat.. Vitamin B12, folate and TSH normal. Her platelet count low at 14, today's labs are pending. She is maintained and IV hydration with normal saline. Multiple imaging studies are pending including CT of the brain and MRI of the brain, there is also an EEG ordered by neurology. No growth on preliminary blood and urine cultures at this time. 09/23/2020 Patient is lying in the bed but has been unresponsive since morning. Patient did have also mental status and also muted. Patient was paranoid day before yesterday and has been groggy since then. Patient is able to open her eyes but will not speak. Patient has been afebrile. Laboratory data showed the Nelia 4.2 hemoglobin 8.8 and platelets 13,000 Sodium 142 potassium 4.1 chloride 113 bicarb is 25 BUN 10 and creatinine 0.17 and blood sugar is 104. cultures have been negative and TSH level is 1.0 09/24/2020 Patient was transferred to telemetry unit. Able to wake up and open her eyes with verbal commands. Trying to communicate. Patient is more awake and alert compared to yesterday. MRI could not be done due to risk of aspiration and patient could not lie flat. Lumbar puncture could not be done by anesthesia due to severe thrombocytopenia. Otherwise mental status is better today. Patient has been afebrile. Laboratory data showed WBC 4.5, hemoglobin 8.5 and platelets 42 Sodium 149 potassium 2.8 and chloride 115 BUN 13 and creatinine 0.15 Patient is being continued on gentle IV hydration and follow-up electrolytes. Patient was seen by ophthalmology due to IV discharge likely related to dryness and poor control of eyelids and improper closely at times. No evidence of infection. Continue with topical ointment for dryness. 09/25/2020 Patient is awake alert and oriented and is able to communicate slowly. Wants to eat. Patient has been afebrile. No compressive chest pain or shortness of breath. Potassium is being replaced. Denies any headache. Patient knows that she has not been monitoring her hands and feet for a long time. Laboratory data showed sodium 144 potassium 2.5 chloride 113 bicarb is 20 BUN 14 and creatinine 0.19 WBC 4.8 hemoglobin 8.7 platelets 54,000. 09/26/2020 Patient is currently lying in the bed comfortably. Awake and alert and follows eye contact. Patient was oriented 3 last night. As night progressed her speech became less clear and head and eyes were twitching. Speech was garbled and rolling her tongue back. Patient seems to be hallucinating and talking to herself.. Currently patient is awake alert but could not talk. Patient wants to eat something. Patient has been afebrile. No complaints of headache. No diarrhea or abdominal pain. Laboratory data showed improved sodium level and potassium level. Neurology is on board. MRI was done . 09/27/20 Patient is more awake and alert and oriented today. Able to tolerate oral diet with one-to-one feeding. Denied any bowel movement last couple days. No complaints of nausea or vomiting. Mentation is at baseline overnight. Patient has been afebrile. No complaint of chest pain or shortness of breath. MRI of the brain showed mild diffuse white matter increased signal in the parietal lobes that correlate to some encephalomalacia. Potassium level was 2.6 this morning and replace it with repeat level II.9. Magnesium 1.5 which is being replaced. 09/28/20 Patient is awake alert and oriented 2-3. Able to communicate. Mentation is at baseline. No complains of chest pain or shortness of breath. Potassium level is 3.6 to morning. Patient is being continued on Vimpat possible complex partial seizures. Afebrile. No nausea vomiting or abdominal pain. Patient did have a small bowel movement. 09/29/2020 Patient is awake alert and oriented. Able to communicate slowly. Mentation is at baseline. Tolerating oral diet very well. No complaints of chest pain or shortness of. No nausea vomiting or abdominal pain or diarrhea. Patient has been afebrile. Urine culture is finalized. Polymicrobial specimen. Currently on antibiotics involve Omnicef. ID is following. Patient was also started Vimpat for possible partial complex seizures. Continue on PT OT and possible transfer to rehab.d 09/30/2020 Patient evaluated at bedside today, she is awake alert and oriented times person. Patient is able to communicate effectively, however she states that she feels that she is trapped. Her mentation is apparently at baseline. She is tolerating an oral diet, however she does require assistance for feeding. Patient denies chest pain and shortness of breath. She denies nausea vomiting abdominal pain or diarrhea. Patient has been afebrile. Blood cultures and urine cultures are negative. Her potassium is 3.2 today, has been replaced per protocol. Repeat CBC and BMP in the morning. Hemoglobin today is 7.2 which has been trending down this admission. Patient is being followed by oncology, for this new onset anemia, in a patient who has a history of chronic ITP, patient is maintained on IVIG. EEG completed and was negative for any epileptiform act ivity. However patient has been started on Vimpat 100 mg twice a day for questionable episodes of altered mental status with tongue biting, rule out partial complex seizures. At this time after reviewing MRI, neurology has signed off. Patient will continue on oral Omnicef for possible pneumonia a ccording to ID. 10/01/2020 Patient was evaluated at the bedside today she is sleeping. Patient was arousable. Patient is still alert 1 with moments of confusion. Patient is tolerating oral diet still require assistance for feeding. Patient has a Horn catheter in place. This morning patient's hemoglobin was found to be 6.5 she is pending transfusion with 1 unit of packed red blood cells. Patient is being followed closely by hematology services for a new onset anemia. This morning patient's potassium level was 3.1 magnesium was 1.4 electrodes will be supplemented with a recheck in the morning. Patient family member has been awarded temporary guardianship as of today. Vital signs are stable with a temp of 97.9 heart rate is 60 to a blood pressure of 114/53 and patient is maintainin g 100% oxygen saturation on 2 L nasal cannula. Spoke in detail with patient's niece who states that patient was living by herself, and this confusion started about 1 week prior to her admission. Family is concerned and is questioning whether the pneumonia and the urinary tract infection are clearing up with antibiotics. Family is also requesting a lift room for the patient and is hoping that her physical activity will be increased. Patient's niece states that patient's sister is positive for COVID and because of that Family will be able to come visit the patient. Patient was negative for Covid on admission, and has received a one-time dose of Pedro [employer] Pedro vaccination against COVID- 19. ROS: Constitutional: Denied any fatigue denied any fever. Cardio vascular: denied any chest pain, palpitations Gastrointestinal denied any nausea vomiting Pulmonary: Denied any shortness of breath cough Neurologic: Reports feeling suspicious of staff, patient reports feeling trapped. All inpatient medications were reviewed and appropriate changes in these medications as dictated in the interval history and assessment and plan. PHYSICAL EXAMINATION: GENERAL: The patient is alert and oriented to person, not in any acute distress. Well developed, well nourished. HEENT: Pupils are round and equally reacting to light. EOMI. Periorbital bruising present bilaterally. CARDIOVASCULAR: S1 and S2 present. No murmurs, rubs, or gallops. PULMONARY: Chest is clear to auscultation, no wheezing or crackles. ABDOMEN: Soft, nontender, nondistended, normoactive bowel sounds. No palpable or ganomegaly. MUSCULOSKELETAL: No joint swelling or deformity. EXTREMITIES: No cyanosis, clubbing, +3 pedel edema present NEUROLOGICAL: Gross neurological examination revealed quadriplegia, pt is able to open her eyes and respond to verbal commands. SKIN: Multiple bruises, hematoma r/t fall and thrombocytopenia. Assessment and plan -Recurrent episodes of altered mental status with tongue biting. Possible complex partial seizures. Patient is on Vimpat 50 mg twice daily currently, no further seizure-like activity. -Altered mental status: Possible metabolic and toxic encephalopathy., Improvi ng, family has concerns the patient is not yet back to her baseline as of today. Unlikely meningoencephalitis.. possible component of polypharmacy related to Ambien, SIMRAN, and melatonin use, these medications are on hold. Multiple imaging studies have been negative including tibiofibular x-ray foot x-ray knee x-ray elbow x-ray chest x-ray head and cervical spine CT. TSH, B12, ammonia and folate levels are normal. Repeat CT on 09/22/2020 showed scalp soft tissue swelling increased in size com pared to old exam. No acute process. Lumbar puncture could not be performed due to severe thrombocytopenia. psychiatric has seen the patient, and has signed off at this time. neurology at this time has signed off on the patient as well. Patient received a dose of with tubes and on 09/05/2020 patient will be related to progress encephalopathy. Cancel lumbar puncture and also transfer to tertiary care facility [facility] is on hold. Was able to do MRI on 09/25/2020 which revealed mild diffuse white matter increased signal in the peritoneal lobes that could be related to some encephalomalacia. No cortical infarct. EEG completed on 09/24/2020 which showed moderate to severe degree of background slowing. This is suggestive generalized cerebral dysfunction as can be seen with toxic metabolic encephalopathy, or diffuse structural brain abnormality. No epileptiform activity was seen. This is unchanged as compared to the EEG performed on 09/22/2020. At this time patient has been transitioned to oral Vimpat tolerating well. No further signs of altered mentation with tongue biting. Neurology suspected partial complex seizures. - Acute UTI, indwelling catheter in place, repeat UA will be ordered today. 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 Patient's motor strength is at baseline. -Chronic thrombocytopenia Patient is receiving IV immunoglobulin at this time and patient has history of ITP. -Recent treatment for cellulitis. -Hypertension: Blood pressure stable, Norvasc has been resumed. Monitor blood pressure. -Hyperkalemia: repleted -Hypothyroidism - patient is maintained on Synthroid. -Hypokalemia. Replaced, follow-up of lab work in the morning. -Hypomagnesium. Replaced follow-up lab work in the morning -Anemia. New-onset. Work-up with hematology, questionable hemolysis in the presence of a patient who receives IVIG infusion. Patient will receive 1 unit of PRBCs today and recheck hemoglobin in the morning, monitor for signs of bleeding closely. - Possible Pneumonia, being treated with oral Cefdinir and being followed closely by infectious disease, will repeat chest x-ray that was completed on 09/26/2020 to ensure clearing of infection. Sepsis not likely, as patient's white blood cell count is within normal limits at 4.8, patient remains afebrile. Blood pressure is within normal limits. -Hypernatremia due to volume depletion, resolved current sodium level today is 139. Monitor closely. DVT prophylaxis: Prophylaxis is contraindicated because of her low platelet count, and history of thrombocytopenia. Being followed closely by hematology. GI prophylaxis: Patient is maintained on by mouth Protonix as well as by mouth Pepcid. Prognosis is guarded for this patient. Patient's niece has been awarded temporary guardianship. Discussed patient's plan of care in extent with niece on the phone. Family in agreeance with plan of care to recheck urinalysis, repeat chest x-ray, and repeat Covid swab due to the patient's sister being quarantined for a positive swab. Family was unable to say for certain if patient has been exposed or not. Covid swab negative on admission. Continue supportive care. Objective - Vital Signs Vital signs: Vital Signs Temp 97.7 F 10/01/20 11:34 Pulse 62 10/01/20 11:34 Resp 16 10/01/20 11:34 BP 114/53 10/01/20 11:34 Pulse Ox 100 10/01/20 11:34 Intake & Output 09/30/20 10/01/20 10/01/20 18:59 06:59 18:59 Intake Total 643 250 240 Output Total 950 1600 Balance -307 -1350 240 Intake: IV 525 Sodium Chloride 0.9% 1, 525 000 ml @ 75 mls/hr IV . [id number] [facility] Rx#:[id number] Oral 118 250 240 Output: Urine 950 1600 Other: Voiding Method Indwelling Catheter Indwelling Catheter Indwelling Catheter - Labs CBC & Chem 7: 10/01/20 07:25 10/01/20 07:25 Labs: Abnormal Lab Results - Last 24 Hours (Table) 09/30/20 09/30/20 10/01/20 Range/Units 07:12 07:12 07:25 RBC 2.04 L (3.80-5.40) m/uL Hgb 6.5 L* (11.4-16.0) gm/dL Hct 19.3 L* (34.0-46.0) % RDW 19.5 H (11.5-15.5) % Retic Count 6.0 H (0.5-2.0) % Potassium (3.5-5.1) mmol/L Chloride (98-107) mmol/L BUN (7-17) mg/dL Creatinine (0.52-1.04) mg/dL Calcium (8.4-10.2) mg/dL Magnesium (1.6-2.3) mg/dL Iron 40 L (50-170) ug/dL Ferritin 646.9 H (10.0-291.0) ng/mL Lactate Dehydrogenase 792 H (313-618) U/L Crossmatch 10/01/20 10/01/20 10/01/20 Range/Units 07:25 07:25 08:41 RBC (3.80-5.40) m/uL Hgb (11.4-16.0) gm/dL Hct (34.0-46.0) % RDW (11.5-15.5) % Retic Count (0.5-2.0) % Potassium 3.1 L (3.5-5.1) mmol/L Chloride 111 H (98-107) mmol/L BUN 3 L (7-17) mg/dL Creatinine <0.15 L (0.52-1.04) mg/dL Calcium 7.7 L (8.4-10.2) mg/dL Magnesium 1.4 L (1.6-2.3) mg/dL Iron (50-170) ug/dL Ferritin (10.0-291.0) ng/mL Lactate Dehydrogenase (313-618) U/L Crossmatch See Detail Assessment and Plan Time with Patient: Greater than 30
--- NOTE | 2020-10-01 15:51 | XR ---
EXAMINATION TYPE: XR chest 1V portable DATE OF EXAM: 10/01/2020 Comparison: 09/26/2020 Clinical History: 60-year-old female follow up xray for clearing up on pneumonia Findings: Right anterior chest wall injection port with catheter tip at the cavoatrial junction. Heart margins obscured by adjacent pleural parenchymal opacity. There is increasing moderate left and small right e ffusions and mid to lower lung opacities. Impression: Increasing [id number] left and small right effusions and adjacent atelectasis and/or consolida tion extending up to the midlung levels. Aeration has worsened as compared to 09/26/2020.
[2020-10-01 16:15] LABS: Amorphous Sediment,Urine Rare /hpf; Appearance,Urine Clear (Clear); Bilirubin,Urine Negative (Negative); Blood,Urine Moderate (Negative); Color,Urine Yellow; Glucose,Urine (UA) Trace (Negative); Ketones,Urine Negative (Negative); Leukocyte Esterase,Urine Large (Negative); Mucus,Urine Occasional /hpf; Nitrite,Urine Negative (Negative); Protein,Urine Negative (Negative); RBC,Urine <1 /hpf (0-5); Specific Gravity,Urine 1.009 (1.001-1.035); Urobilinogen,Urine <2.0 mg/dL (<2.0); WBC,Urine 2 /hpf (0-5)
[2020-10-01] MEDS: FERROUS SULFATE 325 MG TAB PO SCH (16:50)
[2020-10-01] MEDS: PHENYLEPHRINE 2.5% OPHTH DRP 2ML BOTH EYES SCH (16:50)
[2020-10-01] MEDS: FAMOTIDINE 20 MG TAB PO SCH (21:39)
[2020-10-01] MEDS: atenoloL 50 MG TAB PO SCH (21:39)
[2020-10-01] MEDS: MONTELUKAST 10 MG TAB PO SCH (21:39)
[2020-10-01 22:17] LABS: Anisocytosis Slight; HCT 26.4 % (34.0-46.0); Hyperchromasia Slight; MCH 32.5 pg (25.0-35.0); MCV 93.1 fL (80.0-100.0); Mean Platelet Volume 8.6; Platelet Count 199 k/uL (150-450); Poikilocytosis Marked; RBC 2.84 m/uL (3.80-5.40); RDW 18.2 % (11.5-15.5); WBC 6.4 k/uL (3.8-10.6)
[2020-10-01 22:39] LABS: HGB 9.2 gm/dL (11.4-16.0)
[2020-10-02] MEDS: SODIUM CHLORIDE 0.9% 1,000 ML IV SCH ×2 (04:10→17:44)
[2020-10-02] MEDS: PANTOPRAZOLE 40 MG TABLET PO SCH (06:41)
[2020-10-02] MEDS: SODIUM BICARBONATE TAB 650 MG TAB PO SCH ×2 (06:41→11:18)
[2020-10-02] MEDS: THIAMINE 100 MG TAB PO SCH ×2 (06:41→11:18)
[2020-10-02] MEDS: LEVOTHYROXINE 112 MCG TAB PO SCH (06:41)
[2020-10-02] MEDS: amLODIPine 5 MG TAB PO SCH (06:41)
[2020-10-02] MEDS: VITAMIN A 10,000 UNIT (3000 MCG) CAPSULE PO SCH (06:42)
[2020-10-02] MEDS: DOCUSATE 100 MG CAP PO SCH ×2 (08:24→21:12)
[2020-10-02 09:02] LABS: ALT 27 U/L (4-34); AST 31 U/L (14-36); Albumin 2.6 g/dL (3.5-5.0); Alkaline Phosphatase 115 U/L (38-126); Anion Gap 5 mmol/L; Blood Urea Nitrogen 4 mg/dL (7-17); Calcium 7.9 mg/dL (8.4-10.2); Carbon Dioxide 24 mmol/L (22-30); Chloride 110 mmol/L (98-107); Glucose 115 mg/dL (74-99); Magnesium 1.7 mg/dL (1.6-2.3); Potassium 3.2 mmol/L (3.5-5.1); Sodium 139 mmol/L (137-145); Total Bilirubin 0.7 mg/dL (0.2-1.3); Total Protein 5.5 g/dL (6.3-8.2)
[2020-10-02 09:04] LABS: Anisocytosis Slight; HGB 9.1 gm/dL (11.4-16.0); Hyperchromasia Slight; Hypochromasia Slight; MCHC 34.9 g/dL (31.0-37.0); MCV 91.5 fL (80.0-100.0); Mean Platelet Volume 8.4; Platelet Count 216 k/uL (150-450); Poikilocytosis Marked; RBC 2.84 m/uL (3.80-5.40); WBC 6.1 k/uL (3.8-10.6)
[2020-10-02 09:17] LABS: African American GFR (CKD) >90 (>60 ml/min/1.73 sqM); Non-African American GFR(CKD) >90 (>60 ml/min/1.73 sqM)
[2020-10-02] MEDS: CEFDINIR 300 MG CAP PO SCH ×2 (09:43→21:25)
[2020-10-02] MEDS: LACOSAMIDE 50 MG TABLET PO SCH ×2 (09:44→21:26)
[2020-10-02 10:10] VITALS: BMI 37.3
[2020-10-02 10:42] LABS: Lymphocytes # (M) 0.49 k/uL (1.0-4.8); Monocytes # (M) 0.31 k/uL (0-1.0); Neutrophils # (M) 5.31 k/uL (1.3-7.7); Neutrophils % (M) 87 %; Nucleated Red Blood Cells 0 /100 WBC (0-0); Total Cells Counted 100
[2020-10-02 10:44] LABS: Polychromasia Present
[2020-10-02] MEDS: VITAMIN E (DL,TOCOPHERYL ACET) 400 UNIT (180 MG) CAP PO SCH (11:18)
[2020-10-02] MEDS: CALCIUM CARBONATE 500 MG CHEWABLE PO SCH (11:18)
[2020-10-02] MEDS: POTASSIUM CHLORIDE ER 20 MEQ TAB.ER PO SCH ×2 (12:25→14:18)
[2020-10-02] MEDS: MAGNESIUM SULFATE-D5W PMX 1 GM in DEXTROSE/WATER 1 100ML.BAG IVPB SCH ×2 (12:26→14:19)
--- NOTE | 2020-10-02 13:48 | P.PN ---
Subjective Progress Note Date: 10/02/20 Altered mental status possible metabolic and toxic encephalopathy Severe thrombocytopenia 60-year-old female came to the hospital after fall and patient was quite a bit confused and was paranoid apparently yesterday. Patient is alert oriented 2 when I valid the patient and patient the temperature was around 80 because of which there multiple heart attacks and the nursing staff was planning on beta brenda although patient was complaining of excessive heat and sweating because of which we removed all of those and we will recheck the temperature again. Apart from that there is no clear evidence of sepsis at this time. UA is not significant for urinary tract infection. In spite of her confusion patient was able to provide me good history. Patient denied any cough patient or dysuria chest x-ray did not show any significant abnormality. Etiology of her son onset of confusion is not clear at this time CT of the head did not show any intracranial hemorrhage MRI is being obtained. 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 Patient missed her IVIG, patient is severely thrombocytopenia With platelet count of around 16,000. Patient has multiple bruises and multiple hematomas secondary to low platelet count after fall. Patient denied any headache patient was recently treated for cellulitis. Suspicion is low for meningitis and unfortunately we cannot the get an LP considering her very low platelet count because of which we are not obtaining CSF analysis at this time. Her thrombus rapini is believed to be secondary to diuretic she received for cellulitis recently. Patient has mildly elevated liver enzymes. MRI was ordered by oncology. Patient blood screen is only for positive for benzodiazepines for which patient doesn't appear to have a prescription for but patient does take Ambien 3.5 mg at bedtime. There is no clear metabolic toxic causes that can explain her confusion or delirium. Psychiatry was consulted as well. 09/21/2020 Patient remains unclear whether patient remains hypothermic remains confused and paranoid psychiatry at evaluate the patient. I consulted neurology as there is no real rheumatological factor for her confusion neurology evaluated the patient and they believe patient may have bilateral lower extremity plegia and left upper extremity hemiparesis. Patient received IVIG for ITP. There is no clear evidence of infection at this time because of continued hyperlipidemia and consult infectious disease as well. 09/22/2020 Patient is seen on follow-up, she is resting in bed, a bit agitated and delirious, unable to answer questions. She is repetitively stating that she is "over the fire". Her temperature this morning 97.4 axillary. Hemodynamically stable. Receiving IV Vimpat.. Vitamin B12, folate and TSH normal. Her platelet count low at 14, today's labs are pending. She is maintained and IV hydration with normal saline. Multiple imaging studies are pending including CT of the brain and MRI of the brain, there is also an EEG ordered by neurology. No growth on preliminary blood and urine cultures at this time. 09/23/2020 Patient is lying in the bed but has been unresponsive since morning. Patient did have also mental status and also muted. Patient was paranoid day before yesterday and has been groggy since then. Patient is able to open her eyes but will not speak. Patient has been afebrile. Laboratory data showed the Nelia 4.2 hemoglobin 8.8 and platelets 13,000 Sodium 142 potassium 4.1 chloride 113 bicarb is 25 BUN 10 and creatinine 0.17 and blood sugar is 104. cultures have been negative and TSH level is 1.0 09/24/2020 Patient was transferred to telemetry unit. Able to wake up and open her eyes with verbal commands. Trying to communicate. Patient is more awake and alert compared to yesterday. MRI could not be done due to risk of aspiration and patient could not lie flat. Lumbar puncture could not be done by anesthesia due to severe thrombocytopenia. Otherwise mental status is better today. Patient has been afebrile. Laboratory data showed WBC 4.5, hemoglobin 8.5 and platelets 42 Sodium 149 potassium 2.8 and chloride 115 BUN 13 and creatinine 0.15 Patient is being continued on gentle IV hydration and follow-up electrolytes. Patient was seen by ophthalmology due to IV discharge likely related to dryness and poor control of eyelids and improper closely at times. No evidence of infection. Continue with topical ointment for dryness. 09/25/2020 Patient is awake alert and oriented and is able to communicate slowly. Wants to eat. Patient has been afebrile. No compressive chest pain or shortness of breath. Potassium is being replaced. Denies any headache. Patient knows that she has not been monitoring her hands and feet for a long time. Laboratory data showed sodium 144 potassium 2.5 chloride 113 bicarb is 20 BUN 14 and creatinine 0.19 WBC 4.8 hemoglobin 8.7 platelets 54,000. 09/26/2020 Patient is currently lying in the bed comfortably. Awake and alert and follows eye contact. Patient was oriented 3 last night. As night progressed her speech became less clear and head and eyes were twitching. Speech was garbled and rolling her tongue back. Patient seems to be hallucinating and talking to herself.. Currently patient is awake alert but could not talk. Patient wants to eat something. Patient has been afebrile. No complaints of headache. No diarrhea or abdominal pain. Laboratory data showed improved sodium level and potassium level. Neurology is on board. MRI was done . 09/27/20 Patient is more awake and alert and oriented today. Able to tolerate oral diet with one-to-one feeding. Denied any bowel movement last couple days. No complaints of nausea or vomiting. Mentation is at baseline overnight. Patient has been afebrile. No complaint of chest pain or shortness of breath. MRI of the brain showed mild diffuse white matter increased signal in the parietal lobes that correlate to some encephalomalacia. Potassium level was 2.6 this morning and replace it with repeat level II.9. Magnesium 1.5 which is being replaced. 09/28/20 Patient is awake alert and oriented 2-3. Able to communicate. Mentation is at baseline. No complains of chest pain or shortness of breath. Potassium level is 3.6 to morning. Patient is being continued on Vimpat possible complex partial seizures. Afebrile. No nausea vomiting or abdominal pain. Patient did have a small bowel movement. 09/29/2020 Patient is awake alert and oriented. Able to communicate slowly. Mentation is at baseline. Tolerating oral diet very well. No complaints of chest pain or shortness of. No nausea vomiting or abdominal pain or diarrhea. Patient has been afebrile. Urine culture is finalized. Polymicrobial specimen. Currently on antibiotics involve Omnicef. ID is following. Patient was also started Vimpat for possible partial complex seizures. Continue on PT OT and possible transfer to rehab.d 09/30/2020 Patient evaluated at bedside today, she is awake alert and oriented times person. Patient is able to communicate effectively, however she states that she feels that she is trapped. Her mentation is apparently at baseline. She is tolerating an oral diet, however she does require assistance for feeding. Patient denies chest pain and shortness of breath. She denies nausea vomiting abdominal pain or diarrhea. Patient has been afebrile. Blood cultures and urine cultures are negative. Her potassium is 3.2 today, has been replaced per protocol. Repeat CBC and BMP in the morning. Hemoglobin today is 7.2 which has been trending down this admission. Patient is being followed by oncology, for this new onset anemia, in a patient who has a history of chronic ITP, patient is maintained on IVIG. EEG completed and was negative for any epileptiform act ivity. However patient has been started on Vimpat 100 mg twice a day for questionable episodes of altered mental status with tongue biting, rule out partial complex seizures. At this time after reviewing MRI, neurology has signed off. Patient will continue on oral Omnicef for possible pneumonia a ccording to ID. 10/01/2020 Patient was evaluated at the bedside today she is sleeping. Patient was arousable. Patient is still alert 1 with moments of confusion. Patient is tolerating oral diet still require assistance for feeding. Patient has a Horn catheter in place. This morning patient's hemoglobin was found to be 6.5 she is pending transfusion with 1 unit of packed red blood cells. Patient is being followed closely by hematology services for a new onset anemia. This morning patient's potassium level was 3.1 magnesium was 1.4 electrodes will be supplemented with a recheck in the morning. Patient family member has been awarded temporary guardianship as of today. Vital signs are stable with a temp of 97.9 heart rate is 60 to a blood pressure of 114/53 and patient is maintainin g 100% oxygen saturation on 2 L nasal cannula. Spoke in detail with patient's niece who states that patient was living by herself, and this confusion started about 1 week prior to her admission. Family is concerned and is questioning whether the pneumonia and the urinary tract infection are clearing up with antibiotics. Family is also requesting a lift room for the patient and is hoping that her physical activity will be increased. Patient's niece states that patient's sister is positive for COVID and because of that Family will be able to come visit the patient. Patient was negative for Covid on admission, and has received a one-time dose of Pedro [employer] Pedro vaccination against COVID- 19. 10/02/2020 Patient was evaluated at the bedside today. She is sitting up and she is alert and oriented 3. Patient states that she does not like the Vimpat because it makes her feel sedated and that she likes to be awake. patient is requesting for her Horn catheter removed. She had no issues urinating prior. Urinalysis repeat was negative. Okay to remove Horn for voiding trial. In addition: Swab was negative 2. Patient is being followed closely by infectious disease for possible pneumonia, chest x-ray repeat demonstrated increasing small to moderate left and small right pleural effusions with adjacent atelectasis and/or consolidation. Aeration has worsened as compared to previous exam. Incentive spirometer has been ordered. Patient remains on room air, and remains afebrile. Lung sounds are diminished. Pulmonary toileting is encouraged. Patient's mentation and mood is much improved as compared to yesterday. Hemoglobin is stable now at 9.1, after receiving 1 unit of PRBCs yesterday. Patient denies any cough shortness of breath or chest pain. Current plan of care discussed in length with patient and family member at the bedside. All concerns have been addressed. ROS: Constitutional: Denied any fatigue denied any fever. Cardio vascular: denied any chest pain, palpitations Gastrointestinal denied any nausea vomiting Pulmonary: Denied any shortness of breath cough Neurologic: Reports feeling suspicious of staff, patient reports feeling trapped. All inpatient medications were reviewed and appropriate changes in these medications as dictated in the interval history and assessment and plan. PHYSICAL EXAMINATION: GENERAL: The patient is alert and oriented to person, not in any acute distress. Well developed, well nourished. HEENT: Pupils are round and equally reacting to light. EOMI. Periorbital bruising present bilaterally. CARDIOVASCULAR: S1 and S2 present. No murmurs, rubs, or gallops. PULMONARY: Chest is clear to auscultation, no wheezing or crackles. ABDOMEN: Soft, nontender, nondistended, normoactive bowel sounds. No palpable organomegaly. MUSCULOSKELETAL: No joint swelling or deformity. EXTREMITIES: No cyanosis, clubbing, +3 pedel edema present NEUROLOGICAL: Gross neurological examination revealed quadriplegia, pt is able to open her eyes and respond to verbal commands. SKIN: Multiple bruises, hematoma r/t fall and thrombocytopenia. Assessment and plan -Recurrent episodes of altered mental status with tongue biting. Possible complex partial seizures. Patient is on Vimpat 50 mg twice daily currently, no further seizure-like activity. -Altered mental status: Possible metabolic and toxic encephalopathy., Mariia bolanos, family has concerns the patient is not yet back to her baseline as of today. Unlikely meningoencephalitis.. possible component of polypharmacy related to Ambien, SIMRAN, and melatonin use, these medications are on hold. Multiple imaging studies have been negative including tibiofibular x-ray foot x-ray knee x-ray elbow x-ray chest x-ray head and cervical spine CT. TSH, B12, ammonia and folate levels are normal. Repeat CT on 09/22/2020 showed scalp soft tissue swelling increased in size comp ared to old exam. No acute process. Lumbar puncture could not be performed due to severe thrombocytopenia. psychiatric has seen the patient, and has signed off at this time. neurology at this time has signed off on the patient as well. Patient received a dose of with tubes and on 09/05/2020 patient will be related to progress encephalopathy. Cancel lumbar puncture and also transfer to tertiary care facility [facility] is on hold. Was able to do MRI on 09/25/2020 which revealed mild diffuse white matter increased signal in the peritoneal lobes that could be related to some encephalomalacia. No cortical infarct. EEG completed on 09/24/2020 which showed moderate to severe degree of background slowing. This is suggestive generalized cerebral dysfunction as can be seen with toxic metabolic encephalopathy, or diffuse structural brain abnormality. No epileptiform activity was seen. This is unchanged as compared to the EEG performed on 09/22/2020. At this time patient has been transitioned to oral Vimpat tolerating well. No further signs of altered mentation with tongue biting. Neurology suspected partial complex seizures. - Acute UTI, repeat urinalysis negative, for catheter has been removed, voiding trial. 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 Patient's motor strength is at baseline. -Chronic thrombocytopenia Patient is receiving IV immunoglobulin at this time and patient has history of ITP. -Recent treatment for cellulitis. -Hypertension: Blood pressure stable, Norvasc has been resumed. Monitor blood pressure. -Hyperkalemia: repleted -Hypothyroidism - patient is maintained on Synthroid. -Hypokalemia. Potassium supplementation today, follow-up of lab work in the morning. -Hypomagnesium. Magnesium supplementation given, follow-up lab work in the morning -Anemia. New-onset. Work-up with hematology, questionable hemolysis in the presence of a patient who receives IVIG infusion. Patient will receive 1 unit of PRBCs today and recheck hemoglobin in the morning, monitor for signs of bleeding closely. Hemoglobin up to 9.1 today, we'll recheck in the morning. - Possible Pneumonia, being treated with oral Cefdinir and being followed closely by infectious disease, chest x-ray was reviewed by infectious disease, no changes in current medication. Patient remains on room air and afebrile, white blood cell count was within normal limits. -Hypernatremia due to volume depletion, resolved current sodium level today is 139. Monitor closely. DVT prophylaxis: Prophylaxis is contraindicated because of her low platelet count, and history of thrombocytopenia. Being followed closely by hematology. Platelet count is up to 216. GI prophylaxis: Patient is maintained on by mouth Protonix as well as by mouth Pepcid. Prognosis is guarded for this patient. Patient's niece has been awarded temporary guardianship. Continue electrolyte supplementation, Continue supporti ve care. Continue to monitor for the next 24 hours. If patient's mentation continues to improve then will reevaluate rehab at discharge. If patient continues to have intermittent episodes of confusion and delirium then plan will be to transfer patient to a tertiary facility for further neurological workup. Case was discussed again with neuro services. Continue to monitor patient closely. Objective - Vital Signs Vital signs: Vital Signs Temp 97.9 F 10/02/20 08:00 Pulse 55 L 10/02/20 08:00 Resp 20 10/02/20 08:00 BP 139/59 10/02/20 08:00 Pulse Ox 98 10/02/20 08:00 Intake & Output 10/01/20 10/02/20 10/02/20 18:59 06:59 18:59 Intake Total 1626 240 Output Total 1025 400 900 Balance 601 -400 -660 Weight 103.5 kg 105 kg 105 kg Intake: Intake, IV Titration 300 Amount Magnesium Sulfate-D5w Pmx 300 1 gm In Dextrose/Water 1 100ml.bag @ 100 mls/hr IVPB Q1H [facility] Rx#: [id number] Oral 1016 240 Blood Product 310 Rc As-1 Unit 310 [id number] Output: Urine 1025 400 900 Stool 0 Other: Voiding Method Indwelling Catheter Indwelling Catheter Indwelling Catheter # Voids 2 # Bowel Movements 1 - Labs CBC & Chem 7: 10/02/20 08:25 10/02/20 08:25 Labs: Abnormal Lab Results - Last 24 Hours (Table) 10/01/20 10/01/20 10/01/20 Range/Units 08:41 15:34 21:46 RBC 2.84 L (3.80-5.40) m/uL Hgb 9.2 L D (11.4-16.0) gm/dL Hct 26.4 L (34.0-46.0) % RDW 18.2 H (11.5-15.5) % Lymphocytes # (Manual) (1.0-4.8) k/uL Potassium (3.5-5.1) mmol/L Chloride (98-107) mmol/L BUN (7-17) mg/dL Creatinine (0.52-1.04) mg/dL Glucose (74-99) mg/dL Calcium (8.4-10.2) mg/dL Total Protein (6.3-8.2) g/dL Albumin (3.5-5.0) g/dL Urine Glucose (UA) Trace H (Negative) Urine Blood Moderate H (Negative) Ur Leukocyte Esterase Large H (Negative) Amorphous Sediment Rare H (None) /hpf Urine Mucus Occasional H (None) /hpf Crossmatch See Detail 10/02/20 10/02/20 Range/Units 08:25 08:25 RBC 2.84 L (3.80-5.40) m/uL Hgb 9.1 L (11.4-16.0) gm/dL Hct 26.0 L (34.0-46.0) % RDW 19.0 H (11.5-15.5) % Lymphocytes # (Manual) 0.49 L (1.0-4.8) k/uL Potassium 3.2 L (3.5-5.1) mmol/L Chloride 110 H (98-107) mmol/L BUN 4 L (7-17) mg/dL Creatinine <0.15 L (0.52-1.04) mg/dL Glucose 115 H (74-99) mg/dL Calcium 7.9 L (8.4-10.2) mg/dL Total Protein 5.5 L (6.3-8.2) g/dL Albumin 2.6 L (3.5-5.0) g/dL Urine Glucose (UA) (Negative) Urine Blood (Negative) Ur Leukocyte Esterase (Negative) Amorphous Sediment (None) /hpf Urine Mucus (None) /hpf Crossmatch Assessment and Plan Time with Patient: Greater than 30
--- NOTE | 2020-10-02 13:53 | P.PN ---
<Rosalinda Bear - Last Filed: 10/02/20 13:45> Subjective Progress Note Date: 10/02/20 Principal diagnosis: ITP Pt is alert today, carrying on very confused conversation. She was not able to tell me where she is, she was suspicious of staff, feeling she is being "watched". Objective - Vital Signs Vital signs: Vital Signs Temp 97.9 F 10/02/20 08:00 Pulse 55 L 10/02/20 08:00 Resp 20 10/02/20 08:00 BP 139/59 10/02/20 08:00 Pulse Ox 98 10/02/20 08:00 Intake & Output 10/01/20 10/02/20 10/02/20 18:59 06:59 18:59 Intake Total 1626 240 Output Total 1025 400 900 Balance 601 -400 -660 Weight 103.5 kg 105 kg 105 kg Intake: Intake, IV Titration 300 Amount Magnesium Sulfate-D5w Pmx 300 1 gm In Dextrose/Water 1 100ml.bag @ 100 mls/hr IVPB Q1H [facility] Rx#: [id number] Oral 1016 240 Blood Product 310 Rc As-1 Unit 310 [id number] Output: Urine 1025 400 900 Stool 0 Other: Voiding Method Indwelling Catheter Indwelling Catheter Indwelling Catheter # Voids 2 # Bowel Movements 1 - Constitutional General appearance: Present: cooperative, morbidly obese, no acute distress - EENT EENT Comment(s): persistent forehead bruising and bilateral periorbital ecchymosis Eyes: Present: anicteric sclerae, EOMI ENT: Present: hearing grossly normal - Respiratory Respiratory: bilateral: CTA - Cardiovascular Rhythm: regular Heart sounds: normal: S1, S2 Abnormal Heart Sounds: Absent: systolic murmur, diastolic murmur, rub, S3 Gallop, S4 Gallop, click, other - Peripheral edema leg Peripheral Edema: bilateral: 1+ - Gastrointestinal General gastrointestinal: Present: normal bowel sounds, soft - Integumentary Integumentary: Present: pale - Neurologic Neurologic: Present: focal deficits - Psychiatric Psychiatric Comment(s): Alert and oriented x 1 - Labs CBC & Chem 7: 10/02/20 08:25 10/02/20 08:25 Labs: Abnormal Lab Results - Last 24 Hours (Table) 10/01/20 10/01/20 10/01/20 Range/Units 08:41 15:34 21:46 RBC 2.84 L (3.80-5.40) m/uL Hgb 9.2 L D (11.4-16.0) gm/dL Hct 26.4 L (34.0-46.0) % RDW 18.2 H (11.5-15.5) % Lymphocytes # (Manual) (1.0-4.8) k/uL Potassium (3.5-5.1) mmol/L Chloride (98-107) mmol/L BUN (7-17) mg/dL Creatinine (0.52-1.04) mg/dL Glucose (74-99) mg/dL Calcium (8.4-10.2) mg/dL Total Protein (6.3-8.2) g/dL Albumin (3.5-5.0) g/dL Urine Glucose (UA) Trace H (Negative) Urine Blood Moderate H (Negative) Ur Leukocyte Esterase Large H (Negative) Amorphous Sediment Rare H (None) /hpf Urine Mucus Occasional H (None) /hpf Crossmatch See Detail 10/02/20 10/02/20 Range/Units 08:25 08:25 RBC 2.84 L (3.80-5.40) m/uL Hgb 9.1 L (11.4-16.0) gm/dL Hct 26.0 L (34.0-46.0) % RDW 19.0 H (11.5-15.5) % Lymphocytes # (Manual) 0.49 L (1.0-4.8) k/uL Potassium 3.2 L (3.5-5.1) mmol/L Chloride 110 H (98-107) mmol/L BUN 4 L (7-17) mg/dL Creatinine <0.15 L (0.52-1.04) mg/dL Glucose 115 H (74-99) mg/dL Calcium 7.9 L (8.4-10.2) mg/dL Total Protein 5.5 L (6.3-8.2) g/dL Albumin 2.6 L (3.5-5.0) g/dL Urine Glucose (UA) (Negative) Urine Blood (Negative) Ur Leukocyte Esterase (Negative) Amorphous Sediment (None) /hpf Urine Mucus (None) /hpf Crossmatch - Imaging and Cardiology Chest x-ray: report reviewed (worsening bilateral pl eff and atelectasis) Assessment and Plan (1) Anemia Narrative/Plan: Precipitous drop in Hgb. No evidence to suggest hemolysis. No hematoma or bruising on the body that has progressed. CT AP without contrast ordered to see of pt had an internal bleed. Pt did receive a unit of PRBCs, Hgb is stable. Status: Acute Priority: High Code(s): D64.9 - ANEMIA, UNSPECIFIED SNOMED Code(s): 453371478 (2) Chronic ITP (idiopathic thrombocytopenic purpura) Narrative/Plan: Patient has a history of chronic ITP with a baseline running from 100-140,000. IVIG was given Last received Rituxan on 09/04/20 Her platelets are recovered, WNL today CBC while inpt Status: Chronic Priority: High Code(s): D69.3 - IMMUNE THROMBOCYTOPENIC PURPURA SNOMED Code(s): 97520932 (3) Autoimmune autonomic neuropathy Narrative/Plan: Treated by her Neurologist with IVIG Status: Chronic Priority: High Code(s): G90.8 - OTHER DISORDERS OF AUTONOMIC NERVOUS SYSTEM SNOMED Code(s): 08301125 Plan: Cause for period of time that pt was not alert and responsive is not clear. Dr. Hudson reviewed the MRI in detail with Radiologist. No findings to suggest PRES. <Remi Hudson - Last Filed: 10/06/20 15:55> Objective - Vital Signs Vital signs: Vital Signs Temp 97.7 F 10/06/20 07:34 Pulse 59 L 10/06/20 07:34 Resp 18 10/06/20 07:34 BP 148/78 10/06/20 07:34 Pulse Ox 96 10/06/20 07:34 Intake & Output 10/05/20 10/06/20 10/06/20 18:59 06:59 18:59 Output Total 1625 Balance -1625 Output: Urine 1625 Other: Voiding Method Bedpan Bedpan # Voids 3 1 - Labs CBC & Chem 7: 10/04/20 12:50 10/04/20 12:50 Assessment and Plan Plan: Clarification: No findings to suggest PML
--- NOTE | 2020-10-02 16:22 | P.PN ---
Subjective Progress Note Date: 10/02/20 I was notified by the primary team to revaluated the patient today, since she is refusing her Vimpat and had fluctuation in mentation (having hallucination, paranoia). She was last seen by neurology team (Dr. Mackenzie) on 09/29/2020. Please refer to his note for further details. Per the patient nurse practitioner today she's drastically better compared to that her seen her yesterday. Today she refuses to take Vimpat since she stated that she at it's making her sleepy and was to go home. She is on Vimpat 100mg IV bid. She denies of any headaches, nausea, vomiting, visual disturbance or difficulty getting her words out. On 10/01/2020 her hemoglobin was as low as 6.5 and she received the blood tra nsfusion currently her hemoglobin is 9.1 and hematocrit is 26.1. Her most recent platelet count is the 216,000 which is drastically improved compared to initial presentation. She continues to be afebrile. Her wibc is 6.1K (within normal limit). Objective - Vital Signs Vital signs: Vital Signs Temp 97.9 F 10/02/20 08:00 Pulse 62 10/02/20 12:00 Resp 20 10/02/20 12:00 BP 120/59 10/02/20 12:00 Pulse Ox 100 10/02/20 12:00 Intake & Output 10/01/20 10/02/20 10/02/20 18:59 06:59 18:59 Intake Total 1626 480 Output Total 0424 916 9929 Balance 601 -400 -1320 Weight 103.5 kg 105 kg 105 kg Intake: Intake, IV Titration 300 Amount Magnesium Sulfate-D5w Pmx 300 1 gm In Dextrose/Water 1 100ml.bag @ 100 mls/hr IVPB Q1H [facility] Rx#: [id number] Oral 1016 480 Blood Product 310 Rc As-1 Unit 310 [id number] Output: Urine 4666 464 6858 Stool 0 Other: Voiding Method Indwelling Catheter Indwelling Catheter Indwelling Catheter # Voids 2 # Bowel Movements 1 - Exam GENERAL: The patient is lying in and is not in acute distress.. HENT: Has echymosis around the foreahead (but resolving compared to presentation). NEUROLOGICAL: Higher mental function: The patient is awake, alert, oriented to self, place and time. Named objects correctly (pen, watch and cup). She is following commands. No neglect. Cranial nerves: There is erythema of the surrounding of both eye (but improved drastically compared to presentation). The pupils are round, equal and reactive to light. Visual field seems full to confrontation throughout. Extraocular movement is normal without nystagmus. Facial sensation is normal to touch. There is No facial weakness. No dysarthria is noted. Motor: Is wheel chair bound (baseline) so gait cannot be assessed. The strength is able to have movement over the right hand (had weak 3 of hand fingers), while left minimal flicker over 2-4 digits. Otherwise no strength/movement (baseline). Decrease tone throughout. Has bilateral foot drop bilaterally (baseline). Cerebellum: Could not be assessed because of her baseline weakness Reflexes (right/left): Brachioradilis is 0-1. Otherwise 0+ throughout. Plantars are mute bilaterally. WORK-UP: AST of 97 and ALT of 154 which are elevated. Ammonia level is 11 which is considered within normal limits Urinalysis on presentation is negative for urinary tract infection Repeat U/A on 09/21: She had UTI. Urine drug screen is positive for benzos and the serum alcohol was less than 10. Vitamin B12 is more than 4000 which is unremarkable. Folate level the serum is 22 which is normal. TSH is 1.0 which is considered within normal limits. Repeat Coronavirus PCR on 10/01/20: Not detected. CT of the head is reported as there is no acute intracranial hemorrhage, mass effect or midline shift is seen. CT cervicals reported as there is no acute fracture or dislocation evident in the cervical spine. EEG on 09/24/2020 was reported as abnormal due to background slowing of moderate to severe degree. This is suggestive of generalized cerebral dysfunction as can be seen with toxic metabolic encephalopathy or due to diffuse structural brain abnormality. No epileptiform activity was seen. When compared to EEG from 09/22/2020, there is no significant change. MRI of the brain on 09/17/2020 is reported as there is some mild diffuse white matter increased signal in the parietal lobes that could relate to some encephalomalacia. No cortical infarct. I reviewed the MRI did not see any increased signal in the parietal lobes not sure if it's artifact or it it better seen at Radiology. - Labs CBC & Chem 7: 10/02/20 08:25 08 08:25 Labs: Abnormal Lab Results - Last 24 Hours (Table) 10/01/20 10/01/20 10/01/20 Range/Units 08:41 15:34 21:46 RBC 2.84 L (3.80-5.40) m/uL Hgb 9.2 L D (11.4-16.0) gm/dL Hct 26.4 L (34.0-46.0) % RDW 18.2 H (11.5-15.5) % Lymphocytes # (Manual) (1.0-4.8) k/uL Potassium (3.5-5.1) mmol/L Chloride (98-107) mmol/L BUN (7-17) mg/dL Creatinine (0.52-1.04) mg/dL Glucose (74-99) mg/dL Calcium (8.4-10.2) mg/dL Total Protein (6.3-8.2) g/dL Albumin (3.5-5.0) g/dL Urine Glucose (UA) Trace H (Negative) Urine Blood Moderate H (Negative) Ur Leukocyte Esterase Large H (Negative) Amorphous Sediment Rare H (None) /hpf Urine Mucus Occasional H (None) /hpf Crossmatch See Detail 10/02/20 10/02/20 Range/Units 08:25 08:25 RBC 2.84 L (3.80-5.40) m/uL Hgb 9.1 L (11.4-16.0) gm/dL Hct 26.0 L (34.0-46.0) % RDW 19.0 H (11.5-15.5) % Lymphocytes # (Manual) 0.49 L (1.0-4.8) k/uL Potassium 3.2 L (3.5-5.1) mmol/L Chloride 110 H (98-107) mmol/L BUN 4 L (7-17) mg/dL Creatinine <0.15 L (0.52-1.04) mg/dL Glucose 115 H (74-99) mg/dL Calcium 7.9 L (8.4-10.2) mg/dL Total Protein 5.5 L (6.3-8.2) g/dL Albumin 2.6 L (3.5-5.0) g/dL Urine Glucose (UA) (Negative) Urine Blood (Negative) Ur Leukocyte Esterase (Negative) Amorphous Sediment (None) /hpf Urine Mucus (None) /hpf Crossmatch Assessment and Plan Assessment: * Recurrent episodes of altered mental status, with tongue biting (hallucination and paranoia). Suspected seizure. Cannot rule out autoimmune limbic encephalitis/encepahlopathy ---mentation improved. * Also has component of Encephalopathy, likely toxic metabolic, now seems to have resolved. Patient has acute UTI, elevated liver functions, and electrolyte imbalance, likely the causes. Patient has received dose of Rituxan on 09/05/2020, which may be related to progressive encephalopathy.---encephalopathy resolved today. * Acute Anemia (received 1 unit transfusion)--stable * Hypothermia of unknown etiology--resolved * Electrolyte imbalances. 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 No cortical infarct. I reviewed the MRI did not see any increased signal in the parietal lobes not sure if it's artifact or it it better seen at Radiology. I spoke with reading radiologist and they did not appreciate any encephalomalacia over the parietal and felt the patient has mild white matter disease. No acute or subacute stroke. * Continue Vimpat 100mg bid but patient refuses to be on it and did not receive her morning dose since refused. She refuses to be on any other antiepileptic drugs. She is an agreement to go down to Vimpat 50 bid IV and will assess regimen down the line if needs modified. * Q4 hour neuro checks. * If patient continues to have paranonia, hallucination then recommend patient transfered for prolonged EEG with video and would recommend lumbar puncture. * Infection disease team is on board. * Will defer the rest medical management to the primary team. The plan is discussed with her nurse and primary team. Tee Summers MD Neuro-Hospitalist Time with Patient: Less than 30
--- NOTE | 2020-10-02 16:49 | PN ---
PROGRESS NOTE DATE OF SERVICE: 10/02/2020 REASON FOR FOLLOWUP: Pneumonia. INTERVAL HISTORY: The patient is afebrile. The patient has been breathing comfortably. The patient is currently 2 L nasal cannula. The patient denies having any chest pain. No worsening cough. No vomiting. No abdominal pain. No diarrhea. PHYSICAL EXAMINATION: Blood pressure 120/59, pulse of 62, temperature 97.9. She is 100% on 2 L nasal cannula. General description is a middle-aged female lying in bed in no distress. Respiratory system: Unlabored breathing. Decreased breath sounds in the bases. No wheeze. Heart S1, S2. Regular rate and rhythm. Abdomen soft, no tenderness. LABS: Hemoglobin 11.1, white count 6.1, BUN of 4, creatinine 0.15. Blood and urine cultures have been negative. DIAGNOSTIC IMPRESSION AND PLAN: Patient admitted to the hospital with mental status changes, multifactorial, initial concern for possible urinary tract infection, cultures came back negative. Subsequently concern for pneumonia with evidence of moderate pleural effusion. Clinically not behaving as any worsening pneumonia. May benefit from diuresis and incentive spirometry. Continue Discussed with the nurse practitioner for the admitting team. MMODL / IJN: [id number] /
[2020-10-02] MEDS: PHENYLEPHRINE 2.5% OPHTH DRP 2ML BOTH EYES SCH (17:57)
[2020-10-02] MEDS: FERROUS SULFATE 325 MG TAB PO SCH (17:57)
--- NOTE | 2020-10-02 19:21 | CT ---
EXAMINATION TYPE: CT abdomen pelvis wo con DATE OF EXAM: 10/02/2020 COMPARISON: 10/19/2016 HISTORY: Decreased hemoglobin. CT DLP: 1602.4 mGycm Automated exposure control for dose reduction was used. Images obtained from the diaphragm to the floor the pelvis without contrast. There are bilateral pleural effusions. There is bilateral lower lobe pulmonary airspace consolidation and atelectasis. Heart is enlarged. There is no pericardial effusion. Liver spleen pancreas stomach appear intact. The bile ducts are not dilated. There is no adrenal mass. Kidneys have normal size. There is no hydronephrosis. Ureters are not dilat ed. There is no retroperitoneal adenopathy. Gallbladder appears intact. There is calcification in the posterior right kidney consistent with nonobstructing calculi. Detail l imited by motion. Bladder distends smoothly. Uterus is anteverted. Lumbar vertebra have normal alignm ent. There is no compression fracture. There is multilevel anterior bridging osteophyte formation. Th e bony pelvis is intact. There is no mesenteric edema. There is small amount of ascites fluid in the abdomen. This is seen in the left paracolic gutter. There is extensive muscle atrophy of all of the skeletal muscle. There is virtually no skeletal muscl e identified in the abdomen and pelvis. Mild subcutaneous edema around the abdomen. IMPRESSION: Lower lobe pulmonary infiltrates and atelectasis and pleural fluid that could relate to congestive he art failure. Minimal abdominal ascites. These abnormalities appear new compared to old exam.
[2020-10-02] MEDS: FAMOTIDINE 20 MG TAB PO SCH (21:14)
[2020-10-02] MEDS: atenoloL 50 MG TAB PO SCH (21:25)
[2020-10-02] MEDS: MONTELUKAST 10 MG TAB PO SCH (21:26)
[2020-10-03] MEDS: SODIUM CHLORIDE 0.9% 1,000 ML IV SCH (06:34)
[2020-10-03] MEDS: PANTOPRAZOLE 40 MG TABLET PO SCH (06:36)
[2020-10-03] MEDS: LEVOTHYROXINE 112 MCG TAB PO SCH (06:36)
[2020-10-03] MEDS: SODIUM BICARBONATE TAB 650 MG TAB PO SCH ×2 (06:36→12:27)
[2020-10-03] MEDS: VITAMIN A 10,000 UNIT (3000 MCG) CAPSULE PO SCH (06:36)
[2020-10-03] MEDS: amLODIPine 5 MG TAB PO SCH (06:36)
[2020-10-03] MEDS: THIAMINE 100 MG TAB PO SCH ×2 (06:36→12:27)
[2020-10-03] MEDS: DOCUSATE 100 MG CAP PO SCH ×2 (09:09→20:23)
[2020-10-03] MEDS: LACOSAMIDE 50 MG TABLET PO SCH ×2 (09:11→20:24)
[2020-10-03] MEDS: FUROSEMIDE 10 MG/ML 4 ML VIAL IV STA ×2 (09:38→09:43)
[2020-10-03] MEDS: POTASSIUM CHLORIDE ER 20 MEQ TAB.ER PO SCH ×2 (09:38→20:24)
[2020-10-03] MEDS: CEFDINIR 300 MG CAP PO SCH ×2 (09:39→20:24)
[2020-10-03] MEDS ORDERED: PEG 3350-NA SULF,BICARB,CL/KCL 4,000 ML BOTTLE PO ONE (10:00)
[2020-10-03] MEDS: CALCIUM CARBONATE 500 MG CHEWABLE PO SCH (12:27)
[2020-10-03] MEDS: VITAMIN E (DL,TOCOPHERYL ACET) 400 UNIT (180 MG) CAP PO SCH (12:27)
[2020-10-03 12:50] LABS: Anisocytosis Slight; Basophils % (A) 0 %; Eosinophils % (A) 1 %; HCT 27.8 % (34.0-46.0); HGB 9.5 gm/dL (11.4-16.0); Hyperchromasia Slight; Hypochromasia Slight; Lymphocytes # (A) 0.5 k/uL (1.0-4.8); Lymphocytes % (A) 9 %; MCHC 34.1 g/dL (31.0-37.0); Macrocytosis Slight; Mean Platelet Volume 8.4; Monocytes # (A) 0.2 k/uL (0-1.0); Monocytes % (A) 4 %; Neutrophils # (A) 4.4 k/uL (1.3-7.7); Neutrophils % (A) 83 %; Platelet Count 208 k/uL (150-450); Poikilocytosis Marked; RBC 2.96 m/uL (3.80-5.40); RDW 19.2 % (11.5-15.5); WBC 5.4 k/uL (3.8-10.6)
[2020-10-03 13:08] LABS: ALT 24 U/L (4-34); AST 29 U/L (14-36); Albumin 2.5 g/dL (3.5-5.0); Alkaline Phosphatase 105 U/L (38-126); Anion Gap 11 mmol/L; Blood Urea Nitrogen 3 mg/dL (7-17); Calcium 7.7 mg/dL (8.4-10.2); Carbon Dioxide 18 mmol/L (22-30); Chloride 109 mmol/L (98-107); Glucose 98 mg/dL (74-99); Potassium 3.9 mmol/L (3.5-5.1); Sodium 138 mmol/L (137-145); Total Bilirubin 0.6 mg/dL (0.2-1.3); Total Protein 5.5 g/dL (6.3-8.2)
[2020-10-03 13:12] LABS: African American GFR (CKD) >90 (>60 ml/min/1.73 sqM); Non-African American GFR(CKD) >90 (>60 ml/min/1.73 sqM)
[2020-10-03 13:27] LABS: Magnesium 1.7 mg/dL (1.6-2.3)
--- NOTE | 2020-10-03 13:46 | P.PN ---
<Rosalinda Bear - Last Filed: 10/03/20 13:40> Subjective Progress Note Date: 10/03/20 Principal diagnosis: ITP Pt is alert today, very concerned about her potassium. No other c/o. Objective - Vital Signs Vital signs: Vital Signs Temp 97.0 F L 10/03/20 12:00 Pulse 56 L 10/03/20 12:00 Resp 16 10/03/20 12:00 BP 135/60 10/03/20 12:00 Pulse Ox 96 10/03/20 12:00 Intake & Output 10/02/20 10/03/20 10/03/20 18:59 06:59 18:59 Intake Total 720 1000 Output Total 1800 0 0 Balance -1080 0 1000 Weight 105 kg 105 kg Intake: Intake, IV Titration 600 Amount Sodium Chloride 0.9% 1, 600 000 ml @ 75 mls/hr IV . [id number] [facility] Rx#:[id number] Oral 720 400 Output: Urine 1800 Stool 0 0 Other: Voiding Method Indwelling Catheter Bedpan Bedpan # Voids 2 1 # Bowel Movements 1 - Constitutional General appearance: Present: cooperative, no acute distress, obese - EENT Eyes: Present: anicteric sclerae, EOMI ENT: Present: hearing grossly normal - Respiratory Respiratory: bilateral: diminished, rales (few scattered) - Cardiovascular Rhythm: regular Heart sounds: normal: S1, S2 Abnormal Heart Sounds: Absent: systolic murmur, diastolic murmur, rub, S3 Gallop, S4 Gallop, click, other - Peripheral edema foot Peripheral Edema: bilateral: 1+ - Gastrointestinal General gastrointestinal: Present: normal bowel sounds, soft - Psychiatric Psychiatric Comment(s): A&O x 2 - Labs CBC & Chem 7: 10/03/20 12:11 10/03/20 12:11 Labs: Abnormal Lab Results - Last 24 Hours (Table) 10/03/20 10/03/20 Range/Units 12:11 12:11 RBC 2.96 L (3.80-5.40) m/uL Hgb 9.5 L (11.4-16.0) gm/dL Hct 27.8 L (34.0-46.0) % RDW 19.2 H (11.5-15.5) % Lymphocytes # 0.5 L (1.0-4.8) k/uL Chloride 109 H (98-107) mmol/L Carbon Dioxide 18 L (22-30) mmol/L BUN 3 L (7-17) mg/dL Creatinine <0.15 L (0.52-1.04) mg/dL Calcium 7.7 L (8.4-10.2) mg/dL Total Protein 5.5 L (6.3-8.2) g/dL Albumin 2.5 L (3.5-5.0) g/dL - Imaging and Cardiology CT scan - abdomen: report reviewed CT scan - pelvis: report reviewed Assessment and Plan (1) Anemia Narrative/Plan: Precipitous drop in Hgb. No evidence to suggest hemolysis. No hematoma or bruising on the body that has progressed. CT AP without contrast, no evidence of internal bleed. Pt did receive a unit of PRBCs, Hgb is stable. Surgery consulted for evaluation and consideration for endoscopy. Pt refusing at this time, Nursing is contacting family Status: Acute Priority: High Code(s): D64.9 - ANEMIA, UNSPECIFIED SNOMED Code(s): 392143618 (2) Chronic ITP (idiopathic thrombocytopenic purpura) Narrative/Plan: Patient has a history of chronic ITP with a baseline running from 100-140,000. IVIG was given mid August Last received Rituxan on 09/04/20 Her platelets are recovered, continue to be WNL CBC while inpt F/U in 3 weeks for ITP f/u Status: Chronic Priority: High Code(s): D69.3 - IMMUNE THROMBOCYTOPENIC PURPURA SNOMED Code(s): 43988410 (3) Autoimmune autonomic neuropathy Narrative/Plan: Treated by her Neurologist with IVIG Status: Chronic Priority: High Code(s): G90.8 - OTHER DISORDERS OF AUTONOMIC NERVOUS SYSTEM SNOMED Code(s): 22150034 Plan: Cause for period of time that pt was not alert and responsive is not clear. Dr. Hudson reviewed the MRI in detail with Radiologist. No findings to suggest PRES. <Remi Hudson - Last Filed: 10/06/20 15:52> Objective - Vital Signs Vital signs: Vital Signs Temp 97.7 F 10/06/20 07:34 Pulse 59 L 10/06/20 07:34 Resp 18 10/06/20 07:34 BP 148/78 10/06/20 07:34 Pulse Ox 96 10/06/20 07:34 Intake & Output 10/05/20 10/06/20 10/06/20 18:59 06:59 18:59 Output Total 1625 Balance -1625 Output: Urine 1625 Other: Voiding Method Bedpan Bedpan # Voids 3 1 - Labs CBC & Chem 7: 10/04/20 12:50 10/04/20 12:50 Assessment and Plan Plan: Clarification - No findings post review with Radiology to suggest Progressive Multifocal leukoencephalopathy ( PML)
--- NOTE | 2020-10-03 14:45 | P.PN ---
Subjective Progress Note Date: 10/03/20 Altered mental status possible metabolic and toxic encephalopathy Severe thrombocytopenia 60-year-old female came to the hospital after fall and patient was quite a bit confused and was paranoid apparently yesterday. Patient is alert oriented 2 when I valid the patient and patient the temperature was around 80 because of which there multiple heart attacks and the nursing staff was planning on beta brenda although patient was complaining of excessive heat and sweating because of which we removed all of those and we will recheck the temperature again. Apart from that there is no clear evidence of sepsis at this time. UA is not significant for urinary tract infection. In spite of her confusion patient was able to provide me good history. Patient denied any cough patient or dysuria chest x-ray did not show any significant abnormality. Etiology of her son onset of confusion is not clear at this time CT of the head did not show any intracranial hemorrhage MRI is being obtained. 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 Patient missed her IVIG, patient is severely thrombocytopenia With platelet count of around 16,000. Patient has multiple bruises and multiple hematomas secondary to low platelet count after fall. Patient denied any headache patient was recently treated for cellulitis. Suspicion is low for meningitis and unfortunately we cannot the get an LP considering her very low platelet count because of which we are not obtaining CSF analysis at this time. Her thrombus rapini is believed to be secondary to diuretic she received for cellulitis recently. Patient has mildly elevated liver enzymes. MRI was ordered by oncology. Patient blood screen is only for positive for benzodiazepines for which patient doesn't appear to have a prescription for but patient does take Ambien 3.5 mg at bedtime. There is no clear metabolic toxic causes that can explain her confusion or delirium. Psychiatry was consulted as well. 09/21/2020 Patient remains unclear whether patient remains hypothermic remains confused and paranoid psychiatry at evaluate the patient. I consulted neurology as there is no real rheumatological factor for her confusion neurology evaluated the patient and they believe patient may have bilateral lower extremity plegia and left upper extremity hemiparesis. Patient received IVIG for ITP. There is no clear evidence of infection at this time because of continued hyperlipidemia and consult infectious disease as well. 09/22/2020 Patient is seen on follow-up, she is resting in bed, a bit agitated and delirious, unable to answer questions. She is repetitively stating that she is "over the fire". Her temperature this morning 97.4 axillary. Hemodynamically stable. Receiving IV Vimpat.. Vitamin B12, folate and TSH normal. Her platelet count low at 14, today's labs are pending. She is maintained and IV hydration with normal saline. Multiple imaging studies are pending including CT of the brain and MRI of the brain, there is also an EEG ordered by neurology. No growth on preliminary blood and urine cultures at this time. 09/23/2020 Patient is lying in the bed but has been unresponsive since morning. Patient did have also mental status and also muted. Patient was paranoid day before yesterday and has been groggy since then. Patient is able to open her eyes but will not speak. Patient has been afebrile. Laboratory data showed the Nelia 4.2 hemoglobin 8.8 and platelets 13,000 Sodium 142 potassium 4.1 chloride 113 bicarb is 25 BUN 10 and creatinine 0.17 and blood sugar is 104. cultures have been negative and TSH level is 1.0 09/24/2020 Patient was transferred to telemetry unit. Able to wake up and open her eyes with verbal commands. Trying to communicate. Patient is more awake and alert compared to yesterday. MRI could not be done due to risk of aspiration and patient could not lie flat. Lumbar puncture could not be done by anesthesia due to severe thrombocytopenia. Otherwise mental status is better today. Patient has been afebrile. Laboratory data showed WBC 4.5, hemoglobin 8.5 and platelets 42 Sodium 149 potassium 2.8 and chloride 115 BUN 13 and creatinine 0.15 Patient is being continued on gentle IV hydration and follow-up electrolytes. Patient was seen by ophthalmology due to IV discharge likely related to dryness and poor control of eyelids and improper closely at times. No evidence of infection. Continue with topical ointment for dryness. 09/25/2020 Patient is awake alert and oriented and is able to communicate slowly. Wants to eat. Patient has been afebrile. No compressive chest pain or shortness of breath. Potassium is being replaced. Denies any headache. Patient knows that she has not been monitoring her hands and feet for a long time. Laboratory data showed sodium 144 potassium 2.5 chloride 113 bicarb is 20 BUN 14 and creatinine 0.19 WBC 4.8 hemoglobin 8.7 platelets 54,000. 09/26/2020 Patient is currently lying in the bed comfortably. Awake and alert and follows eye contact. Patient was oriented 3 last night. As night progressed her speech became less clear and head and eyes were twitching. Speech was garbled and rolling her tongue back. Patient seems to be hallucinating and talking to herself.. Currently patient is awake alert but could not talk. Patient wants to eat something. Patient has been afebrile. No complaints of headache. No diarrhea or abdominal pain. Laboratory data showed improved sodium level and potassium level. Neurology is on board. MRI was done . 09/27/20 Patient is more awake and alert and oriented today. Able to tolerate oral diet with one-to-one feeding. Denied any bowel movement last couple days. No complaints of nausea or vomiting. Mentation is at baseline overnight. Patient has been afebrile. No complaint of chest pain or shortness of breath. MRI of the brain showed mild diffuse white matter increased signal in the parietal lobes that correlate to some encephalomalacia. Potassium level was 2.6 this morning and replace it with repeat level II.9. Magnesium 1.5 which is being replaced. 09/28/20 Patient is awake alert and oriented 2-3. Able to communicate. Mentation is at baseline. No complains of chest pain or shortness of breath. Potassium level is 3.6 to morning. Patient is being continued on Vimpat possible complex partial seizures. Afebrile. No nausea vomiting or abdominal pain. Patient did have a small bowel movement. 09/29/2020 Patient is awake alert and oriented. Able to communicate slowly. Mentation is at baseline. Tolerating oral diet very well. No complaints of chest pain or shortness of. No nausea vomiting or abdominal pain or diarrhea. Patient has been afebrile. Urine culture is finalized. Polymicrobial specimen. Currently on antibiotics involve Omnicef. ID is following. Patient was also started Vimpat for possible partial complex seizures. Continue on PT OT and possible transfer to rehab.d 09/30/2020 Patient evaluated at bedside today, she is awake alert and oriented times person. Patient is able to communicate effectively, however she states that she feels that she is trapped. Her mentation is apparently at baseline. She is tolerating an oral diet, however she does require assistance for feeding. Patient denies chest pain and shortness of breath. She denies nausea vomiting abdominal pain or diarrhea. Patient has been afebrile. Blood cultures and urine cultures are negative. Her potassium is 3.2 today, has been replaced per protocol. Repeat CBC and BMP in the morning. Hemoglobin today is 7.2 which has been trending down this admission. Patient is being followed by oncology, for this new onset anemia, in a patient who has a history of chronic ITP, patient is maintained on IVIG. EEG completed and was negative for any epileptiform act ivity. However patient has been started on Vimpat 100 mg twice a day for questionable episodes of altered mental status with tongue biting, rule out partial complex seizures. At this time after reviewing MRI, neurology has signed off. Patient will continue on oral Omnicef for possible pneumonia a ccording to ID. 10/01/2020 Patient was evaluated at the bedside today she is sleeping. Patient was arousable. Patient is still alert 1 with moments of confusion. Patient is tolerating oral diet still require assistance for feeding. Patient has a Horn catheter in place. This morning patient's hemoglobin was found to be 6.5 she is pending transfusion with 1 unit of packed red blood cells. Patient is being followed closely by hematology services for a new onset anemia. This morning patient's potassium level was 3.1 magnesium was 1.4 electrodes will be supplemented with a recheck in the morning. Patient family member has been awarded temporary guardianship as of today. Vital signs are stable with a temp of 97.9 heart rate is 60 to a blood pressure of 114/53 and patient is maintainin g 100% oxygen saturation on 2 L nasal cannula. Spoke in detail with patient's niece who states that patient was living by herself, and this confusion started about 1 week prior to her admission. Family is concerned and is questioning whether the pneumonia and the urinary tract infection are clearing up with antibiotics. Family is also requesting a lift room for the patient and is hoping that her physical activity will be increased. Patient's niece states that patient's sister is positive for COVID and because of that Family will be able to come visit the patient. Patient was negative for Covid on admission, and has received a one-time dose of Pedro [employer] Pedro vaccination against COVID- 19. 10/02/2020 Patient was evaluated at the bedside today. She is sitting up and she is alert and oriented 3. Patient states that she does not like the Vimpat because it makes her feel sedated and that she likes to be awake. patient is requesting for her Horn catheter removed. She had no issues urinating prior. Urinalysis repeat was negative. Okay to remove Horn for voiding trial. In addition: Swab was negative 2. Patient is being followed closely by infectious disease for possible pneumonia, chest x-ray repeat demonstrated increasing small to moderate left and small right pleural effusions with adjacent atelectasis and/or consolidation. Aeration has worsened as compared to previous exam. Incentive spirometer has been ordered. Patient remains on room air, and remains afebrile. Lung sounds are diminished. Pulmonary toileting is encouraged. Patient's mentation and mood is much improved as compared to yesterday. Hemoglobin is stable now at 9.1, after receiving 1 unit of PRBCs yesterday. Patient denies any cough shortness of breath or chest pain. Current plan of care discussed in length with patient and family member at the bedside. All concerns have been addressed. 10/03/2020 Patient was evaluated at the bedside today. She is alert and oriented x3 as far as person, place and time, however patient is unable to comprehend her current medication care and treatements. Patient is very concerned about a plan of care. She states that she would like to get out of the hospital. She is concerned with her potassium level, and is requesting to have IV access upon discharge that she can receive all of her medications IV, including her antibiotics, and that she is currently not receiving IV antibiotics. Patient was updated on her potassium is normalized today at 3.9. She was started on oral potassium tablets to take twice a day. Patient's hemoglobin has stabilized at 9.5, no signs of an active bleed. Patient is a followed closely by hematology services requested a consult for general surgery for an EGD colonoscopy. Patient refused at this time. In addition 40 mg of IV Lasix one- time has been ordered this morning due to the findings of possible CHF on her CT abdomen pelvis. Patient refuses IV Lasix at this time. Patient additionally refused her lab draw earlier this morning. After speaking with the patient she was agreeable to have her labs drawn. Patient's Horn catheter has been removed, patient is not retaining urine at this time. Patient is a displaying flight of ideas during her evaluation at bedside. Patient has been reevaluated by neurological services who decreased her dose of Vimpat yesterday. Patient will most likely be transferred to a tertiary facility for further neurological workup. ROS: Constitutional: Denied any fatigue denied any fever. Cardio vascular: denied any chest pain, palpitations Gastrointestinal denied any nausea vomiting Pulmonary: Denied any shortness of breath cough Neurologic: Reports feeling suspicious of staff, patient reports feeling trapped. All inpatient medications were reviewed and appropriate changes in these medications as dictated in the interval history and assessment and plan. PHYSICAL EXAMINATION: GENERAL: The patient is alert and oriented to person, not in any acute distress. Well developed, well nourished. HEENT: Pupils are round and equally reacting to light. EOMI. Periorbital bruising present bilaterally. CARDIOVASCULAR: S1 and S2 present. No murmurs, rubs, or gallops. PULMONARY: Chest is clear to auscultation, no wheezing or crackles. ABDOMEN: Soft, nontender, nondistended, normoactive bowel sounds. No palpable organomegaly. MUSCULOSKELETAL: No joint swelling or deformity. EXTREMITIES: No cyanosis, clubbing, +3 pedel edema present NEUROLOGICAL: Gross neurological examination revealed quadriplegia, pt is able to open her eyes and respond to verbal commands. SKIN: Multiple bruises, hematoma r/t fall and thrombocytopenia. Assessment and plan -Recurrent episodes of altered mental status with tongue biting. Possible complex partial seizures. Patient is on Vimpat 50 mg twice daily., no further seizure-like activity. -Altered mental status: Possible metabolic and toxic encephalopathy., Improving, family has concerns the patient is not yet back to her baseline as of today. Unlikely meningoencephalitis.. possible component of polypharmacy related to Ambien, SIMRAN, and melatonin use, these medications are on hold. Multiple imaging studies have been negative including tibiofibular x-ray foot x-ray knee x-ray elbow x-ray chest x-ray head and cervical spine CT. TSH, B12, ammonia and folate levels are normal. Repeat CT on 09/22/2020 showed scalp soft tissue swelling increased in size compared to old exam. No acute process. Lumbar puncture could not be performed due to severe thrombocytopenia. psychiatric has seen the patient, and has signed off at this time. neurology at this time has signed off on the patient as well. Patient received a dose of with tubes and on 09/05/2020 patient will be related to progress encephalopathy. Cancel lumbar puncture and also transfer to tertiary care facility [facility] is on hold. Was able to do MRI on 09/25/2020 which revealed mild diffuse white matter increased signal in the peritoneal lobes that could be related to some encephalomalacia. No cortical infarct. EEG completed on 09/24/2020 which showed moderate to severe degree of background slowing. This is suggestive generalized cerebral dysfunction as can be seen with toxic metabolic encephalopathy, or diffuse structural brain abnormality. No epileptiform activity was seen. This is unchanged as compared to the EEG performed on 09/22/2020. At this time patient has been transitioned to oral Vimpat tolerating well. No further signs of altered mentation with tongue biting. Neurology suspected partial complex seizures. - Acute UTI, repeat urinalysis negative, for catheter has been removed. 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 Patient's motor strength is at baseline. -Chronic thrombocytopenia Patient is receiving IV immunoglobulin at this time and patient has history of ITP. -Recent treatment for cellulitis. -Hypertension: Blood pressure stable, Norvasc has been resumed. Monitor blood pressure. -Hyperkalemia: repleted -Hypothyroidism - patient is maintained on Synthroid. -Hypokalemia. Repleted, levels are 3.9 today patient has been started on oral potassium twice a day. -Hypomagnesium. Magnesium level today is 1.7, replacing recheck in the morning. -Anemia new-onset suspect acute GIB. Patient is being followed closely by hematology, who has ruled out hemolysis. Abdominal pelvis CT negative for an acute bleed. Patient has received 1 unit of PRBCs this admission current hemoglobin is 9.5 which has been stable. There are currently no signs of active bleed, and patient has refused surgical services EGD colonoscopy. Continue to monitor hemoglobin trend. - Possible Pneumonia, being treated with oral Cefdinir and being followed closely by infectious disease, chest x-ray was reviewed by infectious disease, no changes in current medication. Patient remains on room air and afebrile, white blood cell count was within normal limits. -Hypernatremia due to volume depletion, resolved current sodium level today is 138. Monitor closely. -Possible new onset acute congestive heart failure, unspecified Abdomen pelvis CT results demonstrated lower lobe pulmonary infiltrates and atelectasis and pleural fluid that could related to congestive heart failure. These abdomen is appeared new compared to old exam. Patient has refused a dose of IV Lasix. We'll follow-up with a repeat chest x-ray in the morning. DVT prophylaxis: Prophylaxis is contraindicated because of her low platelet count, and history of thrombocytopenia. Being followed closely by hematology. Platelet count is up to 208. GI prophylaxis: Patient is maintained on by mouth Protonix as well as by mouth Pepcid. Prognosis is guarded for this patient. Patient's niece has been awarded temporary guardianship. Continue electrolyte supplementation, Continue supportive care. If patient's mentation continues to improve then will reevaluate rehab at discharge. If patient continues to have intermittent episodes of confusion and delirium then plan will be to transfer patient to a tertiary facility for further neurological workup. Patient will have a repeat chest x-ray in the morning to rule out congestive heart failure, continue encouraging incentive spirometer, continue to encourage course of oral antibiotics. Continue to monitor for signs of an active bleed, recheck hemoglobin in the morning. Case was discussed again with neuro services, who is recommending transfer to a tertiary care facility. Continue to monitor patient closely. Objective - Vital Signs Vital signs: Vital Signs Temp 97.0 F L 10/03/20 12:00 Pulse 56 L 10/03/20 12:00 Resp 16 10/03/20 12:00 BP 135/60 10/03/20 12:00 Pulse Ox 96 10/03/20 12:00 Intake & Output 10/02/20 10/03/20 10/03/20 18:59 06:59 18:59 Intake Total 720 1000 Output Total 1800 0 0 Balance -1080 0 1000 Weight 105 kg 105 kg Intake: Intake, IV Titration 600 Amount Sodium Chloride 0.9% 1, 600 000 ml @ 75 mls/hr IV . [id number] [facility] Rx#:[id number] Oral 720 400 Output: Urine 1800 Stool 0 0 Other: Voiding Method Indwelling Catheter Bedpan Bedpan # Voids 2 1 # Bowel Movements 1 - Labs CBC & Chem 7: 10/03/20 12:11 10/03/20 12:11 Labs: Abnormal Lab Results - Last 24 Hours (Table) 10/03/20 10/03/20 Range/Units 12:11 12:11 RBC 2.96 L (3.80-5.40) m/uL Hgb 9.5 L (11.4-16.0) gm/dL Hct 27.8 L (34.0-46.0) % RDW 19.2 H (11.5-15.5) % Lymphocytes # 0.5 L (1.0-4.8) k/uL Chloride 109 H (98-107) mmol/L Carbon Dioxide 18 L (22-30) mmol/L BUN 3 L (7-17) mg/dL Creatinine <0.15 L (0.52-1.04) mg/dL Calcium 7.7 L (8.4-10.2) mg/dL Total Protein 5.5 L (6.3-8.2) g/dL Albumin 2.5 L (3.5-5.0) g/dL Assessment and Plan Time with Patient: Greater than 30
--- NOTE | 2020-10-03 15:31 | P.GSCN ---
History of Present Illness Consult date: 10/03/20 History of present illness: CHIEF COMPLAINT: Mental status changes Reason for consult: EGD/colonoscopy to rule out GI bleed HISTORY OF PRESENT ILLNESS: This is a 60-year-old female with multiple medical issues. 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 Patient presented to the hospital with mental status changes and paranoia. There have been concerns of new onset seizures. She's followed by neurology. During her admission she has had a drop in her hemoglobin. On admission, 09/19/2020 her hemoglobin was 14.6 and on October 01 her hemoglobin had dropped down to 6.5. Patient was transfused with 1 unit of blood in her hemoglobin did come up to 9.5. No active signs of bleeding reported. There is no blood in her stools or black stools. Patient is being followed by hematology during this admission. She also received IVIG for her low platelets. She had a computed tomography scan of the abdomen and pelvis showed lower lobe pulmonary infiltrates and atelectasis and pleural fluid that could relate to congestive heart failure. Minimal abdominal ascites. These abnormalities appear new compared to old exam. CAT scan did not report any evidence of bleeding. Surgical service was counseled for EGD and colonoscopy. Patient is confused at times. And during my exam patient did not want to have the EGD or colonoscopy completed. Her legal guardian will be contacted by nursing staff in order to get consent. Patient denies any abdominal pain. Denies any shortness of breath. Denies any nausea or vomiting. PAST MEDICAL HISTORY: See list. PAST SURGICAL HISTORY: See list. MEDICATIONS: See list. ALLERGIES: See list. SOCIAL HISTORY: No illicit drug use. REVIEW OF SYSTEMS: CONSTITUTIONAL: Denies fever or chills. HEENT: Denies blurred vision, vision changes, or eye pain. Denies hemoptysis CARDIOVASCULAR: Denies chest pain or pressure. RESPIRATORY: No shortness of breath. GASTROINTESTINAL: See HPI for pertinent findings HEMATOLOGIC: Denies bleeding disorders. GENITOURINARY: Denies any blood in urine or increased urinary frequency. SKIN: Denies pruitis. Denies rash. PHYSICAL EXAM: VITAL SIGNS: Reviewed GENERAL: Well-developed in no acute distress. HEENT: No sclera icterus. Extraocular movements grossly intact. Moist buccal mucosa. Head is atraumatic, normocephalic. No nasal drainage. ABDOMEN: Soft. Obese. Nondistended. Nontender NEUROLOGIC: Alert and oriented. Cranial nerves II through XII grossly intact. LABORATORY DATA: WBC is 5.4 hemoglobin 9.5 platelets 208 Sodium 138 potassium 3.9 creatinine 0.15 IMAGING: Computed tomography scan as stated above ASSESSMENT: 1. Anemia and need to rule out GI bleed PLAN: -Patient scheduled for EGD and colonoscopy for tomorrow, 10/04/[address] norton -Nursing staff to contact patient's legal guardian to get consent -GoLYTELY prep ordered -Keep patient nothing by mouth after midnight Thank you for consultation Physician Tube Wrapper note has been reviewed by physician. Signing provider agrees with the documented findings, assessment, and plan of care. 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, TUBULAR RENAL ACIDOSIS,NEUROMUSCULAR DISEASE-MULTI FOCAL MOTOR NEUROPATHY , QUADRIPLEGIC History of Any Multi-Drug Resistant Organisms: None Reported Past Surgical History: Uterine Ablation Additional Past Surgical History / Comment(s): MUSCLE BIOPSY , D&C Past Anesthesia/Blood Transfusion Reactions: Postoperative Nausea & Vomiting (PONV) Past Psychological History: No Psychological Hx Reported Smoking Status: Never smoker Past Alcohol Use History: None Reported Past Drug Use History: None Reported - Past Family History Mother Family Medical History: No Reported History Medications and Allergies Home Medications Medication Instructions Recorded Confirmed Type Atenolol [Tenormin] 100 mg PO HS 07/21/16 09/19/20 History Montelukast [Singulair] 10 mg PO HS 07/21/16 09/19/20 History Potassium Bicarbonate/Cit AC 50 meq PO TID-W/MEALS 07/21/16 09/19/20 History [Klor-Con 25 (Effer. Tab)] amLODIPine [Norvasc] 5 mg PO W/BRKFST 07/21/16 09/19/20 History Potassium Chloride [Klor-Con 20] 20 meq PO BID-W/MEALS 07/28/16 09/19/20 History Ferrous Sulfate [Iron (65 MG 325 mg PO W/SUPPER 01/04/18 09/19/20 History Elemental)] Cranberry 25,000mg 25,000 mg PO W/BRKFST 07/04/20 09/19/20 History Ergocalciferol [Vitamin D2 (1250 1,250 mcg PO FR 07/04/20 09/19/20 History Mcg = 45922 Iu)] Levothyroxine Sodium [Tirosint] 112 mcg PO DAILY 07/04/20 09/19/20 History Sodium Bicarbonate Tab 650 mg PO BID-W/MEALS 07/04/20 09/19/20 History Vitamin A Acetate [Vitamin A] 10,000 unit SL W/BRKFST 07/04/20 09/19/20 History calcitrioL [Calcitriol] 0.25 mcg PO MO 07/04/20 09/19/20 History Ascorbic Acid [Vitamin C] 500 mg PO W/SUPPER 09/19/20 09/19/20 History Biotin 10,000 mcg PO W/BRKFST 09/19/20 09/19/20 History Calcium Carbonate [Calcium] 600 mg PO W/LUNCH 09/19/20 09/19/20 History Famotidine [Pepcid] 20 mg PO HS 09/19/20 09/19/20 History Efren 750mg 1 tab PO 09/19/20 09/19/20 History Gamunex-C 5gm/50ml 15 gm IV Q28D 09/19/20 09/19/20 History Magnesium Gluconate [Magonate] 500 mg PO W/LUNCH 09/19/20 09/19/20 History Melatonin 1 mg PO 09/19/20 09/19/20 History Thiamine [Vitamin B-1] 100 mg PO BID-W/MEALS 09/19/20 09/19/20 History Vitamin E Acetate [Vitamin E] 200 unit PO W/LUNCH 09/19/20 09/19/20 History Zolpidem Tartrate 3.5 mg SL 09/19/20 09/19/20 History Allergies Allergy/AdvReac Type Severity Reaction Status Date / Time hydrocortisone Allergy Nausea & Verified 09/05/20 09:52 Vomiting Iodine and Iodide Containing Allergy "KIDNEY Verified 09/05/20 09:52 Produc PROBLEM" quinine Allergy Nausea & Verified 09/05/20 09:52 Vomiting iodine AdvReac Unknown "KIDNEY Verified 09/05/20 09:52 PROBLEM" Surgical - Exam Vital Signs Temp Pulse Resp BP Pulse Ox 98.0 F 50 L 18 123/75 98 09/19/20 17:04 09/19/20 17:04 09/19/20 17:04 09/19/20 17:04 09/19/20 17:04 Results - Labs 10/03/20 12:11 10/03/20 12:11 Abnormal Lab Results - Last 24 Hours (Table) 10/03/20 10/03/20 Range/Units 12:11 12:11 RBC 2.96 L (3.80-5.40) m/uL Hgb 9.5 L (11.4-16.0) gm/dL Hct 27.8 L (34.0-46.0) % RDW 19.2 H (11.5-15.5) % Lymphocytes # 0.5 L (1.0-4.8) k/uL Chloride 109 H (98-107) mmol/L Carbon Dioxide 18 L (22-30) mmol/L BUN 3 L (7-17) mg/dL Creatinine <0.15 L (0.52-1.04) mg/dL Calcium 7.7 L (8.4-10.2) mg/dL Total Protein 5.5 L (6.3-8.2) g/dL Albumin 2.5 L (3.5-5.0) g/dL Diabetes panel 10/03/20 Range/Units 12:11 Sodium 138 (137-145) mmol/L Potassium 3.9 (3.5-5.1) mmol/L Chloride 109 H (98-107) mmol/L Carbon Dioxide 18 L (22-30) mmol/L BUN 3 L (7-17) mg/dL Creatinine <0.15 L (0.52-1.04) mg/dL Glucose 98 (74-99) mg/dL Calcium 7.7 L (8.4-10.2) mg/dL AST 29 (14-36) U/L ALT 24 (4-34) U/L Alkaline Phosphatase 105 (38-126) U/L Total Protein 5.5 L (6.3-8.2) g/dL Albumin 2.5 L (3.5-5.0) g/dL Calcium panel 10/03/20 Range/Units 12:11 Calcium 7.7 L (8.4-10.2) mg/dL Albumin 2.5 L (3.5-5.0) g/dL Pituitary panel 10/03/20 Range/Units 12:11 Sodium 138 (137-145) mmol/L Potassium 3.9 (3.5-5.1) mmol/L Chloride 109 H (98-107) mmol/L Carbon Dioxide 18 L (22-30) mmol/L BUN 3 L (7-17) mg/dL Creatinine <0.15 L (0.52-1.04) mg/dL Glucose 98 (74-99) mg/dL Calcium 7.7 L (8.4-10.2) mg/dL Adrenal panel 10/03/20 Range/Units 12:11 Sodium 138 (137-145) mmol/L Potassium 3.9 (3.5-5.1) mmol/L Chloride 109 H (98-107) mmol/L Carbon Dioxide 18 L (22-30) mmol/L BUN 3 L (7-17) mg/dL Creatinine <0.15 L (0.52-1.04) mg/dL Glucose 98 (74-99) mg/dL Calcium 7.7 L (8.4-10.2) mg/dL Total Bilirubin 0.6 (0.2-1.3) mg/dL AST 29 (14-36) U/L ALT 24 (4-34) U/L Alkaline Phosphatase 105 (38-126) U/L Total Protein 5.5 L (6.3-8.2) g/dL Albumin 2.5 L (3.5-5.0) g/dL
[2020-10-03] MEDS: PHENYLEPHRINE 2.5% OPHTH DRP 2ML BOTH EYES SCH (17:04)
--- NOTE | 2020-10-03 17:12 | PN ---
PROGRESS NOTE DATE OF SERVICE: 10/03/2020 REASON FOR FOLLOWUP: Possible pneumonia. INTERVAL HISTORY: The patient is afebrile. The patient remains to be pleasantly confused though no agitation. She is currently breathing comfortably on nasal cannula oxygen. When asked specifically, denies having any chest pain or cough. She wants potassium, sodium and iron to be replaced. No vomiting or diarrhea has been reported. PHYSICAL EXAMINATION: Blood pressure 135/60 with a pulse of 56, temperature 97. She is 93% on 2 L nasal cannula. General description is a middle-aged female up in the bed in no distress. Respiratory system: Unlabored breathing with decreased breath sounds in the base. Heart S1, S2. Regular rate and rhythm. Abdomen soft, no tenderness. LABS: Hemoglobin is 9.5, white count 5.4, BUN of 3, creatinine 0.15. DIAGNOSTIC IMPRESSION AND PLAN: Patient admitted to hospital with a fall in this patient who did have a possible congestive heart failure or pleural fluid. Clinically not behaving as pneumonia. The patient is covered though with [employer] to continue and monitor clinical course closely. MMODL / IJN: [id number] /
[2020-10-03] MEDS: FERROUS SULFATE 325 MG TAB PO SCH (17:53)
--- NOTE | 2020-10-03 17:59 | P.PN ---
Subjective Progress Note Date: 10/03/20 Upon seeing the patient, she stated "I don't want to be in hospital and I want to go home". Per the nurse no report of worsening condition. Objective - Vital Signs Vital signs: Vital Signs Temp 97.0 F L 10/03/20 12:00 Pulse 56 L 10/03/20 14:00 Resp 16 10/03/20 14:00 BP 135/60 10/03/20 12:00 Pulse Ox 96 10/03/20 12:00 Intake & Output 10/02/20 10/03/20 10/03/20 18:59 06:59 18:59 Intake Total 720 1240 Output Total 1800 0 0 Balance -1080 0 1240 Weight 105 kg 105 kg Intake: Intake, IV Titration 600 Amount Sodium Chloride 0.9% 1, 600 000 ml @ 75 mls/hr IV . [id number] [facility] Rx#:[id number] Oral 720 640 Output: Urine 1800 Stool 0 0 Other: Voiding Method Indwelling Catheter Bedpan Bedpan # Voids 2 1 # Bowel Movements 1 - Exam GENERAL: The patient is lying in and is not in acute distress.. HENT: Has echymosis around the foreahead (but resolving compared to presentati on). NEUROLOGICAL: Higher mental function: The patient is awake, alert, oriented to self, place and time. Named objects correctly (pen, watch and cup). She is following commands. No neglect. Cranial nerves: There is erythema of the surrounding of both eye (but improved drastically compared to presentation). The pupils are round, equal and reactive to light. Visual field seems full to confrontation throughout. Extraocular movement is normal without nystagmus. Facial sensation is normal to touch. There is No facial weakness. No dysarthria is noted. Motor: Is wheel chair bound (baseline) so gait cannot be assessed. The strength is able to have movement over the right hand (had weak 3 of hand fingers), while left minimal flicker over 2-4 digits. Otherwise no strength/movement (bas robert). Decrease tone throughout. Has bilateral foot drop bilaterally (baseline). Cerebellum: Could not be assessed because of her baseline weakness Reflexes (right/left): Brachioradilis is 0-1. Otherwise 0+ throughout. Plantars are mute bilaterally. WORK-UP: AST of 97 and ALT of 154 which are elevated. Ammonia level is 11 which is considered within normal limits Urinalysis on presentation is negative for urinary tract infection Repeat U/A on 09/21: She had UTI. Urine drug screen is positive for benzos and the serum alcohol was less than 10. Vitamin B12 is more than 4000 which is unremarkable. Folate level the serum is 22 which is normal. TSH is 1.0 which is considered within normal limits. Repeat Coronavirus PCR on 10/01/20: Not detected. CT of the head is reported as there is no acute intracranial hemorrhage, mass effect or midline shift is seen. CT cervicals reported as there is no acute fracture or dislocation evident in the cervical spine. EEG on 09/24/2020 was reported as abnormal due to background slowing of moderate to severe degree. This is suggestive of generalized cerebral dysfunction as can be seen with toxic metabolic encephalopathy or due to diffuse structural brain abnormality. No epileptiform activity was seen. When compared to EEG from 09/22/2020, there is no significant change. MRI of the brain on 09/17/2020 is reported as there is some mild diffuse white matter increased signal in the parietal lobes that could relate to some encep halomalacia. No cortical infarct. I reviewed the MRI did not see any increased signal in the parietal lobes not sure if it's artifact or it it better seen at Radiology. - Labs CBC & Chem 7: 10/03/20 12:11 10/03/20 12:11 Labs: Abnormal Lab Results - Last 24 Hours (Table) 10/03/20 10/03/20 Range/Units 12:11 12:11 RBC 2.96 L (3.80-5.40) m/uL Hgb 9.5 L (11.4-16.0) gm/dL Hct 27.8 L (34.0-46.0) % RDW 19.2 H (11.5-15.5) % Lymphocytes # 0.5 L (1.0-4.8) k/uL Chloride 109 H (98-107) mmol/L Carbon Dioxide 18 L (22-30) mmol/L BUN 3 L (7-17) mg/dL Creatinine <0.15 L (0.52-1.04) mg/dL Calcium 7.7 L (8.4-10.2) mg/dL Total Protein 5.5 L (6.3-8.2) g/dL Albumin 2.5 L (3.5-5.0) g/dL Assessment and Plan Assessment: * Recurrent episodes of altered mental status, with tongue biting (hallucination and paranoia). Suspected seizure. Cannot rule out autoimmune limbic encephalitis/encepahlopathy ---mentation improved. * Also has component of Encephalopathy, likely toxic metabolic, now seems to have resolved. Patient has acute UTI, elevated liver functions, and electrolyte imbalance, likely the causes. Patient has received dose of Rituxan on 09/05/2020, which may be related to progressive encephalopathy.- --encephalopathy resolved today. * Acute Anemia (received 1 unit transfusion)--stable * Hypothermia of unknown etiology--resolved * Electrolyte imbalances. 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 No cortical infarct. I reviewed the MRI did not see any increased signal in the parietal lobes not sure if it's artifact or it it better seen at Radiology. I spoke with reading radiologist and they did not appreciate any encephalomalacia over the parietal and felt the patient has mild white matter disease. No acute or subacute stroke. * Continue Vimpat 50 bid IV (she refused to be on 100mg bid). * Q4 hour neuro checks. * If patient continues to have paranonia, hallucination then recommend patient transfered for prolonged EEG with video and would recommend lumbar puncture. * Infection disease team is on board. * Will defer the rest medical management to the primary team. The plan is discussed with her nurse and primary team. Tee Summers MD Neuro-Hospitalist Time with Patient: Less than 30
[2020-10-03] MEDS: FAMOTIDINE 20 MG TAB PO SCH (20:23)
[2020-10-03] MEDS: MONTELUKAST 10 MG TAB PO SCH (20:24)
[2020-10-03] MEDS: atenoloL 50 MG TAB PO SCH (20:24)
[2020-10-04] MEDS: SODIUM CHLORIDE 0.9% 1,000 ML IV SCH ×2 (06:59→12:48)
--- NOTE | 2020-10-04 08:05 | XR ---
EXAMINATION TYPE: XR chest 1V portable DATE OF EXAM: 10/04/2020 COMPARISON: 10/01/2020 INDICATION: History of pneumonia TECHNIQUE: Single frontal view of the chest is obtained. FINDINGS: The heart size is mildly prominent. The pulmonary vasculature is upper limits of normal. Small left pleural effusion is present. Portable present on the right with the tip in the superior vena cava region. IMPRESSION: 1. Left lower lobe infiltrate and small left pleural effusion. 2. Cardiomegaly. There is some prominence of pulmonary vascular markings. Consider congestive heart f ailure within the differential. 3. Chest study appears improved from 10/01/2020.
[2020-10-04] MEDS: CEFDINIR 300 MG CAP PO SCH ×2 (09:40→23:04)
[2020-10-04] MEDS: SODIUM BICARBONATE TAB 650 MG TAB PO SCH ×2 (09:40→12:49)
[2020-10-04] MEDS: LEVOTHYROXINE 112 MCG TAB PO SCH (09:40)
[2020-10-04] MEDS: PANTOPRAZOLE 40 MG TABLET PO SCH (09:41)
[2020-10-04] MEDS: LACOSAMIDE 50 MG TABLET PO SCH ×2 (09:41→22:07)
[2020-10-04] MEDS: amLODIPine 5 MG TAB PO SCH (09:41)
[2020-10-04] MEDS: THIAMINE 100 MG TAB PO SCH ×2 (09:41→13:21)
[2020-10-04] MEDS: DOCUSATE 100 MG CAP PO SCH ×3 (09:41→22:09)
[2020-10-04] MEDS: POTASSIUM CHLORIDE ER 20 MEQ TAB.ER PO SCH ×2 (09:42→22:07)
[2020-10-04] MEDS: LACTOBACILLUS ACIDOPH & BULGAR 1 EACH PACKET PO SCH ×2 (12:46→22:07)
[2020-10-04] MEDS: ERGOCALCIFEROL 1,250 MCG (50,000 IU) CAPSULE PO SCH (13:20)
[2020-10-04] MEDS: CALCIUM CARBONATE 500 MG CHEWABLE PO SCH (13:20)
[2020-10-04] MEDS: VITAMIN E (DL,TOCOPHERYL ACET) 400 UNIT (180 MG) CAP PO SCH (13:21)
[2020-10-04] MEDS: VITAMIN A 10,000 UNIT (3000 MCG) CAPSULE PO SCH (13:21)
[2020-10-04 13:25] LABS: ALT 23 U/L (4-34); AST 27 U/L (14-36); Albumin 2.6 g/dL (3.5-5.0); Alkaline Phosphatase 107 U/L (38-126); Anion Gap 5 mmol/L; Blood Urea Nitrogen 3 mg/dL (7-17); Calcium 8.2 mg/dL (8.4-10.2); Carbon Dioxide 25 mmol/L (22-30); Chloride 109 mmol/L (98-107); Glucose 155 mg/dL (74-99); Potassium 3.6 mmol/L (3.5-5.1); Sodium 139 mmol/L (137-145); Total Bilirubin 0.4 mg/dL (0.2-1.3); Total Protein 5.5 g/dL (6.3-8.2)
[2020-10-04 13:30] LABS: African American GFR (CKD) >90 (>60 ml/min/1.73 sqM); Non-African American GFR(CKD) >90 (>60 ml/min/1.73 sqM)
[2020-10-04 14:01] LABS: Anisocytosis Slight; Basophils % (A) 0 %; Eosinophils % (A) 0 %; HCT 26.9 % (34.0-46.0); HGB 8.9 gm/dL (11.4-16.0); Hypochromasia Moderate; Lymphocytes # (A) 0.6 k/uL (1.0-4.8); Lymphocytes % (A) 9 %; MCH 31.2 pg (25.0-35.0); MCHC 33.2 g/dL (31.0-37.0); Macrocytosis Slight; Mean Platelet Volume 9.1; Monocytes # (A) 0.3 k/uL (0-1.0); Monocytes % (A) 4 %; Neutrophils % (A) 84 %; Platelet Count 218 k/uL (150-450); Poikilocytosis Marked; RBC 2.86 m/uL (3.80-5.40)
--- NOTE | 2020-10-04 14:28 | P.PN ---
Subjective Progress Note Date: 10/04/20 Altered mental status possible metabolic and toxic encephalopathy Severe thrombocytopenia 60-year-old female came to the hospital after fall and patient was quite a bit confused and was paranoid apparently yesterday. Patient is alert oriented 2 when I valid the patient and patient the temperature was around 80 because of which there multiple heart attacks and the nursing staff was planning on beta brenda although patient was complaining of excessive heat and sweating because of which we removed all of those and we will recheck the temperature again. Apart from that there is no clear evidence of sepsis at this time. UA is not significant for urinary tract infection. In spite of her confusion patient was able to provide me good history. Patient denied any cough patient or dysuria chest x-ray did not show any significant abnormality. Etiology of her son onset of confusion is not clear at this time CT of the head did not show any intracranial hemorrhage MRI is being obtained. 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 Patient missed her IVIG, patient is severely thrombocytopenia With platelet count of around 16,000. Patient has multiple bruises and multiple hematomas secondary to low platelet count after fall. Patient denied any headache patient was recently treated for cellulitis. Suspicion is low for meningitis and unfortunately we cannot the get an LP considering her very low platelet count because of which we are not obtaining CSF analysis at this time. Her thrombus rapini is believed to be secondary to diuretic she received for cellulitis recently. Patient has mildly elevated liver enzymes. MRI was ordered by oncology. Patient blood screen is only for positive for benzodiazepines for which patient doesn't appear to have a prescription for but patient does take Ambien 3.5 mg at bedtime. There is no clear metabolic toxic causes that can explain her confusion or delirium. Psychiatry was consulted as well. 09/21/2020 Patient remains unclear whether patient remains hypothermic remains confused and paranoid psychiatry at evaluate the patient. I consulted neurology as there is no real rheumatological factor for her confusion neurology evaluated the patient and they believe patient may have bilateral lower extremity plegia and left upper extremity hemiparesis. Patient received IVIG for ITP. There is no clear evidence of infection at this time because of continued hyperlipidemia and consult infectious disease as well. 09/22/2020 Patient is seen on follow-up, she is resting in bed, a bit agitated and delirious, unable to answer questions. She is repetitively stating that she is "over the fire". Her temperature this morning 97.4 axillary. Hemodynamically stable. Receiving IV Vimpat.. Vitamin B12, folate and TSH normal. Her platelet count low at 14, today's labs are pending. She is maintained and IV hydration with normal saline. Multiple imaging studies are pending including CT of the brain and MRI of the brain, there is also an EEG ordered by neurology. No growth on preliminary blood and urine cultures at this time. 09/23/2020 Patient is lying in the bed but has been unresponsive since morning. Patient did have also mental status and also muted. Patient was paranoid day before yesterday and has been groggy since then. Patient is able to open her eyes but will not speak. Patient has been afebrile. Laboratory data showed the Nelia 4.2 hemoglobin 8.8 and platelets 13,000 Sodium 142 potassium 4.1 chloride 113 bicarb is 25 BUN 10 and creatinine 0.17 and blood sugar is 104. cultures have been negative and TSH level is 1.0 09/24/2020 Patient was transferred to telemetry unit. Able to wake up and open her eyes with verbal commands. Trying to communicate. Patient is more awake and alert compared to yesterday. MRI could not be done due to risk of aspiration and patient could not lie flat. Lumbar puncture could not be done by anesthesia due to severe thrombocytopenia. Otherwise mental status is better today. Patient has been afebrile. Laboratory data showed WBC 4.5, hemoglobin 8.5 and platelets 42 Sodium 149 potassium 2.8 and chloride 115 BUN 13 and creatinine 0.15 Patient is being continued on gentle IV hydration and follow-up electrolytes. Patient was seen by ophthalmology due to IV discharge likely related to dryness and poor control of eyelids and improper closely at times. No evidence of infection. Continue with topical ointment for dryness. 09/25/2020 Patient is awake alert and oriented and is able to communicate slowly. Wants to eat. Patient has been afebrile. No compressive chest pain or shortness of breath. Potassium is being replaced. Denies any headache. Patient knows that she has not been monitoring her hands and feet for a long time. Laboratory data showed sodium 144 potassium 2.5 chloride 113 bicarb is 20 BUN 14 and creatinine 0.19 WBC 4.8 hemoglobin 8.7 platelets 54,000. 09/26/2020 Patient is currently lying in the bed comfortably. Awake and alert and follows eye contact. Patient was oriented 3 last night. As night progressed her speech became less clear and head and eyes were twitching. Speech was garbled and rolling her tongue back. Patient seems to be hallucinating and talking to herself.. Currently patient is awake alert but could not talk. Patient wants to eat something. Patient has been afebrile. No complaints of headache. No diarrhea or abdominal pain. Laboratory data showed improved sodium level and potassium level. Neurology is on board. MRI was done . 09/27/20 Patient is more awake and alert and oriented today. Able to tolerate oral diet with one-to-one feeding. Denied any bowel movement last couple days. No complaints of nausea or vomiting. Mentation is at baseline overnight. Patient has been afebrile. No complaint of chest pain or shortness of breath. MRI of the brain showed mild diffuse white matter increased signal in the parietal lobes that correlate to some encephalomalacia. Potassium level was 2.6 this morning and replace it with repeat level II.9. Magnesium 1.5 which is being replaced. 09/28/20 Patient is awake alert and oriented 2-3. Able to communicate. Mentation is at baseline. No complains of chest pain or shortness of breath. Potassium level is 3.6 to morning. Patient is being continued on Vimpat possible complex partial seizures. Afebrile. No nausea vomiting or abdominal pain. Patient did have a small bowel movement. 09/29/2020 Patient is awake alert and oriented. Able to communicate slowly. Mentation is at baseline. Tolerating oral diet very well. No complaints of chest pain or shortness of. No nausea vomiting or abdominal pain or diarrhea. Patient has been afebrile. Urine culture is finalized. Polymicrobial specimen. Currently on antibiotics involve Omnicef. ID is following. Patient was also started Vimpat for possible partial complex seizures. Continue on PT OT and possible transfer to rehab.d 09/30/2020 Patient evaluated at bedside today, she is awake alert and oriented times person. Patient is able to communicate effectively, however she states that she feels that she is trapped. Her mentation is apparently at baseline. She is tolerating an oral diet, however she does require assistance for feeding. Patient denies chest pain and shortness of breath. She denies nausea vomiting abdominal pain or diarrhea. Patient has been afebrile. Blood cultures and urine cultures are negative. Her potassium is 3.2 today, has been replaced per protocol. Repeat CBC and BMP in the morning. Hemoglobin today is 7.2 which has been trending down this admission. Patient is being followed by oncology, for this new onset anemia, in a patient who has a history of chronic ITP, patient is maintained on IVIG. EEG completed and was negative for any epileptiform act ivity. However patient has been started on Vimpat 100 mg twice a day for questionable episodes of altered mental status with tongue biting, rule out partial complex seizures. At this time after reviewing MRI, neurology has signed off. Patient will continue on oral Omnicef for possible pneumonia a ccording to ID. 10/01/2020 Patient was evaluated at the bedside today she is sleeping. Patient was arousable. Patient is still alert 1 with moments of confusion. Patient is tolerating oral diet still require assistance for feeding. Patient has a Horn catheter in place. This morning patient's hemoglobin was found to be 6.5 she is pending transfusion with 1 unit of packed red blood cells. Patient is being followed closely by hematology services for a new onset anemia. This morning patient's potassium level was 3.1 magnesium was 1.4 electrodes will be supplemented with a recheck in the morning. Patient family member has been awarded temporary guardianship as of today. Vital signs are stable with a temp of 97.9 heart rate is 60 to a blood pressure of 114/53 and patient is maintainin g 100% oxygen saturation on 2 L nasal cannula. Spoke in detail with patient's niece who states that patient was living by herself, and this confusion started about 1 week prior to her admission. Family is concerned and is questioning whether the pneumonia and the urinary tract infection are clearing up with antibiotics. Family is also requesting a lift room for the patient and is hoping that her physical activity will be increased. Patient's niece states that patient's sister is positive for COVID and because of that Family will be able to come visit the patient. Patient was negative for Covid on admission, and has received a one-time dose of Pedro [employer] Pedro vaccination against COVID- 19. 10/02/2020 Patient was evaluated at the bedside today. She is sitting up and she is alert and oriented 3. Patient states that she does not like the Vimpat because it makes her feel sedated and that she likes to be awake. patient is requesting for her Horn catheter removed. She had no issues urinating prior. Urinalysis repeat was negative. Okay to remove Horn for voiding trial. In addition: Swab was negative 2. Patient is being followed closely by infectious disease for possible pneumonia, chest x-ray repeat demonstrated increasing small to moderate left and small right pleural effusions with adjacent atelectasis and/or consolidation. Aeration has worsened as compared to previous exam. Incentive spirometer has been ordered. Patient remains on room air, and remains afebrile. Lung sounds are diminished. Pulmonary toileting is encouraged. Patient's mentation and mood is much improved as compared to yesterday. Hemoglobin is stable now at 9.1, after receiving 1 unit of PRBCs yesterday. Patient denies any cough shortness of breath or chest pain. Current plan of care discussed in length with patient and family member at the bedside. All concerns have been addressed. 10/03/2020 Patient was evaluated at the bedside today. She is alert and oriented x3 as far as person, place and time, however patient is unable to comprehend her current medication care and treatements. Patient is very concerned about a plan of care. She states that she would like to get out of the hospital. She is concerned with her potassium level, and is requesting to have IV access upon discharge that she can receive all of her medications IV, including her antibiotics, and that she is currently not receiving IV antibiotics. Patient was updated on her potassium is normalized today at 3.9. She was started on oral potassium tablets to take twice a day. Patient's hemoglobin has stabilized at 9.5, no signs of an active bleed. Patient is a followed closely by hematology services requested a consult for general surgery for an EGD colonoscopy. Patient refused at this time. In addition 40 mg of IV Lasix one- time has been ordered this morning due to the findings of possible CHF on her CT abdomen pelvis. Patient refuses IV Lasix at this time. Patient additionally refused her lab draw earlier this morning. After speaking with the patient she was agreeable to have her labs drawn. Patient's Horn catheter has been removed, patient is not retaining urine at this time. Patient is a displaying flight of ideas during her evaluation at bedside. Patient has been reevaluated by neurological services who decreased her dose of Vimpat yesterday. Patient will most likely be transferred to a tertiary facility for further neurological workup. 10/04/2020 Patient is evaluated at the bedside today she is alert and oriented 3. Patient is hoping to return home today. Per patient's temporary guardian Odilia, family does not wish for patient to be transferred to [facility] for a further neurological workup. They would like family to come home and follow-up with a neurologist outpatient. Patient receives 24 7 care from [facility], however family is not able to get this set up for the patient until Wednesday morning. Patient is agreeable to going home, and his understanding of plan of care, and all current medications. Potassium levels today is 3.6, patient will maintain on oral supplementation twice a day. Patient's hemoglobin is 8.9 today down from 9.5, recheck in the morning. ROS: Constitutional: Denied any fatigue denied any fever. Cardio vascular: denied any chest pain, palpitations Gastrointestinal denied any nausea vomiting Pulmonary: Denied any shortness of breath cough Neurologic: Reports feeling suspicious of staff, patient reports feeling trapped. All inpatient medications were reviewed and appropriate changes in these medications as dictated in the interval history and assessment and plan. PHYSICAL EXAMINATION: GENERAL: The patient is alert and oriented to person, not in any acute distress. Well developed, well nourished. HEENT: Pupils are round and equally reacting to light. EOMI. Periorbital bruising present bilaterally. CARDIOVASCULAR: S1 and S2 present. No murmurs, rubs, or gallops. PULMONARY: Chest is clear to auscultation, no wheezing or crackles. ABDOMEN: Soft, nontender, nondistended, normoactive bowel sounds. No palpable organomegaly. MUSCULOSKELETAL: No joint swelling or deformity. EXTREMITIES: No cyanosis, clubbing, +3 pedel edema present NEUROLOGICAL: Gross neurological examination revealed quadriplegia, pt is able to open her eyes and respond to verbal commands. SKIN: Multiple bruises, hematoma r/t fall and thrombocytopenia. Assessment and plan -Recurrent episodes of altered mental status with tongue biting. Possible complex partial seizures. Patient is on Vimpat 50 mg twice daily., no further seizure-like activity. -Altered mental status: Possible metabolic and toxic encephalopathy., Improving, family has concerns the patient is not yet back to her baseline as of today. Unlikely meningoencephalitis.. possible component of polypharmacy related to Ambien, SIMRAN, and melatonin use, these medications are on hold. Multiple imaging studies have been negative including tibiofibular x-ray foot x-ray knee x-ray elbow x-ray chest x-ray head and cervical spine CT. TSH, B12, ammonia and folate levels are normal. Repeat CT on 09/22/2020 showed scalp soft tissue swelling increased in size compared to old exam. No acute process. Lumbar puncture could not be performed due to severe thrombocytopenia. psychiatric has seen the patient, and has signed off at this time. neurology at this time has signed off on the patient as well. Patient received a dose of with tubes and on 09/05/2020 patient will be related to progress encephalopathy. Cancel lumbar puncture and also transfer to tertiary care facility [facility] is on hold. Was able to do MRI on 09/25/2020 which revealed mild diffuse white matter increased signal in the peritoneal lobes that could be related to some encephalomalacia. No cortical infarct. EEG completed on 09/24/2020 which showed moderate to severe degree of background slowing. This is suggestive generalized cerebral dysfunction as can be seen with toxic metabolic encephalopathy, or diffuse structural brain abnormality. No epileptiform activity was seen. This is unchanged as compared to the EEG performed on 09/22/2020. At this time patient has been transitioned to oral Vimpat tolerating well. No further signs of altered mentation with tongue biting. Neurology suspected partial complex seizures. - Acute UTI, repeat urinalysis negative, for catheter has been removed. 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 Patient's motor strength is at baseline. -Chronic thrombocytopenia Patient is receiving IV immunoglobulin at this time and patient has history of ITP. -Recent treatment for cellulitis. -Hypertension: Blood pressure stable, Norvasc has been resumed. Monitor blood pressure. -Hyperkalemia: repleted -Hypothyroidism - patient is maintained on Synthroid. -Hypokalemia. Repleted, levels are 3.9 today patient has been started on oral potassium twice a day. -Hypomagnesium. Currently 1.7. -Anemia new-onset suspect acute GIB. Patient is being followed closely by hematology, who has ruled out hemolysis. Abdominal pelvis CT negative for an acute bleed. Patient has received 1 unit of PRBCs this admission current hemoglobin is 9.5 which has been stable. There are currently no signs of active bleed, and patient has refused surgical services EGD colonoscopy. Continue to monitor hemoglobin trend. - Possible Pneumonia, being treated with oral Cefdinir and being followed closely by infectious disease, chest x-ray was reviewed by infectious disease, n o changes in current medication. Patient remains on room air and afebrile, white blood cell count was within normal limits. -Hypernatremia due to volume depletion, resolved current sodium level today is 138. Monitor closely. -Possible new onset acute congestive heart failure, unspecified Abdomen pelvis CT results demonstrated lower lobe pulmonary infiltrates and atelectasis and pleural fluid that could related to congestive heart failure. These abdomen is appeared new compared to old exam. Patient has refused a dose of IV Lasix. We'll follow-up with a repeat chest x-ray in the morning. DVT prophylaxis: Prophylaxis is contraindicated because of her low platelet count, and history of thrombocytopenia. Being followed closely by hematology. Platelet count is up to 208. GI prophylaxis: Patient is maintained on by mouth Protonix as well as by mouth Pepcid. Prognosis is guarded for this patient. Patient's niece has been awarded temporary guardianship. Continue electrolyte supplementation, Continue supportive care. Continue to monitor for signs of an active bleed, hemoglobin today 8.9. Will recheck in the morning. Patient will be discharged home on Wednesday with 20% in care via [facility] services. Patient's temporary guardian Odilia, is refusing transfer to [facility] for further workup, and would like patient to return home. Patient has remained alert and oriented 3, and is essentially at her baseline mentation. Patient will follow-up with a neurologist outpatient. Continue to monitor patient closely. In addition patient is requesting her home dose of Ativan to be resumed. Objective - Vital Signs Vital signs: Vital Signs Temp 97.8 F 10/04/20 08:30 Pulse 59 L 10/04/20 08:30 Resp 18 10/04/20 08:30 BP 143/85 10/04/20 08:30 Pulse Ox 96 10/04/20 08:30 Intake & Output 10/03/20 10/04/20 10/04/20 18:59 06:59 18:59 Intake Total 1240 240 Output Total 0 200 0 Balance 1240 -200 240 Weight 93 kg Intake: Intake, IV Titration 600 Amount Sodium Chloride 0.9% 1, 600 000 ml @ 75 mls/hr IV . [id number] [facility] Rx#:[id number] Oral 640 240 Output: Urine 200 Stool 0 0 0 Other: Voiding Method Bedpan Bedpan Bedpan # Voids 1 1 # Bowel Movements 1 - Labs CBC & Chem 7: 10/04/20 12:50 10/04/20 12:50 Assessment and Plan Time with Patient: Greater than 30
[2020-10-04] MEDS ORDERED: LORazepam 1 MG TAB PO PRN (14:32)
--- NOTE | 2020-10-04 15:15 | P.PN ---
Subjective Progress Note Date: 10/04/20 CHIEF COMPLAINT: Mental status changes HISTORY OF PRESENT ILLNESS: Surgical service is following in regards to patient's anemia and possible EGD and colonoscopy. EGD and colonoscopy not completed today. Patient currently lying in bed comfortably. No active signs of bleeding. No new complaints. Afebrile. WBC 6.0 hemoglobin 8.9 Patient seen and examined with Dr. Serrano PHYSICAL EXAM: VITAL SIGNS: Reviewed. GENERAL: Well-developed in no acute distress. HEENT: No sclera icterus. Extraocular movements grossly intact. Moist buccal mucosa. Head is atraumatic, normocephalic. ABDOMEN: Soft. Nondistended. Nontender. NEUROLOGIC: Confused ASSESSMENT: 1. Anemia PLAN: -EGD and colonoscopy canceled for today. Family and patient refused EGD and colonoscopy -Continue supportive care Physician Combine Operator note has been reviewed by physician. Signing provider agrees with the documented findings, assessment, and plan of care. Objective - Vital Signs Vital signs: Vital Signs Temp 97.8 F 10/04/20 14:00 Pulse 64 10/04/20 14:00 Resp 19 10/04/20 14:00 BP 118/82 10/04/20 14:00 Pulse Ox 98 10/04/20 14:00 Intake & Output 10/03/20 10/04/20 10/04/20 18:59 06:59 18:59 Intake Total 1240 240 Output Total 0 200 0 Balance 1240 -200 240 Weight 93 kg Intake: Intake, IV Titration 600 Amount Sodium Chloride 0.9% 1, 600 000 ml @ 75 mls/hr IV . [id number] [facility] Rx#:[id number] Oral 640 240 Output: Urine 200 Stool 0 0 0 Other: Voiding Method Bedpan Bedpan Bedpan # Voids 1 1 # Bowel Movements 1 - Labs CBC & Chem 7: 10/04/20 12:50 10/04/20 12:50 Labs: Abnormal Lab Results - Last 24 Hours (Table) 10/04/20 10/04/20 Range/Units 12:50 12:50 RBC 2.86 L (3.80-5.40) m/uL Hgb 8.9 L (11.4-16.0) gm/dL Hct 26.9 L (34.0-46.0) % RDW 19.0 H (11.5-15.5) % Lymphocytes # 0.6 L (1.0-4.8) k/uL Chloride 109 H (98-107) mmol/L BUN 3 L (7-17) mg/dL Creatinine <0.15 L (0.52-1.04) mg/dL Glucose 155 H (74-99) mg/dL Calcium 8.2 L (8.4-10.2) mg/dL Total Protein 5.5 L (6.3-8.2) g/dL Albumin 2.6 L (3.5-5.0) g/dL
--- NOTE | 2020-10-04 16:43 | P.PN ---
Subjective Progress Note Date: 10/04/20 Principal diagnosis: encephalopathy and thrombocytopenia Plan was initially for EGD and colonoscopy however patient and family refused at this time Objective - Vital Signs Vital signs: Vital Signs Temp 97.8 F 10/04/20 08:30 Pulse 59 L 10/04/20 08:30 Resp 18 10/04/20 08:30 BP 143/85 10/04/20 08:30 Pulse Ox 96 10/04/20 08:30 Intake & Output 10/03/20 10/04/20 10/04/20 18:59 06:59 18:59 Intake Total 1240 240 Output Total 0 200 0 Balance 1240 -200 240 Weight 93 kg Intake: Intake, IV Titration 600 Amount Sodium Chloride 0.9% 1, 600 000 ml @ 75 mls/hr IV . [id number] [facility] Rx#:[id number] Oral 640 240 Output: Urine 200 Stool 0 0 0 Other: Voiding Method Bedpan Bedpan Bedpan # Voids 1 1 # Bowel Movements 1 - Exam - Constitutional General appearance: Present: cooperative, mild distress, obese - EENT EENT Comment(s): tongue is bruised on the right side, few wet purpura noted, not opening eyes-her choice ENT: Present: hearing grossly normal - Respiratory Respiratory: bilateral: CTA - Cardiovascular Rhythm: regular Heart sounds: normal: S1, S2 Abnormal Heart Sounds: Absent: systolic murmur, diastolic murmur, rub, S3 Gallop, S4 Gallop, click, other - Peripheral edema leg Peripheral Edema: bilateral: Trace - Gastrointestinal General gastrointestinal: Present: normal bowel sounds, soft - Musculoskeletal Musculoskeletal: Present: generalized weakness - Labs CBC & Chem 7: 10/04/20 12:50 10/04/20 12:50 Labs: Abnormal Lab Results - Last 24 Hours (Table) 10/03/20 10/03/20 Range/Units 12:11 12:11 RBC 2.96 L (3.80-5.40) m/uL Hgb 9.5 L (11.4-16.0) gm/dL Hct 27.8 L (34.0-46.0) % RDW 19.2 H (11.5-15.5) % Lymphocytes # 0.5 L (1.0-4.8) k/uL Chloride 109 H (98-107) mmol/L Carbon Dioxide 18 L (22-30) mmol/L BUN 3 L (7-17) mg/dL Creatinine <0.15 L (0.52-1.04) mg/dL Calcium 7.7 L (8.4-10.2) mg/dL Total Protein 5.5 L (6.3-8.2) g/dL Albumin 2.5 L (3.5-5.0) g/dL Assessment and Plan (1) Hypercalcemia Current Visit: Yes Status: Acute Code(s): E83.52 - HYPERCALCEMIA SNOMED Code(s): 51624427 (2) Altered mental status Current Visit: Yes Status: Acute Code(s): R41.82 - ALTERED MENTAL STATUS, UNSPECIFIED SNOMED Code(s): 924496525 (3) Hypermagnesemia Current Visit: Yes Status: Acute Code(s): E83.41 - HYPERMAGNESEMIA SNOMED Code(s): 77095595 (4) Thrombocytopenia Current Visit: Yes Status: Acute Code(s): D69.6 - THROMBOCYTOPENIA, UNSPECIFIED SNOMED Code(s): 404846054 (5) 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 - review of MRI with Radiology no evidence to suggest PRES Thrombocytopenia: - Recovering Reviewed MRI: - Assessing for APL with recent treatment Rituxan - Neuro FOllowing Recent LE Cellulitis requiring prolonged antibiotics and three hospital visits, picc line placement and IV abx at home (completed 2-3 weeks ago) - likely main source of worsening ITP Status Post IVIG on 09/20/20 and 09/21/20 EGD and Colonoscopy refused by patient and family for 10/04/20 Patient hemoglobin is currently stable >8 Slowly improving, although not to her baseline. Physician Attest: I have completed the full history and physical and developed the above impression and plan, agree with dictation. Dictated as a scribe.
--- NOTE | 2020-10-04 16:49 | P.PN ---
Subjective Progress Note Date: 10/04/20 Upon seeing the patient at bedside and the she stating she was to go home. She feels she is doing better today compared to prior days. No events otherwise. Objective - Vital Signs Vital signs: Vital Signs Temp 97.8 F 10/04/20 14:00 Pulse 64 10/04/20 14:00 Resp 19 10/04/20 14:00 BP 118/82 10/04/20 14:00 Pulse Ox 98 10/04/20 14:00 Intake & Output 10/03/20 10/04/20 10/04/20 18:59 06:59 18:59 Intake Total 1240 240 Output Total 0 200 0 Balance 1240 -200 240 Weight 93 kg Intake: Intake, IV Titration 600 Amount Sodium Chloride 0.9% 1, 600 000 ml @ 75 mls/hr IV . [id number] [facility] Rx#:[id number] Oral 640 240 Output: Urine 200 Stool 0 0 0 Other: Voiding Method Bedpan Bedpan Bedpan # Voids 1 1 # Bowel Movements 1 - Exam GENERAL: The patient is lying in and is not in acute distress.. HENT: Has echymosis around the foreahead (but resolving compared to presentation). NEUROLOGICAL: Higher mental function: The patient is awake, alert, oriented to self, place and time. Named objects correctly (pen, watch and cup). She is following commands. No neglect. Cranial nerves: There is erythema of the surrounding of both eye (but improved drastically compared to presentation). The pupils are round, equal and reactive to light. Visual field seems full to confrontation throughout. Extraocular movement is normal without nystagmus. Facial sensation is normal to touch. There is No facial weakness. No dysarthria is noted. Motor: Is wheel chair bound (baseline) so gait cannot be assessed. The strength is able to have movement over the right hand (had weak 3 of hand fingers), while left minimal flicker over 2-4 digits. Otherwise no strength/movement (baseline ). Decrease tone throughout. Has bilateral foot drop bilaterally (baseline). Cerebellum: Could not be assessed because of her baseline weakness Reflexes (right/left): Brachioradilis is 0-1. Otherwise 0+ throughout. Plantars are mute bilaterally. WORK-UP: AST of 97 and ALT of 154 which are elevated. Ammonia level is 11 which is considered within normal limits Urinalysis on presentation is negative for urinary tract infection Repeat U/A on 09/21: She had UTI. Urine drug screen is positive for benzos and the serum alcohol was less than 10. Vitamin B12 is more than 4000 which is unremarkable. Folate level the serum is 22 which is normal. TSH is 1.0 which is considered within normal limits. Repeat Coronavirus PCR on 10/01/20: Not detected. CT of the head is reported as there is no acute intracranial hemorrhage, mass effect or midline shift is seen. CT cervicals reported as there is no acute fracture or dislocation evident in the cervical spine. EEG on 09/24/2020 was reported as abnormal due to background slowing of moderate to severe degree. This is suggestive of generalized cerebral dysfunction as can be seen with toxic metabolic encephalopathy or due to diffuse structural brain abnormality. No epileptiform activity was seen. When compared to EEG from 09/22/2020, there is no significant change. MRI of the brain on 09/17/2020 is reported as there is some mild diffuse white matter increased signal in the parietal lobes that could relate to some encephalomalacia. No cortical infarct. I reviewed the MRI did not see any increased signal in the parietal lobes not sure if it's artifact or it it better seen at Radiology. - Labs CBC & Chem 7: 10/04/20 12:50 10/04/20 12:50 Labs: Abnormal Lab Results - Last 24 Hours (Table) 10/04/20 10/04/20 Range/Units 12:50 12:50 RBC 2.86 L (3.80-5.40) m/uL Hgb 8.9 L (11.4-16.0) gm/dL Hct 26.9 L (34.0-46.0) % RDW 19.0 H (11.5-15.5) % Lymphocytes # 0.6 L (1.0-4.8) k/uL Chloride 109 H (98-107) mmol/L BUN 3 L (7-17) mg/dL Creatinine <0.15 L (0.52-1.04) mg/dL Glucose 155 H (74-99) mg/dL Calcium 8.2 L (8.4-10.2) mg/dL Total Protein 5.5 L (6.3-8.2) g/dL Albumin 2.6 L (3.5-5.0) g/dL Assessment and Plan Assessment: * Recurrent episodes of altered mental status, with tongue biting (hallucination and paranoia). Suspected seizure. Cannot rule out autoimmune limbic encephalitis/encepahlopathy ---mentation improved. * Also has component of Encephalopathy, likely toxic metabolic, now seems to have resolved. Patient has acute UTI, elevated liver functions, and electrolyte imbalance, likely the causes. Patient has received dose of Rituxan on 09/05/2020, which may be related to progressive encephalopathy.---encephalopathy resolved today. * Acute Anemia (received 1 unit transfusion)--stable * Hypothermia of unknown etiology--resolved * Electrolyte imbalances. 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 No cortical infarct. I reviewed the MRI did not see any increased signal in the parietal lobes not sure if it's artifact or it it better seen at Radiology. I spoke with reading radiologist and they did not appreciate any encephalomalacia over the parietal and felt the patient has mild white matter disease. No acute or subacute stroke. * Continue Vimpat 50 bid IV (she refused to be on 100mg bid). * Q4 hour neuro checks. * If patient continues to have paranonia, hallucination then recommend patient transfered for prolonged EEG with video and would recommend lumbar puncture. Primary team spoke with temporary guardian regarding transfer to [facility] for further neurologic workup but the family does not wish to proceed with that. * Infection disease team is on board. * Will defer the rest medical management to the primary team. The plan is discussed with her nurse and primary team. Neurology will sign off. Please reconsult if needed. Tee Summers MD Neuro-Hospitalist Time with Patient: Less than 30
[2020-10-04] MEDS: FERROUS SULFATE 325 MG TAB PO SCH (17:22)
[2020-10-04] MEDS: PHENYLEPHRINE 2.5% OPHTH DRP 2ML BOTH EYES SCH (17:23)
[2020-10-04] MEDS: atenoloL 50 MG TAB PO SCH (22:06)
[2020-10-04] MEDS: MONTELUKAST 10 MG TAB PO SCH (22:07)
[2020-10-04] MEDS: FAMOTIDINE 20 MG TAB PO SCH (22:12)
--- NOTE | 2020-10-04 23:24 | PN ---
PROGRESS NOTE DATE OF SERVICE: 10/04/2020 REASON FOR FOLLOW UP: Pneumonia. INTERVAL HISTORY: Patient is afebrile. The patient is breathing comfortably on room air. The patient denies having any chest pain, shortness of breath. She did have some cough, not bringing up any sputum. No abdominal pain or diarrhea. EXAM: Blood pressure 118/ with a pulse of 64, temperature 97.8. She is 98% on room air. General description is a middle-aged female lying in bed in no distress. Respiratory system: Unlabored breathing. Decreased breath sounds in the base with no wheeze. Heart S1, S2. Regular rate and rhythm. Abdomen: Soft, nontender. Extremities: No edema of the feet. LABS: Hemoglobin 8, white count 6.0. BUN is 3, creatinine 0.95. DIAGNOSTIC IMPRESSION AND PLAN: Patient with a urinary tract infection and a component of pneumonia that has been adequately treated. She received about 2 weeks of antibiotics which should be more than enough to cover for antibiotic on discharge and continue supportive care. MMODL / IJN: [id number] /
[2020-10-05] MEDS: LEVOTHYROXINE 112 MCG TAB PO SCH (07:11)
[2020-10-05] MEDS: SODIUM CHLORIDE 0.9% 1,000 ML IV SCH ×2 (08:41→12:31)
[2020-10-05] MEDS: LACOSAMIDE 50 MG TABLET PO SCH ×2 (09:07→20:33)
[2020-10-05] MEDS: LACTOBACILLUS ACIDOPH & BULGAR 1 EACH PACKET PO SCH ×2 (09:07→20:34)
[2020-10-05] MEDS: amLODIPine 5 MG TAB PO SCH (09:07)
[2020-10-05] MEDS: PANTOPRAZOLE 40 MG TABLET PO SCH (09:07)
[2020-10-05] MEDS: SODIUM BICARBONATE TAB 650 MG TAB PO SCH ×2 (09:07→12:32)
[2020-10-05] MEDS: POTASSIUM CHLORIDE ER 20 MEQ TAB.ER PO SCH ×2 (09:07→20:33)
[2020-10-05] MEDS: DOCUSATE 100 MG CAP PO SCH ×2 (09:07→20:33)
[2020-10-05] MEDS: THIAMINE 100 MG TAB PO SCH ×2 (09:08→12:32)
[2020-10-05] MEDS: VITAMIN E (DL,TOCOPHERYL ACET) 400 UNIT (180 MG) CAP PO SCH (09:08)
[2020-10-05] MEDS: CEFDINIR 300 MG CAP PO SCH ×2 (09:08→20:36)
[2020-10-05] MEDS: VITAMIN A 10,000 UNIT (3000 MCG) CAPSULE PO SCH (09:08)
[2020-10-05] MEDS: CALCIUM CARBONATE 500 MG CHEWABLE PO SCH (12:32)
--- NOTE | 2020-10-05 15:22 | P.PN ---
Subjective Progress Note Date: 10/05/20 Altered mental status possible metabolic and toxic encephalopathy Severe thrombocytopenia 60-year-old female came to the hospital after fall and patient was quite a bit confused and was paranoid apparently yesterday. Patient is alert oriented 2 when I valid the patient and patient the temperature was around 80 because of which there multiple heart attacks and the nursing staff was planning on beta brenda although patient was complaining of excessive heat and sweating because of which we removed all of those and we will recheck the temperature again. Apart from that there is no clear evidence of sepsis at this time. UA is not significant for urinary tract infection. In spite of her confusion patient was able to provide me good history. Patient denied any cough patient or dysuria chest x-ray did not show any significant abnormality. Etiology of her son onset of confusion is not clear at this time CT of the head did not show any intracranial hemorrhage MRI is being obtained. 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 Patient missed her IVIG, patient is severely thrombocytopenia With platelet count of around 16,000. Patient has multiple bruises and multiple hematomas secondary to low platelet count after fall. Patient denied any headache patient was recently treated for cellulitis. Suspicion is low for meningitis and unfortunately we cannot the get an LP considering her very low platelet count because of which we are not obtaining CSF analysis at this time. Her thrombus rapini is believed to be secondary to diuretic she received for cellulitis recently. Patient has mildly elevated liver enzymes. MRI was ordered by oncology. Patient blood screen is only for positive for benzodiazepines for which patient doesn't appear to have a prescription for but patient does take Ambien 3.5 mg at bedtime. There is no clear metabolic toxic causes that can explain her confusion or delirium. Psychiatry was consulted as well. 09/21/2020 Patient remains unclear whether patient remains hypothermic remains confused and paranoid psychiatry at evaluate the patient. I consulted neurology as there is no real rheumatological factor for her confusion neurology evaluated the patient and they believe patient may have bilateral lower extremity plegia and left upper extremity hemiparesis. Patient received IVIG for ITP. There is no clear evidence of infection at this time because of continued hyperlipidemia and consult infectious disease as well. 09/22/2020 Patient is seen on follow-up, she is resting in bed, a bit agitated and delirious, unable to answer questions. She is repetitively stating that she is "over the fire". Her temperature this morning 97.4 axillary. Hemodynamically stable. Receiving IV Vimpat.. Vitamin B12, folate and TSH normal. Her platelet count low at 14, today's labs are pending. She is maintained and IV hydration with normal saline. Multiple imaging studies are pending including CT of the brain and MRI of the brain, there is also an EEG ordered by neurology. No growth on preliminary blood and urine cultures at this time. 09/23/2020 Patient is lying in the bed but has been unresponsive since morning. Patient did have also mental status and also muted. Patient was paranoid day before yesterday and has been groggy since then. Patient is able to open her eyes but will not speak. Patient has been afebrile. Laboratory data showed the Nelia 4.2 hemoglobin 8.8 and platelets 13,000 Sodium 142 potassium 4.1 chloride 113 bicarb is 25 BUN 10 and creatinine 0.17 and blood sugar is 104. cultures have been negative and TSH level is 1.0 09/24/2020 Patient was transferred to telemetry unit. Able to wake up and open her eyes with verbal commands. Trying to communicate. Patient is more awake and alert compared to yesterday. MRI could not be done due to risk of aspiration and patient could not lie flat. Lumbar puncture could not be done by anesthesia due to severe thrombocytopenia. Otherwise mental status is better today. Patient has been afebrile. Laboratory data showed WBC 4.5, hemoglobin 8.5 and platelets 42 Sodium 149 potassium 2.8 and chloride 115 BUN 13 and creatinine 0.15 Patient is being continued on gentle IV hydration and follow-up electrolytes. Patient was seen by ophthalmology due to IV discharge likely related to dryness and poor control of eyelids and improper closely at times. No evidence of infection. Continue with topical ointment for dryness. 09/25/2020 Patient is awake alert and oriented and is able to communicate slowly. Wants to eat. Patient has been afebrile. No compressive chest pain or shortness of breath. Potassium is being replaced. Denies any headache. Patient knows that she has not been monitoring her hands and feet for a long time. Laboratory data showed sodium 144 potassium 2.5 chloride 113 bicarb is 20 BUN 14 and creatinine 0.19 WBC 4.8 hemoglobin 8.7 platelets 54,000. 09/26/2020 Patient is currently lying in the bed comfortably. Awake and alert and follows eye contact. Patient was oriented 3 last night. As night progressed her speech became less clear and head and eyes were twitching. Speech was garbled and rolling her tongue back. Patient seems to be hallucinating and talking to herself.. Currently patient is awake alert but could not talk. Patient wants to eat something. Patient has been afebrile. No complaints of headache. No diarrhea or abdominal pain. Laboratory data showed improved sodium level and potassium level. Neurology is on board. MRI was done . 09/27/20 Patient is more awake and alert and oriented today. Able to tolerate oral diet with one-to-one feeding. Denied any bowel movement last couple days. No complaints of nausea or vomiting. Mentation is at baseline overnight. Patient has been afebrile. No complaint of chest pain or shortness of breath. MRI of the brain showed mild diffuse white matter increased signal in the parietal lobes that correlate to some encephalomalacia. Potassium level was 2.6 this morning and replace it with repeat level II.9. Magnesium 1.5 which is being replaced. 09/28/20 Patient is awake alert and oriented 2-3. Able to communicate. Mentation is at baseline. No complains of chest pain or shortness of breath. Potassium level is 3.6 to morning. Patient is being continued on Vimpat possible complex partial seizures. Afebrile. No nausea vomiting or abdominal pain. Patient did have a small bowel movement. 09/29/2020 Patient is awake alert and oriented. Able to communicate slowly. Mentation is at baseline. Tolerating oral diet very well. No complaints of chest pain or shortness of. No nausea vomiting or abdominal pain or diarrhea. Patient has been afebrile. Urine culture is finalized. Polymicrobial specimen. Currently on antibiotics involve Omnicef. ID is following. Patient was also started Vimpat for possible partial complex seizures. Continue on PT OT and possible transfer to rehab.d 09/30/2020 Patient evaluated at bedside today, she is awake alert and oriented times person. Patient is able to communicate effectively, however she states that she feels that she is trapped. Her mentation is apparently at baseline. She is tolerating an oral diet, however she does require assistance for feeding. Patient denies chest pain and shortness of breath. She denies nausea vomiting abdominal pain or diarrhea. Patient has been afebrile. Blood cultures and urine cultures are negative. Her potassium is 3.2 today, has been replaced per protocol. Repeat CBC and BMP in the morning. Hemoglobin today is 7.2 which has been trending down this admission. Patient is being followed by oncology, for this new onset anemia, in a patient who has a history of chronic ITP, patient is maintained on IVIG. EEG completed and was negative for any epileptiform act ivity. However patient has been started on Vimpat 100 mg twice a day for questionable episodes of altered mental status with tongue biting, rule out partial complex seizures. At this time after reviewing MRI, neurology has signed off. Patient will continue on oral Omnicef for possible pneumonia a ccording to ID. 10/01/2020 Patient was evaluated at the bedside today she is sleeping. Patient was arousable. Patient is still alert 1 with moments of confusion. Patient is tolerating oral diet still require assistance for feeding. Patient has a Horn catheter in place. This morning patient's hemoglobin was found to be 6.5 she is pending transfusion with 1 unit of packed red blood cells. Patient is being followed closely by hematology services for a new onset anemia. This morning patient's potassium level was 3.1 magnesium was 1.4 electrodes will be supplemented with a recheck in the morning. Patient family member has been awarded temporary guardianship as of today. Vital signs are stable with a temp of 97.9 heart rate is 60 to a blood pressure of 114/53 and patient is maintainin g 100% oxygen saturation on 2 L nasal cannula. Spoke in detail with patient's niece who states that patient was living by herself, and this confusion started about 1 week prior to her admission. Family is concerned and is questioning whether the pneumonia and the urinary tract infection are clearing up with antibiotics. Family is also requesting a lift room for the patient and is hoping that her physical activity will be increased. Patient's niece states that patient's sister is positive for COVID and because of that Family will be able to come visit the patient. Patient was negative for Covid on admission, and has received a one-time dose of Pedro [employer] Pedro vaccination against COVID- 19. 10/02/2020 Patient was evaluated at the bedside today. She is sitting up and she is alert and oriented 3. Patient states that she does not like the Vimpat because it makes her feel sedated and that she likes to be awake. patient is requesting for her Horn catheter removed. She had no issues urinating prior. Urinalysis repeat was negative. Okay to remove Horn for voiding trial. In addition: Swab was negative 2. Patient is being followed closely by infectious disease for possible pneumonia, chest x-ray repeat demonstrated increasing small to moderate left and small right pleural effusions with adjacent atelectasis and/or consolidation. Aeration has worsened as compared to previous exam. Incentive spirometer has been ordered. Patient remains on room air, and remains afebrile. Lung sounds are diminished. Pulmonary toileting is encouraged. Patient's mentation and mood is much improved as compared to yesterday. Hemoglobin is stable now at 9.1, after receiving 1 unit of PRBCs yesterday. Patient denies any cough shortness of breath or chest pain. Current plan of care discussed in length with patient and family member at the bedside. All concerns have been addressed. 10/03/2020 Patient was evaluated at the bedside today. She is alert and oriented x3 as far as person, place and time, however patient is unable to comprehend her current medication care and treatements. Patient is very concerned about a plan of care. She states that she would like to get out of the hospital. She is concerned with her potassium level, and is requesting to have IV access upon discharge that she can receive all of her medications IV, including her antibiotics, and that she is currently not receiving IV antibiotics. Patient was updated on her potassium is normalized today at 3.9. She was started on oral potassium tablets to take twice a day. Patient's hemoglobin has stabilized at 9.5, no signs of an active bleed. Patient is a followed closely by hematology services requested a consult for general surgery for an EGD colonoscopy. Patient refused at this time. In addition 40 mg of IV Lasix one- time has been ordered this morning due to the findings of possible CHF on her CT abdomen pelvis. Patient refuses IV Lasix at this time. Patient additionally refused her lab draw earlier this morning. After speaking with the patient she was agreeable to have her labs drawn. Patient's Horn catheter has been removed, patient is not retaining urine at this time. Patient is a displaying flight of ideas during her evaluation at bedside. Patient has been reevaluated by neurological services who decreased her dose of Vimpat yesterday. Patient will most likely be transferred to a tertiary facility for further neurological workup. 10/04/2020 Patient is evaluated at the bedside today she is alert and oriented 3. Patient is hoping to return home today. Per patient's temporary guardian Odilia, family does not wish for patient to be transferred to [facility] for a further neurological workup. They would like family to come home and follow-up with a neurologist outpatient. Patient receives 24 7 care from [facility], however family is not able to get this set up for the patient until Wednesday morning. Patient is agreeable to going home, and his understanding of plan of care, and all current medications. Potassium levels today is 3.6, patient will maintain on oral supplementation twice a day. Patient's hemoglobin is 8.9 today down from 9.5, recheck in the morning. Patient is evaluated today she states that she is feeling well, patient is alert and oriented 3.. The plan is for patient to return home tomorrow with 24/7 care from [facility]. Patient's family, temporary guardian Odilia, has refused transfer to [facility] for further neurological workup. Patient states that throughout the evening shift, she had some problems with urinary retention, and was straight cathed x 1. We'll continue to monitor for further urinary retention. Patient denies abdominal pain, chest pain, cough, shortness of breath. Patient states that she is having normal bowel movements. Patient is encouraged to use her incentive spirometry, performed at bedside, patient is getting about 750. Potassium level is 3.6, continue with oral potassium twice a day. Patient's hemoglobin is 8.9 today. No further signs of bleeding at this time. Continue to monitor patient, vital signs are stable at this time. ROS: Constitutional: Denied any fatigue denied any fever. Cardio vascular: denied any chest pain, palpitations Gastrointestinal denied any nausea vomiting Pulmonary: Denied any shortness of breath cough Neurologic: Reports feeling suspicious of staff, patient reports feeling trapped. All inpatient medications were reviewed and appropriate changes in these medications as dictated in the interval history and assessment and plan. PHYSICAL EXAMINATION: GENERAL: The patient is alert and oriented to person, not in any acute distress. Well developed, well nourished. HEENT: Pupils are round and equally reacting to light. EOMI. Periorbital bruisi ng present bilaterally. CARDIOVASCULAR: S1 and S2 present. No murmurs, rubs, or gallops. PULMONARY: Chest is clear to auscultation, no wheezing or crackles. ABDOMEN: Soft, nontender, nondistended, normoactive bowel sounds. No palpable organomegaly. MUSCULOSKELETAL: No joint swelling or deformity. EXTREMITIES: No cyanosis, clubbing, +3 pedel edema present NEUROLOGICAL: Gross neurological examination revealed quadriplegia, pt is able to open her eyes and respond to verbal commands. SKIN: Multiple bruises, hematoma r/t fall and thrombocytopenia. Assessment and plan -Recurrent episodes of altered mental status with tongue biting. Possible complex partial seizures. Patient is on Vimpat 50 mg twice daily., no further seizure-like activity. -Altered mental status: Possible metabolic and toxic encephalopathy., Improving, family has concerns the patient is not yet back to her baseline as of today. Unlikely meningoencephalitis.. possible component of polypharmacy related to Ambien, SIMRAN, and melatonin use, these medications are on hold. Multiple imaging studies have been negative including tibiofibular x-ray foot x-ray knee x-ray elbow x-ray chest x-ray head and cervical spine CT. TSH, B12, ammonia and folate levels are normal. Repeat CT on 09/22/2020 showed scalp soft tissue swelling increased in size compared to old exam. No acute process. Lumbar puncture could not be performed due to severe thrombocytopenia. psychiatric has seen the patient, and has signed off at this time. neurology at this time has signed off on the patient as well. Patient received a dose of with tubes and on 09/05/2020 patient will be related to progress encephalopathy. Cancel lumbar puncture and also transfer to tertiary care facility [facility] is on hold. Was able to do MRI on 09/25/2020 which revealed mild diffuse white matter increased signal in the peritoneal lobes that could be related to some encephalomalacia. No cortical infarct. EEG completed on 09/24/2020 which showed moderate to severe degree of background slowing. This is suggestive generalized cerebral dysfunction as can be seen with toxic metabolic encephalopathy, or diffuse structural brain abnormality. No epileptiform activity was seen. This is unchanged as compared to the EEG performed on 09/22/2020. At this time patient has been transitioned to oral Vimpat tolerating well. No further signs of altered mentation with tongue biting. Neurology suspected partial complex seizures. - Acute UTI, repeat urinalysis negative, for catheter has been removed. 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 Patient's motor st rength is at baseline. -Chronic thrombocytopenia Patient is receiving IV immunoglobulin at this time and patient has history of ITP. -Recent treatment for cellulitis. -Hypertension: Blood pressure stable, Norvasc has been resumed. Monitor blood pressure. -Hyperkalemia: repleted -Hypothyroidism - patient is maintained on Synthroid. -Hypokalemia. Repleted, levels are 3.9 today patient has been started on oral potassium twice a day. -Hypomagnesium. Currently 1.7. -Anemia new-onset suspect acute GIB. Patient is being followed closely by hematology, who has ruled out hemolysis. Abdominal pelvis CT negative for an acute bleed. Patient has received 1 unit of PRBCs this admission current hemo globin is 9.5 which has been stable. There are currently no signs of active bleed, and patient has refused surgical services EGD colonoscopy. Continue to monitor hemoglobin trend. - Possible Pneumonia, being treated with oral Cefdinir and being followed closely by infectious disease, chest x-ray was reviewed by infectious disease, no changes in current medication. Patient remains on room air and afebrile, white blood cell count was within normal limits. -Hypernatremia due to volume depletion, resolved current sodium level today is 138. Monitor closely. -Possible new onset acute congestive heart failure, unspecified Abdomen pelvis CT results demonstrated lower lobe pulmonary infiltrates and atelectasis and pleural fluid that could related to congestive heart failure. These abdomen is appeared new compared to old exam. Patient has refused a dose of IV Lasix. We'll follow-up with a repeat chest x-ray in the morning. DVT prophylaxis: Prophylaxis is contraindicated because of her low platelet count, and history of thrombocytopenia. Being followed closely by hematology. Platelet count is up to 208. GI prophylaxis: Patient is maintained on by mouth Protonix as well as by mouth Pepcid. Prognosis is guarded for this patient. Patient's niece has been awarded temporary guardianship. Continue electrolyte supplementation, Continue supportive care. Continue to monitor for signs of an active bleed, hemoglobin today 8.9. Will recheck in the morning. Patient will be discharged home on Wednesday with 21/09 care via [facility] services. Patient's temporary guardian Odilia, is refusing transfer to [facility] for further workup, and would like patient to return home. Patient has remained alert and oriented 3, and is essentially at her baseline mentation. Patient will follow-up with a neurologist outpatient. Continue to monitor patient closely. Patient was resumed on her home dose of Ativan yesterday, no further episodes of acute confusion. Per infectious disease, patient has completed antibiotic therapy. Recommendations for no antibiotics post discharge. Continue to encourage incentive spirometery. No interventions for surgical services at this time. Patient and family have refused an EGD colonoscopy workup. Continue to monitor CBC. Objective - Vital Signs Vital signs: Vital Signs Temp 98.4 F 10/05/20 13:19 Pulse 55 L 10/05/20 13:19 Resp 18 10/05/20 13:19 BP 150/77 10/05/20 13:19 Pulse Ox 94 L 10/05/20 13:19 Intake & Output 10/04/20 10/05/20 10/05/20 18:59 06:59 18:59 Intake Total 240 1 Output Total 0 811 Balance 240 -810 Intake: Oral 240 Lipid 1 Sodium Chloride 0.9% 1, 1 000 ml @ 75 mls/hr IV . [id number] [facility] Rx#:[id number] Output: Urine 811 Straight 811 Stool 0 Other: Voiding Method Bedpan Bedpan # Voids 1 # Bowel Movements 1 - Labs CBC & Chem 7: 10/04/20 12:50 10/04/20 12:50 Assessment and Plan Time with Patient: Greater than 30
--- NOTE | 2020-10-05 15:54 | P.PN ---
Subjective Progress Note Date: 10/05/20 CHIEF COMPLAINT: Anemia HISTORY OF PRESENT ILLNESS: The patient is a 60-year-old female with fall and mental status changes 09/19/2020. Since her third hospitalization, patient developed anemia with initial hemoglobin on admission 14.6 down to 6.5 on 10/03/2020. Patient was given 2 units of blood with hemoglobin up to 9.5. General surgery was consulted for workup of anemia. She denies abdominal pain. She does report history of diarrhea. ROS: No reports of nausea and vomiting. No fevers or chills. No new chest pain. No productive sputum. Patient is having bowel movements during hospital ization. PHYSICAL EXAM: VITAL SIGNS: Reviewed CONSTITUTIONAL: Well developed and in no acute distress. EYES: Conjuctivae without sclera icterus. Extraocular movements grossly intact. HEAD, EARS, NOSE, THROAT: Moist buccal mucosa. Has bruising over the eyes and forehead. Hears conversational speech. No nasal drainage. NECK: No gross thyroidomegaly. RESPIRATORY: Non-labored respirations and equal bilateral excursions. CARDIOVASCULAR: Palpable 2+ radial pulses. ABDOMEN: No peritonitis. Protuberant. MUSCULOSKELETAL: No gross deformity of the lower extremities noted. No clubbing. No cyanosis. SKIN: Good skin turgor. Well perfused. NEUROLOGIC: Cranial nerves II through XII grossly intact. No focal or lateralizing signs. PSYCH: Alert and oriented to person. CLINICAL LABS: White blood cell count normal at 8.6. Last hemoglobin 8.9. ASSESSMENT: 1. Anemia PLAN: 1. Patient does not want both upper and lower endoscopies. 2. Workup for anemia deferred per patient request. Objective - Vital Signs Vital signs: Vital Signs Temp 97.4 F L 10/05/20 02:03 Pulse 55 L 10/05/20 02:03 Resp 16 10/05/20 02:03 BP 135/79 10/05/20 02:03 Pulse Ox 95 10/05/20 02:03 Intake & Output 10/04/20 10/05/20 10/05/20 18:59 06:59 18:59 Intake Total 240 1 Output Total 0 811 Balance 240 -810 Intake: Oral 240 Lipid 1 Sodium Chloride 0.9% 1, 1 000 ml @ 75 mls/hr IV . [id number] [facility] Rx#:[id number] Output: Urine 811 Straight 811 Stool 0 Other: Voiding Method Bedpan Bedpan # Voids 1 # Bowel Movements 1 - Labs CBC & Chem 7: 10/04/20 12:50 10/04/20 12:50
[2020-10-05] MEDS: FERROUS SULFATE 325 MG TAB PO SCH (17:32)
[2020-10-05] MEDS: PHENYLEPHRINE 2.5% OPHTH DRP 2ML BOTH EYES SCH (17:32)
[2020-10-05] MEDS: FAMOTIDINE 20 MG TAB PO SCH (20:34)
[2020-10-05] MEDS: MONTELUKAST 10 MG TAB PO SCH (20:34)
[2020-10-05] MEDS: atenoloL 50 MG TAB PO SCH (20:34)
[2020-10-06] MEDS: SODIUM CHLORIDE 0.9% 1,000 ML IV SCH (05:57)
[2020-10-06] MEDS: LEVOTHYROXINE 112 MCG TAB PO SCH (06:13)
[2020-10-06 08:22] VITALS: BP 148/78; PULSE 59; RESP 18; TEMP 97.7
[2020-10-06] MEDS: VITAMIN E (DL,TOCOPHERYL ACET) 400 UNIT (180 MG) CAP PO SCH (09:10)
[2020-10-06] MEDS: LACOSAMIDE 50 MG TABLET PO SCH (09:10)
[2020-10-06] MEDS: CEFDINIR 300 MG CAP PO SCH (09:10)
[2020-10-06] MEDS: POTASSIUM CHLORIDE ER 20 MEQ TAB.ER PO SCH (09:10)
[2020-10-06] MEDS: LACTOBACILLUS ACIDOPH & BULGAR 1 EACH PACKET PO SCH (09:10)
[2020-10-06] MEDS: amLODIPine 5 MG TAB PO SCH (09:10)
[2020-10-06] MEDS: DOCUSATE 100 MG CAP PO SCH (09:11)
[2020-10-06] MEDS: VITAMIN A 10,000 UNIT (3000 MCG) CAPSULE PO SCH (09:11)
[2020-10-06] MEDS: THIAMINE 100 MG TAB PO SCH (09:11)
[2020-10-06] MEDS: SODIUM BICARBONATE TAB 650 MG TAB PO SCH (09:11)
[2020-10-06] MEDS: PANTOPRAZOLE 40 MG TABLET PO SCH (09:11)
--- NOTE | 2020-10-06 12:43 | P.DS ---
Providers Date of admission: 09/19/20 21:35 Attending physician: Malinda Castro Consults: 09/19/20 21:01 Consult Physician Routine Consulting Provider: Remi Hudson Consult Reason/Comments: thrombocytopenia Do you want consulting provider notified?: Yes 09/21/20 12:24 Consult Physician Routine Consulting Provider: Tee Summers Consult Reason/Comments: AMS, unknown etiology Do you want consulting provider notified?: Yes 09/21/20 12:26 Consult Physician Routine Consulting Provider: Ann Tran Consult Reason/Comments: hypothermia, AMS Do you want consulting provider notified?: Yes 09/23/20 09:46 Consult Physician Routine Consulting Provider: Psychiatry - [facility] Consult Reason/Comments: paranoia, now nonverbal, possible psycosis Do you want consulting provider notified?: Yes 09/23/20 15:39 Consult Physician Routine Consulting Provider: Olman Acosta Consult Reason/Comments: edema, drainage bilateral eyes Do you want consulting provider notified?: Yes 09/23/20 16:45 Consult to Anesthesia Routine Consulting Provider: Anesthesia,Services Consult Reason/Comments: lumbar puncture- rule out encephalitis 09/28/20 12:07 Consult Physician Routine Consulting Provider: Robert Villeda Consult Reason/Comments: home v. rehab Do you want consulting provider notified?: Yes 09/28/20 12:11 Consult Physician Routine Consulting Provider: Tavo Dallas Consult Reason/Comments: mental capability to make decisions for self. Do you want consulting provider notified?: Yes 10/03/20 09:32 Consult Physician Routine Consulting Provider: Roderick Serrano Consult Reason/Comments: EGD/Colonoscopy - r/o bleed Do you want consulting provider notified?: Yes Primary care physician: Stated None Hospital Course: Final diagnoses - Acute UTI, resolved 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 Patient's motor strength is at baseline. -Chronic thrombocytopenia Patient is receiving IV immunoglobulin at this time and patient has history of ITP. -Recent treatment for cellulitis. -Hypertension: Blood pressure stable, Norvasc has been resumed -Hyperkalemia: repleted -Hypothyroidism - patient is maintained on Synthroid. -Hypokalemia. Repleted, on oral potassium twice a day. -Hypomagnesium. Currently 1.7. -Anemia new-onset suspect acute GIB. Patient is being followed closely by hematology, who has ruled out hemolysis. Abdominal pelvis CT negative for an acute bleed. Patient has received 1 unit of PRBCs this admission current hemoglobin is 9.5 which has been stable. There are currently no signs of active bleed, and patient has refused surgical services EGD colonoscopy. Check CBC outpatient, can follow-up with surgical services if patient and family desire. - Possible Pneumonia, completed course of antibiotic therapy with Cefdinir, continue incentive spirometry outpatient. -Hypernatremia due to volume depletion, resolved current sodium level today is 138. Monitor closely. Repeat in 2 days outpatient. -Possible new onset acute congestive heart failure, unspecified Abdomen pelvis CT results demonstrated lower lobe pulmonary infiltrates and atelectasis and pleural fluid that could related to congestive heart failure. These abdomen is appeared new compared to old exam. Patient has refused a dose of IV Lasix. Symptoms have resolved, follow-up outpatient DVT prophylaxis: Prophylaxis is contraindicated because of her low platelet count, and history of thrombocytopenia. Being followed closely by hematology GI prophylaxis: Patient is maintained on by mouth Protonix as well as by mouth Pepcid. Discharge disposition Patient is discharged home with 24 7 care via [facility] services. Patient's family has arranged for transport and care. At this time patient was recommended for further neurological evaluation at a tertiary care facility, patient's temporary guardian had refused this as well as the patient. Patient in addition has refused surgical services for an EGD colonoscopy to rule out an acute GI bleed. Patient will follow-up with hematology, and we'll have a repeat CBC in 2 days to monitor her hemoglobin level. Patient and family will need to monitor for any signs of active bleeding. Monitor for further episodes of acute confusion, hallucinations, paranoia. Patient is discharged home in a fair condition, patie nt and family are understanding of patient's past care. Continue to encourage incentive spirometer outpatient. Hospital course This is a 60-year-old female who came to the hospital after a fall with acute confusion and paranoia. Patient's toxicology was positive for benzodiazepines at the time of admission, patient does not appear to have a prescription for this however patient does take Ambien at bedtime. Patient was alert and oriented 2, and patient was hypothermic with a temperature around 80. Continue to monitor with temperature rechecks, there was no evidence for clear sepsis at the time of admission. Temperature has normalized, no further episodes of hypothermia. Patient has remained afebrile this admission. UA was initially negative, a Horn catheter was placed during this admission for urinary retention. It has been removed, and there has been no further issues. Patient denies any cough, dysuria, chest x-ray did not show any significant abnormality on admission. Etiology of her acute onset confusion is unclear at this time, CT of the head did not show any intracranial hemorrhage, MRI revealed mild diffuse white matter increased signal in the peritoneal lobe secondary latissimus and some encephalomalacia. No cortical infarct. Neurology have ruled out a acute/subacute stroke. Patient had 2 EEGs completed his hospitalization that demonstrated moderate to severe degree of background slowing, suggestive of generalized cerebral dysfunction, can be seen with toxic metabolic encephalopathy or diffuse structural brain abnormality. No epileptiform activity was seen. Patient was started on oral Vimpat, dose was decreased during this hospital stay. Patient denies any further symptoms of sedation from the oral Vimpat. There is no more signs of altered mentation with tongue biting, r/o partial complex seizures. Neurology had recommended transfer to a tertiary care facility for further workup. Patient and the family refused and this hospital stay. Patient had recent treatment for cellulitis which required a PICC line with IV antibiotics. Patient was also being followed by infectious disease this admission for a possible pneumonia, patient had co mpleted a course of oral cefdinir, and there were no further antibiotic recommendations on patient's discharge. Patient continue with the incentive spirometer. Patient was also evaluated for a possible new onset acute congestive heart failure, unspecified, patient refused a dose of IV Lasix, and refused a further workup. Patient has now denied further episodes of shortness of breath. Patient has been an extensive workup from hematology services this admission, patient has a chronic history of ITP and has been receiving IVIG. Hematology services have recommended a surgical consultation to rule out an acute GI bleed due to a acute anemia. Patient and family have refused a further workup at this time. Refused EGD/colonoscopy. Anemia has remained stable however is not continue to back at baseline. Patient will follow-up with a CBC outpatient. Patient also had hypokalemia this admission patient was replace per protocol multiple times. Patient is maintained on her oral dose of by mouth potassium on discharge twice a day. Patient will follow-up with a BMP in 2 days. This patient has a significant history for multifocal motor neuropathy, patient has been diagnosed with ALS since age of 17. Patient is wheelchair- bound and has a lot of scooter at home. Patient does live by herself, but she has 24 7 care via [facility] services. Patient's motor strength is back to baseline per family and patient. Patient will be discharged today in fair condition and we'll resume home care. Following recommendations via neurology, and due to acute confusion on admission, patient's Ativan dose has been decreased. Patient's Efren and Ambien have been discontinued until further evaluation post discharge. Patient may continue Pepcid for GI prophylaxis. 10/06/2020 Patient is evaluated today at the bedside. She is alert and oriented 3, mentation is back to baseline, patient is not any acute distress. Patient is denying pain at this time. Patient states that she is ready to go home. Patient is understanding of her current plan of care. Vital signs are stable today, temp of 90 D7 0.7, heart rate sinus rhythm in the 60s, blood pressure 148/78. Patient remains on room air with oxygen saturation of 96-100%. Patient will continue with her incentive spirometer and is understanding of the need for this. Patient denies any abdominal pain, headache, chest pain, cough, shortness of breath. Patient states that she is not having any urinary difficulty. Patient states that she is having bowel movements. Patient Condition at Discharge: Fair Plan - Discharge Summary New Discharge Prescriptions: New Docusate [Colace] 100 mg PO BID #60 cap Lactobacillus Acidoph & Bulgar [Lactinex] 1 each PO BID #60 packet atenoloL [Tenormin] 100 mg PO HS #30 tab Lacosamide [Vimpat] 50 mg PO BID #60 tablet LORazepam [Ativan] 1 mg PO BID PRN #60 tab PRN Reason: Anxiety Continue Montelukast [Singulair] 10 mg PO HS Potassium Bicarbonate/Cit AC [Klor-Con 25 (Effer. Tab)] 50 meq PO TID-W/MEALS amLODIPine [Norvasc] 5 mg PO W/BRKFST Potassium Chloride [Klor-Con 20] 20 meq PO BID-W/MEALS Ferrous Sulfate [Iron (65 MG Elemental)] 325 mg PO W/SUPPER Ergocalciferol [Vitamin D2 (1250 Mcg = 61121 Iu)] 1,250 mcg PO FR calcitrioL [Calcitriol] 0.25 mcg PO MO Biotin 10,000 mcg PO W/BRKFST Melatonin 1 mg PO HS Famotidine [Pepcid] 20 mg PO HS Thiamine [Vitamin B-1] 100 mg PO BID-W/MEALS Gamunex-C 5gm/50ml 15 gm IV Q28D Levothyroxine Sodium [Tirosint] 112 mcg PO DAILY Sodium Bicarbonate Tab 650 mg PO BID-W/MEALS Vitamin A Acetate [Vitamin A] 10,000 unit SL W/BRKFST Cranberry 25,000mg 25,000 mg PO W/BRKFST Vitamin E Acetate [Vitamin E] 200 unit PO W/LUNCH Calcium Carbonate [Calcium] 600 mg PO W/LUNCH Magnesium Gluconate [Magonate] 500 mg PO W/LUNCH Ascorbic Acid [Vitamin C] 500 mg PO W/SUPPER Discontinued Atenolol [Tenormin] 100 mg PO HS LORazepam [Ativan] 2 mg PO TID PRN PRN Reason: Anxiety Zolpidem Tartrate 3.5 mg SL HS Efren 750mg 1 tab PO HS Discharge Medication List Montelukast [Singulair] 10 mg PO HS 07/21/16 [History] Potassium Bicarbonate/Cit AC [Klor-Con 25 (Effer. Tab)] 50 meq PO TID-W/MEALS 07/21/16 [History] amLODIPine [Norvasc] 5 mg PO W/BRKFST 07/21/16 [History] Potassium Chloride [Klor-Con 20] 20 meq PO BID-W/MEALS 07/28/16 [History] Ferrous Sulfate [Iron (65 MG Elemental)] 325 mg PO W/SUPPER 01/04/18 [History] Cranberry 25,000mg 25,000 mg PO W/BRKFST 07/04/20 [History] Ergocalciferol [Vitamin D2 (1250 Mcg = 27320 Iu)] 1,250 mcg PO FR 07/04/20 [History] Levothyroxine Sodium [Tirosint] 112 mcg PO DAILY 07/04/20 [History] Sodium Bicarbonate Tab 650 mg PO BID-W/MEALS 07/04/20 [History] Vitamin A Acetate [Vitamin A] 10,000 unit SL W/BRKFST 07/04/20 [History] calcitrioL [Calcitriol] 0.25 mcg PO MO 07/04/20 [History] Ascorbic Acid [Vitamin C] 500 mg PO W/SUPPER 09/19/20 [History] Biotin 10,000 mcg PO W/BRKFST 09/19/20 [History] Calcium Carbonate [Calcium] 600 mg PO W/LUNCH 09/19/20 [History] Famotidine [Pepcid] 20 mg PO HS 09/19/20 [History] Gamunex-C 5gm/50ml 15 gm IV Q28D 09/19/20 [History] Magnesium Gluconate [Magonate] 500 mg PO W/LUNCH 09/19/20 [History] Melatonin 1 mg PO HS 09/19/20 [History] Thiamine [Vitamin B-1] 100 mg PO BID-W/MEALS 09/19/20 [History] Vitamin E Acetate [Vitamin E] 200 unit PO W/LUNCH 09/19/20 [History] Docusate [Colace] 100 mg PO BID #60 cap 10/06/20 [Rx] LORazepam [Ativan] 1 mg PO BID PRN #60 tab 10/06/20 [Rx] Lacosamide [Vimpat] 50 mg PO BID #60 tablet 10/06/20 [Rx] Lactobacillus Acidoph & Bulgar [Lactinex] 1 each PO BID #60 packet 10/06/20 [Rx] atenoloL [Tenormin] 100 mg PO HS #30 tab 10/06/20 [Rx] Follow up Appointment(s)/Referral(s): Polly Prather ANPBC [Nurse Practitioner] - 10/28/20 10:15 am [facility], [NON-STAFF] - None,Stated [Primary Care Provider] - 1-2 days Alfred Freire MD [REFERRING] - 1 Week Ambulatory/Diagnostic Orders: Basic Metabolic Panel [LAB.AMB] Time Frame: 2 Days, Location: None Selected Complete Blood Count w/diff [LAB.AMB] Time Frame: 2 Days, Location: None Selected Activity/Diet/Wound Care/Special Instructions: NURSEWhen patient is d/c please call Tenisha SCHMID to notify her of d/c. [facility] worker will be at patients home to provide care for her on Alvin morning. Please schedule Ambulance when she is d/c and let Odilia know of transport time. Ambulance form is in chart. Patient will follow up with a neurologist outpatient for further evaluation. Follow-up with PCP, 1 has been given, if the patient does not have one. If patient has one please add to discharge summary. Follow-up with hematology Patient's Ambien,, on hold until further evaluation outpatient Ativan has been decreased on discharge Continue with incentive spirometer Continue to monitor for signs of bleeding Patient can follow up with surgery outpatient if family wishes. Discharge Disposition: HOME WITH HOME HEALTH SERVICES
== END 2020-10-06 13:00 | disposition home health service (06) | DRG 91 ==
LOC: EC 17:00 → EEVIPCON 21:35 → 5NMEDONC 21:35 → 3SCARD 09-23 19:42 → 4SSUR 10-04 14:33
PROVIDERS: ADMIT Hospitalist; ATTEND Hospitalist
PROC: 30233R1 Transfusion of Nonautologous Platelets into Peripheral Vein, Percutaneous Approach (ICD-10-PCS; principal; 2020-09-20)
PROC: 30233N1 Transfusion of Nonautologous Red Blood Cells into Peripheral Vein, Percutaneous Approach (ICD-10-PCS; 2020-10-01)
DX: G92 Toxic encephalopathy (principal); J18.9 Pneumonia, unspecified organism; R53.2 Functional quadriplegia; D69.3 Immune thrombocytopenic purpura; E87.0 Hyperosmolality and hypernatremia; G12.21 Amyotrophic lateral sclerosis; L03.115 Cellulitis of right lower limb; J98.11 Atelectasis; N39.0 Urinary tract infection, site not specified; G61.82 Multifocal motor neuropathy; T42.6X5A Adverse effect of other antiepileptic and sedative-hypnotic drugs, initial encounter; I11.0 Hypertensive heart disease with heart failure; E03.9 Hypothyroidism, unspecified; F22 Delusional disorders; Z20.822 Contact with and (suspected) exposure to COVID-19; T42.4X5A Adverse effect of benzodiazepines, initial encounter; G93.89 Other specified disorders of brain; Z66 Do not resuscitate; D64.9 Anemia, unspecified; G90.9 Disorder of the autonomic nervous system, unspecified; E78.5 Hyperlipidemia, unspecified; I50.9 Heart failure, unspecified; E83.41 Hypermagnesemia; E83.42 Hypomagnesemia; E83.52 Hypercalcemia; R68.0 Hypothermia, not associated with low environmental temperature; E86.9 Volume depletion, unspecified; E87.5 Hyperkalemia; E87.6 Hypokalemia; R33.9 Retention of urine, unspecified; H57.89 Other specified disorders of eye and adnexa; H54.62 Unqualified visual loss, left eye, normal vision right eye; S00.01XA Abrasion of scalp, initial encounter; S00.83XA Contusion of other part of head, initial encounter; W05.0XXA Fall from non-moving wheelchair, initial encounter; Z79.52 Long term (current) use of systemic steroids; Z79.890 Hormone replacement therapy; Z79.899 Other long term (current) drug therapy; Z86.73 Personal history of transient ischemic attack (TIA), and cerebral infarction without residual deficits; Z96.1 Presence of intraocular lens; Z99.3 Dependence on wheelchair; Z53.29 Procedure and treatment not carried out because of patient's decision for other reasons; Z53.09 Procedure and treatment not carried out because of other contraindication; Z98.890 Other specified postprocedural states
CPT/HCPCS: 36415; 70450; 70553; 71045; 71046; 72125; 74176; 80048; 80053; 80306; 80320; 81001; 82140; 82330; 82607; 82728; 82746; 82747; 82784; 83010; 83540; 83550; 83615; 83735; 84132; 84145; 84207; 84443; 84446; 85025; 85027; 85045; 85384; 85610; 85730; 86140; 86850; 86900; 86901; 86920; 87040; 87086; 87635; 93005; 94640; 94760; 95816

== ENCOUNTER 2020-11-11 15:02 | Inpatient (IN) | payer MEDICARE, OTHER ==
[2020-11-11] MEDS ORDERED: SODIUM CHLORIDE 0.9% 500 ML 500 ML IV ONE (15:35)
--- NOTE | 2020-11-11 15:49 | ED ---
General Adult HPI - General Chief complaint: Altered Mental Status Stated complaint: altered mental status Time Seen by Provider: 11/11/20 15:31 Source: family, EMS, RN notes reviewed, old records reviewed Mode of arrival: EMS Limitations: altered mental status, physical limitation - History of Present Illness Initial comments: 60-year-old female with multifocal neuropathy, bedbound presenting with confusion since Wednesday which was 4 days prior. She's had similar episodes in the past. She has a history of thrombocytopenia and does follow with hemat ology. She received IgG on Wednesday. She had been admitted to this institution approximately one and a half months ago. She had a similar presentation at that time. According to her daughter who is at bedside she additionally has had issues with urinary tract infections. No reported fever. No reported vomiting - Related Data Home Medications Medication Instructions Recorded Confirmed Montelukast [Singulair] 10 mg PO HS 07/21/16 11/11/20 Potassium Bicarbonate/Cit AC 50 meq PO TID-W/MEALS 07/21/16 11/11/20 [Klor-Con 25 (Effer. Tab)] amLODIPine [Norvasc] 5 mg PO W/BRKFST 07/21/16 11/11/20 Potassium Chloride [Klor-Con 20] 20 meq PO BID-W/MEALS 07/28/16 11/11/20 Ferrous Sulfate [Iron (65 MG 325 mg PO W/SUPPER 01/04/18 11/11/20 Elemental)] Cranberry 25,000mg 25,000 mg PO W/BRKFST 07/04/20 11/11/20 Ergocalciferol [Vitamin D2 (1250 1,250 mcg PO FR 07/04/20 11/11/20 Mcg = 41621 Iu)] Levothyroxine Sodium [Tirosint] 112 mcg PO DAILY 07/04/20 11/11/20 Sodium Bicarbonate Tab 650 mg PO BID-W/MEALS 07/04/20 11/11/20 Vitamin A Acetate [Vitamin A] 10,000 unit SL W/BRKFST 07/04/20 11/11/20 calcitrioL [Calcitriol] 0.25 mcg PO MO 07/04/20 11/11/20 Ascorbic Acid [Vitamin C] 500 mg PO W/SUPPER 09/19/20 11/11/20 Biotin 10,000 mcg PO W/BRKFST 09/19/20 11/11/20 Calcium Carbonate [Calcium] 600 mg PO W/LUNCH 09/19/20 11/11/20 Famotidine [Pepcid] 20 mg PO HS 09/19/20 11/11/20 Gamunex-C 5gm/50ml 15 gm IV Q28D 09/19/20 11/11/20 Magnesium Gluconate [Magonate] 500 mg PO W/LUNCH 09/19/20 11/11/20 Melatonin 1 mg PO HS 09/19/20 11/11/20 Thiamine [Vitamin B-1] 100 mg PO BID-W/MEALS 09/19/20 11/11/20 Vitamin E Acetate [Vitamin E] 200 unit PO W/LUNCH 09/19/20 11/11/20 Docusate [Colace] 100 mg PO BID PRN 11/11/20 11/11/20 Hydrocortisone Cream 1 applic TOPICAL BID PRN 11/11/20 11/11/20 [Hydrocortisone 2.5% Cream] LORazepam [Ativan] 2 mg PO TID PRN 11/11/20 11/11/20 Lactobacillus Acidoph & Bulgar 1 tab PO BID 11/11/20 11/11/20 [Lactinex] Zolpidem Tartrate [Zolpidem 3.5 mg SL HS PRN 11/11/20 11/11/20 Tartrate SL] busPIRone HCL [Buspar] 7.5 mg PO BID PRN 11/11/20 11/11/20 Previous Rx's Medication Instructions Recorded atenoloL [Tenormin] 100 mg PO HS #30 tab 10/06/20 Allergies Allergy/AdvReac Type Severity Reaction Status Date / Time hydrocortisone Allergy Nausea & Verified 11/11/20 17:15 Vomiting Iodine and Iodide Containing Allergy "KIDNEY Verified 11/11/20 17:15 Produc PROBLEM" quinine Allergy Nausea & Verified 11/11/20 17:15 Vomiting iodine AdvReac Unknown "KIDNEY Verified 11/11/20 17:15 PROBLEM" Review of Systems ROS Statement: Those systems with pertinent positive or pertinent negative responses have been documented in the HPI. ROS Other: All systems not noted in ROS Statement are negative. 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, TUBULAR RENAL ACIDOSIS,NEUROMUSCULAR DISEASE-MULTI FOCAL MOTOR NEUROPATHY , QUADRIPLEGIC History of Any Multi-Drug Resistant Organisms: None Reported Past Surgical History: Uterine Ablation Additional Past Surgical History / Comment(s): MUSCLE BIOPSY , D&C Past Anesthesia/Blood Transfusion Reactions: Postoperative Nausea & Vomiting (PONV) Past Psychological History: No Psychological Hx Reported Smoking Status: Never smoker Past Alcohol Use History: None Reported Past Drug Use History: None Reported - Past Family History Mother Family Medical History: No Reported History General Exam Limitations: altered mental status, physical limitation General appearance: lethargic Head exam: Present: atraumatic, normocephalic Eye exam: Present: normal appearance, PERRL, other (Bilateral infraorbital ecchymosis) ENT exam: Present: mucous membranes dry Neck exam: Present: normal inspection. Absent: tenderness, meningismus Respiratory exam: Present: normal lung sounds bilaterally. Absent: respiratory distress, wheezes Cardiovascular Exam: Present: normal rhythm, bradycardia GI/Abdominal exam: Present: soft. Absent: distended, tenderness, guarding, rebound Extremities exam: Present: normal capillary refill. Absent: pedal edema Neurological exam: Present: alert, motor sensory deficit (Patient is quadriplegic). Absent: oriented X3 Skin exam: Present: warm, dry, intact Course Vital Signs 11/11/20 11/11/20 15:03 15:20 Temperature 97.5 F L Pulse Rate 54 L 59 L Respiratory 18 16 Rate Blood Pressure 128/68 122/77 O2 Sat by Pulse 98 98 Oximetry EKG Findings - EKG Comments: EKG Findings:: EKG: Sinus bradycardia LVH T-wave inversion in the inferior and lateral precordial leads no ST segment elevation, rate of 53 IN interval 194, QRS duration 96, QTC 379. Medical Decision Making - Medical Decision Making 60-year-old female with significant past medical history presenting with confusion over the past several days, frontal cytopenia, history of ITP, and quadriplegic, bedbound. Patient's is accompanied by her daughter who is able to give additional history. She did receive IgG for treatment of ITP on Wednesday. There is been no reported fever. No reported vomiting. No pain complaints. Patient is able to answer some simple questions but is confused. She is a quadriplegic. Given the thrombocytopenia head CT is performed which is negative for intracranial hemorrhage. She is pancytopenic. She has a potassium 6.2 which is treated with sodium bicarbonate, calcium gluconate, and IV fluids. Other electrolytes are within normal limits. She has no signs of urinary tract infection. Chest x-ray negative for large focal pneumonia., No acute findings. I did discuss the case with Dr. Hudson who does not recommend any other acute management for the thrombocytopenia. I discussed case with Dr. Vargas who will admit. Neurology will be placed on consult. Repeat potassium will be drawn in 2 hours. - Lab Data Result diagrams: 11/11/20 15:39 11/11/20 15:39 Lab Results 11/11/20 11/11/20 11/11/20 Range/Units 15:39 15:39 15:39 WBC 1.9 L (3.8-10.6) k/uL RBC 3.02 L (3.80-5.40) m/uL Hgb 10.3 L (11.4-16.0) gm/dL Hct 30.1 L (34.0-46.0) % MCV 99.5 D (80.0-100.0) fL MCH 34.1 (25.0-35.0) pg MCHC 34.3 (31.0-37.0) g/dL RDW 21.4 H (11.5-15.5) % Plt Count 12 L* D (150-450) k/uL MPV 12.2 Neutrophils % 83 % Lymphocytes % 10 % Monocytes % 3 % Eosinophils % 0 % Basophils % 0 % Neutrophils # 1.6 (1.3-7.7) k/uL Lymphocytes # 0.2 L (1.0-4.8) k/uL Monocytes # 0.1 (0-1.0) k/uL Eosinophils # 0.0 (0-0.7) k/uL Basophils # 0.0 (0-0.2) k/uL Manual Slide Review Performed Poikilocytosis Moderate Anisocytosis Moderate Macrocytosis Moderate PT 10.2 (9.0-12.0) sec INR 0.9 (<1.2) APTT 33.3 H (22.0-30.0) sec Sodium (137-145) mmol/L Potassium (3.5-5.1) mmol/L Chloride (98-107) mmol/L Carbon Dioxide (22-30) mmol/L Anion Gap mmol/L BUN (7-17) mg/dL Creatinine (0.52-1.04) mg/dL Est GFR (CKD-EPI)AfAm (>60 ml/min/1.73 sqM) Est GFR (CKD-EPI)NonAf (>60 ml/min/1.73 sqM) Glucose (74-99) mg/dL POC Glucose (mg/dL) (75-99) mg/dL POC Glu Mineral Resources Inspector ID Plasma Lactic Acid Kuldeep (0.7-2.0) mmol/L Calcium (8.4-10.2) mg/dL Magnesium (1.6-2.3) mg/dL Total Bilirubin (0.2-1.3) mg/dL AST (14-36) U/L ALT (4-34) U/L Alkaline Phosphatase (38-126) U/L Creatine Kinase (30-135) U/L Troponin I (0.000-0.034) ng/mL Total Protein (6.3-8.2) g/dL Albumin (3.5-5.0) g/dL TSH (0.465-4.680) mIU/L Urine Color Yellow Urine Appearance Cloudy H (Clear) Urine pH 8.5 H (5.0-8.0) Ur Specific [place] 1.012 (1.001-1.035) Urine Protein Trace H (Negative) Urine Glucose (UA) Negative (Negative) Urine Ketones Negative (Negative) Urine Blood Negative (Negative) Urine Nitrite Negative (Negative) Urine Bilirubin Negative (Negative) Urine Urobilinogen <2.0 (<2.0) mg/dL Ur Leukocyte Esterase Negative (Negative) Urine RBC 3 (0-5) /hpf Urine WBC 5 (0-5) /hpf Ur Squamous Epith Cells <1 (0-4) /hpf Hyaline Casts 1 (0-2) /lpf Urine Mucus Rare H (None) /hpf Coronavirus (PCR) (Not Detectd) 11/11/20 11/11/20 11/11/20 Range/Units 15:39 15:39 15:39 WBC (3.8-10.6) k/uL RBC (3.80-5.40) m/uL Hgb (11.4-16.0) gm/dL Hct (34.0-46.0) % MCV (80.0-100.0) fL MCH (25.0-35.0) pg MCHC (31.0-37.0) g/dL RDW (11.5-15.5) % Plt Count (150-450) k/uL MPV Neutrophils % % Lymphocytes % % Monocytes % % Eosinophils % % Basophils % % Neutrophils # (1.3-7.7) k/uL Lymphocytes # (1.0-4.8) k/uL Monocytes # (0-1.0) k/uL Eosinophils # (0-0.7) k/uL Basophils # (0-0.2) k/uL Manual Slide Review Poikilocytosis Anisocytosis Macrocytosis PT (9.0-12.0) sec INR (<1.2) APTT (22.0-30.0) sec Sodium 136 L (137-145) mmol/L Potassium 6.2 H* (3.5-5.1) mmol/L Chloride 104 (98-107) mmol/L Carbon Dioxide 25 (22-30) mmol/L Anion Gap 7 mmol/L BUN 20 H (7-17) mg/dL Creatinine <0.15 L (0.52-1.04) mg/dL Est GFR (CKD-EPI)AfAm >90 (>60 ml/min/1.73 sqM) Est GFR (CKD-EPI)NonAf >90 (>60 ml/min/1.73 sqM) Glucose 137 H (74-99) mg/dL POC Glucose (mg/dL) (75-99) mg/dL POC Glu Mineral Resources Inspector ID Plasma Lactic Acid Kuldeep 0.9 (0.7-2.0) mmol/L Calcium 10.3 H (8.4-10.2) mg/dL Magnesium 2.1 (1.6-2.3) mg/dL Total Bilirubin 0.7 (0.2-1.3) mg/dL AST 77 H (14-36) U/L ALT 64 H (4-34) U/L Alkaline Phosphatase 115 (38-126) U/L Creatine Kinase 43 (30-135) U/L Troponin I <0.012 (0.000-0.034) ng/mL Total Protein 7.0 (6.3-8.2) g/dL Albumin 3.7 (3.5-5.0) g/dL TSH 3.520 (0.465-4.680) mIU/L Urine Color Urine Appearance (Clear) Urine pH (5.0-8.0) Ur Specific [place] (1.001-1.035) Urine Protein (Negative) Urine Glucose (UA) (Negative) Urine Ketones (Negative) Urine Blood (Negative) Urine Nitrite (Negative) Urine Bilirubin (Negative) Urine Urobilinogen (<2.0) mg/dL Ur Leukocyte Esterase (Negative) Urine RBC (0-5) /hpf Urine WBC (0-5) /hpf Ur Squamous Epith Cells (0-4) /hpf Hyaline Casts (0-2) /lpf Urine Mucus (None) /hpf Coronavirus (PCR) (Not Detectd) 11/11/20 11/11/20 Range/Units 15:39 16:19 WBC (3.8-10.6) k/uL RBC (3.80-5.40) m/uL Hgb (11.4-16.0) gm/dL Hct (34.0-46.0) % MCV (80.0-100.0) fL MCH (25.0-35.0) pg MCHC (31.0-37.0) g/dL RDW (11.5-15.5) % Plt Count (150-450) k/uL MPV Neutrophils % % Lymphocytes % % Monocytes % % Eosinophils % % Basophils % % Neutrophils # (1.3-7.7) k/uL Lymphocytes # (1.0-4.8) k/uL Monocytes # (0-1.0) k/uL Eosinophils # (0-0.7) k/uL Basophils # (0-0.2) k/uL Manual Slide Review Poikilocytosis Anisocytosis Macrocytosis PT (9.0-12.0) sec INR (<1.2) APTT (22.0-30.0) sec Sodium (137-145) mmol/L Potassium (3.5-5.1) mmol/L Chloride (98-107) mmol/L Carbon Dioxide (22-30) mmol/L Anion Gap mmol/L BUN (7-17) mg/dL Creatinine (0.52-1.04) mg/dL Est GFR (CKD-EPI)AfAm (>60 ml/min/1.73 sqM) Est GFR (CKD-EPI)NonAf (>60 ml/min/1.73 sqM) Glucose (74-99) mg/dL POC Glucose (mg/dL) 147 H (75-99) mg/dL POC Glu Mineral Resources Inspector Kalli Peterson Plasma Lactic Acid Kuldeep (0.7-2.0) mmol/L Calcium (8.4-10.2) mg/dL Magnesium (1.6-2.3) mg/dL Total Bilirubin (0.2-1.3) mg/dL AST (14-36) U/L ALT (4-34) U/L Alkaline Phosphatase (38-126) U/L Creatine Kinase (30-135) U/L Troponin I (0.000-0.034) ng/mL Total Protein (6.3-8.2) g/dL Albumin (3.5-5.0) g/dL TSH (0.465-4.680) mIU/L Urine Color Urine Appearance (Clear) Urine pH (5.0-8.0) Ur Specific [place] (1.001-1.035) Urine Protein (Negative) Urine Glucose (UA) (Negative) Urine Ketones (Negative) Urine Blood (Negative) Urine Nitrite (Negative) Urine Bilirubin (Negative) Urine Urobilinogen (<2.0) mg/dL Ur Leukocyte Esterase (Negative) Urine RBC (0-5) /hpf Urine WBC (0-5) /hpf Ur Squamous Epith Cells (0-4) /hpf Hyaline Casts (0-2) /lpf Urine Mucus (None) /hpf Coronavirus (PCR) Not Detected (Not Detectd) Disposition Clinical Impression: Altered mental status, Autoimmune autonomic neuropathy, Chronic ITP (idiopathic thrombocytopenic purpura), Hyperkalemia Disposition: ADMITTED IP TO THIS [facility] Condition: Stable Is patient prescribed a controlled substance at d/c from ED?: No Referrals: Christiano Dooley MD [Primary Care Provider] - 1-2 days Decision to Admit Reason: Admit from EC Decision Date: 11/11/20 Decision Time: 17:35
[2020-11-11 15:55] LABS: Anisocytosis Moderate; Basophils % (A) 0 %; Eosinophils % (A) 0 %; HCT 30.1 % (34.0-46.0); HGB 10.3 gm/dL (11.4-16.0); Lymphocytes # (A) 0.2 k/uL (1.0-4.8); Lymphocytes % (A) 10 %; MCH 34.1 pg (25.0-35.0); MCHC 34.3 g/dL (31.0-37.0); Macrocytosis Moderate; Mean Platelet Volume 12.2; Monocytes # (A) 0.1 k/uL (0-1.0); Monocytes % (A) 3 %; Neutrophils # (A) 1.6 k/uL (1.3-7.7); Neutrophils % (A) 83 %; Poikilocytosis Moderate; RBC 3.02 m/uL (3.80-5.40); RDW 21.4 % (11.5-15.5); WBC 1.9 k/uL (3.8-10.6)
[2020-11-11 16:02] LABS: Appearance,Urine Cloudy (Clear); Bilirubin,Urine Negative (Negative); Blood,Urine Negative (Negative); Color,Urine Yellow; Glucose,Urine (UA) Negative (Negative); Hyaline Casts,Urine 1 /lpf (0-2); Ketones,Urine Negative (Negative); Leukocyte Esterase,Urine Negative (Negative); Mucus,Urine Rare /hpf; Nitrite,Urine Negative (Negative); PH, Urine 8.5 (5.0-8.0); Protein,Urine Trace (Negative); RBC,Urine 3 /hpf (0-5); Specific Gravity,Urine 1.012 (1.001-1.035); Squamous Epithelial Cell,Urine <1 /hpf (0-4); Urobilinogen,Urine <2.0 mg/dL (<2.0); WBC,Urine 5 /hpf (0-5)
[2020-11-11 16:06] LABS: MCV 99.5 fL (80.0-100.0)
[2020-11-11 16:13] LABS: INR 0.9 (<1.2); Partial Thromboplastin Time 33.3 sec (22.0-30.0); Prothrombin Time 10.2 sec (9.0-12.0)
[2020-11-11 16:19] LABS: ALT 64 U/L (4-34); AST 77 U/L (14-36); Alkaline Phosphatase 115 U/L (38-126); Creatine Kinase 43 U/L (30-135); Magnesium 2.1 mg/dL (1.6-2.3)
[2020-11-11 16:20] LABS: Glucose,Whole Blood 147 mg/dL (75-99)
[2020-11-11 16:26] LABS: Platelet Count 12 k/uL (150-450)
[2020-11-11 16:27] LABS: Albumin 3.7 g/dL (3.5-5.0); Anion Gap 7 mmol/L; Blood Urea Nitrogen 20 mg/dL (7-17); Calcium 10.3 mg/dL (8.4-10.2); Carbon Dioxide 25 mmol/L (22-30); Chloride 104 mmol/L (98-107); Glucose 137 mg/dL (74-99); Sodium 136 mmol/L (137-145); Total Bilirubin 0.7 mg/dL (0.2-1.3)
[2020-11-11 16:31] LABS: African American GFR (CKD) >90 (>60 ml/min/1.73 sqM); Non-African American GFR(CKD) >90 (>60 ml/min/1.73 sqM); Potassium 6.2 mmol/L (3.5-5.1)
--- NOTE | 2020-11-11 16:45 | CT ---
EXAMINATION TYPE: CT brain wo con DATE OF EXAM: 11/11/2020 COMPARISON: 09/22/2020 HISTORY: Altered mental status CT DLP: 1047.4 mGycm Automated exposure control for dose reduction was used. Ventricles have normal size. There is no mass effect nor midline shift. There is no sign of intracran ial hemorrhage. Calvarium is intact. Skull base is intact. There is normal aeration of the mastoid si nuses. IMPRESSION: Negative unenhanced head CT scan. No change.
--- NOTE | 2020-11-11 16:47 | XR ---
EXAMINATION TYPE: XR chest 1V portable DATE OF EXAM: 11/11/2020 COMPARISON: 10/04/2020 HISTORY: Altered mental status TECHNIQUE: FINDINGS: There is no heart failure nor confluent pneumonic infiltrate. There is right central venous catheter with tip in the superior vena cava. There is slight blunting left costophrenic angle. Thora cic aorta is atheromatous. IMPRESSION: Left pleural effusion and pleural reaction is mostly cleared compared to old exam. There is clearing of the pulmonary vascular congestion compared to old exam.
[2020-11-11] MEDS ORDERED: SODIUM BICARB 8.4% 50 ML SYR (1 MEQ/ML) IV ONE (17:11)
[2020-11-11] MEDS ORDERED: NALOXONE 0.4 MG/ML 1 ML VIAL IV PRN (17:31)
[2020-11-11] MEDS ORDERED: ACETAMINOPHEN TAB 325 MG TAB PO PRN (17:31)
[2020-11-11] MEDS ORDERED: CALCIUM GLUCONATE 1 GM in SODIUM CHLORIDE 0.9% 100 ML IVPB ONE (17:40)
[2020-11-11] MEDS: SODIUM CHLORIDE 0.9% 1,000 ML IV SCH (18:10)
[2020-11-12] MEDS: SODIUM CHLORIDE 0.9% 1,000 ML IV SCH ×2 (09:38→22:22)
--- NOTE | 2020-11-12 10:29 | P.HPIM ---
History of Present Illness H&P Date: 11/12/20 HISTORY OF PRESENT ILLNESS [ ] REVIEW OF SYSTEMS Constitutional: No fever, no chills, no night sweats. No weight change. No weakness, fatigue or lethargy. No daytime sleepiness. EENT: No headache. No blurred vision or double vision, no loss of vision. No loss of Hearing, no ringing in the ears, no dizziness. No nasal drainage or congestion. No epistaxis. No sore throat. Lungs: No shortness of breath, cough, no sputum production. No wheezing. Cardiovascular: No chest pain, no lower extremity edema. No palpitations. No paroxysmal nocturnal dyspnea. No orthopnea. No lightheadedness or dizziness. No syncopal episodes. Abdominal: No abdominal pain. No nausea, vomiting. No diarrhea. No constipation. No bloody or tarry stools.. No loss of appetite. Genitourinary: No dysuria, increased frequency, urgency. No urinary retention. Musculoskeletal: No myalgias. No muscle weakness, no gait dysfunction, no frequent falls. No back pain. No neck pain. Integumentary: No wounds, no lesions. No rash or pruritus. No unusual bruising. No change in hair or nails. Neurologic: No aphasia. No facial droop. No change in mentation. No head injury. No headache. No paralysis. No paresthesia. Psychiatric: No depression. No anxiety. No mood swings. Endocrine: No abnormal blood sugars. No weight change. No excessive sweating or thirst. No cold intolerance. SOCIAL HISTORY [ ]. FAMILY HISTORY [ ]. PHYSICAL EXAMINATION Gen: This is [ ] HEENT: Head is atraumatic, normocephalic. Pupils equal, round. Sclerae is anicteric. NECK: Supple. No JVD. No lymphadenopathy. No thyromegaly. LUNGS: Clear to auscultation. No wheezes or rhonchi. No intercostal retractions. HEART: Regular rate and rhythm. No murmur. ABDOMEN: Soft. Bowel sounds are present. No masses. No tenderness. EXTREMITIES: No pedal edema. No calf tenderness. NEUROLOGICAL: Patient is awake, alert and oriented x3. Cranial nerves 2 through 12 are grossly intact. ASSESSMENT AND PLAN 1. [ ]. 2. [ ]. 3. [ ]. 4. [ ]. 5. [ ]. 6. [ ]. 7. [ ]. 8. [ ]. 9. [ ]. 10. [ ]. 11. [ ]. 12. COVID-19 testing negative. Patient has been hospitalized during a pandemic. Patient will be admitted to the hospital for a minimum of 2 night stay. DISCHARGE PLAN [ ]. Impression and plan of care have been directed as dictated by the signing physician. Emmie Vega nurse practitioner acting as scribe for signing physician. 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, TUBULAR RENAL ACIDOSIS,NEUROMUSCULAR DISEASE-MULTI FOCAL MOTOR NEUROPATHY , QUADRIPLEGIC History of Any Multi-Drug Resistant Organisms: None Reported Past Surgical History: Uterine Ablation Additional Past Surgical History / Comment(s): MUSCLE BIOPSY , D&C Past Anesthesia/Blood Transfusion Reactions: Postoperative Nausea & Vomiting (PONV) Past Psychological History: No Psychological Hx Reported Smoking Status: Never smoker Past Alcohol Use History: None Reported Past Drug Use History: None Reported - Past Family History Mother Family Medical History: No Reported History Medications and Allergies Home Medications Medication Instructions Recorded Confirmed Type Montelukast [Singulair] 10 mg PO HS 07/21/16 11/11/20 History Potassium Bicarbonate/Cit AC 50 meq PO TID-W/MEALS 07/21/16 11/11/20 History [Klor-Con 25 (Effer. Tab)] amLODIPine [Norvasc] 5 mg PO W/BRKFST 07/21/16 11/11/20 History Potassium Chloride [Klor-Con 20] 20 meq PO BID-W/MEALS 07/28/16 11/11/20 History Ferrous Sulfate [Iron (65 MG 325 mg PO W/SUPPER 01/04/18 11/11/20 History Elemental)] Cranberry 25,000mg 25,000 mg PO W/BRKFST 07/04/20 11/11/20 History Ergocalciferol [Vitamin D2 (1250 1,250 mcg PO FR 07/04/20 11/11/20 History Mcg = 00465 Iu)] Levothyroxine Sodium [Tirosint] 112 mcg PO DAILY 07/04/20 11/11/20 History Sodium Bicarbonate Tab 650 mg PO BID-W/MEALS 07/04/20 11/11/20 History Vitamin A Acetate [Vitamin A] 10,000 unit SL W/BRKFST 07/04/20 11/11/20 History calcitrioL [Calcitriol] 0.25 mcg PO MO 07/04/20 11/11/20 History Ascorbic Acid [Vitamin C] 500 mg PO W/SUPPER 09/19/20 11/11/20 History Biotin 10,000 mcg PO W/BRKFST 09/19/20 11/11/20 History Calcium Carbonate [Calcium] 600 mg PO W/LUNCH 09/19/20 11/11/20 History Famotidine [Pepcid] 20 mg PO HS 09/19/20 11/11/20 History Gamunex-C 5gm/50ml 15 gm IV Q28D 09/19/20 11/11/20 History Magnesium Gluconate [Magonate] 500 mg PO W/LUNCH 09/19/20 11/11/20 History Melatonin 1 mg PO HS 09/19/20 11/11/20 History Thiamine [Vitamin B-1] 100 mg PO BID-W/MEALS 09/19/20 11/11/20 History Vitamin E Acetate [Vitamin E] 200 unit PO W/LUNCH 09/19/20 11/11/20 History atenoloL [Tenormin] 100 mg PO HS #30 tab 10/06/20 11/11/20 Rx Docusate [Colace] 100 mg PO BID PRN 11/11/20 11/11/20 History Hydrocortisone Cream 1 applic TOPICAL BID PRN 11/11/20 11/11/20 History [Hydrocortisone 2.5% Cream] LORazepam [Ativan] 2 mg PO TID PRN 11/11/20 11/11/20 History Lactobacillus Acidoph & Bulgar 1 tab PO BID 11/11/20 11/11/20 History [Lactinex] Zolpidem Tartrate [Zolpidem 3.5 mg SL HS PRN 11/11/20 11/11/20 History Tartrate SL] busPIRone HCL [Buspar] 7.5 mg PO BID PRN 11/11/20 11/11/20 History Allergies Allergy/AdvReac Type Severity Reaction Status Date / Time hydrocortisone Allergy Nausea & Verified 11/11/20 17:15 Vomiting Iodine and Iodide Containing Allergy "KIDNEY Verified 11/11/20 17:15 Produc PROBLEM" quinine Allergy Nausea & Verified 11/11/20 17:15 Vomiting iodine AdvReac Unknown "KIDNEY Verified 11/11/20 17:15 PROBLEM" Physical Exam Vitals: Vital Signs Temp Pulse Pulse Resp BP BP Pulse Ox 11/12/20 08:00 87 16 117/57 11/12/20 04:00 88.9 F L 63 18 125/58 99 11/12/20 02:00 54 L 16 11/11/20 23:23 53 L 16 139/75 98 11/11/20 21:00 54 L 16 141/74 98 11/11/20 20:12 97.5 F L 57 L 18 147/61 99 11/11/20 20:00 54 L 18 116/53 98 11/11/20 19:00 77 16 150/70 99 11/11/20 18:19 53 L 16 126/67 99 11/11/20 15:20 97.5 F L 59 L 16 122/77 98 11/11/20 15:03 54 L 18 128/68 98 Intake and Output 11/11/20 11/12/20 11/12/20 22:59 06:59 14:59 Other: Voiding Method Diaper Diaper # Voids 1 Weight 99.79 kg Results CBC & Chem 7: 11/11/20 15:39 11/11/20 18:00 Labs: Abnormal Lab Results - Last 24 Hours (Table) 11/11/20 11/11/20 11/11/20 Range/Units 15:39 15:39 15:39 WBC 1.9 L (3.8-10.6) k/uL RBC 3.02 L (3.80-5.40) m/uL Hgb 10.3 L (11.4-16.0) gm/dL Hct 30.1 L (34.0-46.0) % RDW 21.4 H (11.5-15.5) % Plt Count 12 L* D (150-450) k/uL Lymphocytes # 0.2 L (1.0-4.8) k/uL APTT 33.3 H (22.0-30.0) sec Sodium (137-145) mmol/L Potassium (3.5-5.1) mmol/L BUN (7-17) mg/dL Creatinine (0.52-1.04) mg/dL Glucose (74-99) mg/dL POC Glucose (mg/dL) (75-99) mg/dL Calcium (8.4-10.2) mg/dL AST (14-36) U/L ALT (4-34) U/L Urine Appearance Cloudy H (Clear) Urine pH 8.5 H (5.0-8.0) Urine Protein Trace H (Negative) Urine Mucus Rare H (None) /hpf 11/11/20 11/11/20 11/11/20 Range/Units 15:39 16:19 18:00 WBC (3.8-10.6) k/uL RBC (3.80-5.40) m/uL Hgb (11.4-16.0) gm/dL Hct (34.0-46.0) % RDW (11.5-15.5) % Plt Count (150-450) k/uL Lymphocytes # (1.0-4.8) k/uL APTT (22.0-30.0) sec Sodium 136 L (137-145) mmol/L Potassium 6.2 H* 5.2 H (3.5-5.1) mmol/L BUN 20 H (7-17) mg/dL Creatinine <0.15 L (0.52-1.04) mg/dL Glucose 137 H (74-99) mg/dL POC Glucose (mg/dL) 147 H (75-99) mg/dL Calcium 10.3 H (8.4-10.2) mg/dL AST 77 H (14-36) U/L ALT 64 H (4-34) U/L Urine Appearance (Clear) Urine pH (5.0-8.0) Urine Protein (Negative) Urine Mucus (None) /hpf Microbiology - Last 24 Hours (Table) 11/11/20 15:30 Blood Culture - Final Blood
[2020-11-12 11:36] LABS: Lactic Acid, Venous 0.6 mmol/L (0.7-2.0)
[2020-11-12 11:39] LABS: ALT 62 U/L (4-34); AST 98 U/L (14-36); African American GFR (CKD) >90 (>60 ml/min/1.73 sqM); Albumin 3.3 g/dL (3.5-5.0); Alkaline Phosphatase 88 U/L (38-126); Anion Gap 9 mmol/L; Blood Urea Nitrogen 17 mg/dL (7-17); Calcium 9.2 mg/dL (8.4-10.2); Carbon Dioxide 21 mmol/L (22-30); Chloride 109 mmol/L (98-107); Glucose 87 mg/dL (74-99); Non-African American GFR(CKD) >90 (>60 ml/min/1.73 sqM); Potassium 4.4 mmol/L (3.5-5.1); Sodium 139 mmol/L (137-145); Total Protein 6.5 g/dL (6.3-8.2)
--- NOTE | 2020-11-12 11:55 | P.HPIM ---
History of Present Illness H&P Date: 11/12/20 60 years old female patient of Dr. Dooley who presents with change in mental status for past 4 days. 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 Patient has been wheelchair bound for more than 30 years. She was diagnosed with multifocal neuropathy since she was 17. She is unable to feed herself for the past 5 years. Patient is financially independent until 2 months ago when she was hospitalized. Patient was appointed a guardian, Odilia who is patient's niece, a month ago Patie nt was last hospitalized from 09/19 to 10/06 for hallucination and paranoid attacks for the 1 week. During that hospitalization, patient was noted to be hypothermic, checks x-ray was concerning for an infiltrate in the lung, urine analysis on admission was negative but since patient had a urine catheter she was diagnosed with CAUTI and was treated with 2 weeks of IV antibiotics. CT head was done that was negative for intracranial hemorrhage. MRI during that admission find mild diffuse white matter changes, parietal lobe was noted to have some encephalomalacia which was later conceded to be artifact for neurology. Patient had 2 EEG completed that suggested moderate to severe encephalopathy or diffuse structural brain abnormality. No epileptiform activity was noted. Neurology concerned about autoimmune limbic encephalitis with possible toxic metabolic encephalopathy. She was started on oral vimpat during last hospitalization. And was recommended to have a prolonged EEG and lumbar puncture if continues to have paranoia and hallucinations. Patient was also noted to have a new onset anemia, EGD and colonoscopy was recommended but patient refused during that hospitalization. Since patient's mental status improved patient was not transferred to [facility] and was discharged home. Ativan was reduced from 2 mg 3 times a day to 1 mg twice a day and Vimpat was initiated. Gabapentin was discontinued. Patient comes this time with change in mental status for 4 days. Patient is u nder care of [facility] provides 24 hours care. Care has noted patient yelling same word" ok" and not taking any meaningful conversation. She had poor oral intake and not been following commands. Vital were reviewed and patient was noted to have a temp of 88.8 rectally, pulse 59 and respiratory rate 16 blood pressure 122/77. The beer hugger was placed. CT of the head was negative for acute intracranial process. Chest x-ray was suggestive of left pleural effusion and pleural reaction that is mostly cleared compared to the old exam. Urinalysis was negative for infection labs are reviewed patient has a leukocytosis of 1.9 hemoglobin 10.3 platelets 12,000 sodium 136 potassium 6.1 admission improved to 5.2 calcium of 10.3 AST 77 ALT 64. COVID-19 was negative. IV fluids to be continued at 75 mL per hour. Patient was initiated on Vimpat 100 mg twice a day by neurology. Hyperkalemia was treated with calcium gluconate and bicarbonate. Patient received a bolus of 500 mL in the ER. Hold patient's Ativan, Ambien, levothyroxine. Repeat labs including TSH lactic acid prolactin is ordered. Dr. Hudson consulted for thrombocytopenia and ITP. Dr. Summers consulted for encephalopathy. Review of Systems Could not be obtained due to mental status 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, TUBULAR RENAL ACIDOSIS,NEUROMUSCULAR DISEASE-MULTI FOCAL MOTOR NEUROPATHY , QUADRIPLEGIC History of Any Multi-Drug Resistant Organisms: None Reported Past Surgical History: Uterine Ablation Additional Past Surgical History / Comment(s): MUSCLE BIOPSY , D&C Past Anesthesia/Blood Transfusion Reactions: Postoperative Nausea & Vomiting (PONV) Past Psychological History: No Psychological Hx Reported Smoking Status: Never smoker Past Alcohol Use History: None Reported Past Drug Use History: None Reported - Past Family History Mother Family Medical History: No Reported History Medications and Allergies Home Medications Medication Instructions Recorded Confirmed Type Montelukast [Singulair] 10 mg PO HS 07/21/16 11/11/20 History Potassium Bicarbonate/Cit AC 50 meq PO TID-W/MEALS 07/21/16 11/11/20 History [Klor-Con 25 (Effer. Tab)] amLODIPine [Norvasc] 5 mg PO W/BRKFST 07/21/16 11/11/20 History Potassium Chloride [Klor-Con 20] 20 meq PO BID-W/MEALS 07/28/16 11/11/20 History Ferrous Sulfate [Iron (65 MG 325 mg PO W/SUPPER 01/04/18 11/11/20 History Elemental)] Cranberry 25,000mg 25,000 mg PO W/BRKFST 07/04/20 11/11/20 History Ergocalciferol [Vitamin D2 (1250 1,250 mcg PO FR 07/04/20 11/11/20 History Mcg = 33338 Iu)] Levothyroxine Sodium [Tirosint] 112 mcg PO DAILY 07/04/20 11/11/20 History Sodium Bicarbonate Tab 650 mg PO BID-W/MEALS 07/04/20 11/11/20 History Vitamin A Acetate [Vitamin A] 10,000 unit SL W/BRKFST 07/04/20 11/11/20 History calcitrioL [Calcitriol] 0.25 mcg PO MO 07/04/20 11/11/20 History Ascorbic Acid [Vitamin C] 500 mg PO W/SUPPER 09/19/20 11/11/20 History Biotin 10,000 mcg PO W/BRKFST 09/19/20 11/11/20 History Calcium Carbonate [Calcium] 600 mg PO W/LUNCH 09/19/20 11/11/20 History Famotidine [Pepcid] 20 mg PO HS 09/19/20 11/11/20 History Gamunex-C 5gm/50ml 15 gm IV Q28D 09/19/20 11/11/20 History Magnesium Gluconate [Magonate] 500 mg PO W/LUNCH 09/19/20 11/11/20 History Melatonin 1 mg PO HS 09/19/20 11/11/20 History Thiamine [Vitamin B-1] 100 mg PO BID-W/MEALS 09/19/20 11/11/20 History Vitamin E Acetate [Vitamin E] 200 unit PO W/LUNCH 09/19/20 11/11/20 History atenoloL [Tenormin] 100 mg PO HS #30 tab 10/06/20 11/11/20 Rx Docusate [Colace] 100 mg PO BID PRN 11/11/20 11/11/20 History Hydrocortisone Cream 1 applic TOPICAL BID PRN 11/11/20 11/11/20 History [Hydrocortisone 2.5% Cream] LORazepam [Ativan] 2 mg PO TID PRN 11/11/20 11/11/20 History Lactobacillus Acidoph & Bulgar 1 tab PO BID 11/11/20 11/11/20 History [Lactinex] Zolpidem Tartrate [Zolpidem 3.5 mg SL HS PRN 11/11/20 11/11/20 History Tartrate SL] busPIRone HCL [Buspar] 7.5 mg PO BID PRN 11/11/20 11/11/20 History Allergies Allergy/AdvReac Type Severity Reaction Status Date / Time hydrocortisone Allergy Nausea & Verified 11/11/20 17:15 Vomiting Iodine and Iodide Containing Allergy "KIDNEY Verified 11/11/20 17:15 Produc PROBLEM" quinine Allergy Nausea & Verified 11/11/20 17:15 Vomiting iodine AdvReac Unknown "KIDNEY Verified 11/11/20 17:15 PROBLEM" Physical Exam Vitals: Vital Signs Temp Pulse Pulse Resp BP BP Pulse Ox 11/12/20 08:00 87 16 117/57 11/12/20 04:00 88.9 F L 63 18 125/58 99 11/12/20 02:00 54 L 16 11/11/20 23:23 53 L 16 139/75 98 11/11/20 21:00 54 L 16 141/74 98 11/11/20 20:12 97.5 F L 57 L 18 147/61 99 11/11/20 20:00 54 L 18 116/53 98 11/11/20 19:00 77 16 150/70 99 11/11/20 18:19 53 L 16 126/67 99 11/11/20 15:20 97.5 F L 59 L 16 122/77 98 11/11/20 15:03 54 L 18 128/68 98 Intake and Output 11/11/20 11/12/20 11/12/20 22:59 06:59 14:59 Other: Voiding Method Diaper Diaper # Voids 1 Weight 99.79 kg - Constitutional General appearance: Eyes closed, does not follow commands. Opens eyes spontaneously , stick out tongue on command , non verbal - EENT Eyes: anicteric sclerae, PERRLA, normal appearance ENT: hearing grossly normal - Neck Neck: no lymphadenopathy, normal ROM, no other, no rigidity, no stridor, no thyromegaly - Respiratory Respiratory: bilateral: Decreased air entry no crackles or wheezing noted - Cardiovascular Rhythm: regular Heart sounds: normal: S1, S2 Abnormal Heart Sounds: no systolic murmur, no diastolic murmur, no rub, no S3 Gallop, no S4 Gallop, no click, no other - Gastrointestinal General gastrointestinal: normal bowel sounds, soft discomfort on palpation. - Integumentary Integumentary: no rash - Neurologic Neurologic: Patient does not follow commands, no withdrawal to painful stimulus., Quadriplegic at baseline. Coordination cannot be assessed, open eyes randomly does not follow command, non verbal - Musculoskeletal Musculoskeletal: gait cannot be assessed, no strength in any extremities frail limbs - Psychiatric Psychiatric: Obtunded mentation could not be assessed Results CBC & Chem 7: 11/11/20 15:39 11/11/20 18:00 Labs: Abnormal Lab Results - Last 24 Hours (Table) 11/11/20 11/11/20 11/11/20 Range/Units 15:39 15:39 15:39 WBC 1.9 L (3.8-10.6) k/uL RBC 3.02 L (3.80-5.40) m/uL Hgb 10.3 L (11.4-16.0) gm/dL Hct 30.1 L (34.0-46.0) % RDW 21.4 H (11.5-15.5) % Plt Count 12 L* D (150-450) k/uL Lymphocytes # 0.2 L (1.0-4.8) k/uL APTT 33.3 H (22.0-30.0) sec Sodium (137-145) mmol/L Potassium (3.5-5.1) mmol/L BUN (7-17) mg/dL Creatinine (0.52-1.04) mg/dL Glucose (74-99) mg/dL POC Glucose (mg/dL) (75-99) mg/dL Calcium (8.4-10.2) mg/dL AST (14-36) U/L ALT (4-34) U/L Urine Appearance Cloudy H (Clear) Urine pH 8.5 H (5.0-8.0) Urine Protein Trace H (Negative) Urine Mucus Rare H (None) /hpf 11/11/20 11/11/20 11/11/20 Range/Units 15:39 16:19 18:00 WBC (3.8-10.6) k/uL RBC (3.80-5.40) m/uL Hgb (11.4-16.0) gm/dL Hct (34.0-46.0) % RDW (11.5-15.5) % Plt Count (150-450) k/uL Lymphocytes # (1.0-4.8) k/uL APTT (22.0-30.0) sec Sodium 136 L (137-145) mmol/L Potassium 6.2 H* 5.2 H (3.5-5.1) mmol/L BUN 20 H (7-17) mg/dL Creatinine <0.15 L (0.52-1.04) mg/dL Glucose 137 H (74-99) mg/dL POC Glucose (mg/dL) 147 H (75-99) mg/dL Calcium 10.3 H (8.4-10.2) mg/dL AST 77 H (14-36) U/L ALT 64 H (4-34) U/L Urine Appearance (Clear) Urine pH (5.0-8.0) Urine Protein (Negative) Urine Mucus (None) /hpf Microbiology - Last 24 Hours (Table) 11/11/20 15:30 Blood Culture - Final Blood Thrombosis Risk Factor Assmnt - DVT/VTE Prophylaxis DVT/VTE Prophylaxis: Pharmacologic Prophylaxis ordered Assessment and Plan Plan: #1 acute metabolic encephalopathy. Previous EEG moderate to severe encephalopathy. No epileptiform episodes not noted. Hold Ativan, hold Ambien. Urinalysis negative for infection Continue IV fluids at 75 mL per hour. Chest x-ray negative for any pneumonia. Neurology consulted #2 ITP with thrombocytopenia last IVIG on 11/[address] Hudson as outpatient. #3 leukopenia with hypothermia. Rule out infection. Dr. Lopez consulted #4 hypothermia continues to remain hypothermic unknown etiology. On Karsten hugger. #5 hyperkalemia with hypo-natremia status for calcium gluconate. Repeat labs pending. 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 Uses wheelchair for the last 30 years. Patient needed help for feeding for the past 5 years #7 hypothyroidism on Synthyroid 112 g daily. TSH ordered #8 anxiety on BuSpar 7.5 twice a day hold BuSpar. Hold Ativan. #9 anemia of chronic disease no clear source of anemia. Iron studies ordered. The peripheral smear ordered. EGD and colonoscopy was not performed since. Family refused in the last admission. Dr. Hudson consulted. #10 acute transaminitis liver spleen and pancreas were normal on CT abdomen #11 DVT prophylaxis thrombocytopenic continue ICD #12 GI prophylaxis Pepcid 20 IV twice a day #13 code status full code #14 disposition patient's prognosis is poor. Patient needs continuous EEG at a tertiary care center. Sign out given to [facility]. They will accept patient but had no beds available at this moment.
[2020-11-12 11:58] LABS: Anisocytosis Moderate; Basophils % (A) 0 %; Eosinophils % (A) 1 %; HGB 9.2 gm/dL (11.4-16.0); Hypochromasia Slight; Lymphocytes # (A) 0.2 k/uL (1.0-4.8); Lymphocytes % (A) 8 %; MCH 35.3 pg (25.0-35.0); MCHC 35.6 g/dL (31.0-37.0); MCV 99.2 fL (80.0-100.0); Macrocytosis Moderate; Mean Platelet Volume 10.9; Monocytes # (A) 0.2 k/uL (0-1.0); Monocytes % (A) 10 %; Neutrophils # (A) 1.7 k/uL (1.3-7.7); Neutrophils % (A) 78 %; Poikilocytosis Marked; RBC 2.62 m/uL (3.80-5.40); RDW 20.6 % (11.5-15.5); WBC 2.2 k/uL (3.8-10.6)
[2020-11-12 12:03] LABS: Platelet Count 18 k/uL (150-450)
[2020-11-12] MEDS: LACOSAMIDE IV 100 MG in SODIUM CHLORIDE 0.9% 50 ML IVPB SCH ×2 (13:22→22:21)
--- NOTE | 2020-11-12 17:34 | P.CNNES ---
History of Present Illness Consult date: 11/12/20 Requesting physician: Chevy Steward Reason for Consult: altered mental status History of Present Illness: This is a 60-year-old woman with history of likely multifocal motor neuropathy who is wheelchair-bound and is on IVIG every 1 month, chronic thrombocytopenia, recent episode of altered mental status/paranoia hallucination in August 2020 that was suspected seizure, cellulitis presented emergency department on 11/11/2020 for confusion for the past 4-5 days. History is obtained from medical record as well as the patient's brother was at bedside. Per the patient's brother he stated that the patient has been confused and not acting herself for the last for 5 days. Patient is known to our neurology service. Patient was seen by our team on 09/21/2020 for altered mentation and at that time she had halluc ination, paranoia, tongue biting that when she presented to the hospital and it was suspected that she had seizure. We cannot rule out autoimmune limbic encephalitis/encephalopathy. She had extensive workup there is no stroke or subacute stroke or any encephalomalacia upon reviewing the MRI. Patient could not get lumbar puncture because of the thrombocytopenia. Patient mentation improved and was discharged on Vimpat 50 mg twice a day. Family refused for the patient to be transferred for long-term EEG. Upon discharge the patient the/family members were notified that she needs to follow-up with a neurologist as an outpatient for further evaluation and per the patient's brother because he r mentation was the improving but not back to baseline she did not follow up with a neurologist for further evaluation. Please refer to the previous neurology notes for further details. Some other workup in the hospital consisted of: Initial vital signs was blood pressure 128/68, heart rate of 54, respiratory of 18, pulse ox of 98% room air and the temperature presentation with 97.5 Fahrenheit. Her temperature got down as low as 88.9 and most current one is 97.4 Fahrenheit. Initial CBC with differential as the white blood cell is 1.9K, hemoglobin 10.3, hematocrit is 30.1 and platelet is 12 which is a low but she has history of chronic thrombocytopenia. Her platelet has improved prior to discharge on last admission was 154 and a got as high as 218,000. On presentation her potassium was 6.2 and most current potassium is 4.4. Sodium is 136 which is minimally the low but not remarkable. Creatinine is less than 0.15, glucose on presentation was 137, calcium is 10.3 slightly elevated. AST of 77 ALT of 64 which are slightly elevated. Ammonia level is less than 9 which is considered within normal limits. CK level is 43 which is within normal limits. TSH is 3.520 which is within normal limits. CT of the head is reported as negative unenhanced head CT scan. No change. Urinalysis is negative for urinary tract infection. Will virus PCR was not detected. Blood cultures are positive for gram-positive cocci Review of Systems Review of system is limited because of patient condition but the per positive and negative as per HPI. 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, TUBULAR RENAL ACIDOSIS,NEUROMUSCULAR DISEASE-MULTI FOCAL MOTOR NEUROPATHY , QUADRIPLEGIC History of Any Multi-Drug Resistant Organisms: None Reported Past Surgical History: Uterine Ablation Additional Past Surgical History / Comment(s): MUSCLE BIOPSY , D&C Past Anesthesia/Blood Transfusion Reactions: Postoperative Nausea & Vomiting (PONV) Past Psychological History: No Psychological Hx Reported Smoking Status: Never smoker Past Alcohol Use History: None Reported Past Drug Use History: None Reported - Past Family History Mother Family Medical History: No Reported History Medications and Allergies Home Medications Medication Instructions Recorded Confirmed Type Montelukast [Singulair] 10 mg PO HS 07/21/16 11/11/20 History Potassium Bicarbonate/Cit AC 50 meq PO TID-W/MEALS 07/21/16 11/11/20 History [Klor-Con 25 (Effer. Tab)] amLODIPine [Norvasc] 5 mg PO W/BRKFST 07/21/16 11/11/20 History Potassium Chloride [Klor-Con 20] 20 meq PO BID-W/MEALS 07/28/16 11/11/20 History Ferrous Sulfate [Iron (65 MG 325 mg PO W/SUPPER 01/04/18 11/11/20 History Elemental)] Cranberry 25,000mg 25,000 mg PO W/BRKFST 07/04/20 11/11/20 History Ergocalciferol [Vitamin D2 (1250 1,250 mcg PO FR 07/04/20 11/11/20 History Mcg = 16221 Iu)] Levothyroxine Sodium [Tirosint] 112 mcg PO DAILY 07/04/20 11/11/20 History Sodium Bicarbonate Tab 650 mg PO BID-W/MEALS 07/04/20 11/11/20 History Vitamin A Acetate [Vitamin A] 10,000 unit SL W/BRKFST 07/04/20 11/11/20 History calcitrioL [Calcitriol] 0.25 mcg PO MO 07/04/20 11/11/20 History Ascorbic Acid [Vitamin C] 500 mg PO W/SUPPER 09/19/20 11/11/20 History Biotin 10,000 mcg PO W/BRKFST 09/19/20 11/11/20 History Calcium Carbonate [Calcium] 600 mg PO W/LUNCH 09/19/20 11/11/20 History Famotidine [Pepcid] 20 mg PO HS 09/19/20 11/11/20 History Gamunex-C 5gm/50ml 15 gm IV Q28D 09/19/20 11/11/20 History Magnesium Gluconate [Magonate] 500 mg PO W/LUNCH 09/19/20 11/11/20 History Melatonin 1 mg PO HS 09/19/20 11/11/20 History Thiamine [Vitamin B-1] 100 mg PO BID-W/MEALS 09/19/20 11/11/20 History Vitamin E Acetate [Vitamin E] 200 unit PO W/LUNCH 09/19/20 11/11/20 History atenoloL [Tenormin] 100 mg PO HS #30 tab 10/06/20 11/11/20 Rx Docusate [Colace] 100 mg PO BID PRN 11/11/20 11/11/20 History Hydrocortisone Cream 1 applic TOPICAL BID PRN 11/11/20 11/11/20 History [Hydrocortisone 2.5% Cream] LORazepam [Ativan] 2 mg PO TID PRN 11/11/20 11/11/20 History Lactobacillus Acidoph & Bulgar 1 tab PO BID 11/11/20 11/11/20 History [Lactinex] Zolpidem Tartrate [Zolpidem 3.5 mg SL HS PRN 11/11/20 11/11/20 History Tartrate SL] busPIRone HCL [Buspar] 7.5 mg PO BID PRN 11/11/20 11/11/20 History Allergies Allergy/AdvReac Type Severity Reaction Status Date / Time hydrocortisone Allergy Nausea & Verified 11/11/20 17:15 Vomiting Iodine and Iodide Containing Allergy "KIDNEY Verified 11/11/20 17:15 Produc PROBLEM" quinine Allergy Nausea & Verified 11/11/20 17:15 Vomiting iodine AdvReac Unknown "KIDNEY Verified 11/11/20 17:15 PROBLEM" Physical Examination - Vital Signs Vital Signs: Vital Signs Temp Pulse Pulse Resp BP BP Pulse Ox 11/12/20 16:00 97.4 F L 94 16 113/52 95 11/12/20 12:00 98.1 F 98 18 97/50 95 11/12/20 08:00 87 16 117/57 11/12/20 04:00 88.9 F L 63 18 125/58 99 11/12/20 02:00 54 L 16 11/11/20 23:23 53 L 16 139/75 98 11/11/20 21:00 54 L 16 141/74 98 11/11/20 20:12 97.5 F L 57 L 18 147/61 99 11/11/20 20:00 54 L 18 116/53 98 11/11/20 19:00 77 16 150/70 99 11/11/20 18:19 53 L 16 126/67 99 Intake and Output 11/12/20 11/12/20 11/12/20 06:59 14:59 22:59 Intake Total 650 Balance 650 Intake: Intake, IV Titration 650 Amount Lacosamide IV 100 mg In 50 Sodium Chloride 0.9% 50 ml @ 100 mls/hr IVPB BID [facility] Rx#:[id number] Sodium Chloride 0.9% 1, 600 000 ml @ 75 mls/hr IV . [id number] [facility] Rx#:[id number] Other: Voiding Method Diaper Diaper # Voids 1 Weight 99.79 kg GENERAL: The patient is lying in bed and does not seem in acute distress. CHEST: The heart rate is regular rate rhythm. No murmurs to auscultation. No carotid bruit bilaterally. LUNG: Clear to auscultation bilaterally no wheezing noted throughout. Not labored breathing. ABDOMEN/GI: Bowel sounds present in all 4 quadrants. No tenderness to palpation throughout. NEUROLOGICAL: Higher mental function: The patient is stupor and would open her eyes with verbal stimuli. She is not verbalizing or following commands. Cranial nerves: The pupils are round (3-4mm), equal and reactive to light. No facial weakness. Otherwise rest of cranial nerves could not be assessed because of her condition. Motor: No movement is noted (is paraplegic over the bilateral lower and significant weakness over the bilateral upper at baseline and has baseline bilateral foot drop). Cerebellum: Could not be assessed. Sensation: Could not asses. Reflexes (right/left): 0-1 over bilateral brachioradialis. Otherwise rest are 0. Plantars are mute bilaterally. Results - Laboratory Findings CBC and BMP: 11/12/20 11:10 11/12/20 11:10 Abnormal Lab Findings: Abnormal Labs 11/11/20 11/11/20 11/11/20 15:39 15:39 15:39 WBC 1.9 L RBC 3.02 L Hgb 10.3 L Hct 30.1 L MCH RDW 21.4 H Plt Count 12 L* D Lymphocytes # 0.2 L Pathologist Review APTT 33.3 H Sodium Potassium Chloride Carbon Dioxide BUN Creatinine Glucose POC Glucose (mg/dL) Plasma Lactic Acid Kuldeep Calcium AST ALT Albumin Urine Appearance Cloudy H Urine pH 8.5 H Urine Protein Trace H Urine Mucus Rare H 11/11/20 11/11/20 11/11/20 15:39 16:19 18:00 WBC RBC Hgb Hct MCH RDW Plt Count Lymphocytes # Pathologist Review APTT Sodium 136 L Potassium 6.2 H* 5.2 H Chloride Carbon Dioxide BUN 20 H Creatinine <0.15 L Glucose 137 H POC Glucose (mg/dL) 147 H Plasma Lactic Acid Kuldeep Calcium 10.3 H AST 77 H ALT 64 H Albumin Urine Appearance Urine pH Urine Protein Urine Mucus 11/12/20 11/12/20 11/12/20 11:10 11:10 11:10 WBC 2.2 L RBC 2.62 L Hgb 9.2 L Hct 26.0 L MCH 35.3 H RDW 20.6 H Plt Count 18 L* Lymphocytes # 0.2 L Pathologist Review See comment A APTT Sodium Potassium Chloride 109 H Carbon Dioxide 21 L BUN Creatinine <0.15 L Glucose POC Glucose (mg/dL) Plasma Lactic Acid Kuldeep 0.6 L Calcium AST 98 H ALT 62 H Albumin 3.3 L Urine Appearance Urine pH Urine Protein Urine Mucus Assessment and Plan Assessment: Altered mental status. Due to metabolic encephalopathy. Rule out underlying infection. Patient has hypothermia and acute leukopenia: Rule out underlying infection. Previous episode of the encephalopathy (with paranoia, hallucination and tongue bite) and it was suspected that the patient had the seizure. Could not rule out autoimmune limbic encephalitis/encephalopathy---her mentation improved on prior admission. Acute on chronic thrombocytopenia with history of ITP Autoimmune multifocal neuropathy and is wheelchair-bound. She has paraplegia over lower extremity and has some movement over the hands at baseline. History of cellulitis Plan: I restarted the patient on the Vimpat 100 mg IV every 12 hours. I consulted infection disease team. I spoke with the patient's brother and he stated that he wants the patient to be transferred to [facility] since it is closer to his house and this way she can have further evaluation. Recommend termite control technician EEG. Recommend consideration of lumbar puncture once thrombocytopenia has resolved if patient is not transferred. Every 4 hours neuro checks Oncologist team is consulted We'll defer the rest of the medical management to the primary team. The plan was discussed with the patient's brother was at bedside as well as the nurse. Thank you for the consultation. Tee Summers M.D. Time with Patient: Greater than 30
[2020-11-12] MEDS ORDERED: VANCOMYCIN IV PER PHARMACY 1 EACH MISC MISCELLANE PRN (17:46)
[2020-11-12] MEDS ORDERED: VANCOMYCIN 1,500 MG in SODIUM CHLORIDE 0.9% 250 ML IVPB ONE (18:00)
--- NOTE | 2020-11-12 19:24 | P.CONS ---
History of Present Illness - Reason for Consult Consult date: 11/12/20 ITP Requesting physician: Chevy Steward - Chief Complaint AMS - History of Present Illness Pt has Hx of chronic thrombocytopenia for years. Started taking IVIG for her neurologic process, which is believed to represent autoimmune process. She follows with Dr. Collins for ITP and received intermittent Rituxan infusions which have also helped with muscles as [facility] steroids has caused worsening of her muscle strength. At baseline platelets are between 100-150K. She has been hospitalized several times recently with significantly low plt 2/2 to acute illness. She had missed some doses of Rituxan because of covid restrictions. She continued on IVIG. She had a Rituxan infusion just prior to her last admission-admitted to hospital end of August through early September with mental status changes after falling out of wheelchair after hitting a bump. She was worked up for concerns for PRES 2/2 Rituxan infusion-no evidence of the same. Pt platelets recovered to baseline/normal by discharge. Pt caregivers contacted our ofc re: AMS, not eating or drinking, recommended going to ER to be evaluated. 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, TUBULAR RENAL ACIDOSIS,NEUROMUSCULAR DISEASE-MULTI FOCAL MOTOR NEUROPATHY , QUADRIPLEGIC History of Any Multi-Drug Resistant Organisms: None Reported Past Surgical History: Uterine Ablation Additional Past Surgical History / Comment(s): MUSCLE BIOPSY , D&C Past Anesthesia/Blood Transfusion Reactions: Postoperative Nausea & Vomiting (PONV) Past Psychological History: No Psychological Hx Reported Smoking Status: Never smoker Past Alcohol Use History: None Reported Past Drug Use History: None Reported - Past Family History Mother Family Medical History: No Reported History Medications and Allergies Home Medications Medication Instructions Recorded Confirmed Type Montelukast [Singulair] 10 mg PO HS 07/21/16 11/11/20 History Potassium Bicarbonate/Cit AC 50 meq PO TID-W/MEALS 07/21/16 11/11/20 History [Klor-Con 25 (Effer. Tab)] amLODIPine [Norvasc] 5 mg PO W/BRKFST 07/21/16 11/11/20 History Potassium Chloride [Klor-Con 20] 20 meq PO BID-W/MEALS 07/28/16 11/11/20 History Ferrous Sulfate [Iron (65 MG 325 mg PO W/SUPPER 01/04/18 11/11/20 History Elemental)] Cranberry 25,000mg 25,000 mg PO W/BRKFST 07/04/20 11/11/20 History Ergocalciferol [Vitamin D2 (1250 1,250 mcg PO FR 07/04/20 11/11/20 History Mcg = 41272 Iu)] Levothyroxine Sodium [Tirosint] 112 mcg PO DAILY 07/04/20 11/11/20 History Sodium Bicarbonate Tab 650 mg PO BID-W/MEALS 07/04/20 11/11/20 History Vitamin A Acetate [Vitamin A] 10,000 unit SL W/BRKFST 07/04/20 11/11/20 History calcitrioL [Calcitriol] 0.25 mcg PO MO 07/04/20 11/11/20 History Ascorbic Acid [Vitamin C] 500 mg PO W/SUPPER 09/19/20 11/11/20 History Biotin 10,000 mcg PO W/BRKFST 09/19/20 11/11/20 History Calcium Carbonate [Calcium] 600 mg PO W/LUNCH 09/19/20 11/11/20 History Famotidine [Pepcid] 20 mg PO HS 09/19/20 11/11/20 History Gamunex-C 5gm/50ml 15 gm IV Q28D 09/19/20 11/11/20 History Magnesium Gluconate [Magonate] 500 mg PO W/LUNCH 09/19/20 11/11/20 History Melatonin 1 mg PO HS 09/19/20 11/11/20 History Thiamine [Vitamin B-1] 100 mg PO BID-W/MEALS 09/19/20 11/11/20 History Vitamin E Acetate [Vitamin E] 200 unit PO W/LUNCH 09/19/20 11/11/20 History atenoloL [Tenormin] 100 mg PO HS #30 tab 10/06/20 11/11/20 Rx Docusate [Colace] 100 mg PO BID PRN 11/11/20 11/11/20 History Hydrocortisone Cream 1 applic TOPICAL BID PRN 11/11/20 11/11/20 History [Hydrocortisone 2.5% Cream] LORazepam [Ativan] 2 mg PO TID PRN 11/11/20 11/11/20 History Lactobacillus Acidoph & Bulgar 1 tab PO BID 11/11/20 11/11/20 History [Lactinex] Zolpidem Tartrate [Zolpidem 3.5 mg SL HS PRN 11/11/20 11/11/20 History Tartrate SL] busPIRone HCL [Buspar] 7.5 mg PO BID PRN 11/11/20 11/11/20 History Allergies Allergy/AdvReac Type Severity Reaction Status Date / Time hydrocortisone Allergy Nausea & Verified 11/11/20 17:15 Vomiting Iodine and Iodide Containing Allergy "KIDNEY Verified 11/11/20 17:15 Produc PROBLEM" quinine Allergy Nausea & Verified 11/11/20 17:15 Vomiting iodine AdvReac Unknown "KIDNEY Verified 11/11/20 17:15 PROBLEM" Physical Exam Vitals: Vital Signs Temp Pulse Pulse Resp BP BP Pulse Ox 11/12/20 04:00 88.9 F L 63 18 125/58 99 11/12/20 02:00 54 L 16 11/11/20 23:23 53 L 16 139/75 98 11/11/20 21:00 54 L 16 141/74 98 11/11/20 20:12 97.5 F L 57 L 18 147/61 99 11/11/20 20:00 54 L 18 116/53 98 11/11/20 19:00 77 16 150/70 99 11/11/20 18:19 53 L 16 126/67 99 11/11/20 15:20 97.5 F L 59 L 16 122/77 98 11/11/20 15:03 54 L 18 128/68 98 Intake and Output 11/11/20 11/12/20 11/12/20 22:59 06:59 14:59 Other: Voiding Method Diaper Diaper # Voids 1 Weight 99.79 kg - Constitutional General appearance: no acute distress, obese - Neck Neck: no lymphadenopathy - Respiratory Respiratory: bilateral: CTA - Cardiovascular Heart sounds: normal: S1, S2 leg Peripheral Edema: bilateral: Trace - Gastrointestinal General gastrointestinal: no absent bowel sounds, no decreased bowel sounds, no distended, no hepatomegaly, no hyperactive bowel sounds, normal bowel sounds, no organomegaly, no rigid, no scaphoid, soft, no splenomegaly, no tenderness, no umbilical hernia, no ventral hernia - Integumentary Integumentary: pale - Musculoskeletal Musculoskeletal: no gait normal, no generalized weakness, no strength equal bilaterally, no right sided weakness, no left sided weakness - Psychiatric Psychiatric: no A&O x's 3, no appropriate affect, no intact judgment & insight Results CBC & Chem 7: 11/12/20 11:10 11/12/20 11:10 Labs: Abnormal Lab Results - Last 24 Hours (Table) 11/11/20 11/11/20 11/11/20 Range/Units 15:39 15:39 15:39 WBC 1.9 L (3.8-10.6) k/uL RBC 3.02 L (3.80-5.40) m/uL Hgb 10.3 L (11.4-16.0) gm/dL Hct 30.1 L (34.0-46.0) % RDW 21.4 H (11.5-15.5) % Plt Count 12 L* D (150-450) k/uL Lymphocytes # 0.2 L (1.0-4.8) k/uL APTT 33.3 H (22.0-30.0) sec Sodium (137-145) mmol/L Potassium (3.5-5.1) mmol/L BUN (7-17) mg/dL Creatinine (0.52-1.04) mg/dL Glucose (74-99) mg/dL POC Glucose (mg/dL) (75-99) mg/dL Calcium (8.4-10.2) mg/dL AST (14-36) U/L ALT (4-34) U/L Urine Appearance Cloudy H (Clear) Urine pH 8.5 H (5.0-8.0) Urine Protein Trace H (Negative) Urine Mucus Rare H (None) /hpf 11/11/20 11/11/20 11/11/20 Range/Units 15:39 16:19 18:00 WBC (3.8-10.6) k/uL RBC (3.80-5.40) m/uL Hgb (11.4-16.0) gm/dL Hct (34.0-46.0) % RDW (11.5-15.5) % Plt Count (150-450) k/uL Lymphocytes # (1.0-4.8) k/uL APTT (22.0-30.0) sec Sodium 136 L (137-145) mmol/L Potassium 6.2 H* 5.2 H (3.5-5.1) mmol/L BUN 20 H (7-17) mg/dL Creatinine <0.15 L (0.52-1.04) mg/dL Glucose 137 H (74-99) mg/dL POC Glucose (mg/dL) 147 H (75-99) mg/dL Calcium 10.3 H (8.4-10.2) mg/dL AST 77 H (14-36) U/L ALT 64 H (4-34) U/L Urine Appearance (Clear) Urine pH (5.0-8.0) Urine Protein (Negative) Urine Mucus (None) /hpf CT Scan - head: report reviewed Assessment and Plan (1) Chronic ITP (idiopathic thrombocytopenic purpura) Narrative/Plan: Plt up to 18,000 today, were 26,000 at last office visit about 2 weeks ago. There was a plan to start oral therapy for ITP-unsure if med was ever received or started, it is not on her current med list, it is a specialty pharmacy drug (avatrombopag). Will see what info we can get from family. No evidence of bleeding seen on exam, Hgb is stable currently. CBC daily. Transfuse platelets for count<10,000 or if symptoms of bleeding. Pt is being transferred to [facility] for teritary level of Neurological care. Current Visit: Yes Status: Chronic Priority: High Code(s): D69.3 - IMMUNE THROMBOCYTOPENIC PURPURA SNOMED Code(s): 33125541 Plan: Attests: I have performed H&P and developed impression and plan of care for pt. Discussed with dictator. I agree with dictated note, documented as a s cribe.
[2020-11-12] MEDS ORDERED: atenoloL 50 MG TAB PO SCH (21:00)
--- NOTE | 2020-11-12 22:25 | P.CONS ---
History of Present Illness - Reason for Consult Consult date: 11/12/20 Positive blood cultures Requesting physician: Tee Summers - Chief Complaint mental status changes x 4 days - History of Present Illness History of present illness : Patient is 60-year-old female was brought into the ER yesterday afternoon for evaluation of confusion symptom has been going on since Wednesday that is about 4 days before presentation to the hospital p atient did receive IgG infusion on Wednesday there was no clear history of any fever vomiting or any diarrhea on presentation to the hospital patient was afebrile did have 1 episode of hypothermia around 4 but since then the patient has been normothermic patient did not have any tachycardia or hypoxemia currently on room air patient did have lymphopenia as well as leukopenia kidney function was normal liver enzymes mildly elevated CRP of 7.4 urine has been negative anne PCR was negative patient did have a chest x-ray left pleural effusion is mostly cleared compared to old exam and no new infiltrates has been reported patient was admitted to the hospital infectious disease was consulted concerning for possible substance blood cultures subsequently came back positive with gram-positive cocci most information has been obtained from review the chart as the patient did not provide any history Review of system: Positive point has been mentioned in HPI complete review could not be obtained because of underlying mental status Past medical history : Reviewed, documented below Past surgical history : Reviewed, documented below Social history: Reviewed, documented below Medications: Reviewed, as documented below EXAMINATION: Vital sigans= Reviewed and documented below GENERAL DESCRIPTION: Middle-aged female lying in bed, no distress. No tachypnea or accessory muscle of respiration use. HEENT: Shows Pallor , no scleral icterus. Oral mucous membrane is dry. NECK: Trachea central, no thyromegaly. LUNGS: Unlabored breathing. Decreased breath sound at the base no wheeze or crackle. HEART: S1, S2, regular rate and rhythm. ABDOMEN: Soft, no tenderness , guarding or rigidity EXTREMITIES: No edema of feet. SKIN: No rash, no masses palpable. NEUROLOGICAL: The patient is lethargic orientation could not determine LABS AND RADIOLOGY: Reviewed results see below Assessment :1- Patient presented to hospital with mental status changes in this patient who did not have any fever admission however she did have hypothermia this morning, she also have leukopenia however currently do not have obvious focus of infection chest x-ray reported negative for pneumonia and urine is negative and there is no evidence of any cellulitis or abdominal soft clinical examination underlying encephalitis not entirely excluded 2-positive blood culture with gram-positive cocci questionable skin contaminant versus real pathogen awaiting final ID Plan: 1-agree with obtaining CSF exam and fluid should be sent for cell count differential glucose protein and HSV DNA by PCR 2-blood cultures will be to document clearance of bacteremia 3-vancomycin pharmacy to dose her with a target trough of 15 while watching her kidney function and Vanco trough closely. 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, TUBULAR RENAL ACIDOSIS,NEUROMUSCULAR DISEASE-MULTI FOCAL MOTOR NEUROPATHY , QUADRIPLEGIC History of Any Multi-Drug Resistant Organisms: None Reported Past Surgical History: Uterine Ablation Additional Past Surgical History / Comment(s): MUSCLE BIOPSY , D&C Past Anesthesia/Blood Transfusion Reactions: Postoperative Nausea & Vomiting (PONV) Past Psychological History: No Psychological Hx Reported Smoking Status: Never smoker Past Alcohol Use History: None Reported Past Drug Use History: None Reported - Past Family History Mother Family Medical History: No Reported History Medications and Allergies Home Medications Medication Instructions Recorded Confirmed Type Montelukast [Singulair] 10 mg PO HS 07/21/16 11/11/20 History Potassium Bicarbonate/Cit AC 50 meq PO TID-W/MEALS 07/21/16 11/11/20 History [Klor-Con 25 (Effer. Tab)] amLODIPine [Norvasc] 5 mg PO W/BRKFST 07/21/16 11/11/20 History Potassium Chloride [Klor-Con 20] 20 meq PO BID-W/MEALS 07/28/16 11/11/20 History Ferrous Sulfate [Iron (65 MG 325 mg PO W/SUPPER 01/04/18 11/11/20 History Elemental)] Cranberry 25,000mg 25,000 mg PO W/BRKFST 07/04/20 11/11/20 History Ergocalciferol [Vitamin D2 (1250 1,250 mcg PO FR 07/04/20 11/11/20 History Mcg = 10697 Iu)] Levothyroxine Sodium [Tirosint] 112 mcg PO DAILY 07/04/20 11/11/20 History Sodium Bicarbonate Tab 650 mg PO BID-W/MEALS 07/04/20 11/11/20 History Vitamin A Acetate [Vitamin A] 10,000 unit SL W/BRKFST 07/04/20 11/11/20 History calcitrioL [Calcitriol] 0.25 mcg PO MO 07/04/20 11/11/20 History Ascorbic Acid [Vitamin C] 500 mg PO W/SUPPER 09/19/20 11/11/20 History Biotin 10,000 mcg PO W/BRKFST 09/19/20 11/11/20 History Calcium Carbonate [Calcium] 600 mg PO W/LUNCH 09/19/20 11/11/20 History Famotidine [Pepcid] 20 mg PO HS 09/19/20 11/11/20 History Gamunex-C 5gm/50ml 15 gm IV Q28D 09/19/20 11/11/20 History Magnesium Gluconate [Magonate] 500 mg PO W/LUNCH 09/19/20 11/11/20 History Melatonin 1 mg PO HS 09/19/20 11/11/20 History Thiamine [Vitamin B-1] 100 mg PO BID-W/MEALS 09/19/20 11/11/20 History Vitamin E Acetate [Vitamin E] 200 unit PO W/LUNCH 09/19/20 11/11/20 History atenoloL [Tenormin] 100 mg PO HS #30 tab 10/06/20 11/11/20 Rx Docusate [Colace] 100 mg PO BID PRN 11/11/20 11/11/20 History Hydrocortisone Cream 1 applic TOPICAL BID PRN 11/11/20 11/11/20 History [Hydrocortisone 2.5% Cream] LORazepam [Ativan] 2 mg PO TID PRN 11/11/20 11/11/20 History Lactobacillus Acidoph & Bulgar 1 tab PO BID 11/11/20 11/11/20 History [Lactinex] Zolpidem Tartrate [Zolpidem 3.5 mg SL HS PRN 11/11/20 11/11/20 History Tartrate SL] busPIRone HCL [Buspar] 7.5 mg PO BID PRN 11/11/20 11/11/20 History Allergies Allergy/AdvReac Type Severity Reaction Status Date / Time hydrocortisone Allergy Nausea & Verified 11/11/20 17:15 Vomiting Iodine and Iodide Containing Allergy "KIDNEY Verified 11/11/20 17:15 Produc PROBLEM" quinine Allergy Nausea & Verified 11/11/20 17:15 Vomiting iodine AdvReac Unknown "KIDNEY Verified 11/11/20 17:15 PROBLEM" Physical Exam Vitals: Vital Signs Temp Pulse Pulse Resp BP BP Pulse Ox 11/12/20 08:00 87 16 117/57 11/12/20 04:00 88.9 F L 63 18 125/58 99 11/12/20 02:00 54 L 16 11/11/20 23:23 53 L 16 139/75 98 11/11/20 21:00 54 L 16 141/74 98 11/11/20 20:12 97.5 F L 57 L 18 147/61 99 11/11/20 20:00 54 L 18 116/53 98 11/11/20 19:00 77 16 150/70 99 11/11/20 18:19 53 L 16 126/67 99 11/11/20 15:20 97.5 F L 59 L 16 122/77 98 11/11/20 15:03 54 L 18 128/68 98 Intake and Output 11/11/20 11/12/20 11/12/20 22:59 06:59 14:59 Other: Voiding Method Diaper Diaper # Voids 1 Weight 99.79 kg Results CBC & Chem 7: 11/12/20 11:10 11/12/20 11:10 Labs: Abnormal Lab Results - Last 24 Hours (Table) 11/11/20 11/11/20 11/11/20 Range/Units 15:39 15:39 15:39 WBC 1.9 L (3.8-10.6) k/uL RBC 3.02 L (3.80-5.40) m/uL Hgb 10.3 L (11.4-16.0) gm/dL Hct 30.1 L (34.0-46.0) % RDW 21.4 H (11.5-15.5) % Plt Count 12 L* D (150-450) k/uL Lymphocytes # 0.2 L (1.0-4.8) k/uL APTT 33.3 H (22.0-30.0) sec Sodium (137-145) mmol/L Potassium (3.5-5.1) mmol/L BUN (7-17) mg/dL Creatinine (0.52-1.04) mg/dL Glucose (74-99) mg/dL POC Glucose (mg/dL) (75-99) mg/dL Calcium (8.4-10.2) mg/dL AST (14-36) U/L ALT (4-34) U/L Urine Appearance Cloudy H (Clear) Urine pH 8.5 H (5.0-8.0) Urine Protein Trace H (Negative) Urine Mucus Rare H (None) /hpf 11/11/20 11/11/20 11/11/20 Range/Units 15:39 16:19 18:00 WBC (3.8-10.6) k/uL RBC (3.80-5.40) m/uL Hgb (11.4-16.0) gm/dL Hct (34.0-46.0) % RDW (11.5-15.5) % Plt Count (150-450) k/uL Lymphocytes # (1.0-4.8) k/uL APTT (22.0-30.0) sec Sodium 136 L (137-145) mmol/L Potassium 6.2 H* 5.2 H (3.5-5.1) mmol/L BUN 20 H (7-17) mg/dL Creatinine <0.15 L (0.52-1.04) mg/dL Glucose 137 H (74-99) mg/dL POC Glucose (mg/dL) 147 H (75-99) mg/dL Calcium 10.3 H (8.4-10.2) mg/dL AST 77 H (14-36) U/L ALT 64 H (4-34) U/L Urine Appearance (Clear) Urine pH (5.0-8.0) Urine Protein (Negative) Urine Mucus (None) /hpf Microbiology - Last 24 Hours (Table) 11/11/20 15:30 Blood Culture - Final Blood
[2020-11-13] MEDS ORDERED: ACYCLOVIR SODIUM 1,000 MG in SODIUM CHLORIDE 0.9% 250 ML IVPB SCH ×2
[2020-11-13 03:48] LABS: Glucose,Whole Blood 79 mg/dL (75-99)
[2020-11-13] MEDS ORDERED: LORazepam 2 MG/ML INJ IV PRN (06:04)
[2020-11-13] MEDS ORDERED: HYDROmorphone 0.5 MG/0.5 ML SYRINGE IVP PRN (06:04)
[2020-11-13] MEDS ORDERED: SCOPOLAMINE 1.5MG/72HR PATCH TRANSDERM SCH (06:30)
[2020-11-13] MEDS ORDERED: LEVOTHYROXINE 112 MCG TAB PO SCH (06:30)
[2020-11-13] MEDS ORDERED: ATROPINE OPHTH SOLN 1% 5ML BTL SUBLINGUAL PRN (06:30)
[2020-11-13] MEDS ORDERED: VANCOMYCIN 1,500 MG in SODIUM CHLORIDE 0.9% 250 ML IVPB SCH (07:00)
[2020-11-13 08:14] VITALS: TEMP 97.3
[2020-11-13 08:27] LABS: Albumin 3.1 g/dL (3.5-5.0); Calcium 9.1 mg/dL (8.4-10.2); Sodium 142 mmol/L (137-145); Total Bilirubin 0.8 mg/dL (0.2-1.3)
[2020-11-13 08:42] LABS: ALT 56 U/L (4-34); AST 75 U/L (14-36); Alkaline Phosphatase 102 U/L (38-126); Anion Gap 9 mmol/L; Blood Urea Nitrogen 16 mg/dL (7-17); Carbon Dioxide 21 mmol/L (22-30); Chloride 112 mmol/L (98-107); Glucose 159 mg/dL (74-99); Total Protein 6.2 g/dL (6.3-8.2)
[2020-11-13 08:45] LABS: African American GFR (CKD) >90 (>60 ml/min/1.73 sqM); Anisocytosis Moderate; Basophils % (A) 0 %; Eosinophils % (A) 0 %; HGB 9.4 gm/dL (11.4-16.0); Hypochromasia Slight; Lymphocytes # (A) 0.2 k/uL (1.0-4.8); Lymphocytes % (A) 6 %; MCH 33.8 pg (25.0-35.0); MCHC 33.4 g/dL (31.0-37.0); MCV 101.2 fL (80.0-100.0); Mean Platelet Volume 10.5; Monocytes # (A) 0.2 k/uL (0-1.0); Monocytes % (A) 5 %; Neutrophils # (A) 3.5 k/uL (1.3-7.7); Neutrophils % (A) 87 %; Non-African American GFR(CKD) >90 (>60 ml/min/1.73 sqM); Poikilocytosis Marked; RBC 2.77 m/uL (3.80-5.40); RDW 21.2 % (11.5-15.5)
[2020-11-13 08:51] LABS: Macrocytosis Marked
[2020-11-13 08:52] LABS: Platelet Count 26 k/uL (150-450)
[2020-11-13 10:51] LABS: C Reactive Protein 13.7 mg/dL (<1.0)
--- NOTE | 2020-11-13 12:20 | P.PN ---
Subjective Progress Note Date: 11/13/20 HISTORY OF PRESENT ILLNESS This is a 60-year-old female patient of Dr. Dooley who presents with change in mental status for past 4 days. 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 Espinal at [place] contact information for number [phone], ITP last IVIG treatment past Wednesday, history of anxiety, hypertension, hypothyroidism. Patient has been wheelchair bound for more than 30 years. She was diagnosed with multifocal neuropathy since she was 17. She is unable to feed herself for the past 5 years. Patient is financially independent until 2 months ago when she was hospitalized. Patient was appointed a guardian, Odilia who is patient's niece, a month ago Patient was last hospitalized from 09/19 to 10/06 for hallucination and paranoid attacks for the 1 week. During that hospitalization, patient was noted to be hypothermic, checks x-ray was concerning for an infiltrate in the lung, urine analysis on admission was negative but since patient had a urine catheter she was diagnosed with CAUTI and was treated with 2 weeks of IV antibiotics. CT head was done that was negative for intracranial hemorrhage. MRI during that admission find mild diffuse white matter changes, parietal lobe was noted to have some encephalomalacia which was later conceded to be artifact for neurology. Patient had 2 EEG completed that suggested moderate to severe encephalopathy or diffuse structural brain abnormality. No epileptiform activity was noted. Neurology concerned about autoimmune limbic encephalitis with possible toxic metabolic encephalopathy. She was started on oral vimpat during last hospitalization. And was recommended to have a prolonged EEG and lumbar puncture if continues to have paranoia and hallucinations. Patient was also noted to have a new onset anemia, EGD and colonoscopy was recommended but patient refused during that hospitalization. Since patient's mental status improved patient was not transferred to [facility] and was discharged home. Ativan was reduced from 2 mg 3 times a day to 1 mg twice a day and Vimpat was initiated. Gabapentin was discontinued. Patient comes this time with change in mental status for 4 days. Patient is under care of [facility] provides 24 hours care. Care has noted patient yelling same word" ok" and not taking any meaningful conversation. She had poor oral intake and not been following commands. Vital were reviewed and patient was noted to have a temp of 88.8 rectally, pulse 59 and respiratory rate 16 blood pressure 122/77. The beer hugger was placed. CT of the head was negative for acute intracranial process. Chest x-ray was suggestive of left pleural effusion and pleural reaction that is mostly cleared compared to the old exam. Urinalysis was negative for infection labs are reviewed patient has a leukocytosis of 1.9 hemoglobin 10.3 platelets 12,000 sodium 136 potassium 6.1 admission improved to 5.2 calcium of 10.3 AST 77 ALT 64. COVID-19 was negative. IV fluids to be continued at 75 mL per hour. Patient was initiated on Vimpat 100 mg twice a day by neurology. Hyperkalemia was treated with calcium gluconate and bicarbonate. Patient received a bolus of 500 mL in the ER. Hold patient's Ativan, Ambien, levothyroxine. Repeat labs including TSH lactic acid prolactin is ordered. Dr. Hudson consulted for thrombocytopenia and ITP. Dr. Summers consulted for encephalopathy. 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 [facility] has accepted the patient but it is a 4 to five-day wait for bed. Patient had episode of 8 second pause of systole last evening and then she was bradycardic in the 20s and 30s. Patient's guardian was contacted and it was decided the patient would be made comfort care versus doing aggressive treatment. Patient is seen this morning is an awake and oriented to person and place. She is agreeable to plan for comfort care and hospice. perianesthesia manager has contacted [facility]. Patient's guardian is at bedside and states that patient has 24-hour care but nighttime care is not reliable and there are safety concerns. She will discussed discharge planning with the rest of the family and developed plan. Patient is followed by [employer] and also by [facility]. REVIEW OF SYSTEMS Unable to obtain from patient. PHYSICAL EXAMINATION Gen: This is a obese 60-year-old female. She is resting in bed and appears to be comfortable. HEENT: Head is atraumatic, normocephalic. Pupils equal, round. Sclerae is anicteric. NECK: Supple. No JVD. No lymphadenopathy. No thyromegaly. LUNGS: Decreased air entry bilaterally. No wheezes, no rhonchi. No intercostal retractions. HEART: Regular rate and rhythm. No murmur. ABDOMEN: Soft. Bowel sounds are present. No masses. No tenderness. EXTREMITIES: No pedal edema. No calf tenderness. NEUROLOGICAL: Patient is awake, oriented to person and place. ASSESSMENT AND PLAN 1. Acute metabolic encephalopathy. Previous EEG moderate to severe encephalopathy. No epileptiform episodes not noted. Hold Ativan, hold Ambien. Urinalysis negative for infection Continue IV fluidsKVOest x-ray negative for any pneumonia. Neurology consulted 2. ITP with thrombocytopenia last IVIG on 11/[address] Hudson as outpatient. 3. Leukopenia with hypothermia. Rule out infection. Dr. Lopez consulted 4. Hypothermia continues to remain hypothermic unknown etiology. 5. Hyperkalemia with hypo-natremia status for calcium gluconate. 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 Uses wheelchair for the last 30 years. Patient needed help for feeding for the past 5 years 7. Hypothyroidism on Synthyroid 112 g daily. 8. Generalized annxiety disorder. Continue on BuSpar 7.5 twice a day hold BuSpar. 9. Anemia of chronic disease no clear source of anemia. 10. Acute transaminitis liver spleen and pancreas were normal on CT abdomen 11. DVT prophylaxis thrombocytopenic 12. GI prophylaxis Pepcid 20 IV twice a day CODE STATUS: NO CODE DISCHARGE PLAN Hospice consult. Impression and plan of care have been directed as dictated by the signing physician. Emmie Vega nurse practitioner acting as scribe for signing physician. Objective - Vital Signs Vital signs: Vital Signs Temp 97.3 F L 11/13/20 08:14 Pulse 115 H 11/13/20 08:14 Resp 16 11/13/20 08:14 BP 107/53 11/13/20 08:14 Pulse Ox 95 11/13/20 05:02 Intake & Output 11/12/20 11/13/20 11/13/20 18:59 06:59 18:59 Intake Total 650 0 Output Total 755 350 Balance -105 -350 0 Weight 99.79 kg 95 kg Intake: Intake, IV Titration 650 Amount Lacosamide IV 100 mg In 50 Sodium Chloride 0.9% 50 ml @ 100 mls/hr IVPB BID HAY Rx#:[id number] Sodium Chloride 0.9% 1, 600 000 ml @ 75 mls/hr IV . [id number] HAY Rx#:[id number] Oral 0 Output: Urine 755 350 Other: Voiding Method Diaper Indwelling Catheter # Voids 0 # Bowel Movements 0 - Labs CBC & Chem 7: 11/13/20 07:27 11/13/20 07:27 Labs: Abnormal Lab Results - Last 24 Hours (Table) 11/12/20 11/12/20 11/12/20 Range/Units 11:10 11:10 11:10 WBC 2.2 L (3.8-10.6) k/uL RBC 2.62 L (3.80-5.40) m/uL Hgb 9.2 L (11.4-16.0) gm/dL Hct 26.0 L (34.0-46.0) % MCV (80.0-100.0) fL MCH 35.3 H (25.0-35.0) pg RDW 20.6 H (11.5-15.5) % Plt Count 18 L* (150-450) k/uL Lymphocytes # 0.2 L (1.0-4.8) k/uL Pathologist Review See comment A Macrocytosis Potassium (3.5-5.1) mmol/L Chloride 109 H (98-107) mmol/L Carbon Dioxide 21 L (22-30) mmol/L Creatinine <0.15 L (0.52-1.04) mg/dL Glucose (74-99) mg/dL Plasma Lactic Acid Kuldeep 0.6 L (0.7-2.0) mmol/L AST 98 H (14-36) U/L ALT 62 H (4-34) U/L C-Reactive Protein (<1.0) mg/dL Total Protein (6.3-8.2) g/dL Albumin 3.3 L (3.5-5.0) g/dL Procalcitonin (0.02-0.09) ng/mL 11/12/20 11/12/20 11/13/20 Range/Units Unknown Unknown 07:27 WBC (3.8-10.6) k/uL RBC 2.77 L (3.80-5.40) m/uL Hgb 9.4 L (11.4-16.0) gm/dL Hct 28.0 L (34.0-46.0) % MCV 101.2 H (80.0-100.0) fL MCH (25.0-35.0) pg RDW 21.2 H (11.5-15.5) % Plt Count 26 L (150-450) k/uL Lymphocytes # 0.2 L (1.0-4.8) k/uL Pathologist Review Macrocytosis Marked A Potassium (3.5-5.1) mmol/L Chloride (98-107) mmol/L Carbon Dioxide (22-30) mmol/L Creatinine (0.52-1.04) mg/dL Glucose (74-99) mg/dL Plasma Lactic Acid Kuldeep (0.7-2.0) mmol/L AST (14-36) U/L ALT (4-34) U/L C-Reactive Protein 7.4 H (<1.0) mg/dL Total Protein (6.3-8.2) g/dL Albumin (3.5-5.0) g/dL Procalcitonin 0.16 H (0.02-0.09) ng/mL 11/13/20 Range/Units 07:27 WBC (3.8-10.6) k/uL RBC (3.80-5.40) m/uL Hgb (11.4-16.0) gm/dL Hct (34.0-46.0) % MCV (80.0-100.0) fL MCH (25.0-35.0) pg RDW (11.5-15.5) % Plt Count (150-450) k/uL Lymphocytes # (1.0-4.8) k/uL Pathologist Review Macrocytosis Potassium 3.0 L (3.5-5.1) mmol/L Chloride 112 H (98-107) mmol/L Carbon Dioxide 21 L (22-30) mmol/L Creatinine <0.15 L (0.52-1.04) mg/dL Glucose 159 H (74-99) mg/dL Plasma Lactic Acid Kuldeep (0.7-2.0) mmol/L AST 75 H (14-36) U/L ALT 56 H (4-34) U/L C-Reactive Protein (<1.0) mg/dL Total Protein 6.2 L (6.3-8.2) g/dL Albumin 3.1 L (3.5-5.0) g/dL Procalcitonin (0.02-0.09) ng/mL Microbiology - Last 24 Hours (Table) 11/11/20 15:30 Blood Culture Gram Stain - Preliminary Blood Blood Culture - Preliminary Staphylococcus epidermidis 11/11/20 15:30 Blood Culture - Final Blood
[2020-11-13 15:45] VITALS: BMI 30.9
[2020-11-13 15:54] LABS: Urine Alcohol Negative (Negative); Urine Barbiturate Negative (Negative); Urine Cocaine Negative (Negative); Urine Methadone Negative (Negative); Urine Opiates Negative (Negative); Urine Phencyclidine Negative (Negative)
[2020-11-13 18:10] LABS: HSV I IgG Interp POSITIVE (NEGATIVE); HSV II IgG Interp POSITIVE (NEGATIVE)
--- NOTE | 2020-11-13 19:10 | P.PN ---
Subjective Progress Note Date: 11/13/20 Principal diagnosis: altered mental status, sepsis, thrombocytopenia In follow-up today patient remains unresponsive to questions, she does withdraw from painful stimuli. Her niece is at the bedside Objective - Vital Signs Vital signs: Vital Signs Temp 97.3 F L 11/13/20 08:14 Pulse 87 11/13/20 12:46 Resp 16 11/13/20 14:00 BP 110/55 11/13/20 12:46 Pulse Ox 95 11/13/20 05:02 Intake & Output 11/13/20 11/13/20 11/14/20 06:59 18:59 06:59 Intake Total 0 Output Total 350 400 Balance -350 -400 Weight 95 kg 95 kg Intake: Oral 0 Output: Urine 350 400 Other: Voiding Method Indwelling Catheter Indwelling Catheter # Voids 0 # Bowel Movements 0 - Exam well-developed, overweight, paraplegic, not verbally responsive, appears comfortable, no acute distress, no longer needing bear hugger, respirations are even and unlabored - Labs CBC & Chem 7: 11/13/20 07:27 11/13/20 07:27 Labs: Abnormal Lab Results - Last 24 Hours (Table) 11/12/20 11/12/20 11/13/20 Range/Units Unknown Unknown 07:27 RBC 2.77 L (3.80-5.40) m/uL Hgb 9.4 L (11.4-16.0) gm/dL Hct 28.0 L (34.0-46.0) % MCV 101.2 H (80.0-100.0) fL RDW 21.2 H (11.5-15.5) % Plt Count 26 L (150-450) k/uL Lymphocytes # 0.2 L (1.0-4.8) k/uL Macrocytosis Marked A Potassium (3.5-5.1) mmol/L Chloride (98-107) mmol/L Carbon Dioxide (22-30) mmol/L Creatinine (0.52-1.04) mg/dL Glucose (74-99) mg/dL AST (14-36) U/L ALT (4-34) U/L C-Reactive Protein 7.4 H (<1.0) mg/dL Total Protein (6.3-8.2) g/dL Albumin (3.5-5.0) g/dL Procalcitonin 0.16 H (0.02-0.09) ng/mL HSV I IgG Interpret (NEGATIVE) HSV II IgG Interpret (NEGATIVE) 11/13/20 11/13/20 Range/Units 07:27 07:27 RBC (3.80-5.40) m/uL Hgb (11.4-16.0) gm/dL Hct (34.0-46.0) % MCV (80.0-100.0) fL RDW (11.5-15.5) % Plt Count (150-450) k/uL Lymphocytes # (1.0-4.8) k/uL Macrocytosis Potassium 3.0 L (3.5-5.1) mmol/L Chloride 112 H (98-107) mmol/L Carbon Dioxide 21 L (22-30) mmol/L Creatinine <0.15 L (0.52-1.04) mg/dL Glucose 159 H (74-99) mg/dL AST 75 H (14-36) U/L ALT 56 H (4-34) U/L C-Reactive Protein 13.7 H (<1.0) mg/dL Total Protein 6.2 L (6.3-8.2) g/dL Albumin 3.1 L (3.5-5.0) g/dL Procalcitonin (0.02-0.09) ng/mL HSV I IgG Interpret POSITIVE A (NEGATIVE) HSV II IgG Interpret POSITIVE A (NEGATIVE) Microbiology - Last 24 Hours (Table) 11/11/20 15:30 Blood Culture Gram Stain - Preliminary Blood Blood Culture - Preliminary Staphylococcus epidermidis Assessment and Plan (1) Chronic ITP (idiopathic thrombocytopenic purpura) Narrative/Plan: Plt up to 26,000, anticipated acute drop secondary to infection. Patient has been receiving antibiotics since admission, blood cultures are growing staph epi. No evidence of bleeding seen on exam, Hgb remains stable. There has been change in plan of care based on family's understanding of patient wishes. They are considering hospice care at this time. I spent about 35 minutes talking with the patient's niece about more frequent infections, recurrent hospitalizations and each time the pt requires a longer recovery, never really regaining her previous level of strength. She reports that patient has been telling some of her friends that she is "tired" and is "ready". I explained that currently her platelets are improving, which would be expected if they dropped to daily because of acute infection and that is being treated. Would anticipate recurrence of acute situation with pt as she is weaker with each admission. She verbalized understanding. All of her questions and concerns were addressed to the best of my ability from a Hematology standpoint. Current Visit: Yes Status: Chronic Priority: High Code(s): D69.3 - IMMUNE THROMBOCYTOPENIC PURPURA SNOMED Code(s): 10108913 Time with Patient: Greater than 30
[2020-11-13 22:16] LABS: Prolactin 7.2 ng/mL (2.8-29.2)
[2020-11-13 22:47] LABS: % Iron Saturation 50.67 (12.00-45.00)
[2020-11-14 08:27] VITALS: BP 144/63; RESP 16
--- NOTE | 2020-11-14 09:50 | P.DS ---
Providers Date of admission: 11/11/20 17:31 Expected date of discharge: 11/14/20 Attending physician: Reyes Vargas MD Consults: 11/11/20 17:32 Consult Physician Routine Consulting Provider: Tee Summers Consult Reason/Comments: AMS Do you want consulting provider notified?: Yes Consult Physician Routine Consulting Provider: Remi Hudson Consult Reason/Comments: Thrombocytopenia Do you want consulting provider notified?: Already Contacted 11/12/20 10:18 Consult Physician Routine Consulting Provider: Ann Tran Consult Reason/Comments: positive blood cultures Do you want consulting provider notified?: Yes 11/13/20 04:12 Consult Physician Routine Consulting Provider: Erick Hernandez Consult Reason/Comments: bradycardia and long pause. Do you want consulting provider notified?: Yes Primary care physician: Christiano Dooley [facility] Course: HISTORY OF PRESENT ILLNESS This is a 60-year-old female patient of Dr. Dooley who presents with change in mental status for past 4 days. 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 Espinal at [place] contact information for number [phone], ITP last IVIG treatment past Wednesday, history of anxiety, hypertension, hypothyroidism. Patient has been wheelchair bound for more than 30 years. She was diagnosed with multifocal neuropathy sin ce she was 17. She is unable to feed herself for the past 5 years. Patient is financially independent until 2 months ago when she was hospitalized. Patient was appointed a guardian, Odilia who is patient's niece, a month ago Patient was last hospitalized from 09/19 to 10/06 for hallucination and paranoid attacks for the 1 week. During that hospitalization, patient was noted to be hypothermic, checks x-ray was concerning for an infiltrate in the lung, urine analysis on admission was negative but since patient had a urine catheter she was diagnosed with CAUTI and was treated with 2 weeks of IV antibiotics. CT head was done that was negative for intracranial hemorrhage. MRI during that admission find mild diffuse white matter changes, parietal lobe was noted to have some encephalomalacia which was later conceded to be artifact for neurology. Patient had 2 EEG completed that suggested moderate to severe encephalopathy or diffuse structural brain abnormality. No epileptiform activity was noted. Neurology concerned about autoimmune limbic encephalitis with possible toxic metabolic encephalopathy. She was started on oral vimpat during last hospitalization. And was recommended to have a prolonged EEG and lumbar puncture if continues to have paranoia and hallucinations. Patient was also noted to have a new onset anemia, EGD and colonoscopy was recommended but patient refused during that hospitalization. Since patient's mental status improved patient was not transferred to [facility] and was discharged home. Ativan was reduced from 2 mg 3 times a day to 1 mg twice a day and Vimpat was initiated. Gabapentin was discontinued. Patient comes this time with change in mental status for 4 days. Patient is under care of [facility] provides 24 hours care. Care has noted patient yelling same word" ok" and not taking any meaningful conversation. She had poor oral intake and not been following commands. Vital were reviewed and patient was noted to have a temp of 88.8 rectally, pulse 59 and respiratory rate 16 blood pressure 122/77. The beer hugger was placed. CT of the head was negative for acute intracranial process. Chest x-ray was suggestive of left pleural effusion and pleural reaction that is mostly cleared compared to the old exam. Urinalysis was negative for infection labs are reviewed patient has a leukocytosis of 1.9 hemoglobin 10.3 platelets 12,000 sodium 136 potassium 6.1 admission improved to 5.2 calcium of 10.3 AST 77 ALT 64. COVID-19 was negative. IV fluids to be continued at 75 mL per hour. Patient was initiated on Vimpat 100 mg twice a day by neurology. Hyperkalemia was treated with calcium gluconate and bicarbonate. Patient received a bolus of 500 mL in the ER. Hold patient's Ativan, Ambien, levothyroxine. Repeat labs including TSH lactic acid prolactin is ordered. Dr. Hudson consulted for thrombocytopenia and ITP. Dr. Summers consulted for encephalopathy. 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 [facility] has accepted the patient but it is a 4 to five-day wait for bed. Patient had episode of 8 second pause of systole last evening and then she was bradycardic in the 20s and 30s. Patient's guardian was contacted and it was decided the patient would be made comfort care versus doing aggressive treatment. Patient is seen this morning is an awake and oriented to person and place. She is agreeable to plan for comfort care and hospice. country manager has contacted [facility]. Patient's guardian is at bedside and states that patient has 24-hour care but nighttime care is not reliable and there are safety concerns. She will discussed discharge planning with the rest of the family and developed plan. Patient is followed by employment case manager and also by [facility]. 11/14: Patient has been afebrile, heart rate 70s and 80s, blood pressure 130/58, pulse ox 97% on room air. Blood culture shows Staphylococcus epidermidis most likely contamination.arrangements have been made for patient have 24-hour care at home and hospice care. Patient is awake, nods her head, no verbalization. Patient will be discharged once arrangements are completed. ASSESSMENT AND PLAN 1. Acute metabolic encephalopathy. 2. ITP with thrombocytopenia last IVIG on 11/07. 3. Leukopenia with hypothermia. 4. Hypothermia 5. Hyperkalemia with hypo-natremia status for calcium gluconate. 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 7. Hypothyroidism 8. Generalized annxiety disorder. 9. Anemia of chronic disease 10. Acute transaminitis l DISCHARGE PLAN Home with Hospice Impression and plan of care have been directed as dictated by the signing physician. Emmie Vega nurse practitioner acting as scribe for signing physician. Patient Condition at Discharge: Stable Plan - Discharge Summary Discharge Rx Participant: Yes New Discharge Prescriptions: New Atropine Ophth Soln 1% 5Ml [Isopto Atropine 1% 5Ml] 2 drops SUBLINGUAL Q4HR PRN ml PRN Reason: Excess Secretions Scopolamine 1.5MG/72Hr Patch [TransDerm Scop] 1 patch TRANSDERM Q72H patch Continue LORazepam [Ativan] 2 mg PO TID PRN PRN Reason: Anxiety Hydrocortisone Cream [Hydrocortisone 2.5% Cream] 1 applic TOPICAL BID PRN PRN Reason: Rash Discontinued Montelukast [Singulair] 10 mg PO HS Potassium Bicarbonate/Cit AC [Klor-Con 25 (Effer. Tab)] 50 meq PO TID-W/MEALS amLODIPine [Norvasc] 5 mg PO W/BRKFST Potassium Chloride [Klor-Con 20] 20 meq PO BID-W/MEALS Ferrous Sulfate [Iron (65 MG Elemental)] 325 mg PO W/SUPPER Ergocalciferol [Vitamin D2 (1250 Mcg = 81341 Iu)] 1,250 mcg PO FR calcitrioL [Calcitriol] 0.25 mcg PO MO Biotin 10,000 mcg PO W/BRKFST Melatonin 1 mg PO HS Famotidine [Pepcid] 20 mg PO HS Thiamine [Vitamin B-1] 100 mg PO BID-W/MEALS Gamunex-C 5gm/50ml 15 gm IV Q28D atenoloL [Tenormin] 100 mg PO HS #30 tab Zolpidem Tartrate [Zolpidem Tartrate SL] 3.5 mg SL HS PRN PRN Reason: Insomnia Lactobacillus Acidoph & Bulgar [Lactinex] 1 tab PO BID Docusate [Colace] 100 mg PO BID PRN PRN Reason: Constipation busPIRone HCL [Buspar] 7.5 mg PO BID PRN PRN Reason: Anxiety Levothyroxine Sodium [Tirosint] 112 mcg PO DAILY Sodium Bicarbonate Tab 650 mg PO BID-W/MEALS Vitamin A Acetate [Vitamin A] 10,000 unit SL W/BRKFST Cranberry 25,000mg 25,000 mg PO W/BRKFST Vitamin E Acetate [Vitamin E] 200 unit PO W/LUNCH Calcium Carbonate [Calcium] 600 mg PO W/LUNCH Magnesium Gluconate [Magonate] 500 mg PO W/LUNCH Ascorbic Acid [Vitamin C] 500 mg PO W/SUPPER Discharge Medication List Hydrocortisone Cream [Hydrocortisone 2.5% Cream] 1 applic TOPICAL BID PRN 11/11/20 [History] LORazepam [Ativan] 2 mg PO TID PRN 11/11/20 [History] Atropine Ophth Soln 1% 5Ml [Isopto Atropine 1% 5Ml] 2 drops SUBLINGUAL Q4HR PRN ml 11/14/20 [Rx] Scopolamine 1.5MG/72Hr Patch [TransDerm Scop] 1 patch TRANSDERM Q72H patch 11/14/20 [Rx] Follow up Appointment(s)/Referral(s): Kenton Ghosh [NON-STAFF] - 11/14/20 3:00 pm Christiano Dooley MD [Primary Care Provider] - 1-2 days Activity/Diet/Wound Care/Special Instructions: Ambulance transport home is scheduled for 2:30PM on 11/14/20 by Kentonhailey Ghosh. Discharge Disposition: HOME WITH HOSPICE
[2020-11-14 12:36] VITALS: PULSE 81
--- NOTE | 2020-12-04 08:53 | CDI ---
Documentation Clarification Form Date: From: Anushka Doss Admit Date: 11/11/2020 05:31:00 PM Patient Name: Nicolette Angel Visit Number: [id number] Discharge Date: 11/14/2020 03:35:00 PM ATTENTION: The Clinical Documentation Specialists (CDI) and [facility] Coding Staff appreciate your assistance in clarifying documentation. Please respond to the clarification below the line at the bottom and electronically sign. The CDI & [facility] Coding staff will review the response and follow-up if needed. Please note: Queries are made part of the Legal Health Record. If you have any questions, please contact the author of this message via ITS. Dr. Reyes Vargas, The patient presented with the following clinical indicators. Additional clarification regarding the etiology/cause of the clinical indicators is requested. History/Risk Factors: ITP, hyponatremia, pancytopenia, multifocal autoimmune neuropathy, metabolic encephalopathy, HTN, hypothyroidism, feeding issues, wheelchair bound Clinical Indicators: Metabolic encephalopathy, ITP WBC: 1.9 Lactic acid: 0.9, 0.6 Blood cultures: Staphylococcus epidermidis Vitals signs: T 97.5, P 54, R 18, BP 128/68, O2 sat 98 RA Treatment: IV fluids, IV Vanco, IV Rocephin. Vanco stopped 11/13. Rocephin stopped 11/13. ID Consult: No fever on admission, hypotheremia, no obvious infection, CXR negative, urine negative and no evidence of cellulitis. Positive blood culture with gram-positive cocci questionable skin contaminant. In your professional opinion, please clarify if these findings signify one of the following conditions: [ ] Sepsis POA [ ] Sepsis, Not POA [X ] Sepsis ruled out [ ] SIRS, without underlying infectious process [ ] Other, please specify [ ] Unable to determine SIRS Criteria: 2 or more of the following may indicate SIRS -Temperature < 96.8F (36C) or > 101.0F (38.3C) -Heart Rate > 90 bpm -Respiratory Rate > 20 breaths/min or PaCO2 < 32 mmHg -White Blood Cell Count > 12,000 or < 4,000 cells/mm3 or > 10% bands MTDD
--- NOTE | 2020-12-04 09:09 | CDI ---
Documentation Clarification Form Date: 12/04/20 From: Anushka Doss Admit Date: 11/11/2020 05:31:00 PM Patient Name: Nicolette Angel Visit Number: [id number] Discharge Date: 11/14/2020 03:35:00 PM ATTENTION: The Clinical Documentation Specialists (CDI) and [facility] Coding Staff appreciate your assistance in clarifying documentation. Please respond to the clarification below the line at the bottom and electronically sign. The CDI & [facility] Coding staff will review the response and follow-up if needed. Please note: Queries are made part of the Legal Health Record. If you have any questions, please contact the author of this message via ITS. Dr. Reyes Vargas, Conflicting documentation has been found in the medical record. As attending physician, please provide clarification. 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
== END 2020-11-14 15:35 | disposition hospice, home (50) | DRG 71 ==
LOC: EC 15:02 → 3SCARD 17:31
PROVIDERS: ADMIT Internal Medicine; ATTEND Internal Medicine
DX: G93.41 Metabolic encephalopathy (principal); D69.3 Immune thrombocytopenic purpura; E87.1 Hypo-osmolality and hyponatremia; D61.818 Other pancytopenia; G61.82 Multifocal motor neuropathy; D63.8 Anemia in other chronic diseases classified elsewhere; G82.20 Paraplegia, unspecified; G70.9 Myoneural disorder, unspecified; Z51.5 Encounter for palliative care; Z20.822 Contact with and (suspected) exposure to COVID-19; E87.5 Hyperkalemia; E03.9 Hypothyroidism, unspecified; F41.1 Generalized anxiety disorder; I10 Essential (primary) hypertension; R63.3 Feeding difficulties; R74.01 Elevation of levels of liver transaminase levels; R68.0 Hypothermia, not associated with low environmental temperature; R00.1 Bradycardia, unspecified; G93.89 Other specified disorders of brain; E66.3 Overweight; Z68.30 Body mass index [BMI] 30.0-30.9, adult; Z79.890 Hormone replacement therapy; Z79.899 Other long term (current) drug therapy; Z87.39 Personal history of other diseases of the musculoskeletal system and connective tissue; Z74.01 Bed confinement status; Z87.440 Personal history of urinary (tract) infections; Z99.3 Dependence on wheelchair; Z86.19 Personal history of other infectious and parasitic diseases; Z86.69 Personal history of other diseases of the nervous system and sense organs; Z86.73 Personal history of transient ischemic attack (TIA), and cerebral infarction without residual deficits; Z98.890 Other specified postprocedural states; Z71.3 Dietary counseling and surveillance; Z88.5 Allergy status to narcotic agent; Z88.8 Allergy status to other drugs, medicaments and biological substances; Z91.041 Radiographic dye allergy status
CPT/HCPCS: 36415; 70450; 71045; 80053; 80306; 81001; 82140; 82550; 83540; 83550; 83605; 83735; 84132; 84145; 84146; 84443; 84484; 85025; 85610; 85730; 86140; 86695; 86696; 87040; 87635; 93005; 96360; 99285